=== PATIENT | male | born 1995 | race Caucasian/White ===

== ENCOUNTER 2019-12-30 15:17 | Inpatient (IN) | payer MEDICARE, SELFPAY ==
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
[2019-12-30 15:33] VITALS: BP 150/102; PULSE 86; RESP 18; TEMP 37; O2SAT 99; BMI 29.8
[2019-12-30 15:40] VITALS: BP 150/102; PULSE 86; RESP 18; TEMP 37; O2SAT 99
--- NOTE | 2019-12-30 15:55 | ED.PSYCH ---
HPI - Psych General Chief Complaint: Psychiatric Symptoms Stated Complaint: SI/HI Time Seen by Provider: 12/30/19 15:55 Source: patient, EMS and old records reviewed Limitations: other (agitated, delusional ) History of Present Illness MD complaint: anxiety and hallucinations Onset (ago): day(s) (few) Duration: constant History of same: Yes Exacerbating factors: none Context: not taking psychiatric medications Associated psychiatric symptoms: depression, racing thoughts, auditory hallucinations and delusions Associated symptoms: denies other symptoms Treatments prior to arrival: placed on mental health hold and other (already bed search) Related Data Allergies Allergy/AdvReac Type Severity Reaction Status Date / Time mold [MOLD] Allergy Unknown UNKNOWN Verified 12/30/19 16:01 paliperidone [From Invega] Allergy Unknown Verified 12/30/19 16:01 amoxicillin [AMOXICILLIN] AdvReac Severe ANAPHYLAXIS Verified 12/30/19 16:01 azithromycin [AZITHROMYCIN] AdvReac Severe ANAPHYLAXIS Verified 12/30/19 16:01 Review of Systems Review of Systems: ROS unable to be obtained due to agitation and patient very difficult to follow given delusions and rapid speech PMFSH Past Medical History Source: old records reviewed Medical History Anxiety HTN (hypertension) Schizophrenia Tinnitus Social History Social History Alcohol intake: unknown Smoking Status: Unknown if ever smoked Use of substances other than those prescribed or required for medical reasons: Unknown Advance Directives: No Advance Directives Information Provided: Yes Physical Exam Vital Signs: Vital Signs: Last Vital Signs Temp 98.6 F 12/30/19 15:40 Pulse 86 12/30/19 15:40 Resp 18 12/30/19 15:40 BP 150/102 H 12/30/19 15:40 Pulse Ox 99 12/30/19 15:40 Body Mass Index 29.8 Appearance: Alert. Oriented X3. agitated, loud speech, paranoid mild acute distress. Eyes: Pupils equal, round and reactive to light. ENT: Pharynx normal. Neck: Normal inspection. Neck supple. CVS: Normal heart rate and rhythm. Pulses normal. Respiratory: No respiratory distress. Abdomen: Soft and nontender. Skin: Skin warm and dry. Normal skin color. Normal skin turgor. Extremities: No lower extremity edema. No calf ttp Neuro: Oriented X 3. No motor deficit. No sensory deficit. could not participate in exam very paranoid but no deficitis Psych: + auditory hallucinations, + delusions, no SI/HI MDM - Psych MDM Narrative Medical decision making narrative: 24 yo male with schizophrenia here with delusions and paranoia - wants PRN ativan for anxiety, labs ordered, already a section 12 bedsearch, signed out to oncoming provider Restraints Face to Face Assessment: [] Discharge Plan Discharge Clinical Impression: Schizophrenia
--- NOTE | 2019-12-30 15:56 | PC.NURSE ---
cooperative with change person. hyper verbal, delusional. I want to file a malpractice suit against the hospital. Elizabeth coming from the [facility] as a chemical agent
[2019-12-30] MEDS: LORazepam 1 MG TABLET 2 MG PO (16:18)
--- NOTE | 2019-12-30 17:00 | PC.NURSE ---
On the phone, trying to call multiple television microsoft crm developer to file malpractice suits, Yes! My hoffman were moaning, and then they called 911 on me!
[2019-12-30 18:00] LABS: Basophils Absolute Auto 0.1 X10*3/uL (0.0-0.2); Basophils Percent Auto 0.7 % (0-2); Eosinophils Absolute Auto 0.5 X10*3/uL (0.0-0.4); Eosinophils Percent Auto 4.6 % (0-4); Hematocrit 47.7 % (42-52); Hemoglobin 15.2 g/dl (14.0-18.0); Imm Gran Abs Auto 0.02 X10*3/uL (0.00-0.03); Imm Gran Pct Auto 0.2 % (0.0-0.4); Lymphocytes Percent Auto 28.5 % (20-40); MANUAL DIFF FLAG NO; Mean Corpuscular HGB Conc 31.9 g/dl (31.0-36.0); Mean Corpuscular Hemoglobin 25.2 pg (27.0-33.0); Mean Corpuscular Volume 79.2 fL (80-98); Mean Platelet Volume 10.3 fL (9.4-12.4); Platelet Count 234 X10*3/uL (160-400); Red Blood Count 6.02 X10*6/uL (4.60-5.80); Red Cell Distribution Width 14.5 % (11.0-16.0); White Blood Count 10.6 X10*3/uL (4.8-10.8)
[2019-12-30] MEDS: Nicotine Polacrilex 2 MG GUM BUCCAL (18:02)
[2019-12-30 18:33] LABS: Ethanol < 10 mg/dL
[2019-12-30 18:36] LABS: Alanine Aminotransferase 35 U/L (0-40); Albumin Level 4.6 g/dL (3.5-5.0); Alkaline Phosphatase 87 U/L (39-117); Anion Gap 17 (12-20); Aspartate Amino Transferase 23 U/L (5-37); Bilirubin Direct 0.3 mg/dL (0.0-0.5); Bilirubin Total 0.8 mg/dL (0.0-1.0); Blood Urea Nitrogen 9 mg/dL (9-16); Calcium 9.2 mg/dL (8.4-10.2); Carbon Dioxide 23 mmol/L (22-29); Chloride 103 mmol/L (96-108); Creatinine Clr Calc Pharmacy 147.9; Estimated Glomerular Filt Rate > 60; Glucose Random 79 mg/dL (60-115); Potassium 4.1 mmol/l (3.3-5.1); Sodium 139 mmol/L (135-145); Total Protein 7.9 g/dL (6.5-8.0)
[2019-12-30 18:39] LABS: Valproate 6.7 mcg/mL (50.0-100.0)
--- NOTE | 2019-12-30 18:44 | PC.NURSE ---
Pt continues to be nonsensical, but cooperative.
[2019-12-30 19:16] LABS: Amphetamine Screen Urine Not Detected (Not Detect); Barbiturates, Urine Not Detected (Not Detect); Benzodiazepines Screen Urine POSITIVE (Not Detect); Cannabinoid Screen Urine POSITIVE (Not Detect); Cocaine Screen Urine Not Detected (Not Detect); Opiate Screen Urine Not Detected (Not Detect); Phencyclidine Screen Urine Not Detected (Not Detect)
--- NOTE | 2019-12-30 19:35 | PC.NURSE ---
Patient in hallway sitting in chair, talking to staff, denied distress, will continue to monitor.
--- NOTE | 2019-12-30 21:32 | PC.NURSE ---
Patient in bed appears sleeping, no distress observed/reported, MALCOLM and Cary called to complete medication reconciliation, per [facility] patient has not refilled Thorazine, Gabapentin, and Depakote since August 2019, will continue to monitor.
[2019-12-30 22:33] VITALS: BP 106/51; PULSE 66; RESP 16; TEMP 36.3; O2SAT 96
--- NOTE | 2019-12-30 23:30 | PC.NURSE ---
Patient in bed appears sleeping, no distress observed/reported, respiration +/=/non-labored bilaterally, will continue to monitor.
--- NOTE | 2019-12-31 02:18 | PC.NURSE ---
Patient in bed appears sleeping, no distress observed/reported, respiration +/=/non-labored bilaterally, will continue to monitor.
[2019-12-31] MEDS: LORazepam 1 MG TABLET 2 MG PO ×4 (02:39→23:35)
--- NOTE | 2019-12-31 03:03 | PC.NURSE ---
[facility] pharmacy called for third time, earlier attempts central system was down, spoke with Rito, medication list updated, patient last refilled his Thorazine 25 mg BID, Depakote [address] BID, Benztropine 1 mg BID, and Gabapentine 300 mg TID were last refilled on 09/18/2019 for a month supply. Patient psychotic at this time, tangential, little to no redirectability, PRN Ativan 2 mg administered as ordered. Will continue to monitor.
[2019-12-31 03:10] VITALS: BP 149/88; PULSE 74; RESP 17; TEMP 37; O2SAT 99
--- NOTE | 2019-12-31 04:35 | PC.NURSE ---
Patient in bed appears sleeping, no distress observed/reported, respiration +/=/non-labored bilaterally, will continue to monitor.
--- NOTE | 2019-12-31 06:27 | PC.NURSE ---
Patient out of room for bathroom use, requested another dose of ativan, patient made aware next Ativan 2 mg dose is due at at 0850 am, patient continues to presents delusional thought process, talks a lot of water boarding, parkinsonn and PTSD, Patient loud/hyperverbal/tangential but redirectable. Currently in bed sitting, will continue to monitor.
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
[2019-12-31 10:18] LABS: COVID-19 Test Negative (Negative); IDNOW Serial# 9DD0AD1C
--- NOTE | 2019-12-31 11:06 | MHC.CARE ---
Call from [facility] Behavioral Health Clinician, Kati Louie ([phone]). She would like to speak with SW assigned to him
[2019-12-31 11:36] VITALS: BP 135/81; PULSE 69; RESP 20; TEMP 36.1
--- NOTE | 2019-12-31 15:13 | PC.NURSE ---
report given to CHRIS Heller
--- NOTE | 2019-12-31 17:33 | PC.NURSE ---
Care team in to transfer pt to M5- pt cooperative w/ transfer, no concerns reported.
[2019-12-31 18:00] VITALS: BP 161/86; PULSE 75; TEMP 36.9
[2019-12-31] MEDS: Divalproex Sodium 500 MG TABLET.DR PO (19:55)
[2019-12-31] MEDS: Benztropine Mesylate 1 MG TABLET PO (19:55)
[2019-12-31] MEDS: Gabapentin 300 MG CAPSULE PO (19:55)
[2019-12-31 19:56] VITALS: BP 161/86; PULSE 75
[2019-12-31] MEDS: chlorproMAZINE HCl 25 MG TABLET PO (19:56)
[2019-12-31] MEDS: Propranolol HCL 10 MG TABLET PO (19:56)
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
[2020-01-01] MEDS: hydrOXYzine HCL 25 MG TABLET PO ×3 (00:17→23:51)
[2020-01-01 06:17] VITALS: BP 123/70; PULSE 57; RESP 16; TEMP 36.5; O2SAT 99
[2020-01-01 09:21] LABS: Estimated Average Glucose 100 mg/dL; Hemoglobin A1c % 5.1 %
[2020-01-01 09:31] LABS: Cholesterol 179 mg/dL; HDL Cholesterol 30 mg/dL; LDL Cholesterol Calculated 130 mg/dl; Triglycerides 98 mg/dL
[2020-01-01 10:34] VITALS: BP 123/70; PULSE 57
[2020-01-01] MEDS: chlorproMAZINE HCl 25 MG TABLET PO (10:34)
[2020-01-01] MEDS: Benztropine Mesylate 1 MG TABLET PO (10:34)
[2020-01-01] MEDS: Propranolol HCL 10 MG TABLET PO ×3 (10:34→21:48)
[2020-01-01] MEDS: Gabapentin 300 MG CAPSULE PO ×3 (10:34→21:47)
[2020-01-01] MEDS: Divalproex Sodium 500 MG TABLET.DR PO ×2 (10:35→21:48)
[2020-01-01] MEDS: LORazepam 1 MG TABLET 2 MG PO (10:40)
[2020-01-01] MEDS: Albuterol Sulfate 90 MCG 8 GM INHALER 2 PUFF INHALE ×3 (10:41→19:13)
[2020-01-01] MEDS: OLANZapine ODT 10 MG TAB.RAPDIS TRANSLINGU (13:35)
[2020-01-01] MEDS: LORazepam 1 MG TABLET PO ×4 (13:59→21:48)
[2020-01-01 14:56] VITALS: BP 155/88; PULSE 116
[2020-01-01 18:00] VITALS: BP 138/82; PULSE 123; TEMP 123; TEMP 50.5
[2020-01-01 21:48] VITALS: BP 138/82; PULSE 123
[2020-01-02] MEDS: Albuterol Sulfate 90 MCG 8 GM INHALER 2 PUFF INHALE ×3 (01:06→20:39)
[2020-01-02] MEDS: chlorproMAZINE HCl 25 MG TABLET 50 MG PO (01:07)
[2020-01-02] MEDS: Benztropine Mesylate 1 MG TABLET PO ×3 (01:10→20:31)
[2020-01-02] MEDS: LORazepam 1 MG TABLET PO ×6 (01:15→20:32)
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
[2020-01-02 06:35] VITALS: BP 131/68; PULSE 84; RESP 18; TEMP 36.3
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
[2020-01-02] MEDS: Propranolol HCL 10 MG TABLET PO ×2 (08:22→20:31)
[2020-01-02] MEDS: Gabapentin 300 MG CAPSULE PO ×3 (08:22→20:32)
[2020-01-02] MEDS: Divalproex Sodium 500 MG TABLET.DR PO ×2 (08:22→20:32)
[2020-01-02] MEDS: Nicotine Polacrilex 2 MG GUM BUCCAL (09:25)
[2020-01-02] MEDS: Acetaminophen 325 MG TABLET 650 MG PO (11:13)
--- NOTE | 2020-01-02 11:43 | HO.PSYCHPN ---
Subjective Subjective Date of Service: 01/02/20 Reason For Visit: psychosis Interim History: pt very psychotic and delusional; pacing in hallway; suspicious; making statements about being brought here under false pretense; illogical statements Medication Compliance: Intermittent Side effects from medications: No Attending Groups: No Review of Systems Review of Systems no changes Mental Status Exam Mental Status Exam Patient Appearance: Disheveled Patient Orientation: Person, Place, Time and Situation Patient Behavior: Talkative, Hyperactive, Restless, Belligerent, Swearing and Uncooperative Mood Description: Suspicious, Hostile and Labile Affect Description: Suspicious, Labile and Expansive Ability to Follow Directions: Fair Speech Pattern: Perseverating, Excessive, Loud and Pressured Diagnostics Vital Signs (24Hr): Vital Signs - 24 hr 01/01/20 14:56 01/01/20 18:00 01/01/20 21:48 Temperature 123 F H Pulse Rate 116 H 123 H 123 H Respiratory Rate Blood Pressure 155/88 H 138/82 138/82 01/02/20 06:35 Temperature 97.3 F Pulse Rate 84 Respiratory Rate 18 Blood Pressure 131/68 Body Mass Index 29.8 Labs Results: 12/30/19 17:52 12/30/19 17:52 Labs: Laboratory Results - last 48 hr 01/01/20 01/01/20 08:21 08:22 Estimat Average Glucose 100 Hemoglobin A1c % 5.1 Triglycerides 98 Cholesterol 179 LDL Cholesterol, Calc 130 HDL Cholesterol 30 Medications Medications Current Medications Generic Name Dose Route Start Last Admin Trade Name Freq PRN Reason Stop Dose Admin Acetaminophen 650 mg 12/31/19 15:24 01/02/20 11:13 Acetaminophen 325 Mg Tablet PO 650 mg Q6H PRN Administration Headache/Pain Mild Scale (1-3) Al Hydroxide/Mg Hydroxide 30 ml 12/31/19 15:24 Magnesium Hydrox/Alum Hydrox 30 Ml Oral.Susp PO Q6H PRN Heartburn/Nausea Albuterol Sulfate 2 puff 12/31/19 16:24 01/02/20 09:25 Albuterol Sulfate 90 Mcg 8 Gm Inhaler INHALE 2 puff Q4H PRN Administration Wheezing Benztropine Mesylate 1 mg 12/31/19 21:00 01/02/20 08:27 Benztropine Mesylate 1 Mg Tablet PO 1 mg BID ELIECER Administration Divalproex Sodium 500 mg 12/31/19 21:00 01/02/20 08:22 Divalproex Sodium 500 Mg Tablet.Dr PO 500 mg BID ELIECER Administration Gabapentin 300 mg 12/31/19 21:00 01/02/20 08:22 Gabapentin 300 Mg Capsule PO 300 mg TID ELIECER Administration Hydroxyzine HCl 25 mg 12/31/19 15:24 01/01/20 23:51 Hydroxyzine Hcl 25 Mg Tablet PO 25 mg BEDTIME PRN Administration Anxiety Hydroxyzine HCl 25 mg 12/31/19 16:24 01/01/20 21:49 Hydroxyzine Hcl 25 Mg Tablet PO 25 mg TID PRN Administration Anxiety Lorazepam 1 mg 01/01/20 10:45 01/02/20 11:13 Lorazepam 1 Mg Tablet PO 1 mg QID PRN Administration anxiety/restlessness Lorazepam 1 mg 01/01/20 11:05 01/02/20 08:23 Lorazepam 1 Mg Tablet PO 1 mg TID ELIECER Administration Magnesium Hydroxide 30 ml 12/31/19 15:24 Milk Of Magnesia 30 Ml Oral.Susp PO DAILY PRN Constipation Nicotine Polacrilex 2 mg 12/30/19 17:57 01/02/20 09:25 Nicotine Polacrilex 2 Mg Gum BUCCAL 2 mg ONCE PRN Administration Nicotine Cravings Olanzapine 10 mg 01/01/20 21:00 01/01/20 21:49 Olanzapine Odt 10 Mg Tab.Rapdis TRANSLINGU Not Given BEDTIME ELIECER Propranolol HCl 10 mg 12/31/19 21:00 01/02/20 08:22 Propranolol Hcl 10 Mg Tablet PO 10 mg TID ELIECER Administration Protocol Trazodone HCl 50 mg 12/31/19 15:24 Trazodone Hcl 50 Mg Tablet PO BEDTIME PRN Insomnia Allergies Allergies Allergy/AdvReac Type Severity Reaction Status Date / Time mold [MOLD] Allergy Unknown UNKNOWN Verified 12/30/19 16:01 paliperidone [From Invega] Allergy Unknown Verified 12/30/19 16:01 amoxicillin [AMOXICILLIN] AdvReac Severe ANAPHYLAXIS Verified 12/30/19 16:01 azithromycin [AZITHROMYCIN] AdvReac Severe ANAPHYLAXIS Verified 12/30/19 16:01 Assessment & Plan Assessment & Plan (1) Schizoaffective disorder: Qualifiers: Schizoaffective disorder type: bipolar Qualified Code(s): F25.0 - Schizoaffective disorder, bipolar type Status: Acute Code(s): F25.9 - Schizoaffective disorder, unspecified Assessment and Plan: Continue current treatment plan: q5 checks continue meds Greater than 50% of the session was spent on counseling and/or coordination of care
[2020-01-02 18:00] VITALS: BP 140/62; PULSE 72; TEMP 36.9
--- NOTE | 2020-01-02 18:24 | PC.NURSE ---
Elmer Trotter signed a 3-day notice on 01/02/20. The 3-day notice will be up on 01/06/20
[2020-01-02 20:31] VITALS: BP 140/62; PULSE 72
[2020-01-03] MEDS: hydrOXYzine HCL 25 MG TABLET PO ×4 (00:15→23:55)
[2020-01-03] MEDS: LORazepam 1 MG TABLET PO ×7 (00:15→22:28)
[2020-01-03 06:18] VITALS: BP 132/63; PULSE 70; RESP 18; TEMP 36.6; O2SAT 99
[2020-01-03] MEDS: Albuterol Sulfate 90 MCG 8 GM INHALER 2 PUFF INHALE ×2 (06:31→21:10)
[2020-01-03] MEDS: Acetaminophen 325 MG TABLET 650 MG PO ×2 (06:32→21:00)
[2020-01-03] MEDS: Benztropine Mesylate 1 MG TABLET PO ×2 (08:38→21:01)
[2020-01-03] MEDS: Propranolol HCL 10 MG TABLET PO ×3 (08:38→21:01)
[2020-01-03] MEDS: Gabapentin 300 MG CAPSULE PO ×3 (08:38→21:01)
[2020-01-03] MEDS: Divalproex Sodium 500 MG TABLET.DR PO ×2 (08:39→21:00)
--- NOTE | 2020-01-03 12:06 | HO.PSYCHPN ---
Subjective Subjective Date of Service: 01/03/20 Reason For Visit: psychosis Subjective Notes: Conditional Voluntary Interim History: Pt very psychotic and delusional; pt stating he only wnats thorazine;talking about being the victim of hacking conspiracy; pacing in hallway. Review of Systems Review of Systems no changes Mental Status Exam Mental Status Exam Patient Appearance: Disheveled Patient Orientation: Person, Place, Time and Situation Level of Consciousness: Restless Patient Behavior: Talkative, Hyperactive, Restless, Belligerent, Swearing and Uncooperative Mood Description: Suspicious, Hostile and Labile Affect Description: Suspicious, Labile and Expansive Ability to Follow Directions: Fair Speech Pattern: Perseverating, Excessive, Loud and Pressured Thought Process: Incoherent and Illogical Thought Content: positive for Perseveration, positive for Preoccupation and positive for Loose Associations Judgement: Good Diagnostics Vital Signs (24Hr): Vital Signs - 24 hr 01/02/20 18:00 01/02/20 20:31 01/03/20 06:18 Temperature 98.5 F 97.8 F Pulse Rate 72 72 70 Respiratory Rate 18 Blood Pressure 140/62 H 140/62 H 132/63 Pulse Oximetry 99 Body Mass Index 29.8 Labs Results: 12/30/19 17:52 12/30/19 17:52 Medications Medications Current Medications Generic Name Dose Route Start Last Admin Trade Name Alexq PRN Reason Stop Dose Admin Acetaminophen 650 mg 12/31/19 15:24 01/03/20 06:32 Acetaminophen 325 Mg Tablet PO 650 mg Q6H PRN Administration Headache/Pain Mild Scale (1-3) Al Hydroxide/Mg Hydroxide 30 ml 12/31/19 15:24 Magnesium Hydrox/Alum Hydrox 30 Ml Oral.Susp PO Q6H PRN Heartburn/Nausea Albuterol Sulfate 2 puff 12/31/19 16:24 01/03/20 06:31 Albuterol Sulfate 90 Mcg 8 Gm Inhaler INHALE 2 puff Q4H PRN Administration Wheezing Benztropine Mesylate 1 mg 12/31/19 21:00 01/03/20 08:38 Benztropine Mesylate 1 Mg Tablet PO 1 mg BID ELIECER Administration Divalproex Sodium 500 mg 12/31/19 21:00 01/03/20 08:39 Divalproex Sodium 500 Mg Tablet.Dr PO 500 mg BID ELIECER Administration Gabapentin 300 mg 12/31/19 21:00 01/03/20 08:38 Gabapentin 300 Mg Capsule PO 300 mg TID ELIECER Administration Hydroxyzine HCl 25 mg 12/31/19 15:24 01/03/20 08:45 Hydroxyzine Hcl 25 Mg Tablet PO 25 mg BEDTIME PRN Administration Anxiety Hydroxyzine HCl 25 mg 12/31/19 16:24 01/03/20 00:15 Hydroxyzine Hcl 25 Mg Tablet PO 25 mg TID PRN Administration Anxiety Lorazepam 1 mg 01/01/20 10:45 01/03/20 06:32 Lorazepam 1 Mg Tablet PO 1 mg QID PRN Administration anxiety/restlessness Lorazepam 1 mg 01/01/20 11:05 01/03/20 08:38 Lorazepam 1 Mg Tablet PO 1 mg TID ELIECER Administration Lurasidone HCl 40 mg 01/03/20 13:30 Lurasidone Hcl 40 Mg Tablet PO DAILY ELIECER Magnesium Hydroxide 30 ml 12/31/19 15:24 Milk Of Magnesia 30 Ml Oral.Susp PO DAILY PRN Constipation Nicotine Polacrilex 2 mg 12/30/19 17:57 01/02/20 09:25 Nicotine Polacrilex 2 Mg Gum BUCCAL 2 mg ONCE PRN Administration Nicotine Cravings Nicotine Polacrilex 4 mg 01/02/20 12:16 01/03/20 00:40 Nicotine Polacrilex 4 Mg Lozenge BUCCAL 4 mg Q2H PRN Administration Nicotine Cravings Olanzapine 10 mg 01/01/20 21:00 01/02/20 22:04 Olanzapine Odt 10 Mg Tab.Rapdis TRANSLINGU Not Given BEDTIME [facility] Propranolol HCl 10 mg 12/31/19 21:00 01/03/20 08:38 Propranolol Hcl 10 Mg Tablet PO 10 mg TID ELIECER Administration Protocol Trazodone HCl 50 mg 12/31/19 15:24 Trazodone Hcl 50 Mg Tablet PO BEDTIME PRN Insomnia Allergies Allergies Allergy/AdvReac Type Severity Reaction Status Date / Time mold [MOLD] Allergy Unknown UNKNOWN Verified 12/30/19 16:01 paliperidone [From Invega] Allergy Unknown Verified 12/30/19 16:01 amoxicillin [AMOXICILLIN] AdvReac Severe ANAPHYLAXIS Verified 12/30/19 16:01 azithromycin [AZITHROMYCIN] AdvReac Severe ANAPHYLAXIS Verified 12/30/19 16:01 Assessment & Plan Assessment & Plan (1) Schizoaffective disorder: Qualifiers: Schizoaffective disorder type: bipolar Qualified Code(s): F25.0 - Schizoaffective disorder, bipolar type Status: Acute Code(s): F25.9 - Schizoaffective disorder, unspecified Assessment and Plan: Continue current treatment plan: trial of Latuda- encourage patient to take Latuda or zydis. q5 checks continue meds Greater than 50% of the session was spent on counseling and/or coordination of care Patient educated on: medication risk/benefits Informed Consent: does not understand (lacking insight to need for medication) Reason for contiued inpatient stay Substantial Risk for: inability to function and med/psych decompensation
[2020-01-03 16:00] VITALS: BP 134/60; PULSE 72
[2020-01-03 21:01] VITALS: BP 135/78; PULSE 77
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
[2020-01-04] MEDS: hydrOXYzine HCL 25 MG TABLET PO ×2 (01:33→16:20)
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
[2020-01-04 06:30] VITALS: BP 122/67; PULSE 72; RESP 18; TEMP 36.7
[2020-01-04] MEDS: Albuterol Sulfate 90 MCG 8 GM INHALER 2 PUFF INHALE ×4 (06:44→19:19)
[2020-01-04] MEDS: LORazepam 1 MG TABLET PO ×6 (06:44→20:51)
[2020-01-04 10:37] VITALS: BP 122/67; PULSE 72
[2020-01-04] MEDS: Divalproex Sodium 500 MG TABLET.DR PO ×2 (10:37→20:51)
[2020-01-04] MEDS: Gabapentin 300 MG CAPSULE PO ×3 (10:37→20:50)
[2020-01-04] MEDS: Propranolol HCL 10 MG TABLET PO ×3 (10:37→20:58)
[2020-01-04] MEDS: Benztropine Mesylate 1 MG TABLET PO ×2 (10:37→20:51)
--- NOTE | 2020-01-04 13:00 | ECG_ITS ---
Test Reason : CHECK QTC Blood Pressure : / mmHG Vent. Rate : 108 BPM Atrial Rate : 108 BPM P-R Int : 146 ms QRS Dur : 092 ms QT Int : 312 ms P-R-T Axes : 054 088 043 degrees QTc Int : 418 ms Sinus tachycardia Otherwise normal ECG When compared with ECG of 09-SEP-2019 14:33, Vent. rate has increased BY 41 BPM Referred By: Piyush Lizarraga Electronically Signed By:ESTELITA SALAZAR MD
[2020-01-04] MEDS: chlorproMAZINE HCl 25 MG TABLET 50 MG PO ×2 (13:11→20:50)
[2020-01-04] MEDS: Acetaminophen 325 MG TABLET 650 MG PO ×2 (14:48→20:59)
[2020-01-04 14:49] VITALS: PULSE 100
[2020-01-04 20:58] VITALS: BP 130/80; PULSE 108
[2020-01-04 21:00] VITALS: BP 130/80; PULSE 108; TEMP 39.2
[2020-01-04 22:20] VITALS: TEMP 38.4
[2020-01-04 23:24] LABS: MANUAL DIFF FLAG NO
[2020-01-04 23:27] LABS: Basophils Percent Auto 0.2 % (0-2); Eosinophils Percent Auto 0.1 % (0-4); Hematocrit 41.2 % (42-52); Hemoglobin 13.1 g/dl (14.0-18.0); Imm Gran Abs Auto 0.04 X10*3/uL (0.00-0.03); Imm Gran Pct Auto 0.4 % (0.0-0.4); Lymphocytes Absolute Auto 1.4 X10*3/uL (1.2-4.9); Lymphocytes Percent Auto 12.9 % (20-40); Mean Corpuscular HGB Conc 31.8 g/dl (31.0-36.0); Mean Corpuscular Hemoglobin 25.3 pg (27.0-33.0); Mean Corpuscular Volume 79.7 fL (80-98); Mean Platelet Volume 11.3 fL (9.4-12.4); Monocytes Absolute Auto 1.4 X10*3/uL (0.1-1.2); Monocytes Percent Auto 12.8 % (2-11); Neutrophils Absolute Auto 7.8 X10*3/uL (2.0-8.3); Neutrophils Percent Auto 73.6 % (45-73); Platelet Count 169 X10*3/uL (160-400); Red Blood Count 5.17 X10*6/uL (4.60-5.80); Red Cell Distribution Width 14.3 % (11.0-16.0); White Blood Count 10.6 X10*3/uL (4.8-10.8)
[2020-01-05] VITALS (9 sets, daily range): BP systolic 133–135; BP diastolic 63–75; PULSE 96–112; TEMP 38–39.1; O2SAT 96
--- NOTE | 2020-01-05 | XR_ITS ---
EXAMINATION: XR CHEST CLINICAL INFORMATION: Fever with cough COMPARISON: None TECHNIQUE: Frontal view of the chest was obtained. FINDINGS: The lungs are well expanded. There is no focal consolidation, edema, or effusion. No pneumothorax. The cardiomediastinal silhouette is within normal limits. No acute osseous abnormality. XR/XR chest 1V IMPRESSION: No acute pulmonary finding.
[2020-01-05 01:48] LABS: COVID-19 Test Negative (Negative)
[2020-01-05] MEDS: Divalproex Sodium 500 MG TABLET.DR PO ×2 (09:22→19:50)
[2020-01-05] MEDS: LORazepam 1 MG TABLET PO ×3 (09:23→19:51)
[2020-01-05] MEDS: chlorproMAZINE HCl 100 MG TABLET PO ×2 (09:27→19:50)
[2020-01-05] MEDS: Gabapentin 300 MG CAPSULE PO ×3 (09:28→19:50)
[2020-01-05] MEDS: Propranolol HCL 10 MG TABLET PO ×3 (09:28→19:51)
[2020-01-05] MEDS: Benztropine Mesylate 1 MG TABLET PO ×2 (09:28→19:51)
[2020-01-05] MEDS: Acetaminophen 325 MG TABLET 650 MG PO ×3 (09:47→21:57)
[2020-01-05] MEDS: Albuterol Sulfate 90 MCG 8 GM INHALER 2 PUFF INHALE ×2 (09:50→20:01)
[2020-01-05 12:21] LABS: Glucose Urine UA NEG (NEG); Leukocyte Esterase Urine NEG (NEG); Nitrite Urine NEG (NEG); Specific Gravity - Urine 1.015 (1.005-1.025); Urine Blood TRACE (NEG); Urine Ketones 15 MG/DL (NEG); Urine Protein NEG (NEG-TRACE)
[2020-01-05 12:26] LABS: Appearance Urine HAZY; Color Urine YELLOW
[2020-01-05 14:19] LABS: Mucus Urine TRACE /LPF; RBC Urine 0-2 /HPF (0); Squamous Epithelial Cell Urine 1+ /LPF; WBC Urine 0-2 /HPF (0-4)
--- NOTE | 2020-01-05 16:20 | HO.PSYCHPN ---
Subjective Subjective Reason For Visit: psychosis Interim History: Pt very psychotic and delusional; pt stating he only wnats thorazine;talking about being the victim of hacking conspiracy; pacing in hallway. Today has fever. Hosp consult requested . XRC neg. COVID neg. UA neg Spent most day in bed w fever. Thorazine increased to 100mg,. Review of Systems Constitutional: Reports fever(s) Mental Status Exam Mental Status Exam Patient Appearance: Disheveled Patient Orientation: Person, Place, Time and Situation Level of Consciousness: Restless Patient Behavior: Talkative, Hyperactive, Restless, Belligerent, Swearing and Uncooperative Mood Description: Suspicious, Hostile and Labile Affect Description: Suspicious, Labile and Expansive Ability to Follow Directions: Fair Speech Pattern: Perseverating, Excessive, Loud and Pressured Diagnostics Vital Signs (24Hr): Vital Signs - 24 hr 01/04/20 20:58 01/04/20 21:00 01/04/20 22:20 Temperature 102.5 F H 101.1 F H Pulse Rate 108 H 108 H Blood Pressure 130/80 130/80 Pulse Oximetry 01/05/20 09:28 01/05/20 09:39 01/05/20 12:06 Temperature 102.4 F H 100.6 F H Pulse Rate 112 H 112 H Blood Pressure 134/64 134/64 Pulse Oximetry 96 01/05/20 14:49 01/05/20 14:54 Temperature 100.4 F Pulse Rate 96 96 Blood Pressure 135/63 135/63 Pulse Oximetry Body Mass Index 29.8 Labs Results: 01/04/20 23:09 12/30/19 17:52 Labs: Laboratory Results - last 48 hr 01/04/20 01/04/20 01/05/20 23:09 23:09 00:12 WBC 10.6 RBC 5.17 Hgb 13.1 L Hct 41.2 L MCV 79.7 L MCH 25.3 L MCHC 31.8 RDW 14.3 Plt Count 169 D MPV 11.3 Immature Gran % (Auto) 0.4 Neut % (Auto) 73.6 H Lymph % (Auto) 12.9 L Taylor % (Auto) 12.8 H Eos % (Auto) 0.1 Baso % (Auto) 0.2 Lymph # (Auto) 1.4 Taylor # (Auto) 1.4 H Eos # (Auto) 0.0 Baso # (Auto) 0.0 Abs Immat Gran (auto) 0.04 H Absolute Neuts (auto) 7.8 Absolute Nucleated RBC 0.000 Nucleated RBC % (auto) 0.0 Total Creatine Kinase 134 Urine Color Urine Appearance Urine pH Ur Specific [place] Urine Protein Urine Glucose (UA) Urine Ketones Urine Blood Urine Nitrite Ur Leukocyte Esterase Urine RBC Urine WBC Ur Squamous Epith Cells Urine Bacteria Urine Mucus COVID-19 (PATTI) Cancelled COVID-19 Clin Com Cancelled 01/05/20 01/05/20 01:06 11:50 WBC RBC Hgb Hct MCV MCH MCHC RDW Plt Count MPV Immature Gran % (Auto) Neut % (Auto) Lymph % (Auto) Taylor % (Auto) Eos % (Auto) Baso % (Auto) Lymph # (Auto) Taylor # (Auto) Eos # (Auto) Baso # (Auto) Abs Immat Gran (auto) Absolute Neuts (auto) Absolute Nucleated RBC Nucleated RBC % (auto) Total Creatine Kinase Urine Color YELLOW Urine Appearance HAZY Urine pH 6.0 Ur Specific [place] 1.015 Urine Protein NEG Urine Glucose (UA) NEG Urine Ketones 15 Urine Blood TRACE Urine Nitrite NEG Ur Leukocyte Esterase NEG Urine RBC 0-2 Urine WBC 0-2 Ur Squamous Epith Cells 1+ Urine Bacteria NONE Urine Mucus TRACE COVID-19 (PATTI) Negative COVID-19 Clin Com See Note Imaging Radiology Impressions: ITS Impressions Chest X-Ray 01/05/20 00:00 IMPRESSION: No acute pulmonary finding. Medications Medications Current Medications Generic Name Dose Route Start Last Admin Trade Name Freq PRN Reason Stop Dose Admin Acetaminophen 650 mg 12/31/19 15:24 01/05/20 15:58 Acetaminophen 325 Mg Tablet PO 650 mg Q6H PRN Administration Headache/Pain Mild Scale (1-3) Al Hydroxide/Mg Hydroxide 30 ml 12/31/19 15:24 Magnesium Hydrox/Alum Hydrox 30 Ml Oral.Susp PO Q6H PRN Heartburn/Nausea Albuterol Sulfate 2 puff 12/31/19 16:24 01/05/20 09:50 Albuterol Sulfate 90 Mcg 8 Gm Inhaler INHALE 2 puff Q4H PRN Administration Wheezing Benztropine Mesylate 1 mg 12/31/19 21:00 01/05/20 09:28 Benztropine Mesylate 1 Mg Tablet PO 1 mg BID ELIECER Administration Chlorpromazine HCl 100 mg 01/05/20 09:00 01/05/20 09:27 Chlorpromazine Hcl 100 Mg Tablet PO 100 mg BID ELIECER Administration Divalproex Sodium 500 mg 12/31/19 21:00 01/05/20 09:22 Divalproex Sodium 500 Mg Tablet.Dr PO 500 mg BID ELIECER Administration Gabapentin 300 mg 12/31/19 21:00 01/05/20 14:49 Gabapentin 300 Mg Capsule PO 300 mg TID ELIECER Administration Hydroxyzine HCl 25 mg 12/31/19 16:24 01/04/20 16:20 Hydroxyzine Hcl 25 Mg Tablet PO 25 mg TID PRN Administration Anxiety Lorazepam 1 mg 01/01/20 10:45 01/04/20 19:08 Lorazepam 1 Mg Tablet PO 1 mg QID PRN Administration anxiety/restlessness Lorazepam 1 mg 01/01/20 11:05 01/05/20 14:48 Lorazepam 1 Mg Tablet PO 1 mg TID ELIECER Administration Magnesium Hydroxide 30 ml 12/31/19 15:24 Milk Of Magnesia 30 Ml Oral.Susp PO DAILY PRN Constipation Nicotine Polacrilex 2 mg 12/30/19 17:57 01/02/20 09:25 Nicotine Polacrilex 2 Mg Gum BUCCAL 2 mg ONCE PRN Administration Nicotine Cravings Nicotine Polacrilex 4 mg 01/02/20 12:16 01/04/20 21:05 Nicotine Polacrilex 4 Mg Lozenge BUCCAL 4 mg Q2H PRN Administration Nicotine Cravings Propranolol HCl 10 mg 12/31/19 21:00 01/05/20 14:49 Propranolol Hcl 10 Mg Tablet PO 10 mg TID ELIECER Administration Protocol Trazodone HCl 50 mg 12/31/19 15:24 Trazodone Hcl 50 Mg Tablet PO BEDTIME PRN Insomnia Allergies Allergies Allergy/AdvReac Type Severity Reaction Status Date / Time mold [MOLD] Allergy Unknown UNKNOWN Verified 12/30/19 16:01 paliperidone [From Invega] Allergy Unknown Verified 12/30/19 16:01 amoxicillin [AMOXICILLIN] AdvReac Severe ANAPHYLAXIS Verified 12/30/19 16:01 azithromycin [AZITHROMYCIN] AdvReac Severe ANAPHYLAXIS Verified 12/30/19 16:01 Assessment & Plan Assessment & Plan (1) Schizoaffective disorder: Qualifiers: Schizoaffective disorder type: bipolar Qualified Code(s): F25.0 - Schizoaffective disorder, bipolar type Status: Acute Code(s): F25.9 - Schizoaffective disorder, unspecified Assessment and Plan: Continue current treatment plan: Restart Thorazine. DC OLZ and Latuda. Check EKG q5 checks continue meds Greater than 50% of the session was spent on counseling and/or coordination of care
[2020-01-06] VITALS (10 sets, daily range): BP systolic 113–137; BP diastolic 56–71; PULSE 80–100; RESP 16–18; TEMP 36.7–38.1; O2SAT 95–98
--- NOTE | 2020-01-06 04:48 | HO.PSYCHPN ---
Subjective Subjective Reason For Visit: psychosis Interim History: Pt very psychotic and delusional; pt stating he only wnats thorazine;talking about being the victim of hacking conspiracy; pacing in hallway. Today has fever. Hosp consult requested . XRC neg. COVID neg. UA neg Spent most day in bed w fever. Thorazine increased to 100mg,. Sedation noted w meds. Will optimize med regimen. Appreciate hosp/ID consult Review of Systems Review of Systems Gen: + fever HEENT: complaint of tonsil hurs Resp: no sob, no cough CV: no chest, no YEH, no leg edema GI: No n/v, no abd pain Neuro: drowsy, easily aroused Muscular sck: No back pain Mental Status Exam Mental Status Exam Patient Appearance: Disheveled Patient Orientation: Person, Place, Time and Situation Level of Consciousness: Restless Patient Behavior: Talkative, Hyperactive, Restless, Belligerent, Swearing and Uncooperative Mood Description: Suspicious, Hostile and Labile Affect Description: Suspicious, Labile and Expansive Ability to Follow Directions: Fair Speech Pattern: Perseverating, Excessive, Loud and Pressured Diagnostics Vital Signs (24Hr): Vital Signs - 24 hr 01/05/20 09:28 01/05/20 09:39 01/05/20 12:06 Temperature 102.4 F H 100.6 F H Pulse Rate 112 H 112 H Blood Pressure 134/64 134/64 Pulse Oximetry 96 01/05/20 14:49 01/05/20 14:54 01/05/20 17:18 Temperature 100.4 F 101.4 F H Pulse Rate 96 96 Blood Pressure 135/63 135/63 Pulse Oximetry 01/05/20 18:00 01/05/20 19:51 01/05/20 20:07 Temperature 100.4 F Pulse Rate 101 H 101 H Blood Pressure 133/75 133/75 Pulse Oximetry Body Mass Index 29.8 Labs Results: 01/06/20 13:30 01/06/20 13:31 Labs: Laboratory Results - last 48 hr 01/04/20 01/04/20 01/05/20 23:09 23:09 00:12 WBC 10.6 RBC 5.17 Hgb 13.1 L Hct 41.2 L MCV 79.7 L MCH 25.3 L MCHC 31.8 RDW 14.3 Plt Count 169 D MPV 11.3 Immature Gran % (Auto) 0.4 Neut % (Auto) 73.6 H Lymph % (Auto) 12.9 L [place] % (Auto) 12.8 H Eos % (Auto) 0.1 Baso % (Auto) 0.2 Lymph # (Auto) 1.4 [place] # (Auto) 1.4 H Eos # (Auto) 0.0 Baso # (Auto) 0.0 Abs Immat Gran (auto) 0.04 H Absolute Neuts (auto) 7.8 Absolute Nucleated RBC 0.000 Nucleated RBC % (auto) 0.0 Total Creatine Kinase 134 Urine Color Urine Appearance Urine pH Ur Specific [place] Urine Protein Urine Glucose (UA) Urine Ketones Urine Blood Urine Nitrite Ur Leukocyte Esterase Urine RBC Urine WBC Ur Squamous Epith Cells Urine Bacteria Urine Mucus COVID-19 (PATTI) Cancelled COVID-19 Clin Com Cancelled 01/05/20 01/05/20 01:06 11:50 WBC RBC Hgb Hct MCV MCH MCHC RDW Plt Count MPV Immature Gran % (Auto) Neut % (Auto) Lymph % (Auto) [place] % (Auto) Eos % (Auto) Baso % (Auto) Lymph # (Auto) [place] # (Auto) Eos # (Auto) Baso # (Auto) Abs Immat Gran (auto) Absolute Neuts (auto) Absolute Nucleated RBC Nucleated RBC % (auto) Total Creatine Kinase Urine Color YELLOW Urine Appearance HAZY Urine pH 6.0 Ur Specific [place] 1.015 Urine Protein NEG Urine Glucose (UA) NEG Urine Ketones 15 Urine Blood TRACE Urine Nitrite NEG Ur Leukocyte Esterase NEG Urine RBC 0-2 Urine WBC 0-2 Ur Squamous Epith Cells 1+ Urine Bacteria NONE Urine Mucus TRACE COVID-19 (PATTI) Negative COVID-19 Clin Com See Note Imaging Radiology Impressions: ITS Impressions Chest X-Ray 01/05/20 00:00 IMPRESSION: No acute pulmonary finding. Medications Medications Current Medications Generic Name Dose Route Start Last Admin Trade Name Freq PRN Reason Stop Dose Admin Acetaminophen 650 mg 12/31/19 15:24 01/05/20 21:57 Acetaminophen 325 Mg Tablet PO 650 mg Q6H PRN Administration Headache/Pain Mild Scale (1-3) Al Hydroxide/Mg Hydroxide 30 ml 12/31/19 15:24 Magnesium Hydrox/Alum Hydrox 30 Ml Oral.Susp PO Q6H PRN Heartburn/Nausea Albuterol Sulfate 2 puff 12/31/19 16:24 01/05/20 20:01 Albuterol Sulfate 90 Mcg 8 Gm Inhaler INHALE 2 puff Q4H PRN Administration Wheezing Benztropine Mesylate 1 mg 12/31/19 21:00 01/05/20 19:51 Benztropine Mesylate 1 Mg Tablet PO 1 mg BID ELIECER Administration Chlorpromazine HCl 100 mg 01/05/20 09:00 01/05/20 19:50 Chlorpromazine Hcl 100 Mg Tablet PO 100 mg BID ELIECER Administration Divalproex Sodium 500 mg 12/31/19 21:00 01/05/20 19:50 Divalproex Sodium 500 Mg Tablet.Dr PO 500 mg BID ELIECER Administration Gabapentin 300 mg 12/31/19 21:00 01/05/20 19:50 Gabapentin 300 Mg Capsule PO 300 mg TID ELIECER Administration Hydroxyzine HCl 25 mg 12/31/19 16:24 01/04/20 16:20 Hydroxyzine Hcl 25 Mg Tablet PO 25 mg TID PRN Administration Anxiety Lorazepam 1 mg 01/01/20 10:45 01/04/20 19:08 Lorazepam 1 Mg Tablet PO 1 mg QID PRN Administration anxiety/restlessness Lorazepam 1 mg 01/01/20 11:05 01/05/20 19:51 Lorazepam 1 Mg Tablet PO 1 mg TID ELIECER Administration Magnesium Hydroxide 30 ml 12/31/19 15:24 Milk Of Magnesia 30 Ml Oral.Susp PO DAILY PRN Constipation Nicotine Polacrilex 2 mg 12/30/19 17:57 01/02/20 09:25 Nicotine Polacrilex 2 Mg Gum BUCCAL 2 mg ONCE PRN Administration Nicotine Cravings Nicotine Polacrilex 4 mg 01/02/20 12:16 01/04/20 21:05 Nicotine Polacrilex 4 Mg Lozenge BUCCAL 4 mg Q2H PRN Administration Nicotine Cravings Propranolol HCl 10 mg 12/31/19 21:00 01/05/20 19:51 Propranolol Hcl 10 Mg Tablet PO 10 mg TID ELIECER Administration Protocol Pseudoephedrine HCl 30 mg 01/05/20 21:28 Pseudoephedrine Hcl 30 Mg Tablet PO Q6H PRN congestion Trazodone HCl 50 mg 12/31/19 15:24 Trazodone Hcl 50 Mg Tablet PO BEDTIME PRN Insomnia Allergies Allergies Allergy/AdvReac Type Severity Reaction Status Date / Time mold [MOLD] Allergy Unknown UNKNOWN Verified 12/30/19 16:01 paliperidone [From Invega] Allergy Unknown Verified 12/30/19 16:01 amoxicillin [AMOXICILLIN] AdvReac Severe ANAPHYLAXIS Verified 12/30/19 16:01 azithromycin [AZITHROMYCIN] AdvReac Severe ANAPHYLAXIS Verified 12/30/19 16:01 Assessment & Plan Assessment & Plan (1) FUO (fever of unknown origin): Status: Acute Code(s): R50.9 - Fever, unspecified Assessment and Plan: Check HIV Check blood cultures Hold antibiotics for now (2) Schizoaffective disorder: Qualifiers: Schizoaffective disorder type: bipolar Qualified Code(s): F25.0 - Schizoaffective disorder, bipolar type Status: Acute Code(s): F25.9 - Schizoaffective disorder, unspecified Assessment and Plan: Ct Thorazine/VPA/Gabapentin Greater than 50% of the session was spent on counseling and/or coordination of care
[2020-01-06] MEDS: Acetaminophen 325 MG TABLET 650 MG PO ×3 (06:31→21:04)
[2020-01-06] MEDS: Pseudoephedrine HCL 30 MG TABLET PO (06:35)
[2020-01-06] MEDS: Albuterol Sulfate 90 MCG 8 GM INHALER 2 PUFF INHALE ×3 (06:37→21:01)
[2020-01-06] MEDS: Benztropine Mesylate 1 MG TABLET PO ×2 (08:35→20:44)
[2020-01-06] MEDS: Gabapentin 300 MG CAPSULE PO ×3 (08:35→20:44)
[2020-01-06] MEDS: Divalproex Sodium 500 MG TABLET.DR PO (08:35)
[2020-01-06] MEDS: chlorproMAZINE HCl 100 MG TABLET PO ×2 (08:35→20:43)
[2020-01-06] MEDS: LORazepam 1 MG TABLET PO ×2 (08:36→16:10)
[2020-01-06] MEDS: Propranolol HCL 10 MG TABLET PO ×3 (08:36→20:59)
--- NOTE | 2020-01-06 11:51 | PM.IMCN ---
History of Present Illness Data of Consult Service Date: 01/06/20 Requesting physician: Piyush Lizarraga Primary Care Provider: Yue Meadows MD HPI Reason for consult: Fever 24 year old male with Schizophrenia, anxiety, HTN, and history o Tininutis. He is presently admitted to inpatient Psych due to decompensated Schizophrenia and meds are being adjusted. My team is asked to see patient because of fever. On reviewing the record, I note that he has a temp of up to 102 and work up has included a negative covid, negative UA and negative chest Xray. Unfortunately no blood culture has been done. Patient was rather drowsy from meds at the time of this assessment and reported no cough, no agustina ache. He has no rash. His temp on 01/04/20 was 102 and today 01/06/20 of 100. He denies intravenous drug use Review of Systems Review of Systems: Gen: + fever HEENT: complaint of tonsil hurs Resp: no sob, no cough CV: no chest, no YEH, no leg edema GI: No n/v, no abd pain Neuro: drowsy, easily aroused Muscular sck: No back pain PMFSH Medical History Anxiety HTN (hypertension) Schizophrenia Tinnitus Functional capacity: independent ambulation Family history: reviewed and not pertinent Social History Household Members: Family Housing: House Do you presently have visiting nurse or other home services: Yes Alcohol intake: unknown Smoking Status: Current some day smoker Tobacco Type: Cigarette Packs Per Day: 1 Cigarettes Per Day: 20.0 Years Smoked: 9 Smoked in Last 30 Days: Yes Smoking Quit Date: None Patient Interested in Nicotine Replacement: Yes Patient Given Instructions on How to Stop Smoking: Yes Date Education Initiated: 12/31/19 Second Hand Smoke Exposure: Yes Use of substances other than those prescribed or required for medical reasons: No Substance Use Type: Marijuana Currently Displaying Signs/Symptoms of Drug Intoxication Withdrawal: No Advance Directives: No Advance Directives Information Provided: Yes Do you have thoughts of harming others: None Do you have a plan to hurt others: No Plan service: No Sexual orientation: Straight/Heterosexual Meds Allergies Allergy/AdvReac Type Severity Reaction Status Date / Time mold [MOLD] Allergy Unknown UNKNOWN Verified 12/30/19 16:01 paliperidone [From Invega] Allergy Unknown Verified 12/30/19 16:01 amoxicillin [AMOXICILLIN] AdvReac Severe ANAPHYLAXIS Verified 12/30/19 16:01 azithromycin [AZITHROMYCIN] AdvReac Severe ANAPHYLAXIS Verified 12/30/19 16:01 Home Medications Medication Instructions Recorded Confirmed Type albuterol sulfate [ProAir HFA] 2 puff INHALATION Q4-6H PRN 12/30/19 12/30/19 History hydroxyzine HCl 25 mg PO TID PRN 12/30/19 12/30/19 History benztropine 1 mg PO BID 12/31/19 12/31/19 History chlorpromazine 25 mg PO BID 12/31/19 12/31/19 History divalproex [Depakote] 500 mg PO BID 12/31/19 12/31/19 History gabapentin 300 mg PO TID 12/31/19 12/31/19 History propranolol 10 mg PO TID 12/31/19 12/31/19 History Physical Exam Vital Signs and Narrative: Vital Signs: Last Vital Signs Temp 100.5 F H 01/06/20 08:28 Pulse 100 01/06/20 08:36 Resp 18 01/06/20 06:20 BP 126/71 01/06/20 08:36 Pulse Ox 95 01/06/20 08:28 Body Mass Index 29.8 Constitutional drowsy but arousable Neck Supple, No lymphadenopathy HEENT oral mucosa was very dry, including the tonsil which were not swollen and no erythema noted Cardiovascular RRR, No M/R/G, S1 S2, No S3 S4, No pedal edema Respiratory Lungs clear, No respiratory distress Gastrointestinal Non tender, Non-distended Skin No rash Neurological Alert & oriented x3 Psychological very drowsy Results Labs CBC and Chem 7: 01/04/20 23:09 12/30/19 17:52 Labs: Laboratory Results - last 24 hr 01/05/20 11:50 Urine Color YELLOW Urine Appearance HAZY Urine pH 6.0 Ur Specific [place] 1.015 Urine Protein NEG Urine Glucose (UA) NEG Urine Ketones 15 Urine Blood TRACE Urine Nitrite NEG Ur Leukocyte Esterase NEG Urine RBC 0-2 Urine WBC 0-2 Ur Squamous Epith Cells 1+ Urine Bacteria NONE Urine Mucus TRACE Assessment and Plan (1) FUO (fever of unknown origin): Status: Acute 24 year admitted to Psych for schizophrenia treatment and is having fever of unknown source. Fever of Unknown orgin. W/u so far negative covd x2, negative, UA, negative chest xray, he should have blood cultures done. Will check for strep throat since he says his tonsils hurt, also check for viral respiratory panell, echo to rule endocarditis and if fever persists ID consult.
[2020-01-06 13:58] LABS: D Dimer 429 NG/ML
[2020-01-06 13:59] LABS: Eosinophils Percent Auto 1.2 % (0-4); Hemoglobin 13.4 g/dl (14.0-18.0); MANUAL DIFF FLAG SCAN; PLT CLUMP 1; Red Cell Distribution Width 14.3 % (11.0-16.0); SCAN SMEAR FLAG 1
[2020-01-06 14:01] LABS: Basophils Percent Auto 0.2 % (0-2); Eosinophils Absolute Auto 0.2 X10*3/uL (0.0-0.4); Hematocrit 41.5 % (42-52); Imm Gran Abs Auto 0.03 X10*3/uL (0.00-0.03); Imm Gran Pct Auto 0.2 % (0.0-0.4); Lymphocytes Absolute Auto 1.8 X10*3/uL (1.2-4.9); Lymphocytes Percent Auto 14.8 % (20-40); Mean Corpuscular HGB Conc 32.3 g/dl (31.0-36.0); Mean Corpuscular Hemoglobin 25.7 pg (27.0-33.0); Mean Corpuscular Volume 79.7 fL (80-98); Mean Platelet Volume 12.1 fL (9.4-12.4); Monocytes Absolute Auto 1.8 X10*3/uL (0.1-1.2); Monocytes Percent Auto 14.6 % (2-11); Neutrophils Absolute Auto 8.4 X10*3/uL (2.0-8.3); Platelet Count 121 X10*3/uL (160-400); Red Blood Count 5.21 X10*6/uL (4.60-5.80); White Blood Count 12.2 X10*3/uL (4.8-10.8)
--- NOTE | 2020-01-06 14:23 | PC.NURSE ---
Addendum entered by Abiola Corbin RN 01/06/20 14:48: TEMP 100.5 AT 0828, TEMP 98.9 ORALLY AT 1222, 98.8 AT 1223 TEMPORAL, 98.7 AT 1342, 99.0 AT 1421 ORALLY. Original Note: DR AVILA AND DR HUNTLEY UP THIS SHIFT TO EVALUATE DUE TO INCREASED TEMPS STARTING 01/04/20. BLOOD WORK ORDERED AND OBTAINED, RESULTS PENDING. TEMP DECREASING THIS SHIFT, RECEIVED TYLENOL 650 MG PO AT END OF PRIOR SHIFT FOR TEMP OF 100.3 AT 0630. TEMP 100.5 AT 0828 WITH DECREASE WITH EVERY CHECK AFTER THIS. TEMP AT 1420 99.0 ORALLY. TYLENOL 650 MG PO GIVEN AT 1420.
[2020-01-06 14:32] LABS: C Reactive Protein 26.91 mg/dL (< or = 0.50); Glucose Random 111 mg/dL (60-115); Lactate Dehydrogenase 186 U/L (118-273); Magnesium 2.3 mg/dL (1.6-2.6); Phosphorus 2.8 mg/dL (2.7-4.5)
[2020-01-06 14:37] LABS: SLIDE REVIEW VERIFIED
[2020-01-06 14:44] LABS: Procalcitonin 0.18 ng/mL
--- NOTE | 2020-01-06 16:32 | P.CNID_ITS ---
History of Present Illness Data of Consult Service Date: 01/06/20 Requesting physician: Carter Reddy Primary Care Provider: MD JAH Mcmahan Reason for consult: fever of unknown origin He presents with psychosis He has temperature 102 and tachycardia He does use injection drugs Review of Systems Review of Systems: Yes Unobtainable due to mental status Neurologic: Reports confusion Psychiatric: Psychiatric: Reports confusion [facility] Past Medical History Medical History Anxiety HTN (hypertension) Schizophrenia Tinnitus Functional capacity: independent ambulation Family History Family history: reviewed and not pertinent Social History Social History Household Members: Family Housing: House Do you presently have visiting nurse or other home services: Yes Alcohol intake: unknown Smoking Status: Current some day smoker Tobacco Type: Cigarette Packs Per Day: 1 Cigarettes Per Day: 20.0 Years Smoked: 9 Smoked in Last 30 Days: Yes Smoking Quit Date: None Patient Interested in Nicotine Replacement: Yes Patient Given Instructions on How to Stop Smoking: Yes Date Education Initiated: 12/31/19 Second Hand Smoke Exposure: Yes Use of substances other than those prescribed or required for medical reasons: No Substance Use Type: Marijuana Currently Displaying Signs/Symptoms of Drug Intoxication Withdrawal: No Advance Directives: No Advance Directives Information Provided: Yes Do you have thoughts of harming others: None Do you have a plan to hurt others: No Plan service: No Sexual orientation: Straight/Heterosexual Meds Allergies Allergy/AdvReac Type Severity Reaction Status Date / Time mold [MOLD] Allergy Unknown UNKNOWN Verified 12/30/19 16:01 paliperidone [From Invega] Allergy Unknown Verified 12/30/19 16:01 amoxicillin [AMOXICILLIN] AdvReac Severe ANAPHYLAXIS Verified 12/30/19 16:01 azithromycin [AZITHROMYCIN] AdvReac Severe ANAPHYLAXIS Verified 12/30/19 16:01 Home Medications Medication Instructions Recorded Confirmed Type albuterol sulfate [ProAir HFA] 2 puff INHALATION Q4-6H PRN 12/30/19 12/30/19 History hydroxyzine HCl 25 mg PO TID PRN 12/30/19 12/30/19 History benztropine 1 mg PO BID 12/31/19 12/31/19 History chlorpromazine 25 mg PO BID 12/31/19 12/31/19 History divalproex [Depakote] 500 mg PO BID 12/31/19 12/31/19 History gabapentin 300 mg PO TID 12/31/19 12/31/19 History propranolol 10 mg PO TID 12/31/19 12/31/19 History Physical Exam Vital Signs: Vital Signs: Last Vital Signs Temp 99.0 F 01/06/20 14:21 Pulse 89 01/06/20 14:21 Resp 16 01/06/20 14:21 BP 120/59 L 01/06/20 14:21 Pulse Ox 97 01/06/20 14:21 Body Mass Index 29.8 Const: General: confusion Orientation/consciousness: confusion HENMT: Head: Yes normal to inspection Resp: Effort & Inspection: normal respiratory effort Cardio: Rate: regular rate Rhythm: regular rhythm GI: Palpation (GI): Soft to palpation Skin: Lesions: no lesions Neuro: General: confusion Extrem: Right upper extremity: normal to inspection Left upper extremity: normal to inspection Right lower extremity: normal to inspection Left lower extremity: normal to inspection Assessment and Plan (1) FUO (fever of unknown origin): Problem details: He has possible bacterial or viral cause of fever and sepsis Possible staph bacteremia with IVDA COVID is negative Status: Acute Check HIV Check blood cultures Hold antibiotics for now Results Labs CBC & Chem 7: 01/06/20 13:30 01/06/20 13:31 Labs: Short CBC 01/06/20 Range/Units 13:30 WBC 12.2 H (4.8-10.8) X10*3/uL Hgb 13.4 L (14.0-18.0) g/dl Hct 41.5 L (42-52) % Plt Count 121 L D (160-400) X10*3/uL Cardiac Enzymes 01/06/20 Range/Units 13:31 Total Creatine Kinase 223 H D (38-174) U/L Microbiology Microbiology Results: Microbiology 01/06/20 13:46 Throat Streptococcus Rapid Screen - Final
[2020-01-06] MEDS: Divalproex Sodium ER 500 MG TAB.ER.24H 1000 MG PO (20:44)
--- NOTE | 2020-01-07 03:57 | HO.PSYCHPN ---
Subjective Subjective Reason For Visit: psychosis Interim History: Afebrile now. Blood cultures pending. Remains psychotic. Talked about computers raping him. and the FBI knows it. Review of Systems Review of Systems Gen: + fever HEENT: complaint of tonsil hurs Resp: no sob, no cough CV: no chest, no YEH, no leg edema GI: No n/v, no abd pain Neuro: drowsy, easily aroused Muscular sck: No back pain Mental Status Exam Mental Status Exam Patient Appearance: Disheveled Patient Orientation: Person, Place, Time and Situation Level of Consciousness: Restless Patient Behavior: Talkative, Hyperactive, Restless, Belligerent, Swearing and Uncooperative Mood Description: Suspicious, Hostile and Labile Affect Description: Suspicious, Labile and Expansive Ability to Follow Directions: Fair Speech Pattern: Perseverating, Excessive, Loud and Pressured Diagnostics Vital Signs (24Hr): Vital Signs - 24 hr 01/06/20 06:20 01/06/20 08:28 01/06/20 08:36 Temperature 100.3 F 100.5 F H Pulse Rate 97 100 100 Respiratory Rate 18 Blood Pressure 134/69 126/71 126/71 Pulse Oximetry 95 01/06/20 12:22 01/06/20 12:23 01/06/20 13:42 Temperature 98.9 F 98.8 F 98.7 F Pulse Rate Respiratory Rate Blood Pressure Pulse Oximetry 01/06/20 14:12 01/06/20 14:21 01/06/20 16:00 Temperature 99.0 F 98.1 F Pulse Rate 89 89 80 Respiratory Rate 16 Blood Pressure 120/59 L 120/59 L 113/56 L Pulse Oximetry 97 98 01/06/20 20:59 Temperature Pulse Rate 82 Respiratory Rate Blood Pressure 137/63 Pulse Oximetry Body Mass Index 29.8 Labs Results: 01/06/20 13:30 01/06/20 13:31 Labs: Laboratory Results - last 48 hr 01/05/20 01/06/20 01/06/20 11:50 13:28 13:30 WBC 12.2 H RBC 5.21 Hgb 13.4 L Hct 41.5 L MCV 79.7 L MCH 25.7 L MCHC 32.3 RDW 14.3 Plt Count 121 L D MPV 12.1 Immature Gran % (Auto) 0.2 Neut % (Auto) 69.0 Lymph % (Auto) 14.8 L [place] % (Auto) 14.6 H Eos % (Auto) 1.2 Baso % (Auto) 0.2 Lymph # (Auto) 1.8 [place] # (Auto) 1.8 H Eos # (Auto) 0.2 Baso # (Auto) 0.0 Abs Immat Gran (auto) 0.03 Absolute Neuts (auto) 8.4 H Absolute Nucleated RBC 0.000 Nucleated RBC % (auto) 0.0 Smear Tech's Comments VERIFIED D-Dimer 429 Random Glucose Phosphorus Magnesium Lactate Dehydrogenase Total Creatine Kinase C-Reactive Protein Procalcitonin Urine Color YELLOW Urine Appearance HAZY Urine pH 6.0 Ur Specific [place] 1.015 Urine Protein NEG Urine Glucose (UA) NEG Urine Ketones 15 Urine Blood TRACE Urine Nitrite NEG Ur Leukocyte Esterase NEG Urine RBC 0-2 Urine WBC 0-2 Ur Squamous Epith Cells 1+ Urine Bacteria NONE Urine Mucus TRACE 01/06/20 01/06/20 13:30 13:31 WBC RBC Hgb Hct MCV MCH MCHC RDW Plt Count MPV Immature Gran % (Auto) Neut % (Auto) Lymph % (Auto) [place] % (Auto) Eos % (Auto) Baso % (Auto) Lymph # (Auto) [place] # (Auto) Eos # (Auto) Baso # (Auto) Abs Immat Gran (auto) Absolute Neuts (auto) Absolute Nucleated RBC Nucleated RBC % (auto) Smear Tech's Comments D-Dimer Random Glucose 111 D Phosphorus 2.8 Magnesium 2.3 Lactate Dehydrogenase 186 Total Creatine Kinase 223 H D C-Reactive Protein 26.91 H Procalcitonin 0.18 Urine Color Urine Appearance Urine pH Ur Specific [place] Urine Protein Urine Glucose (UA) Urine Ketones Urine Blood Urine Nitrite Ur Leukocyte Esterase Urine RBC Urine WBC Ur Squamous Epith Cells Urine Bacteria Urine Mucus Imaging Radiology Impressions: ITS Impressions Chest X-Ray 01/05/20 00:00 IMPRESSION: No acute pulmonary finding. Medications Medications Current Medications Generic Name Dose Route Start Last Admin Trade Name Freq PRN Reason Stop Dose Admin Acetaminophen 650 mg 12/31/19 15:24 01/06/20 21:04 Acetaminophen 325 Mg Tablet PO 650 mg Q6H PRN Administration Headache/Pain Mild Scale (1-3) Al Hydroxide/Mg Hydroxide 30 ml 12/31/19 15:24 Magnesium Hydrox/Alum Hydrox 30 Ml Oral.Susp PO Q6H PRN Heartburn/Nausea Albuterol Sulfate 2 puff 12/31/19 16:24 01/06/20 21:01 Albuterol Sulfate 90 Mcg 8 Gm Inhaler INHALE 2 puff Q4H PRN Administration Wheezing Benztropine Mesylate 1 mg 12/31/19 21:00 01/06/20 20:44 Benztropine Mesylate 1 Mg Tablet PO 1 mg BID ELIECER Administration Divalproex Sodium 1,000 mg 01/06/20 21:00 01/06/20 20:44 Divalproex Sodium Er 500 Mg Tab.Er.24h PO 1,000 mg BEDTIME ELIECER Administration Hydroxyzine HCl 25 mg 12/31/19 16:24 01/04/20 16:20 Hydroxyzine Hcl 25 Mg Tablet PO 25 mg TID PRN Administration Anxiety Lorazepam 1 mg 01/06/20 11:22 01/06/20 16:10 Lorazepam 1 Mg Tablet PO 1 mg Q6H PRN Administration Anxiety Magnesium Hydroxide 30 ml 12/31/19 15:24 Milk Of Magnesia 30 Ml Oral.Susp PO DAILY PRN Constipation Nicotine Polacrilex 2 mg 12/30/19 17:57 01/02/20 09:25 Nicotine Polacrilex 2 Mg Gum BUCCAL 2 mg ONCE PRN Administration Nicotine Cravings Nicotine Polacrilex 4 mg 01/02/20 12:16 01/04/20 21:05 Nicotine Polacrilex 4 Mg Lozenge BUCCAL 4 mg Q2H PRN Administration Nicotine Cravings Propranolol HCl 10 mg 12/31/19 21:00 01/06/20 20:59 Propranolol Hcl 10 Mg Tablet PO 10 mg TID ELIECER Administration Protocol Pseudoephedrine HCl 30 mg 01/05/20 21:28 01/06/20 06:35 Pseudoephedrine Hcl 30 Mg Tablet PO 30 mg Q6H PRN Administration congestion Trazodone HCl 50 mg 12/31/19 15:24 Trazodone Hcl 50 Mg Tablet PO BEDTIME PRN Insomnia Allergies Allergies Allergy/AdvReac Type Severity Reaction Status Date / Time mold [MOLD] Allergy Unknown UNKNOWN Verified 12/30/19 16:01 paliperidone [From Invega] Allergy Unknown Verified 12/30/19 16:01 amoxicillin [AMOXICILLIN] AdvReac Severe ANAPHYLAXIS Verified 12/30/19 16:01 azithromycin [AZITHROMYCIN] AdvReac Severe ANAPHYLAXIS Verified 12/30/19 16:01 Assessment & Plan Assessment & Plan (1) FUO (fever of unknown origin): Status: Acute Code(s): R50.9 - Fever, unspecified Assessment and Plan: Check HIV Check blood cultures Hold antibiotics for now (2) Schizoaffective disorder: Qualifiers: Schizoaffective disorder type: bipolar Qualified Code(s): F25.0 - Schizoaffective disorder, bipolar type Status: Acute Code(s): F25.9 - Schizoaffective disorder, unspecified Assessment and Plan: Ct Thorazine/VPA/Gabapentin Greater than 50% of the session was spent on counseling and/or coordination of care
[2020-01-07 06:30] VITALS: BP 133/75; PULSE 65; RESP 16; TEMP 36.6; O2SAT 100
[2020-01-07] MEDS: Albuterol Sulfate 90 MCG 8 GM INHALER 2 PUFF INHALE ×2 (06:38→13:36)
[2020-01-07] MEDS: LORazepam 1 MG TABLET PO ×3 (06:38→20:10)
[2020-01-07 07:00] VITALS: BMI 33.4
[2020-01-07] MEDS: Gabapentin 100 MG CAPSULE 400 MG PO ×2 (08:28→19:55)
[2020-01-07 08:29] VITALS: BP 133/75; PULSE 65
[2020-01-07] MEDS: Propranolol HCL 10 MG TABLET PO ×3 (08:29→19:54)
[2020-01-07] MEDS: hydrOXYzine HCL 25 MG TABLET PO ×2 (08:43→16:16)
[2020-01-07 15:20] VITALS: BP 134/82; PULSE 89
[2020-01-07 18:00] VITALS: BP 120/74; PULSE 79; TEMP 37.1
[2020-01-07 19:54] VITALS: BP 120/74; PULSE 79
[2020-01-07] MEDS: chlorproMAZINE HCl 100 MG TABLET 200 MG PO (19:54)
[2020-01-07] MEDS: Benztropine Mesylate 1 MG TABLET PO (19:55)
[2020-01-07] MEDS: Divalproex Sodium ER 500 MG TAB.ER.24H 1000 MG PO (19:55)
--- NOTE | 2020-01-08 05:22 | P.PNPSI_ITS ---
Subjective Subjective Reason For Visit: psychosis Interim History: Afebrile now. Blood cultures pending. Remains psychotic. Talked about computers raping him. and the FBI knows it. Got upset at suggestion of increase in Thorazine. Promptly talked about poisons, etc. Echo done today. Review of Systems Review of Systems Gen: + fever HEENT: complaint of tonsil hurs Resp: no sob, no cough CV: no chest, no YEH, no leg edema GI: No n/v, no abd pain Neuro: drowsy, easily aroused Muscular sck: No back pain Reports confusion Psychiatric: Reports confusion Mental Status Exam Mental Status Exam Patient Appearance: Disheveled Patient Orientation: Person, Place, Time and Situation Level of Consciousness: Restless Patient Behavior: Talkative, Hyperactive, Restless, Belligerent, Swearing and Uncooperative Mood Description: Suspicious, Hostile and Labile Affect Description: Suspicious, Labile and Expansive Ability to Follow Directions: Fair Speech Pattern: Perseverating, Excessive, Loud and Pressured Diagnostics Vital Signs (24Hr): Vital Signs - 24 hr 01/07/20 06:30 01/07/20 08:29 01/07/20 15:20 Temperature 98 F Pulse Rate 65 65 89 Respiratory Rate 16 Blood Pressure 133/75 133/75 134/82 Pulse Oximetry 100 01/07/20 18:00 01/07/20 19:54 Temperature 98.8 F Pulse Rate 79 79 Respiratory Rate Blood Pressure 120/74 120/74 Pulse Oximetry Body Mass Index 33.4 Labs Results: 01/08/20 07:45 01/06/20 13:31 Labs: Laboratory Results - last 48 hr 01/06/20 01/06/20 01/06/20 13:28 13:30 13:30 WBC 12.2 H RBC 5.21 Hgb 13.4 L Hct 41.5 L MCV 79.7 L MCH 25.7 L MCHC 32.3 RDW 14.3 Plt Count 121 L D MPV 12.1 Immature Gran % (Auto) 0.2 Neut % (Auto) 69.0 Lymph % (Auto) 14.8 L [place] % (Auto) 14.6 H Eos % (Auto) 1.2 Baso % (Auto) 0.2 Lymph # (Auto) 1.8 [place] # (Auto) 1.8 H Eos # (Auto) 0.2 Baso # (Auto) 0.0 Abs Immat Gran (auto) 0.03 Absolute Neuts (auto) 8.4 H Absolute Nucleated RBC 0.000 Nucleated RBC % (auto) 0.0 Smear Tech's Comments VERIFIED D-Dimer 429 Random Glucose Phosphorus Magnesium Lactate Dehydrogenase Total Creatine Kinase C-Reactive Protein Procalcitonin 0.18 01/06/20 13:31 WBC RBC Hgb Hct MCV MCH MCHC RDW Plt Count MPV Immature Gran % (Auto) Neut % (Auto) Lymph % (Auto) [place] % (Auto) Eos % (Auto) Baso % (Auto) Lymph # (Auto) [place] # (Auto) Eos # (Auto) Baso # (Auto) Abs Immat Gran (auto) Absolute Neuts (auto) Absolute Nucleated RBC Nucleated RBC % (auto) Smear Tech's Comments D-Dimer Random Glucose 111 D Phosphorus 2.8 Magnesium 2.3 Lactate Dehydrogenase 186 Total Creatine Kinase 223 H D C-Reactive Protein 26.91 H Procalcitonin Imaging Radiology Impressions: ITS Impressions Chest X-Ray 01/05/20 00:00 IMPRESSION: No acute pulmonary finding. Medications Medications Current Medications Generic Name Dose Route Start Last Admin Trade Name Freq PRN Reason Stop Dose Admin Acetaminophen 650 mg 12/31/19 15:24 01/06/20 21:04 Acetaminophen 325 Mg Tablet PO 650 mg Q6H PRN Administration Headache/Pain Mild Scale (1-3) Al Hydroxide/Mg Hydroxide 30 ml 12/31/19 15:24 Magnesium Hydrox/Alum Hydrox 30 Ml Oral.Susp PO Q6H PRN Heartburn/Nausea Albuterol Sulfate 2 puff 12/31/19 16:24 01/07/20 13:36 Albuterol Sulfate 90 Mcg 8 Gm Inhaler INHALE 2 puff Q4H PRN Administration Wheezing Benztropine Mesylate 1 mg 12/31/19 21:00 01/07/20 19:55 Benztropine Mesylate 1 Mg Tablet PO 1 mg BID ELIECER Administration Chlorpromazine HCl 200 mg 01/07/20 21:00 01/07/20 19:54 Chlorpromazine Hcl 100 Mg Tablet PO 200 mg BEDTIME ELIECER Administration Divalproex Sodium 1,000 mg 01/06/20 21:00 01/07/20 19:55 Divalproex Sodium Er 500 Mg Tab.Er.24h PO 1,000 mg BEDTIME ELIECER Administration Gabapentin 400 mg 01/07/20 09:00 01/07/20 19:55 Gabapentin 100 Mg Capsule PO 400 mg BID ELIECER Administration Hydroxyzine HCl 25 mg 12/31/19 16:24 01/07/20 16:16 Hydroxyzine Hcl 25 Mg Tablet PO 25 mg TID PRN Administration Anxiety Lorazepam 1 mg 01/06/20 11:22 01/07/20 20:10 Lorazepam 1 Mg Tablet PO 1 mg Q6H PRN Administration Anxiety Magnesium Hydroxide 30 ml 12/31/19 15:24 Milk Of Magnesia 30 Ml Oral.Susp PO DAILY PRN Constipation Nicotine Polacrilex 2 mg 12/30/19 17:57 01/02/20 09:25 Nicotine Polacrilex 2 Mg Gum BUCCAL 2 mg ONCE PRN Administration Nicotine Cravings Nicotine Polacrilex 4 mg 01/02/20 12:16 01/07/20 21:29 Nicotine Polacrilex 4 Mg Lozenge BUCCAL 4 mg Q2H PRN Administration Nicotine Cravings Propranolol HCl 10 mg 12/31/19 21:00 01/07/20 19:54 Propranolol Hcl 10 Mg Tablet PO 10 mg TID ELIECER Administration Protocol Pseudoephedrine HCl 30 mg 01/05/20 21:28 01/06/20 06:35 Pseudoephedrine Hcl 30 Mg Tablet PO 30 mg Q6H PRN Administration congestion Trazodone HCl 50 mg 12/31/19 15:24 Trazodone Hcl 50 Mg Tablet PO BEDTIME PRN Insomnia Allergies Allergies Allergy/AdvReac Type Severity Reaction Status Date / Time mold [MOLD] Allergy Unknown UNKNOWN Verified 12/30/19 16:01 paliperidone [From Invega] Allergy Unknown Verified 12/30/19 16:01 amoxicillin [AMOXICILLIN] AdvReac Severe ANAPHYLAXIS Verified 12/30/19 16:01 azithromycin [AZITHROMYCIN] AdvReac Severe ANAPHYLAXIS Verified 12/30/19 16:01 Assessment & Plan Assessment & Plan (1) FUO (fever of unknown origin): Status: Acute Code(s): R50.9 - Fever, unspecified Assessment and Plan: Check HIV Check blood cultures Hold antibiotics for now (2) Schizoaffective disorder: Qualifiers: Schizoaffective disorder type: bipolar Qualified Code(s): F25.0 - Schizoaffective disorder, bipolar type Status: Acute Code(s): F25.9 - Schizoaffective disorder, unspecified Assessment and Plan: Ct Thorazine/VPA/Gabapentin Greater than 50% of the session was spent on counseling and/or coordination of care
[2020-01-08 06:30] VITALS: BP 128/61; PULSE 78; RESP 16; TEMP 36.3; O2SAT 99
[2020-01-08] MEDS: Acetaminophen 325 MG TABLET 650 MG PO (07:04)
[2020-01-08] MEDS: hydrOXYzine HCL 25 MG TABLET PO ×2 (07:04→15:14)
[2020-01-08] MEDS: LORazepam 1 MG TABLET PO ×3 (07:04→20:03)
[2020-01-08] MEDS: Pseudoephedrine HCL 30 MG TABLET PO ×2 (07:04→15:56)
[2020-01-08] MEDS: Albuterol Sulfate 90 MCG 8 GM INHALER 2 PUFF INHALE ×2 (07:04→21:30)
[2020-01-08 08:17] LABS: MANUAL DIFF FLAG NO
[2020-01-08 08:22] LABS: Basophils Percent Auto 0.5 % (0-2); Eosinophils Absolute Auto 0.3 X10*3/uL (0.0-0.4); Hematocrit 40.4 % (42-52); Hemoglobin 12.9 g/dl (14.0-18.0); Imm Gran Abs Auto 0.02 X10*3/uL (0.00-0.03); Imm Gran Pct Auto 0.3 % (0.0-0.4); Lymphocytes Absolute Auto 1.2 X10*3/uL (1.2-4.9); Lymphocytes Percent Auto 18.9 % (20-40); Mean Corpuscular HGB Conc 31.9 g/dl (31.0-36.0); Mean Corpuscular Hemoglobin 25.7 pg (27.0-33.0); Mean Corpuscular Volume 80.5 fL (80-98); Mean Platelet Volume 11.5 fL (9.4-12.4); Monocytes Percent Auto 16.4 % (2-11); Neutrophils Absolute Auto 3.8 X10*3/uL (2.0-8.3); Neutrophils Percent Auto 59.9 % (45-73); Platelet Count 141 X10*3/uL (160-400); Red Blood Count 5.02 X10*6/uL (4.60-5.80); Red Cell Distribution Width 14.8 % (11.0-16.0); White Blood Count 6.3 X10*3/uL (4.8-10.8)
[2020-01-08 08:30] LABS: D Dimer 279 NG/ML
[2020-01-08 08:53] VITALS: BP 136/72; PULSE 73
[2020-01-08] MEDS: Propranolol HCL 10 MG TABLET PO ×3 (08:53→20:04)
[2020-01-08] MEDS: Gabapentin 400 MG CAPSULE PO ×2 (11:11→20:04)
--- NOTE | 2020-01-08 12:12 | CA_ITS ---
Transthoracic Echocardiogram Patient (Last, First, Middle): Elmer Trotter, Gender: Male Date of : 1995 Age: 24 Procedure Date: 01/08/2020 Procedure Type: Transthoracic Echocardiogram Location: M5 Height: 182.88 cm Weight: 99.79 kg BSA: 2.22 m2 Heart Rate: bpm BP: 133 / 75 mmHg Heel Seat Trimmer: ANGE Gil MD: Carter Reddy MD Symptoms: fever Study Quality: Fair ECG Rhythm: Sinus Conclusions: - The left ventricular systolic function is normal. The visually estimated ejection fraction is between 60-65%. - No obvious valvular pathology seen on this study. Findings Left Ventricle Normal left ventricular cavity size. There is normal left ventricular wall thickness. The left ventricular systolic function is normal. The visually estimated ejection fraction is between 60-65%. There is no evidence of regional wall motion abnormalities. Diastolic function is normal for age. Right Ventricle Normal right ventricular cavity size and systolic function. Aortic Valve There is a normal trileaflet aortic valve. There is no aortic valve stenosis. There is no aortic valve regurgitation. Mitral Valve The mitral valve appears normal. There is trace mitral valve regurgitation. There is no mitral valve stenosis. Pulmonic Valve The pulmonic valve was not well visualized. There is trace pulmonic valve regurgitation. Tricuspid Valve Normal tricuspid valve structure. There is trace tricuspid valve regurgitation. The pulmonary artery systolic pressure is normal. Great Vessels The aortic annulus, sinuses of valsalva, asc aorta, and aortic arch are normal in size. Venous The inferior vena cava is normal in size and collapses greater than 50% with inspiration. Pericardium/Pleural There is no evidence of pericardial effusion. Prior Study Comparison No prior study available for comparison. Recommendations, Care & Conclusions No obvious valvular pathology seen on this study. Measurements 2D Linear Measurements RVIDd: 3.11 RVIDd Index: 1.40 IVSd: 0.87 0.6-0.9/0.6-1.0 cm LVIDd: 5.38 3.9-5.3/4.2-5.9 cm LVIDd Index: 2.42 2.4-3.2/2.2-3.1 cm/m2 LVIDs: 3.39 2.0-3.6 cm LVPWd: 1.05 0.7-1.1 cm Ao Root: 2.70 2.1-3.5 cm LA Diam: 4.30 2.7-3.8/3.0-4.0 cm LAIDs Index: 1.94 1.5-2.3 cm/m2 LV Mass: 242.46 67-162/88-224 g LV Mass Index: 109.22 43-95/49-115 g/m2 LVOT Diam: 2.40 3.0+(-)1.3 cm Mitral Valve MV Pk E: 0.98 MV PK A: 0.55 MV Decel Time: 146.00 E/A: 1.80 E'Lateral: 14.80 E'Medial: 13.80 E/E' Med: 7.10 E/E' Lat: 6.60 Aortic Valve AoV Pk Reji: 1.64 AoV Mn Reji: 1.07 AoV VTI: 0.31 AoV Pk Grad: 11.00 Aov Mn Grad: 5.00 CLAUDE Cont.VTI: 3.90 LVOT LVOT Pk Reji: 1.46 LVOT Mn Reji: 1.00 LVOT VTI: 0.26 LVOT Pk Grad: 9.00 LVOT Mn Grad: 5.00 LVOT Diam: 2.40 LVOT Area: 4.52 Diastolic Function MV Pk E: 0.98 MV Pk A: 0.55 E/A: 1.80 E'Medial: 13.80 E/E' Med: 7.10 E' Laterial: 14.80 E/E' Lat: 6.60 Tricuspid Valve TR Pk Reji: 2.47 TR Pk Grad: 24.00 RA Press: 3.00 RVSP: 27.00 Great Vessels Aorta Ao Root-2D: 2.70 2.0-3.7 cm Ao Asc: 2.50 2.1-3.4 cm Ao Arch: 2.20 Updated in Other Vendor System with Status of Final Mihir Borja MD electronically signed on 01/09/2020 9:29:23 AM with status of Final
[2020-01-08 13:57] VITALS: BP 137/62; PULSE 73
[2020-01-08 18:00] VITALS: BP 123/64; PULSE 63; TEMP 36.3
[2020-01-08] MEDS: Throat Lozenge, Medicated LOZENGE 1 LOZENGE MUCOUS MEM (19:02)
[2020-01-08] MEDS: Benztropine Mesylate 1 MG TABLET PO (20:03)
[2020-01-08] MEDS: chlorproMAZINE HCl 100 MG TABLET 200 MG PO (20:03)
[2020-01-08 20:04] VITALS: BP 123/64; PULSE 63
[2020-01-08] MEDS: Divalproex Sodium ER 500 MG TAB.ER.24H 1000 MG PO (20:05)
[2020-01-09 06:00] VITALS: BP 135/81; PULSE 92; TEMP 36.3
[2020-01-09 08:49] VITALS: BP 135/81; PULSE 92
[2020-01-09] MEDS: LORazepam 1 MG TABLET PO ×3 (08:49→22:06)
[2020-01-09] MEDS: Propranolol HCL 10 MG TABLET PO ×3 (08:49→20:03)
[2020-01-09] MEDS: chlorproMAZINE HCl 100 MG TABLET PO (08:49)
[2020-01-09] MEDS: Benztropine Mesylate 1 MG TABLET PO ×2 (08:50→20:03)
[2020-01-09] MEDS: Gabapentin 400 MG CAPSULE PO ×2 (08:50→20:03)
[2020-01-09] MEDS: Albuterol Sulfate 90 MCG 8 GM INHALER 2 PUFF INHALE (08:52)
[2020-01-09 09:37] LABS: Valproate 47.8 mcg/mL (50.0-100.0)
[2020-01-09 09:52] LABS: Alanine Aminotransferase 18 U/L (0-40); Alkaline Phosphatase 66 U/L (39-117); Aspartate Amino Transferase 17 U/L (5-37); Bilirubin Direct < 0.2 mg/dL (0.0-0.5); Bilirubin Total 0.4 mg/dL (0.0-1.0)
[2020-01-09] MEDS: Throat Lozenge, Medicated LOZENGE 1 LOZENGE MUCOUS MEM ×2 (11:40→15:18)
[2020-01-09 14:05] VITALS: BP 133/79; PULSE 89
[2020-01-09] MEDS: Pseudoephedrine HCL 30 MG TABLET PO (14:08)
[2020-01-09 18:00] VITALS: BP 138/78; PULSE 78; TEMP 36.8
[2020-01-09 20:03] VITALS: BP 138/78; PULSE 78
[2020-01-09] MEDS: Divalproex Sodium ER 500 MG TAB.ER.24H 1000 MG PO (20:04)
[2020-01-09] MEDS: chlorproMAZINE HCl 100 MG TABLET 200 MG PO (20:04)
[2020-01-09] MEDS: hydrOXYzine HCL 25 MG TABLET PO (22:06)
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
[2020-01-10 06:00] VITALS: BP 117/70; PULSE 84; TEMP 36.7
[2020-01-10] MEDS: Albuterol Sulfate 90 MCG 8 GM INHALER 2 PUFF INHALE ×2 (06:19→15:33)
[2020-01-10] MEDS: LORazepam 1 MG TABLET PO ×2 (06:19→16:02)
[2020-01-10 08:37] VITALS: BP 117/70; PULSE 84
[2020-01-10] MEDS: Propranolol HCL 10 MG TABLET PO ×3 (08:37→20:37)
[2020-01-10] MEDS: Gabapentin 400 MG CAPSULE PO ×2 (08:37→20:38)
[2020-01-10] MEDS: chlorproMAZINE HCl 100 MG TABLET PO (08:37)
[2020-01-10] MEDS: Benztropine Mesylate 1 MG TABLET PO ×2 (08:37→20:38)
--- NOTE | 2020-01-10 10:54 | P.PNPSI_ITS ---
Subjective Subjective Date of Service: 01/10/20 Reason For Visit: psychosis Interim History: Vitals reviewed: WNL Labs reviewed: Depakote level 47 on 01/09/20; Lft's WNL Pt seen, chart reviewed and case discussed with nursing staff Pt remains perseverative and rambling about various wrongs having been done against him ranging from being hospitalized, having his benzodiazapines lowered and being hacked and persecuted. Pt is difficult to interrupt but machine sign writer was able to discuss his medication regimen and he prefers to have Depakote dose raised rather than Thorazine. Pt decided to start with higher dose at night to avoid daytime drowsiness but will discuss it further with his primary team if he changes his mind. Otherwise, pt is mildly intrusive in the milue, but med adherent, eating well and safe on the unit without over behavioral incidents. Medication Compliance: Yes Attending Groups: Yes Review of Systems Reports confusion Psychiatric: Reports confusion Mental Status Exam Mental Status Exam Patient Appearance: Unkempt Patient Orientation: Person, Place and Time Level of Consciousness: Awake and Appropriate Patient Behavior: Talkative and Hyperactive Mood Description: Constricted and Anxious Affect Description: Constricted and Anxious Ability to Follow Directions: Fair Speech Pattern: Clear, Perseverating, Rambling, Inappropriate, Excessive and Pressured Delusions: Paranoid Ideation Thought Process: Rumination and Goal Oriented Thought Content: positive for Racing, positive for Goal Oriented, positive for Perseveration, positive for Tangential and positive for Disorganized Abnormal Motor Activity Signs and Symptoms: Hyperactivity Judgement: Poor Judgement and Insight: impaired Diagnostics Vital Signs (24Hr): Vital Signs - 24 hr 01/09/20 14:05 01/09/20 18:00 01/09/20 20:03 Temperature 98.2 F Pulse Rate 89 78 78 Blood Pressure 133/79 138/78 138/78 01/10/20 06:00 01/10/20 08:37 Temperature 98.0 F Pulse Rate 84 84 Blood Pressure 117/70 117/70 Body Mass Index 33.4 Labs Results: 01/08/20 07:45 01/06/20 13:31 Labs: Laboratory Results - last 48 hr 01/09/20 08:45 Total Bilirubin 0.4 Direct Bilirubin < 0.2 AST 17 ALT 18 Alkaline Phosphatase 66 D Total Protein 7.0 Albumin 4.0 Valproic Acid 47.8 L Imaging Radiology Impressions: ITS Impressions Chest X-Ray 01/05/20 00:00 IMPRESSION: No acute pulmonary finding. CA echo transthoracic complete Date of Service: 01/08/20 Recommendations, Care & Conclusions No obvious valvular pathology seen on this study. Medications Medications Current Medications Generic Name Dose Route Start Last Admin Trade Name Freq PRN Reason Stop Dose Admin Acetaminophen 650 mg 12/31/19 15:24 01/08/20 07:04 Acetaminophen 325 Mg Tablet PO 650 mg Q6H PRN Administration Headache/Pain Mild Scale (1-3) Al Hydroxide/Mg Hydroxide 30 ml 12/31/19 15:24 Magnesium Hydrox/Alum Hydrox 30 Ml Oral.Susp PO Q6H PRN Heartburn/Nausea Albuterol Sulfate 2 puff 12/31/19 16:24 01/10/20 06:19 Albuterol Sulfate 90 Mcg 8 Gm Inhaler INHALE 2 puff Q4H PRN Administration Wheezing Benzocaine 1 lozenge 01/08/20 18:34 01/09/20 15:18 Throat Lozenge, Medicated Lozenge MUCOUS MEM 1 lozenge Q2H PRN Administration Sore Throat Benztropine Mesylate 1 mg 12/31/19 21:00 01/10/20 08:37 Benztropine Mesylate 1 Mg Tablet PO 1 mg BID ELIECER Administration Chlorpromazine HCl 200 mg 01/07/20 21:00 01/09/20 20:04 Chlorpromazine Hcl 100 Mg Tablet PO 200 mg BEDTIME ELIECER Administration Chlorpromazine HCl 100 mg 01/09/20 09:00 01/10/20 08:37 Chlorpromazine Hcl 100 Mg Tablet PO 100 mg DAILY ELIECER Administration Divalproex Sodium 1,000 mg 01/06/20 21:00 01/09/20 20:04 Divalproex Sodium Er 500 Mg Tab.Er.24h PO 1,000 mg BEDTIME ELIECER Administration Gabapentin 400 mg 01/08/20 09:15 01/10/20 08:37 Gabapentin 400 Mg Capsule PO 400 mg BID ELIECER Administration Hydroxyzine HCl 25 mg 12/31/19 16:24 01/09/20 22:06 Hydroxyzine Hcl 25 Mg Tablet PO 25 mg TID PRN Administration Anxiety Lorazepam 1 mg 01/06/20 11:22 01/10/20 06:19 Lorazepam 1 Mg Tablet PO 1 mg Q6H PRN Administration Anxiety Magnesium Hydroxide 30 ml 12/31/19 15:24 Milk Of Magnesia 30 Ml Oral.Susp PO DAILY PRN Constipation Nicotine Polacrilex 2 mg 12/30/19 17:57 01/02/20 09:25 Nicotine Polacrilex 2 Mg Gum BUCCAL 2 mg ONCE PRN Administration Nicotine Cravings Nicotine Polacrilex 4 mg 01/02/20 12:16 01/09/20 20:03 Nicotine Polacrilex 4 Mg Lozenge BUCCAL 4 mg Q2H PRN Administration Nicotine Cravings Propranolol HCl 10 mg 12/31/19 21:00 01/10/20 08:37 Propranolol Hcl 10 Mg Tablet PO 10 mg TID ELIECER Administration Protocol Pseudoephedrine HCl 30 mg 01/05/20 21:28 01/09/20 14:08 Pseudoephedrine Hcl 30 Mg Tablet PO 30 mg Q6H PRN Administration congestion Trazodone HCl 50 mg 12/31/19 15:24 Trazodone Hcl 50 Mg Tablet PO BEDTIME PRN Insomnia Allergies Allergies Allergy/AdvReac Type Severity Reaction Status Date / Time mold [MOLD] Allergy Unknown UNKNOWN Verified 12/30/19 16:01 paliperidone [From Invega] Allergy Unknown Verified 12/30/19 16:01 amoxicillin [AMOXICILLIN] AdvReac Severe ANAPHYLAXIS Verified 12/30/19 16:01 azithromycin [AZITHROMYCIN] AdvReac Severe ANAPHYLAXIS Verified 12/30/19 16:01 Assessment & Plan Pt remains manic, with paranoid ideations and poor insight He is adherent with medications and agrees to increase in Depakote Will raise Depakote to 1500mg at bedtime since current level is subtherapeutic and pt remains manic; liver enzymes WNL Labs: Depakote level, CBC, liver enzymes ordered Otherwise continue current tx plan Greater than 50% of the session was spent on counseling and/or coordination of care
[2020-01-10 14:50] VITALS: BP 144/69; PULSE 75
[2020-01-10 14:51] VITALS: BP 144/69; PULSE 75
[2020-01-10 18:00] VITALS: BP 137/68; PULSE 78; TEMP 36.6
[2020-01-10 20:37] VITALS: BP 137/68; PULSE 78
[2020-01-10] MEDS: chlorproMAZINE HCl 100 MG TABLET 200 MG PO (20:37)
[2020-01-10] MEDS: Divalproex Sodium ER 500 MG TAB.ER.24H 1500 MG PO (20:38)
[2020-01-10] MEDS: Pseudoephedrine HCL 30 MG TABLET PO (20:55)
[2020-01-10] MEDS: Acetaminophen 325 MG TABLET 650 MG PO (20:56)
[2020-01-11 05:50] VITALS: BP 135/71; PULSE 63; RESP 16; TEMP 36.4; O2SAT 100
[2020-01-11] MEDS: Acetaminophen 325 MG TABLET 650 MG PO (06:04)
[2020-01-11] MEDS: LORazepam 1 MG TABLET PO ×3 (06:05→20:47)
[2020-01-11] MEDS: Albuterol Sulfate 90 MCG 8 GM INHALER 2 PUFF INHALE ×3 (06:05→20:53)
--- NOTE | 2020-01-11 07:51 | HO.PSYCHPN ---
Subjective Subjective Reason For Visit: psychosis Interim History: Presented himself as logical but was disorganized rambling about different thmes around computers. After some discussion withdrew 3 day notice. Asks for increase in benzos Review of Systems Review of Systems Gen: + fever HEENT: complaint of tonsil hurs Resp: no sob, no cough CV: no chest, no YEH, no leg edema GI: No n/v, no abd pain Neuro: drowsy, easily aroused Muscular sck: No back pain Reports confusion Psychiatric: Reports confusion Mental Status Exam Mental Status Exam Patient Appearance: Disheveled and Unkempt Patient Orientation: Person, Place and Time Level of Consciousness: Awake and Appropriate Patient Behavior: Hyperactive, Suspicious and Crying Mood Description: Suspicious, Labile and Nervous Affect Description: Suspicious, Labile and Nervous Ability to Follow Directions: Poor Speech Pattern: Clear, Perseverating, Rambling and Rapid Diagnostics Vital Signs (24Hr): Vital Signs - 24 hr 01/10/20 08:37 01/10/20 14:50 01/10/20 14:51 Temperature Pulse Rate 84 75 75 Respiratory Rate Blood Pressure 117/70 144/69 H 144/69 H Pulse Oximetry 01/10/20 18:00 01/10/20 20:37 01/11/20 05:50 Temperature 97.9 F 97.6 F Pulse Rate 78 78 63 Respiratory Rate 16 Blood Pressure 137/68 137/68 135/71 Pulse Oximetry 100 Body Mass Index 33.4 Labs Results: 01/08/20 07:45 01/06/20 13:31 Labs: Laboratory Results - last 48 hr 01/09/20 08:45 Total Bilirubin 0.4 Direct Bilirubin < 0.2 AST 17 ALT 18 Alkaline Phosphatase 66 D Total Protein 7.0 Albumin 4.0 Valproic Acid 47.8 L Imaging Radiology Impressions: ITS Impressions Chest X-Ray 01/05/20 00:00 IMPRESSION: No acute pulmonary finding. Medications Medications Current Medications Generic Name Dose Route Start Last Admin Trade Name Freq PRN Reason Stop Dose Admin Acetaminophen 650 mg 12/31/19 15:24 01/11/20 06:04 Acetaminophen 325 Mg Tablet PO 650 mg Q6H PRN Administration Headache/Pain Mild Scale (1-3) Al Hydroxide/Mg Hydroxide 30 ml 12/31/19 15:24 Magnesium Hydrox/Alum Hydrox 30 Ml Oral.Susp PO Q6H PRN Heartburn/Nausea Albuterol Sulfate 2 puff 12/31/19 16:24 01/11/20 06:05 Albuterol Sulfate 90 Mcg 8 Gm Inhaler INHALE 2 puff Q4H PRN Administration Wheezing Benzocaine 1 lozenge 01/08/20 18:34 01/09/20 15:18 Throat Lozenge, Medicated Lozenge MUCOUS MEM 1 lozenge Q2H PRN Administration Sore Throat Benztropine Mesylate 1 mg 12/31/19 21:00 01/10/20 20:38 Benztropine Mesylate 1 Mg Tablet PO 1 mg BID ELIECER Administration Chlorpromazine HCl 200 mg 01/07/20 21:00 01/10/20 20:37 Chlorpromazine Hcl 100 Mg Tablet PO 200 mg BEDTIME ELIECER Administration Chlorpromazine HCl 100 mg 01/09/20 09:00 01/10/20 08:37 Chlorpromazine Hcl 100 Mg Tablet PO 100 mg DAILY ELIECER Administration Divalproex Sodium 1,500 mg 01/10/20 21:00 01/10/20 20:38 Divalproex Sodium Er 500 Mg Tab.Er.24h PO 1,500 mg BEDTIME ELIECER Administration Gabapentin 400 mg 01/08/20 09:15 01/10/20 20:38 Gabapentin 400 Mg Capsule PO 400 mg BID ELIECER Administration Hydroxyzine HCl 25 mg 12/31/19 16:24 01/09/20 22:06 Hydroxyzine Hcl 25 Mg Tablet PO 25 mg TID PRN Administration Anxiety Lorazepam 1 mg 01/06/20 11:22 01/11/20 06:05 Lorazepam 1 Mg Tablet PO 1 mg Q6H PRN Administration Anxiety Magnesium Hydroxide 30 ml 12/31/19 15:24 Milk Of Magnesia 30 Ml Oral.Susp PO DAILY PRN Constipation Nicotine Polacrilex 2 mg 12/30/19 17:57 01/02/20 09:25 Nicotine Polacrilex 2 Mg Gum BUCCAL 2 mg ONCE PRN Administration Nicotine Cravings Nicotine Polacrilex 4 mg 01/02/20 12:16 01/10/20 20:55 Nicotine Polacrilex 4 Mg Lozenge BUCCAL 4 mg Q2H PRN Administration Nicotine Cravings Propranolol HCl 10 mg 12/31/19 21:00 01/10/20 20:37 Propranolol Hcl 10 Mg Tablet PO 10 mg TID ELIECER Administration Protocol Pseudoephedrine HCl 30 mg 01/05/20 21:28 01/10/20 20:55 Pseudoephedrine Hcl 30 Mg Tablet PO 30 mg Q6H PRN Administration congestion Trazodone HCl 50 mg 12/31/19 15:24 Trazodone Hcl 50 Mg Tablet PO BEDTIME PRN Insomnia Allergies Allergies Allergy/AdvReac Type Severity Reaction Status Date / Time mold [MOLD] Allergy Unknown UNKNOWN Verified 12/30/19 16:01 paliperidone [From Invega] Allergy Unknown Verified 12/30/19 16:01 amoxicillin [AMOXICILLIN] AdvReac Severe ANAPHYLAXIS Verified 12/30/19 16:01 azithromycin [AZITHROMYCIN] AdvReac Severe ANAPHYLAXIS Verified 12/30/19 16:01 Assessment & Plan Assessment & Plan (1) FUO (fever of unknown origin): Status: Acute Code(s): R50.9 - Fever, unspecified Assessment and Plan: Check HIV Check blood cultures Hold antibiotics for now (2) Schizoaffective disorder: Qualifiers: Schizoaffective disorder type: bipolar Qualified Code(s): F25.0 - Schizoaffective disorder, bipolar type Status: Acute Code(s): F25.9 - Schizoaffective disorder, unspecified Assessment and Plan: Ct Thorazine/VPA/Gabapentin Greater than 50% of the session was spent on counseling and/or coordination of care
[2020-01-11 08:35] VITALS: BP 135/71; PULSE 63
[2020-01-11] MEDS: Propranolol HCL 10 MG TABLET PO ×3 (08:35→20:49)
[2020-01-11] MEDS: Benztropine Mesylate 1 MG TABLET PO ×2 (08:35→20:48)
[2020-01-11] MEDS: Gabapentin 400 MG CAPSULE PO ×2 (08:35→20:49)
[2020-01-11] MEDS: chlorproMAZINE HCl 100 MG TABLET PO (08:35)
[2020-01-11] MEDS: hydrOXYzine HCL 25 MG TABLET PO ×2 (11:07→14:58)
[2020-01-11] MEDS: Pseudoephedrine HCL 30 MG TABLET PO ×2 (11:07→20:49)
[2020-01-11 14:58] VITALS: BP 135/71; PULSE 63
--- NOTE | 2020-01-11 15:19 | PC.NURSE ---
pt signed a 3-day notice on 01/10. 3-day notice will be up on saturday01/15/2020
[2020-01-11 20:45] VITALS: BP 102/66; PULSE 75; TEMP 36.9
[2020-01-11] MEDS: chlorproMAZINE HCl 100 MG TABLET 200 MG PO (20:47)
[2020-01-11] MEDS: Divalproex Sodium ER 500 MG TAB.ER.24H 1500 MG PO (20:48)
[2020-01-11 20:49] VITALS: BP 102/66; PULSE 75
[2020-01-12] MEDS: Acetaminophen 325 MG TABLET 650 MG PO ×2 (00:15→20:02)
[2020-01-12] MEDS: hydrOXYzine HCL 25 MG TABLET PO ×2 (00:15→23:03)
[2020-01-12 04:25] VITALS: BP 130/63; PULSE 62; RESP 18; TEMP 36.4; O2SAT 100
--- NOTE | 2020-01-12 05:10 | P.PNPSI_ITS ---
Subjective Subjective Reason For Visit: psychosis Interim History: Presented himself as logical but was disorganized rambling about different thmes around computers. Put in another 3 day notice. Asks for increase in benzos. We negotiated a referral to [facility] respite. Pt has agreed. Will refer to Review of Systems Review of Systems Yes all other systems are reviewed and are negative Reports confusion Psychiatric: Reports confusion Mental Status Exam Mental Status Exam Patient Appearance: Disheveled and Unkempt Patient Orientation: Person, Place and Time Level of Consciousness: Awake and Appropriate Patient Behavior: Hyperactive, Suspicious and Crying Mood Description: Suspicious, Labile and Nervous Affect Description: Suspicious, Labile and Nervous Ability to Follow Directions: Poor Speech Pattern: Clear, Perseverating, Rambling and Rapid Diagnostics Vital Signs (24Hr): Vital Signs - 24 hr 01/11/20 05:50 01/11/20 08:35 01/11/20 14:58 Temperature 97.6 F Pulse Rate 63 63 63 Respiratory Rate 16 Blood Pressure 135/71 135/71 135/71 Pulse Oximetry 100 01/11/20 20:45 01/11/20 20:49 01/12/20 04:25 Temperature 98.5 F 97.5 F Pulse Rate 75 75 62 Respiratory Rate 18 Blood Pressure 102/66 102/66 130/63 Pulse Oximetry 100 Body Mass Index 33.4 Labs Results: 01/08/20 07:45 01/06/20 13:31 Imaging Radiology Impressions: ITS Impressions Chest X-Ray 01/05/20 00:00 IMPRESSION: No acute pulmonary finding. Medications Medications Current Medications Generic Name Dose Route Start Last Admin Trade Name Freq PRN Reason Stop Dose Admin Acetaminophen 650 mg 12/31/19 15:24 01/12/20 00:15 Acetaminophen 325 Mg Tablet PO 650 mg Q6H PRN Administration Headache/Pain Mild Scale (1-3) Al Hydroxide/Mg Hydroxide 30 ml 12/31/19 15:24 Magnesium Hydrox/Alum Hydrox 30 Ml Oral.Susp PO Q6H PRN Heartburn/Nausea Albuterol Sulfate 2 puff 12/31/19 16:24 01/11/20 20:53 Albuterol Sulfate 90 Mcg 8 Gm Inhaler INHALE 2 puff Q4H PRN Administration Wheezing Benzocaine 1 lozenge 01/08/20 18:34 01/09/20 15:18 Throat Lozenge, Medicated Lozenge MUCOUS MEM 1 lozenge Q2H PRN Administration Sore Throat Benztropine Mesylate 1 mg 12/31/19 21:00 01/11/20 20:48 Benztropine Mesylate 1 Mg Tablet PO 1 mg BID ELIECER Administration Chlorpromazine HCl 200 mg 01/07/20 21:00 01/11/20 20:47 Chlorpromazine Hcl 100 Mg Tablet PO 200 mg BEDTIME ELIECER Administration Chlorpromazine HCl 100 mg 01/09/20 09:00 01/11/20 08:35 Chlorpromazine Hcl 100 Mg Tablet PO 100 mg DAILY ELIECER Administration Divalproex Sodium 1,500 mg 01/10/20 21:00 01/11/20 20:48 Divalproex Sodium Er 500 Mg Tab.Er.24h PO 1,500 mg BEDTIME ELIECER Administration Gabapentin 400 mg 01/08/20 09:15 01/11/20 20:49 Gabapentin 400 Mg Capsule PO 400 mg BID ELIECER Administration Hydroxyzine HCl 25 mg 12/31/19 16:24 01/12/20 00:15 Hydroxyzine Hcl 25 Mg Tablet PO 25 mg TID PRN Administration Anxiety Lorazepam 1 mg 01/11/20 21:00 01/11/20 20:47 Lorazepam 1 Mg Tablet PO 1 mg TID ELIECER Administration Magnesium Hydroxide 30 ml 12/31/19 15:24 Milk Of Magnesia 30 Ml Oral.Susp PO DAILY PRN Constipation Nicotine Polacrilex 2 mg 12/30/19 17:57 01/02/20 09:25 Nicotine Polacrilex 2 Mg Gum BUCCAL 2 mg ONCE PRN Administration Nicotine Cravings Nicotine Polacrilex 4 mg 01/02/20 12:16 01/12/20 00:15 Nicotine Polacrilex 4 Mg Lozenge BUCCAL 4 mg Q2H PRN Administration Nicotine Cravings Propranolol HCl 10 mg 12/31/19 21:00 01/11/20 20:49 Propranolol Hcl 10 Mg Tablet PO 10 mg TID ELIECER Administration Protocol Pseudoephedrine HCl 30 mg 01/05/20 21:28 01/11/20 20:49 Pseudoephedrine Hcl 30 Mg Tablet PO 30 mg Q6H PRN Administration congestion Trazodone HCl 50 mg 12/31/19 15:24 Trazodone Hcl 50 Mg Tablet PO BEDTIME PRN Insomnia Allergies Allergies Allergy/AdvReac Type Severity Reaction Status Date / Time mold [MOLD] Allergy Unknown UNKNOWN Verified 12/30/19 16:01 paliperidone [From Invega] Allergy Unknown Verified 12/30/19 16:01 amoxicillin [AMOXICILLIN] AdvReac Severe ANAPHYLAXIS Verified 12/30/19 16:01 azithromycin [AZITHROMYCIN] AdvReac Severe ANAPHYLAXIS Verified 12/30/19 16:01 Assessment & Plan Assessment & Plan (1) FUO (fever of unknown origin): Status: Acute Code(s): R50.9 - Fever, unspecified Assessment and Plan: Check HIV Check blood cultures Hold antibiotics for now (2) Schizoaffective disorder: Qualifiers: Schizoaffective disorder type: bipolar Qualified Code(s): F25.0 - Schizoaffective disorder, bipolar type Status: Acute Code(s): F25.9 - Schizoaffective disorder, unspecified Assessment and Plan: Ct Thorazine/VPA/Gabapentin/Lorazepam Refer to [facility] respite Greater than 50% of the session was spent on counseling and/or coordination of care
[2020-01-12 08:10] VITALS: BP 130/63; PULSE 62
[2020-01-12] MEDS: Propranolol HCL 10 MG TABLET PO ×3 (08:10→20:05)
[2020-01-12] MEDS: chlorproMAZINE HCl 100 MG TABLET PO (08:10)
[2020-01-12] MEDS: Gabapentin 400 MG CAPSULE PO ×2 (08:10→20:04)
[2020-01-12] MEDS: LORazepam 1 MG TABLET PO ×3 (08:11→20:05)
[2020-01-12] MEDS: Benztropine Mesylate 1 MG TABLET PO ×2 (08:11→20:04)
[2020-01-12] MEDS: Albuterol Sulfate 90 MCG 8 GM INHALER 2 PUFF INHALE ×2 (08:16→20:40)
[2020-01-12] MEDS: Pseudoephedrine HCL 30 MG TABLET PO ×2 (09:43→20:13)
[2020-01-12 14:30] VITALS: PULSE 76
[2020-01-12 19:40] VITALS: BP 127/58; PULSE 73; TEMP 35.8
[2020-01-12] MEDS: Divalproex Sodium ER 500 MG TAB.ER.24H 1500 MG PO (20:02)
[2020-01-12 20:05] VITALS: BP 127/58; PULSE 73
[2020-01-12] MEDS: chlorproMAZINE HCl 100 MG TABLET 300 MG PO (20:11)
[2020-01-13 04:35] VITALS: BP 116/74; PULSE 84; RESP 16; TEMP 36.8; O2SAT 100
[2020-01-13] MEDS: hydrOXYzine HCL 25 MG TABLET PO ×2 (04:38→21:23)
[2020-01-13] MEDS: Pseudoephedrine HCL 30 MG TABLET PO ×3 (04:38→21:24)
[2020-01-13] MEDS: Albuterol Sulfate 90 MCG 8 GM INHALER 2 PUFF INHALE ×2 (04:38→10:31)
--- NOTE | 2020-01-13 05:32 | HO.PSYCHPN ---
Subjective Subjective Date of Service: 01/14/20 Reason For Visit: psychosis Interim History: Remains disorganized and ramles about various bizarre themes but can be logical too. No behavior dyscontrol. Has been med compliant. Much back and forth with SW and TW over 3 day notice and referrals to [facility]pite. Pt states he has a friends room to go to. Ct meds Review of Systems Review of Systems Gen: + fever HEENT: complaint of tonsil hurs Resp: no sob, no cough CV: no chest, no YEH, no leg edema GI: No n/v, no abd pain Neuro: drowsy, easily aroused Muscular sck: No back pain Reports confusion Psychiatric: Reports confusion Mental Status Exam Mental Status Exam Patient Appearance: Disheveled and Unkempt Patient Orientation: Person, Place and Time Level of Consciousness: Awake and Appropriate Patient Behavior: Suspicious Mood Description: Suspicious, Labile and Nervous Affect Description: Suspicious, Labile and Nervous Ability to Follow Directions: Poor Speech Pattern: Clear, Perseverating, Rambling and Rapid Diagnostics Vital Signs (24Hr): Vital Signs - 24 hr 01/12/20 08:10 01/12/20 14:30 01/12/20 19:40 Temperature 96.4 F L Pulse Rate 62 76 73 Blood Pressure 130/63 127/58 L 01/12/20 20:05 Temperature Pulse Rate 73 Blood Pressure 127/58 L Body Mass Index 33.4 Labs Results: 01/08/20 07:45 01/06/20 13:31 Imaging Radiology Impressions: ITS Impressions Chest X-Ray 01/05/20 00:00 IMPRESSION: No acute pulmonary finding. Medications Medications Current Medications Generic Name Dose Route Start Last Admin Trade Name Freq PRN Reason Stop Dose Admin Acetaminophen 650 mg 12/31/19 15:24 01/12/20 20:02 Acetaminophen 325 Mg Tablet PO 650 mg Q6H PRN Administration Headache/Pain Mild Scale (1-3) Al Hydroxide/Mg Hydroxide 30 ml 12/31/19 15:24 Magnesium Hydrox/Alum Hydrox 30 Ml Oral.Susp PO Q6H PRN Heartburn/Nausea Albuterol Sulfate 2 puff 12/31/19 16:24 01/13/20 04:38 Albuterol Sulfate 90 Mcg 8 Gm Inhaler INHALE 2 puff Q4H PRN Administration Wheezing Benzocaine 1 lozenge 01/08/20 18:34 01/09/20 15:18 Throat Lozenge, Medicated Lozenge MUCOUS MEM 1 lozenge Q2H PRN Administration Sore Throat Benztropine Mesylate 1 mg 12/31/19 21:00 01/12/20 20:04 Benztropine Mesylate 1 Mg Tablet PO 1 mg BID ELIECER Administration Chlorpromazine HCl 100 mg 01/09/20 09:00 01/12/20 08:10 Chlorpromazine Hcl 100 Mg Tablet PO 100 mg DAILY ELIECER Administration Chlorpromazine HCl 300 mg 01/12/20 21:00 01/12/20 20:11 Chlorpromazine Hcl 100 Mg Tablet PO 100 mg BEDTIME ELIECER Administration Divalproex Sodium 1,500 mg 01/10/20 21:00 01/12/20 20:02 Divalproex Sodium Er 500 Mg Tab.Er.24h PO 1,500 mg BEDTIME ELIECER Administration Gabapentin 400 mg 01/08/20 09:15 01/12/20 20:04 Gabapentin 400 Mg Capsule PO 400 mg BID ELIECER Administration Hydroxyzine HCl 25 mg 12/31/19 16:24 01/13/20 04:38 Hydroxyzine Hcl 25 Mg Tablet PO 25 mg TID PRN Administration Anxiety Lorazepam 1 mg 01/11/20 21:00 01/12/20 20:05 Lorazepam 1 Mg Tablet PO 1 mg TID ELIECER Administration Magnesium Hydroxide 30 ml 12/31/19 15:24 Milk Of Magnesia 30 Ml Oral.Susp PO DAILY PRN Constipation Nicotine Polacrilex 2 mg 12/30/19 17:57 01/02/20 09:25 Nicotine Polacrilex 2 Mg Gum BUCCAL 2 mg ONCE PRN Administration Nicotine Cravings Nicotine Polacrilex 4 mg 01/02/20 12:16 01/13/20 04:41 Nicotine Polacrilex 4 Mg Lozenge BUCCAL 4 mg Q2H PRN Administration Nicotine Cravings Propranolol HCl 10 mg 12/31/19 21:00 01/12/20 20:05 Propranolol Hcl 10 Mg Tablet PO 10 mg TID ELIECER Administration Protocol Pseudoephedrine HCl 30 mg 01/05/20 21:28 01/13/20 04:38 Pseudoephedrine Hcl 30 Mg Tablet PO 30 mg Q6H PRN Administration congestion Trazodone HCl 50 mg 12/31/19 15:24 Trazodone Hcl 50 Mg Tablet PO BEDTIME PRN Insomnia Allergies Allergies Allergy/AdvReac Type Severity Reaction Status Date / Time mold [MOLD] Allergy Unknown UNKNOWN Verified 12/30/19 16:01 paliperidone [From Invega] Allergy Unknown Verified 12/30/19 16:01 amoxicillin [AMOXICILLIN] AdvReac Severe ANAPHYLAXIS Verified 12/30/19 16:01 azithromycin [AZITHROMYCIN] AdvReac Severe ANAPHYLAXIS Verified 12/30/19 16:01 Assessment & Plan Assessment & Plan (1) FUO (fever of unknown origin): Status: Acute Code(s): R50.9 - Fever, unspecified (2) Schizoaffective disorder: Qualifiers: Schizoaffective disorder type: bipolar Qualified Code(s): F25.0 - Schizoaffective disorder, bipolar type Status: Acute Code(s): F25.9 - Schizoaffective disorder, unspecified Assessment and Plan: Ct Thorazine/VPA/Gabapentin/Lorazepam Refer to [facility] respite Ct dW pt re CV Vs 3 day notice/ [facility] referral Greater than 50% of the session was spent on counseling and/or coordination of care
[2020-01-13 08:10] VITALS: BP 116/74; PULSE 84
[2020-01-13] MEDS: Benztropine Mesylate 1 MG TABLET PO ×2 (08:10→19:48)
[2020-01-13] MEDS: Gabapentin 400 MG CAPSULE PO ×2 (08:10→19:46)
[2020-01-13] MEDS: Propranolol HCL 10 MG TABLET PO ×3 (08:10→19:47)
[2020-01-13] MEDS: LORazepam 1 MG TABLET PO ×3 (08:10→19:48)
[2020-01-13] MEDS: chlorproMAZINE HCl 100 MG TABLET PO (08:10)
[2020-01-13 08:51] LABS: Valproate 54.6 mcg/mL (50.0-100.0)
[2020-01-13] MEDS: Acetaminophen 325 MG TABLET 650 MG PO (10:29)
[2020-01-13 14:47] VITALS: PULSE 100
[2020-01-13 18:00] VITALS: BP 148/67; PULSE 72; TEMP 36.8
[2020-01-13] MEDS: chlorproMAZINE HCl 100 MG TABLET 300 MG PO (19:46)
[2020-01-13 19:47] VITALS: BP 148/67; PULSE 72
[2020-01-13] MEDS: Divalproex Sodium ER 500 MG TAB.ER.24H 1500 MG PO (19:48)
[2020-01-14 06:25] VITALS: BP 134/74; PULSE 104; RESP 18; TEMP 36.6; O2SAT 100
[2020-01-14 08:27] VITALS: BP 134/74; PULSE 64
[2020-01-14] MEDS: Propranolol HCL 10 MG TABLET PO ×3 (08:27→20:39)
[2020-01-14] MEDS: Benztropine Mesylate 1 MG TABLET PO ×2 (08:28→20:40)
[2020-01-14] MEDS: Gabapentin 400 MG CAPSULE PO ×2 (08:28→20:40)
[2020-01-14] MEDS: LORazepam 1 MG TABLET PO ×3 (08:28→20:40)
[2020-01-14] MEDS: chlorproMAZINE HCl 100 MG TABLET PO ×2 (08:28→20:39)
[2020-01-14] MEDS: Albuterol Sulfate 90 MCG 8 GM INHALER 2 PUFF INHALE ×2 (09:55→15:25)
[2020-01-14] MEDS: Acetaminophen 325 MG TABLET 650 MG PO (09:59)
[2020-01-14] MEDS: Pseudoephedrine HCL 30 MG TABLET PO ×2 (10:01→20:40)
[2020-01-14] MEDS: Throat Lozenge, Medicated LOZENGE 1 LOZENGE MUCOUS MEM (10:01)
--- NOTE | 2020-01-14 14:36 | HO.PSYCHPN ---
Subjective Subjective Date of Service: 01/14/20 Reason For Visit: psychosis Subjective Notes: 3 Day Interim History: Remains disorganized and rambles about various bizarre themes but can be logical too. There has been no behavior dyscontrol. He has been med compliant. He continues to assert that he wants to leave and is hoping he can go to Respite Medication Compliance: Yes Side effects from medications: No Attending Groups: Intermittent Review of Systems Acute medical concerns: No Medical Review of Systems: unchanged Review of Systems Reports confusion Psychiatric: Reports confusion Mental Status Exam Mental Status Exam Patient Appearance: Disheveled and Unkempt Patient Orientation: Person, Place and Time Level of Consciousness: Awake and Appropriate Patient Behavior: Talkative Mood Description: Flat Affect Description: Flat Ability to Follow Directions: Poor Speech Pattern: Clear, Perseverating and Rambling Hallucinations: None Delusions: Not Present Thought Content: positive for Circumstantial, positive for Perseveration, negative for Suicidal Ideation and negative for Homicidal Ideation Diagnostics Vital Signs (24Hr): Vital Signs - 24 hr 01/13/20 14:47 01/13/20 18:00 01/13/20 19:47 Temperature 98.3 F Pulse Rate 100 72 72 Respiratory Rate Blood Pressure 148/67 H 148/67 H Pulse Oximetry 01/14/20 06:25 01/14/20 08:27 Temperature 97.9 F Pulse Rate 104 H 64 Respiratory Rate 18 Blood Pressure 134/74 134/74 Pulse Oximetry 100 Body Mass Index 33.4 Labs Results: 01/08/20 07:45 01/06/20 13:31 Labs: Laboratory Results - last 48 hr 01/13/20 08:05 Valproic Acid 54.6 Imaging Radiology Impressions: ITS Impressions Chest X-Ray 01/05/20 00:00 IMPRESSION: No acute pulmonary finding. Medications Medications Current Medications Generic Name Dose Route Start Last Admin Trade Name Freq PRN Reason Stop Dose Admin Acetaminophen 650 mg 12/31/19 15:24 01/14/20 09:59 Acetaminophen 325 Mg Tablet PO 650 mg Q6H PRN Administration Headache/Pain Mild Scale (1-3) Al Hydroxide/Mg Hydroxide 30 ml 12/31/19 15:24 Magnesium Hydrox/Alum Hydrox 30 Ml Oral.Susp PO Q6H PRN Heartburn/Nausea Albuterol Sulfate 2 puff 12/31/19 16:24 01/14/20 09:55 Albuterol Sulfate 90 Mcg 8 Gm Inhaler INHALE 2 puff Q4H PRN Administration Wheezing Benzocaine 1 lozenge 01/08/20 18:34 01/14/20 10:01 Throat Lozenge, Medicated Lozenge MUCOUS MEM 1 lozenge Q2H PRN Administration Sore Throat Benztropine Mesylate 1 mg 12/31/19 21:00 01/14/20 08:28 Benztropine Mesylate 1 Mg Tablet PO 1 mg BID ELIECER Administration Chlorpromazine HCl 100 mg 01/09/20 09:00 01/14/20 08:28 Chlorpromazine Hcl 100 Mg Tablet PO 100 mg DAILY ELIECER Administration Chlorpromazine HCl 300 mg 01/12/20 21:00 01/13/20 19:46 Chlorpromazine Hcl 100 Mg Tablet PO 300 mg BEDTIME ELIECER Administration Divalproex Sodium 1,500 mg 01/10/20 21:00 01/13/20 19:48 Divalproex Sodium Er 500 Mg Tab.Er.24h PO 1,500 mg BEDTIME ELIECER Administration Gabapentin 400 mg 01/08/20 09:15 01/14/20 08:28 Gabapentin 400 Mg Capsule PO 400 mg BID LEIECER Administration Hydroxyzine HCl 25 mg 12/31/19 16:24 01/13/20 21:23 Hydroxyzine Hcl 25 Mg Tablet PO 25 mg TID PRN Administration Anxiety Lorazepam 1 mg 01/11/20 21:00 01/14/20 08:28 Lorazepam 1 Mg Tablet PO 1 mg TID ELIECER Administration Magnesium Hydroxide 30 ml 12/31/19 15:24 Milk Of Magnesia 30 Ml Oral.Susp PO DAILY PRN Constipation Nicotine Polacrilex 2 mg 12/30/19 17:57 01/02/20 09:25 Nicotine Polacrilex 2 Mg Gum BUCCAL 2 mg ONCE PRN Administration Nicotine Cravings Nicotine Polacrilex 4 mg 01/02/20 12:16 01/14/20 10:01 Nicotine Polacrilex 4 Mg Lozenge BUCCAL 4 mg Q2H PRN Administration Nicotine Cravings Propranolol HCl 10 mg 12/31/19 21:00 01/14/20 08:27 Propranolol Hcl 10 Mg Tablet PO 10 mg TID ELIECER Administration Protocol Pseudoephedrine HCl 30 mg 01/05/20 21:28 01/14/20 10:01 Pseudoephedrine Hcl 30 Mg Tablet PO 30 mg Q6H PRN Administration congestion Trazodone HCl 50 mg 12/31/19 15:24 Trazodone Hcl 50 Mg Tablet PO BEDTIME PRN Insomnia Allergies Allergies Allergy/AdvReac Type Severity Reaction Status Date / Time mold [MOLD] Allergy Unknown UNKNOWN Verified 12/30/19 16:01 paliperidone [From Invega] Allergy Unknown Verified 12/30/19 16:01 amoxicillin [AMOXICILLIN] AdvReac Severe ANAPHYLAXIS Verified 12/30/19 16:01 azithromycin [AZITHROMYCIN] AdvReac Severe ANAPHYLAXIS Verified 12/30/19 16:01 Assessment & Plan Assessment & Plan (1) Schizoaffective disorder: Qualifiers: Schizoaffective disorder type: bipolar Qualified Code(s): F25.0 - Schizoaffective disorder, bipolar type Status: Acute Code(s): F25.9 - Schizoaffective disorder, unspecified Assessment and Plan: CT current treatment plan Greater than 50% of the session was spent on counseling and/or coordination of care Patient educated on: diagnosis, medication risk/benefits and substance abuse Reason for contiued inpatient stay Substantial Risk for: rapid decompensation
[2020-01-14 15:17] VITALS: BP 120/77; PULSE 108
[2020-01-14 15:27] VITALS: BMI 33.4
--- NOTE | 2020-01-14 15:45 | MHC.CARE ---
CARE team noticed patient in the carr standing near another patient who was escalated. Patient was asked by staff to move further away. Patient reports he does not want to leave [facility] staff unprotected and was making statements like I'm going to end up in skilled nursing tonight and I can kick this high indicating on the wall a height above his head. Patient was telling staff he would intervene physically if the other patient continues to be aggressive. CARE team attempted to speak with patient and provide support. Reminded patient that the unit's main priority is safety. Asked that patient think about the potential sequence of events if he were to intervene physically, such as potentially being restrained himself or at least being addressed directly by staff, and by extension taking staffing away from other areas of the unit, causing potentially further safety risk. Patient was asked to think about unit policies regarding safety and to respect staff member's request that he remain a certain distance away from this other patient. Patient continued to be watchful of his peer and noting his movements and behaviors ( He's opening the door There he is He's going to the chair ). Patient eventually was able to move to another topic and had questions about policies on smoking at respite. CARE team was unable to answer these questions and suggested patient ask his staff member in about half an hour, after change of shift is complete and staff has an opportunity to settle themselves in to their assigned tasks. Patient agreed then returned to his room. CARE team updated the staff member who is sitter for the peer that was agitating patient in case patient attempts to intervene again later.
[2020-01-14 17:14] VITALS: BP 124/59; PULSE 80; TEMP 37.1
[2020-01-14 20:39] VITALS: BP 124/59; PULSE 80
[2020-01-14] MEDS: Divalproex Sodium ER 500 MG TAB.ER.24H 1500 MG PO (20:40)
[2020-01-14] MEDS: chlorproMAZINE HCl 100 MG TABLET 300 MG PO (21:25)
[2020-01-15 07:02] VITALS: BP 109/58; PULSE 95; RESP 16; TEMP 36.8
[2020-01-15 08:29] VITALS: BP 109/98; PULSE 95
[2020-01-15] MEDS: LORazepam 1 MG TABLET PO ×3 (08:29→20:26)
[2020-01-15] MEDS: Gabapentin 400 MG CAPSULE PO ×2 (08:29→20:35)
[2020-01-15] MEDS: Propranolol HCL 10 MG TABLET PO ×3 (08:29→20:26)
[2020-01-15] MEDS: Benztropine Mesylate 1 MG TABLET PO ×2 (08:30→20:25)
[2020-01-15] MEDS: Albuterol Sulfate 90 MCG 8 GM INHALER 2 PUFF INHALE (08:50)
[2020-01-15] MEDS: Acetaminophen 325 MG TABLET 650 MG PO (08:51)
[2020-01-15] MEDS: Pseudoephedrine HCL 30 MG TABLET PO ×2 (08:52→20:30)
--- NOTE | 2020-01-15 15:17 | P.PNPSI_ITS ---
Subjective Subjective Date of Service: 01/15/20 Reason For Visit: psychosis Subjective Notes: Conditional Voluntary Interim History: Elmer has remained somewhat pressured and bizarre. He is not able to go to Respite since he has a 3 day notice in. He is also not welcome to go to his mother's home. He was willing to retract the three day notice and work with staff and his [facility] worker to make a safe DC plan. Medication Compliance: Yes Side effects from medications: No Attending Groups: Intermittent Review of Systems Acute medical concerns: No Medical Review of Systems: unchanged Review of Systems Reports confusion Psychiatric: Reports confusion Mental Status Exam Mental Status Exam Patient Appearance: Disheveled and Unkempt Patient Orientation: Person, Place and Time Level of Consciousness: Awake and Appropriate Patient Behavior: Talkative Mood Description: Flat Affect Description: Flat Ability to Follow Directions: Poor Speech Pattern: Clear, Perseverating and Rambling Hallucinations: None Delusions: Not Present Thought Content: positive for Circumstantial, positive for Perseveration, negative for Suicidal Ideation and negative for Homicidal Ideation Diagnostics Vital Signs (24Hr): Vital Signs - 24 hr 01/14/20 17:14 01/14/20 20:39 01/15/20 07:02 Temperature 98.7 F 98.2 F Pulse Rate 80 80 95 Respiratory Rate 16 Blood Pressure 124/59 L 124/59 L 109/58 L 01/15/20 08:29 Temperature Pulse Rate 95 Respiratory Rate Blood Pressure 109/98 H Body Mass Index 33.4 Labs Results: 01/08/20 07:45 01/06/20 13:31 Imaging Radiology Impressions: ITS Impressions Chest X-Ray 01/05/20 00:00 IMPRESSION: No acute pulmonary finding. Medications Medications Current Medications Generic Name Dose Route Start Last Admin Trade Name Freq PRN Reason Stop Dose Admin Acetaminophen 650 mg 12/31/19 15:24 01/15/20 08:51 Acetaminophen 325 Mg Tablet PO 650 mg Q6H PRN Administration Headache/Pain Mild Scale (1-3) Al Hydroxide/Mg Hydroxide 30 ml 12/31/19 15:24 Magnesium Hydrox/Alum Hydrox 30 Ml Oral.Susp PO Q6H PRN Heartburn/Nausea Albuterol Sulfate 2 puff 12/31/19 16:24 01/15/20 08:50 Albuterol Sulfate 90 Mcg 8 Gm Inhaler INHALE 2 puff Q4H PRN Administration Wheezing Benzocaine 1 lozenge 01/08/20 18:34 01/14/20 10:01 Throat Lozenge, Medicated Lozenge MUCOUS MEM 1 lozenge Q2H PRN Administration Sore Throat Benztropine Mesylate 1 mg 12/31/19 21:00 01/15/20 08:30 Benztropine Mesylate 1 Mg Tablet PO 1 mg BID ELIECER Administration Chlorpromazine HCl 100 mg 01/09/20 09:00 01/14/20 20:39 Chlorpromazine Hcl 100 Mg Tablet PO 100 mg DAILY ELIECER Administration Chlorpromazine HCl 300 mg 01/12/20 21:00 01/14/20 21:25 Chlorpromazine Hcl 100 Mg Tablet PO 200 mg BEDTIME ELIECER Administration Divalproex Sodium 1,500 mg 01/10/20 21:00 01/14/20 20:40 Divalproex Sodium Er 500 Mg Tab.Er.24h PO 1,500 mg BEDTIME ELIECER Administration Gabapentin 400 mg 01/08/20 09:15 01/15/20 08:29 Gabapentin 400 Mg Capsule PO 400 mg BID ELIECER Administration Hydroxyzine HCl 25 mg 12/31/19 16:24 01/13/20 21:23 Hydroxyzine Hcl 25 Mg Tablet PO 25 mg TID PRN Administration Anxiety Lorazepam 1 mg 01/11/20 21:00 01/15/20 08:29 Lorazepam 1 Mg Tablet PO 1 mg TID ELIECER Administration Magnesium Hydroxide 30 ml 12/31/19 15:24 Milk Of Magnesia 30 Ml Oral.Susp PO DAILY PRN Constipation Nicotine Polacrilex 2 mg 12/30/19 17:57 01/02/20 09:25 Nicotine Polacrilex 2 Mg Gum BUCCAL 2 mg ONCE PRN Administration Nicotine Cravings Nicotine Polacrilex 4 mg 01/02/20 12:16 01/15/20 08:52 Nicotine Polacrilex 4 Mg Lozenge BUCCAL 4 mg Q2H PRN Administration Nicotine Cravings Propranolol HCl 10 mg 12/31/19 21:00 01/15/20 08:29 Propranolol Hcl 10 Mg Tablet PO 10 mg TID ELIECER Administration Protocol Pseudoephedrine HCl 30 mg 01/05/20 21:28 01/15/20 08:52 Pseudoephedrine Hcl 30 Mg Tablet PO 30 mg Q6H PRN Administration congestion Trazodone HCl 50 mg 12/31/19 15:24 Trazodone Hcl 50 Mg Tablet PO BEDTIME PRN Insomnia Allergies Allergies Allergy/AdvReac Type Severity Reaction Status Date / Time mold [MOLD] Allergy Unknown UNKNOWN Verified 12/30/19 16:01 paliperidone [From Invega] Allergy Unknown Verified 12/30/19 16:01 amoxicillin [AMOXICILLIN] AdvReac Severe ANAPHYLAXIS Verified 12/30/19 16:01 azithromycin [AZITHROMYCIN] AdvReac Severe ANAPHYLAXIS Verified 12/30/19 16:01 Assessment & Plan Assessment & Plan (1) Schizoaffective disorder: Qualifiers: Schizoaffective disorder type: bipolar Qualified Code(s): F25.0 - Schizoaffective disorder, bipolar type Status: Acute Code(s): F25.9 - Schizoaffective disorder, unspecified Assessment and Plan: Accept retraction of 3 day. Encourage disposition planning CT treatment plan Greater than 50% of the session was spent on counseling and/or coordination of care Patient educated on: diagnosis, medication risk/benefits and substance abuse Informed Consent: further education needed Reason for contiued inpatient stay Substantial Risk for: inability to function and rapid decompensation
[2020-01-15 15:43] VITALS: BP 132/74; PULSE 84
[2020-01-15 18:00] VITALS: BP 132/74; PULSE 84; TEMP 36.8
[2020-01-15] MEDS: chlorproMAZINE HCl 100 MG TABLET 300 MG PO (20:25)
[2020-01-15 20:26] VITALS: BP 132/74; PULSE 84
[2020-01-15] MEDS: Divalproex Sodium ER 500 MG TAB.ER.24H 1500 MG PO (20:26)
[2020-01-16 06:35] VITALS: BP 106/68; PULSE 69; RESP 18; TEMP 37
[2020-01-16 09:17] VITALS: BP 106/68; PULSE 69
[2020-01-16] MEDS: Propranolol HCL 10 MG TABLET PO ×3 (09:17→20:13)
[2020-01-16] MEDS: LORazepam 1 MG TABLET PO ×3 (09:18→20:16)
[2020-01-16] MEDS: Benztropine Mesylate 1 MG TABLET PO ×2 (09:18→20:16)
[2020-01-16] MEDS: Gabapentin 400 MG CAPSULE PO ×2 (09:18→20:16)
[2020-01-16] MEDS: chlorproMAZINE HCl 100 MG TABLET PO (09:18)
[2020-01-16] MEDS: Albuterol Sulfate 90 MCG 8 GM INHALER 2 PUFF INHALE ×3 (09:22→20:25)
[2020-01-16] MEDS: Pseudoephedrine HCL 30 MG TABLET PO (09:22)
--- NOTE | 2020-01-16 13:18 | HO.PSYCHPN ---
Subjective Subjective Date of Service: 01/16/20 Reason For Visit: psychosis Subjective Notes: Conditional Voluntary Interim History: Max was more accepting of being in the hospital and working toward a safe DC plan. Medication Compliance: Yes Side effects from medications: No Attending Groups: Yes Review of Systems Acute medical concerns: No Medical Review of Systems: unchanged Review of Systems Reports confusion Psychiatric: Reports confusion Mental Status Exam Mental Status Exam Patient Appearance: Disheveled and Unkempt Patient Orientation: Person, Place and Time Level of Consciousness: Awake and Appropriate Patient Behavior: Talkative Mood Description: Flat Affect Description: Flat Ability to Follow Directions: Poor Speech Pattern: Clear, Perseverating and Rambling Hallucinations: None Delusions: Not Present Thought Content: positive for Circumstantial, positive for Perseveration, negative for Suicidal Ideation and negative for Homicidal Ideation Diagnostics Vital Signs (24Hr): Vital Signs - 24 hr 01/15/20 15:43 01/15/20 18:00 01/15/20 20:26 Temperature 98.2 F Pulse Rate 84 84 84 Respiratory Rate Blood Pressure 132/74 132/74 132/74 01/16/20 06:35 01/16/20 09:17 Temperature 98.6 F Pulse Rate 69 69 Respiratory Rate 18 Blood Pressure 106/68 106/68 Body Mass Index 33.4 Labs Results: 01/08/20 07:45 01/06/20 13:31 Imaging Radiology Impressions: ITS Impressions Chest X-Ray 01/05/20 00:00 IMPRESSION: No acute pulmonary finding. Medications Medications Current Medications Generic Name Dose Route Start Last Admin Trade Name Freq PRN Reason Stop Dose Admin Acetaminophen 650 mg 12/31/19 15:24 01/15/20 08:51 Acetaminophen 325 Mg Tablet PO 650 mg Q6H PRN Administration Headache/Pain Mild Scale (1-3) Al Hydroxide/Mg Hydroxide 30 ml 12/31/19 15:24 Magnesium Hydrox/Alum Hydrox 30 Ml Oral.Susp PO Q6H PRN Heartburn/Nausea Albuterol Sulfate 2 puff 12/31/19 16:24 01/16/20 09:22 Albuterol Sulfate 90 Mcg 8 Gm Inhaler INHALE 2 puff Q4H PRN Administration Wheezing Benzocaine 1 lozenge 01/08/20 18:34 01/14/20 10:01 Throat Lozenge, Medicated Lozenge MUCOUS MEM 1 lozenge Q2H PRN Administration Sore Throat Benztropine Mesylate 1 mg 12/31/19 21:00 01/16/20 09:18 Benztropine Mesylate 1 Mg Tablet PO 1 mg BID ELIECER Administration Chlorpromazine HCl 100 mg 01/09/20 09:00 01/16/20 09:18 Chlorpromazine Hcl 100 Mg Tablet PO 100 mg DAILY ELIECER Administration Chlorpromazine HCl 300 mg 01/12/20 21:00 01/15/20 20:25 Chlorpromazine Hcl 100 Mg Tablet PO 300 mg BEDTIME ELIECER Administration Divalproex Sodium 1,500 mg 01/10/20 21:00 01/15/20 20:26 Divalproex Sodium Er 500 Mg Tab.Er.24h PO 1,500 mg BEDTIME ELIECER Administration Gabapentin 400 mg 01/08/20 09:15 01/16/20 09:18 Gabapentin 400 Mg Capsule PO 400 mg BID ELIECER Administration Hydroxyzine HCl 25 mg 12/31/19 16:24 01/13/20 21:23 Hydroxyzine Hcl 25 Mg Tablet PO 25 mg TID PRN Administration Anxiety Lorazepam 1 mg 01/11/20 21:00 01/16/20 09:18 Lorazepam 1 Mg Tablet PO 1 mg TID ELIECER Administration Magnesium Hydroxide 30 ml 12/31/19 15:24 Milk Of Magnesia 30 Ml Oral.Susp PO DAILY PRN Constipation Nicotine Polacrilex 2 mg 12/30/19 17:57 01/02/20 09:25 Nicotine Polacrilex 2 Mg Gum BUCCAL 2 mg ONCE PRN Administration Nicotine Cravings Nicotine Polacrilex 4 mg 01/02/20 12:16 01/16/20 11:10 Nicotine Polacrilex 4 Mg Lozenge BUCCAL 4 mg Q2H PRN Administration Nicotine Cravings Propranolol HCl 10 mg 12/31/19 21:00 01/16/20 09:17 Propranolol Hcl 10 Mg Tablet PO 10 mg TID ELIECER Administration Protocol Pseudoephedrine HCl 30 mg 01/05/20 21:28 01/16/20 09:22 Pseudoephedrine Hcl 30 Mg Tablet PO 30 mg Q6H PRN Administration congestion Trazodone HCl 50 mg 12/31/19 15:24 Trazodone Hcl 50 Mg Tablet PO BEDTIME PRN Insomnia Allergies Allergies Allergy/AdvReac Type Severity Reaction Status Date / Time mold [MOLD] Allergy Unknown UNKNOWN Verified 12/30/19 16:01 paliperidone [From Invega] Allergy Unknown Verified 12/30/19 16:01 amoxicillin [AMOXICILLIN] AdvReac Severe ANAPHYLAXIS Verified 12/30/19 16:01 azithromycin [AZITHROMYCIN] AdvReac Severe ANAPHYLAXIS Verified 12/30/19 16:01 Assessment & Plan Assessment & Plan (1) Schizoaffective disorder: Qualifiers: Schizoaffective disorder type: bipolar Qualified Code(s): F25.0 - Schizoaffective disorder, bipolar type Status: Acute Code(s): F25.9 - Schizoaffective disorder, unspecified Assessment and Plan: CT current treatment plan Greater than 50% of the session was spent on counseling and/or coordination of care Patient educated on: diagnosis and medication risk/benefits Informed Consent: further education needed Reason for contiued inpatient stay Substantial Risk for: inability to function and rapid decompensation
[2020-01-16 14:59] VITALS: BP 132/66; PULSE 96
[2020-01-16] MEDS: Acetaminophen 325 MG TABLET 650 MG PO (16:34)
[2020-01-16] MEDS: hydrOXYzine HCL 25 MG TABLET PO (16:34)
[2020-01-16] MEDS: Throat Lozenge, Medicated LOZENGE 1 LOZENGE MUCOUS MEM (16:34)
[2020-01-16 19:40] VITALS: BP 127/60; PULSE 89; TEMP 36.9
[2020-01-16 20:13] VITALS: BP 127/60; PULSE 89
[2020-01-16] MEDS: Divalproex Sodium ER 500 MG TAB.ER.24H 1500 MG PO (20:15)
[2020-01-16] MEDS: chlorproMAZINE HCl 100 MG TABLET 300 MG PO (20:16)
[2020-01-17 05:55] VITALS: BP 136/65; PULSE 71; RESP 16; TEMP 35.8; O2SAT 98
[2020-01-17] MEDS: Albuterol Sulfate 90 MCG 8 GM INHALER 2 PUFF INHALE ×3 (06:12→22:02)
[2020-01-17] MEDS: Pseudoephedrine HCL 30 MG TABLET PO (06:12)
[2020-01-17] MEDS: Acetaminophen 325 MG TABLET 650 MG PO ×2 (06:12→18:52)
[2020-01-17] MEDS: Gabapentin 400 MG CAPSULE PO ×2 (09:01→21:34)
[2020-01-17 09:02] VITALS: BP 136/65; PULSE 71
[2020-01-17] MEDS: chlorproMAZINE HCl 100 MG TABLET PO (09:02)
[2020-01-17] MEDS: Benztropine Mesylate 1 MG TABLET PO ×2 (09:02→21:35)
[2020-01-17] MEDS: Propranolol HCL 10 MG TABLET PO ×3 (09:02→21:31)
[2020-01-17] MEDS: LORazepam 1 MG TABLET PO ×3 (10:26→21:31)
[2020-01-17] MEDS: hydrOXYzine HCL 25 MG TABLET PO ×2 (12:28→17:38)
--- NOTE | 2020-01-17 13:32 | HO.PSYCHPN ---
Subjective Subjective Date of Service: 01/17/20 Reason For Visit: psychosis Subjective Notes: Conditional Voluntary Interim History: Elmer reports that he thinks that the correct decision was made that he should not be discharged on the three day notice. He agrees that he needs a safe place to be when he is discharged. Medication Compliance: Yes Side effects from medications: No Attending Groups: Intermittent Review of Systems Acute medical concerns: No Medical Review of Systems: unchanged Review of Systems Reports confusion Psychiatric: Reports confusion Mental Status Exam Mental Status Exam Patient Appearance: Disheveled and Unkempt Patient Orientation: Person, Place and Time Level of Consciousness: Awake and Appropriate Patient Behavior: Talkative Mood Description: Flat Affect Description: Flat Ability to Follow Directions: Poor Speech Pattern: Clear, Perseverating and Rambling Hallucinations: None Delusions: Not Present Thought Content: positive for Circumstantial, positive for Perseveration, negative for Suicidal Ideation and negative for Homicidal Ideation Diagnostics Vital Signs (24Hr): Vital Signs - 24 hr 01/16/20 14:59 01/16/20 19:40 01/16/20 20:13 Temperature 98.4 F Pulse Rate 96 89 89 Respiratory Rate Blood Pressure 132/66 127/60 127/60 Pulse Oximetry 01/17/20 05:55 01/17/20 09:02 Temperature 96.4 F L Pulse Rate 71 71 Respiratory Rate 16 Blood Pressure 136/65 136/65 Pulse Oximetry 98 Body Mass Index 33.4 Labs Results: 01/08/20 07:45 01/06/20 13:31 Imaging Radiology Impressions: ITS Impressions Chest X-Ray 01/05/20 00:00 IMPRESSION: No acute pulmonary finding. Medications Medications Current Medications Generic Name Dose Route Start Last Admin Trade Name Freq PRN Reason Stop Dose Admin Acetaminophen 650 mg 12/31/19 15:24 01/17/20 06:12 Acetaminophen 325 Mg Tablet PO 650 mg Q6H PRN Administration Headache/Pain Mild Scale (1-3) Al Hydroxide/Mg Hydroxide 30 ml 12/31/19 15:24 Magnesium Hydrox/Alum Hydrox 30 Ml Oral.Susp PO Q6H PRN Heartburn/Nausea Albuterol Sulfate 2 puff 12/31/19 16:24 01/17/20 09:14 Albuterol Sulfate 90 Mcg 8 Gm Inhaler INHALE 2 puff Q4H PRN Administration Wheezing Benzocaine 1 lozenge 01/08/20 18:34 01/16/20 16:34 Throat Lozenge, Medicated Lozenge MUCOUS MEM 1 lozenge Q2H PRN Administration Sore Throat Benztropine Mesylate 1 mg 12/31/19 21:00 01/17/20 09:02 Benztropine Mesylate 1 Mg Tablet PO 1 mg BID ELIECER Administration Chlorpromazine HCl 100 mg 01/09/20 09:00 01/17/20 09:02 Chlorpromazine Hcl 100 Mg Tablet PO 100 mg DAILY ELIECER Administration Chlorpromazine HCl 300 mg 01/12/20 21:00 01/16/20 20:16 Chlorpromazine Hcl 100 Mg Tablet PO 300 mg BEDTIME ELIECER Administration Divalproex Sodium 1,500 mg 01/10/20 21:00 01/16/20 20:15 Divalproex Sodium Er 500 Mg Tab.Er.24h PO 1,500 mg BEDTIME ELIECER Administration Gabapentin 400 mg 01/08/20 09:15 01/17/20 09:01 Gabapentin 400 Mg Capsule PO 400 mg BID ELIECER Administration Hydroxyzine HCl 25 mg 12/31/19 16:24 01/17/20 12:28 Hydroxyzine Hcl 25 Mg Tablet PO 25 mg TID PRN Administration Anxiety Lorazepam 1 mg 01/17/20 10:00 01/17/20 10:26 Lorazepam 1 Mg Tablet PO 1 mg TID ELIECER Administration Magnesium Hydroxide 30 ml 12/31/19 15:24 Milk Of Magnesia 30 Ml Oral.Susp PO DAILY PRN Constipation Nicotine Polacrilex 2 mg 12/30/19 17:57 01/02/20 09:25 Nicotine Polacrilex 2 Mg Gum BUCCAL 2 mg ONCE PRN Administration Nicotine Cravings Nicotine Polacrilex 4 mg 01/02/20 12:16 01/17/20 06:17 Nicotine Polacrilex 4 Mg Lozenge BUCCAL 4 mg Q2H PRN Administration Nicotine Cravings Propranolol HCl 10 mg 12/31/19 21:00 01/17/20 09:02 Propranolol Hcl 10 Mg Tablet PO 10 mg TID ELIECER Administration Protocol Pseudoephedrine HCl 30 mg 01/05/20 21:28 01/17/20 06:12 Pseudoephedrine Hcl 30 Mg Tablet PO 30 mg Q6H PRN Administration congestion Trazodone HCl 50 mg 12/31/19 15:24 Trazodone Hcl 50 Mg Tablet PO BEDTIME PRN Insomnia Allergies Allergies Allergy/AdvReac Type Severity Reaction Status Date / Time mold [MOLD] Allergy Unknown UNKNOWN Verified 12/30/19 16:01 paliperidone [From Invega] Allergy Unknown Verified 12/30/19 16:01 amoxicillin [AMOXICILLIN] AdvReac Severe ANAPHYLAXIS Verified 12/30/19 16:01 azithromycin [AZITHROMYCIN] AdvReac Severe ANAPHYLAXIS Verified 12/30/19 16:01 Assessment & Plan Assessment & Plan (1) Schizoaffective disorder: Qualifiers: Schizoaffective disorder type: bipolar Qualified Code(s): F25.0 - Schizoaffective disorder, bipolar type Status: Acute Code(s): F25.9 - Schizoaffective disorder, unspecified Assessment and Plan: Continue treatment plan Greater than 50% of the session was spent on counseling and/or coordination of care Patient educated on: diagnosis, medication risk/benefits and substance abuse Informed Consent: further education needed Reason for contiued inpatient stay Substantial Risk for: rapid decompensation
[2020-01-17 14:37] VITALS: BP 110/80; PULSE 70
[2020-01-17 19:25] VITALS: BP 133/63; PULSE 89; TEMP 36.8
[2020-01-17 21:31] VITALS: BP 133/63; PULSE 89
[2020-01-17] MEDS: chlorproMAZINE HCl 100 MG TABLET 300 MG PO (21:34)
[2020-01-17] MEDS: Divalproex Sodium ER 500 MG TAB.ER.24H 1500 MG PO (21:35)
[2020-01-18] MEDS: Pseudoephedrine HCL 30 MG TABLET PO ×2 (00:15→09:22)
[2020-01-18] MEDS: hydrOXYzine HCL 25 MG TABLET PO ×2 (00:15→13:21)
[2020-01-18] MEDS: chlorproMAZINE HCl 100 MG TABLET PO (09:14)
[2020-01-18] MEDS: Gabapentin 400 MG CAPSULE PO ×2 (09:14→20:09)
[2020-01-18] MEDS: LORazepam 1 MG TABLET PO ×3 (09:14→20:09)
[2020-01-18 09:15] VITALS: BP 130/78; PULSE 88
[2020-01-18] MEDS: Propranolol HCL 10 MG TABLET PO ×3 (09:15→20:10)
[2020-01-18] MEDS: Benztropine Mesylate 1 MG TABLET PO ×2 (09:15→20:09)
[2020-01-18] MEDS: Acetaminophen 325 MG TABLET 650 MG PO (09:21)
[2020-01-18] MEDS: Albuterol Sulfate 90 MCG 8 GM INHALER 2 PUFF INHALE ×3 (09:24→20:20)
[2020-01-18 10:03] VITALS: BP 130/66; PULSE 87; RESP 18; TEMP 36.3; O2SAT 98
[2020-01-18 14:18] VITALS: BP 127/96; PULSE 95
--- NOTE | 2020-01-18 17:19 | HO.PSYCHPN ---
Subjective Subjective Date of Service: 01/18/20 Reason For Visit: psychosis Interim History: Pt disorganized at times. But also logical. Encouraged to work with SW to apply for [facility] respite bed. Ct meds. Med compliant Review of Systems Reports confusion Psychiatric: Reports confusion Mental Status Exam Mental Status Exam Patient Appearance: Disheveled and Unkempt Patient Orientation: Person, Place and Time Level of Consciousness: Awake and Appropriate Patient Behavior: Talkative Mood Description: Flat Affect Description: Flat Ability to Follow Directions: Poor Speech Pattern: Clear, Perseverating and Rambling Diagnostics Vital Signs (24Hr): Vital Signs - 24 hr 01/17/20 19:25 01/17/20 21:31 01/18/20 09:15 Temperature 98.3 F Pulse Rate 89 89 88 Respiratory Rate Blood Pressure 133/63 133/63 130/78 Pulse Oximetry 01/18/20 10:03 01/18/20 14:18 Temperature 97.4 F Pulse Rate 87 95 Respiratory Rate 18 Blood Pressure 130/66 127/96 H Pulse Oximetry 98 Body Mass Index 33.4 Labs Results: 01/08/20 07:45 01/06/20 13:31 Imaging Radiology Impressions: ITS Impressions Chest X-Ray 01/05/20 00:00 IMPRESSION: No acute pulmonary finding. Medications Medications Current Medications Generic Name Dose Route Start Last Admin Trade Name Freq PRN Reason Stop Dose Admin Acetaminophen 650 mg 12/31/19 15:24 01/18/20 09:21 Acetaminophen 325 Mg Tablet PO 650 mg Q6H PRN Administration Headache/Pain Mild Scale (1-3) Al Hydroxide/Mg Hydroxide 30 ml 12/31/19 15:24 Magnesium Hydrox/Alum Hydrox 30 Ml Oral.Susp PO Q6H PRN Heartburn/Nausea Albuterol Sulfate 2 puff 12/31/19 16:24 01/18/20 16:05 Albuterol Sulfate 90 Mcg 8 Gm Inhaler INHALE 2 puff Q4H PRN Administration Wheezing Benzocaine 1 lozenge 01/08/20 18:34 01/16/20 16:34 Throat Lozenge, Medicated Lozenge MUCOUS MEM 1 lozenge Q2H PRN Administration Sore Throat Benztropine Mesylate 1 mg 12/31/19 21:00 01/18/20 09:15 Benztropine Mesylate 1 Mg Tablet PO 1 mg BID ELIECER Administration Chlorpromazine HCl 100 mg 01/09/20 09:00 01/18/20 09:14 Chlorpromazine Hcl 100 Mg Tablet PO 100 mg DAILY ELIECER Administration Chlorpromazine HCl 300 mg 01/12/20 21:00 01/17/20 21:34 Chlorpromazine Hcl 100 Mg Tablet PO 300 mg BEDTIME ELIECER Administration Divalproex Sodium 1,500 mg 01/10/20 21:00 01/17/20 21:35 Divalproex Sodium Er 500 Mg Tab.Er.24h PO 1,500 mg BEDTIME ELIECER Administration Gabapentin 400 mg 01/08/20 09:15 01/18/20 09:14 Gabapentin 400 Mg Capsule PO 400 mg BID ELIECER Administration Hydroxyzine HCl 25 mg 12/31/19 16:24 01/18/20 13:21 Hydroxyzine Hcl 25 Mg Tablet PO 25 mg TID PRN Administration Anxiety Lorazepam 1 mg 01/17/20 10:00 01/18/20 14:19 Lorazepam 1 Mg Tablet PO 1 mg TID ELIECER Administration Magnesium Hydroxide 30 ml 12/31/19 15:24 Milk Of Magnesia 30 Ml Oral.Susp PO DAILY PRN Constipation Nicotine Polacrilex 2 mg 12/30/19 17:57 01/02/20 09:25 Nicotine Polacrilex 2 Mg Gum BUCCAL 2 mg ONCE PRN Administration Nicotine Cravings Nicotine Polacrilex 4 mg 01/02/20 12:16 01/18/20 16:05 Nicotine Polacrilex 4 Mg Lozenge BUCCAL 4 mg Q2H PRN Administration Nicotine Cravings Propranolol HCl 10 mg 12/31/19 21:00 01/18/20 14:18 Propranolol Hcl 10 Mg Tablet PO 10 mg TID ELIECER Administration Protocol Pseudoephedrine HCl 30 mg 01/05/20 21:28 01/18/20 09:22 Pseudoephedrine Hcl 30 Mg Tablet PO 30 mg Q6H PRN Administration congestion Trazodone HCl 50 mg 12/31/19 15:24 Trazodone Hcl 50 Mg Tablet PO BEDTIME PRN Insomnia Allergies Allergies Allergy/AdvReac Type Severity Reaction Status Date / Time mold [MOLD] Allergy Unknown UNKNOWN Verified 12/30/19 16:01 paliperidone [From Invega] Allergy Unknown Verified 12/30/19 16:01 amoxicillin [AMOXICILLIN] AdvReac Severe ANAPHYLAXIS Verified 12/30/19 16:01 azithromycin [AZITHROMYCIN] AdvReac Severe ANAPHYLAXIS Verified 12/30/19 16:01 Assessment & Plan Assessment & Plan (1) Schizoaffective disorder: Qualifiers: Schizoaffective disorder type: bipolar Qualified Code(s): F25.0 - Schizoaffective disorder, bipolar type Status: Acute Code(s): F25.9 - Schizoaffective disorder, unspecified Assessment and Plan: Continue treatment plan. Cont meds: Thorazine/Depakote Greater than 50% of the session was spent on counseling and/or coordination of care
[2020-01-18 18:00] VITALS: BP 129/76; PULSE 84; TEMP 36.4
[2020-01-18] MEDS: Divalproex Sodium ER 500 MG TAB.ER.24H 1500 MG PO (20:09)
[2020-01-18] MEDS: chlorproMAZINE HCl 100 MG TABLET 300 MG PO (20:09)
[2020-01-18 20:10] VITALS: BP 129/76; PULSE 84
--- NOTE | 2020-01-19 05:07 | P.PNPSI_ITS ---
Subjective Subjective Date of Service: 01/19/20 Reason For Visit: psychosis Interim History: Pt disorganized at times. But also logical. Rambles circumstantial. Encouraged to work with SW to apply for [facility] respite bed. Ct meds. Med compliant. Ct meds. Add Cortisone cream Review of Systems Review of Systems Gen: + fever HEENT: complaint of tonsil hurs Resp: no sob, no cough CV: no chest, no YEH, no leg edema GI: No n/v, no abd pain Neuro: drowsy, easily aroused Muscular sck: No back pain Reports confusion Psychiatric: Reports confusion Mental Status Exam Mental Status Exam Patient Appearance: Disheveled and Unkempt Patient Orientation: Person, Place and Time Level of Consciousness: Awake and Appropriate Patient Behavior: Talkative Mood Description: Flat Affect Description: Flat Ability to Follow Directions: Poor Speech Pattern: Clear, Perseverating and Rambling Diagnostics Vital Signs (24Hr): Vital Signs - 24 hr 01/18/20 09:15 01/18/20 10:03 01/18/20 14:18 Temperature 97.4 F Pulse Rate 88 87 95 Respiratory Rate 18 Blood Pressure 130/78 130/66 127/96 H Pulse Oximetry 98 01/18/20 18:00 01/18/20 20:10 Temperature 97.6 F Pulse Rate 84 84 Respiratory Rate Blood Pressure 129/76 129/76 Pulse Oximetry Body Mass Index 33.4 Labs Results: 01/08/20 07:45 01/06/20 13:31 Imaging Radiology Impressions: ITS Impressions Chest X-Ray 01/05/20 00:00 IMPRESSION: No acute pulmonary finding. Medications Medications Current Medications Generic Name Dose Route Start Last Admin Trade Name Freq PRN Reason Stop Dose Admin Acetaminophen 650 mg 12/31/19 15:24 01/18/20 09:21 Acetaminophen 325 Mg Tablet PO 650 mg Q6H PRN Administration Headache/Pain Mild Scale (1-3) Al Hydroxide/Mg Hydroxide 30 ml 12/31/19 15:24 Magnesium Hydrox/Alum Hydrox 30 Ml Oral.Susp PO Q6H PRN Heartburn/Nausea Albuterol Sulfate 2 puff 12/31/19 16:24 01/18/20 20:20 Albuterol Sulfate 90 Mcg 8 Gm Inhaler INHALE 2 puff Q4H PRN Administration Wheezing Benzocaine 1 lozenge 01/08/20 18:34 01/16/20 16:34 Throat Lozenge, Medicated Lozenge MUCOUS MEM 1 lozenge Q2H PRN Administration Sore Throat Benztropine Mesylate 1 mg 12/31/19 21:00 01/18/20 20:09 Benztropine Mesylate 1 Mg Tablet PO 1 mg BID ELIECER Administration Chlorpromazine HCl 100 mg 01/09/20 09:00 01/18/20 09:14 Chlorpromazine Hcl 100 Mg Tablet PO 100 mg DAILY ELIECER Administration Chlorpromazine HCl 300 mg 01/12/20 21:00 01/18/20 20:09 Chlorpromazine Hcl 100 Mg Tablet PO 300 mg BEDTIME ELIECER Administration Divalproex Sodium 1,500 mg 01/10/20 21:00 01/18/20 20:09 Divalproex Sodium Er 500 Mg Tab.Er.24h PO 1,500 mg BEDTIME ELIECER Administration Gabapentin 400 mg 01/08/20 09:15 01/18/20 20:09 Gabapentin 400 Mg Capsule PO 400 mg BID ELIECER Administration Hydroxyzine HCl 25 mg 12/31/19 16:24 01/18/20 13:21 Hydroxyzine Hcl 25 Mg Tablet PO 25 mg TID PRN Administration Anxiety Lorazepam 1 mg 01/17/20 10:00 01/18/20 20:09 Lorazepam 1 Mg Tablet PO 1 mg TID ELIECER Administration Magnesium Hydroxide 30 ml 12/31/19 15:24 Milk Of Magnesia 30 Ml Oral.Susp PO DAILY PRN Constipation Nicotine Polacrilex 2 mg 12/30/19 17:57 01/02/20 09:25 Nicotine Polacrilex 2 Mg Gum BUCCAL 2 mg ONCE PRN Administration Nicotine Cravings Nicotine Polacrilex 4 mg 01/02/20 12:16 01/18/20 16:05 Nicotine Polacrilex 4 Mg Lozenge BUCCAL 4 mg Q2H PRN Administration Nicotine Cravings Propranolol HCl 10 mg 12/31/19 21:00 01/18/20 20:10 Propranolol Hcl 10 Mg Tablet PO 10 mg TID ELIECER Administration Protocol Pseudoephedrine HCl 30 mg 01/05/20 21:28 01/18/20 09:22 Pseudoephedrine Hcl 30 Mg Tablet PO 30 mg Q6H PRN Administration congestion Trazodone HCl 50 mg 12/31/19 15:24 Trazodone Hcl 50 Mg Tablet PO BEDTIME PRN Insomnia Allergies Allergies Allergy/AdvReac Type Severity Reaction Status Date / Time mold [MOLD] Allergy Unknown UNKNOWN Verified 12/30/19 16:01 paliperidone [From Invega] Allergy Unknown Verified 12/30/19 16:01 amoxicillin [AMOXICILLIN] AdvReac Severe ANAPHYLAXIS Verified 12/30/19 16:01 azithromycin [AZITHROMYCIN] AdvReac Severe ANAPHYLAXIS Verified 12/30/19 16:01 Assessment & Plan Assessment & Plan (1) Schizoaffective disorder: Qualifiers: Schizoaffective disorder type: bipolar Qualified Code(s): F25.0 - Schizoaffective disorder, bipolar type Status: Acute Code(s): F25.9 - Schizoaffective disorder, unspecified Assessment and Plan: Continue treatment plan. Cont meds: Thorazine/Depakote Greater than 50% of the session was spent on counseling and/or coordination of care
[2020-01-19] MEDS: Acetaminophen 325 MG TABLET 650 MG PO (06:54)
[2020-01-19] MEDS: hydrOXYzine HCL 25 MG TABLET PO ×2 (06:55→15:18)
[2020-01-19] MEDS: Pseudoephedrine HCL 30 MG TABLET PO ×2 (06:55→17:21)
[2020-01-19 08:18] VITALS: BP 120/73; PULSE 71
[2020-01-19] MEDS: Propranolol HCL 10 MG TABLET PO ×3 (08:18→20:31)
[2020-01-19] MEDS: Benztropine Mesylate 1 MG TABLET PO ×2 (08:18→20:30)
[2020-01-19] MEDS: chlorproMAZINE HCl 100 MG TABLET PO (08:18)
[2020-01-19] MEDS: LORazepam 1 MG TABLET PO ×3 (08:18→20:30)
[2020-01-19] MEDS: Gabapentin 400 MG CAPSULE PO ×2 (08:18→20:30)
[2020-01-19 08:31] VITALS: TEMP 36.8
[2020-01-19 14:02] VITALS: BP 140/86; PULSE 102
[2020-01-19 16:24] VITALS: BP 137/63; PULSE 91; TEMP 36.7
[2020-01-19] MEDS: Albuterol Sulfate 90 MCG 8 GM INHALER 2 PUFF INHALE (17:21)
[2020-01-19] MEDS: Divalproex Sodium ER 500 MG TAB.ER.24H 1500 MG PO (20:30)
[2020-01-19] MEDS: chlorproMAZINE HCl 100 MG TABLET 300 MG PO (20:30)
[2020-01-19 20:31] VITALS: BP 137/63; PULSE 91
[2020-01-19] MEDS: Hydrocortisone 1 % Cream 28.35 GM TUBE 1 APPL TOPICAL (22:19)
[2020-01-20 06:45] VITALS: BP 127/58; PULSE 108; RESP 16; TEMP 36.8; O2SAT 97
[2020-01-20] MEDS: Pseudoephedrine HCL 30 MG TABLET PO (06:48)
[2020-01-20] MEDS: Acetaminophen 325 MG TABLET 650 MG PO ×2 (06:48→16:01)
[2020-01-20] MEDS: Albuterol Sulfate 90 MCG 8 GM INHALER 2 PUFF INHALE ×3 (06:48→22:14)
--- NOTE | 2020-01-20 07:45 | HO.PSYCHPN ---
Subjective Subjective Date of Service: 01/20/20 Reason For Visit: psychosis Interim History: Pt disorganized at times. But mostly logical. Rambles circumstantial and hyperverbal. Has Zoom appt with [facility]. Ct meds. Med compliant. Ct meds. Add Cortisone cream. Good response. Review of Systems Review of Systems Gen: + fever HEENT: complaint of tonsil hurs Resp: no sob, no cough CV: no chest, no YEH, no leg edema GI: No n/v, no abd pain Neuro: drowsy, easily aroused Muscular sck: No back pain Reports confusion Psychiatric: Reports confusion Mental Status Exam Mental Status Exam Patient Appearance: Disheveled and Unkempt Patient Orientation: Person, Place and Time Level of Consciousness: Awake and Appropriate Patient Behavior: Talkative Mood Description: Flat Affect Description: Flat Ability to Follow Directions: Poor Speech Pattern: Clear, Perseverating and Rambling Diagnostics Vital Signs (24Hr): Vital Signs - 24 hr 01/19/20 08:18 01/19/20 08:31 01/19/20 14:02 Temperature 98.2 F Pulse Rate 71 102 H Respiratory Rate Blood Pressure 120/73 140/86 H Pulse Oximetry 01/19/20 16:24 01/19/20 20:31 01/20/20 06:45 Temperature 98.1 F 98.2 F Pulse Rate 91 91 108 H Respiratory Rate 16 Blood Pressure 137/63 137/63 127/58 L Pulse Oximetry 97 Body Mass Index 33.4 Labs Results: 01/08/20 07:45 01/06/20 13:31 Imaging Radiology Impressions: ITS Impressions Chest X-Ray 01/05/20 00:00 IMPRESSION: No acute pulmonary finding. Medications Medications Current Medications Generic Name Dose Route Start Last Admin Trade Name Freq PRN Reason Stop Dose Admin Acetaminophen 650 mg 12/31/19 15:24 01/20/20 06:48 Acetaminophen 325 Mg Tablet PO 650 mg Q6H PRN Administration Headache/Pain Mild Scale (1-3) Al Hydroxide/Mg Hydroxide 30 ml 12/31/19 15:24 Magnesium Hydrox/Alum Hydrox 30 Ml Oral.Susp PO Q6H PRN Heartburn/Nausea Albuterol Sulfate 2 puff 12/31/19 16:24 01/20/20 06:48 Albuterol Sulfate 90 Mcg 8 Gm Inhaler INHALE 2 puff Q4H PRN Administration Wheezing Benzocaine 1 lozenge 01/08/20 18:34 01/16/20 16:34 Throat Lozenge, Medicated Lozenge MUCOUS MEM 1 lozenge Q2H PRN Administration Sore Throat Benztropine Mesylate 1 mg 12/31/19 21:00 01/19/20 20:30 Benztropine Mesylate 1 Mg Tablet PO 1 mg BID ELIECER Administration Chlorpromazine HCl 100 mg 01/09/20 09:00 01/19/20 08:18 Chlorpromazine Hcl 100 Mg Tablet PO 100 mg DAILY ELIECER Administration Chlorpromazine HCl 300 mg 01/12/20 21:00 01/19/20 20:30 Chlorpromazine Hcl 100 Mg Tablet PO 300 mg BEDTIME ELIECER Administration Divalproex Sodium 1,500 mg 01/10/20 21:00 01/19/20 20:30 Divalproex Sodium Er 500 Mg Tab.Er.24h PO 1,500 mg BEDTIME ELIECER Administration Gabapentin 400 mg 01/08/20 09:15 01/19/20 20:30 Gabapentin 400 Mg Capsule PO 400 mg BID ELIECER Administration Hydrocortisone 1 appl 01/19/20 21:00 01/19/20 22:19 Hydrocortisone 1 % Cream 28.35 Gm Tube TOPICAL 1 appl BID ELIECER Administration Protocol Hydroxyzine HCl 25 mg 12/31/19 16:24 01/19/20 15:18 Hydroxyzine Hcl 25 Mg Tablet PO 25 mg TID PRN Administration Anxiety Lorazepam 1 mg 01/17/20 10:00 01/19/20 20:30 Lorazepam 1 Mg Tablet PO 1 mg TID ELIECER Administration Magnesium Hydroxide 30 ml 12/31/19 15:24 Milk Of Magnesia 30 Ml Oral.Susp PO DAILY PRN Constipation Nicotine Polacrilex 2 mg 12/30/19 17:57 01/02/20 09:25 Nicotine Polacrilex 2 Mg Gum BUCCAL 2 mg ONCE PRN Administration Nicotine Cravings Nicotine Polacrilex 4 mg 01/02/20 12:16 01/19/20 20:30 Nicotine Polacrilex 4 Mg Lozenge BUCCAL 4 mg Q2H PRN Administration Nicotine Cravings Propranolol HCl 10 mg 12/31/19 21:00 01/19/20 20:31 Propranolol Hcl 10 Mg Tablet PO 10 mg TID ELIECER Administration Protocol Pseudoephedrine HCl 30 mg 01/05/20 21:28 01/20/20 06:48 Pseudoephedrine Hcl 30 Mg Tablet PO 30 mg Q6H PRN Administration congestion Trazodone HCl 50 mg 12/31/19 15:24 Trazodone Hcl 50 Mg Tablet PO BEDTIME PRN Insomnia Allergies Allergies Allergy/AdvReac Type Severity Reaction Status Date / Time mold [MOLD] Allergy Unknown UNKNOWN Verified 12/30/19 16:01 paliperidone [From Invega] Allergy Unknown Verified 12/30/19 16:01 amoxicillin [AMOXICILLIN] AdvReac Severe ANAPHYLAXIS Verified 12/30/19 16:01 azithromycin [AZITHROMYCIN] AdvReac Severe ANAPHYLAXIS Verified 12/30/19 16:01 Assessment & Plan Assessment & Plan (1) Schizoaffective disorder: Qualifiers: Schizoaffective disorder type: bipolar Qualified Code(s): F25.0 - Schizoaffective disorder, bipolar type Status: Acute Code(s): F25.9 - Schizoaffective disorder, unspecified Assessment and Plan: Continue treatment plan. Cont meds: Thorazine/Depakote Greater than 50% of the session was spent on counseling and/or coordination of care
[2020-01-20 08:36] VITALS: BP 127/58; PULSE 108
[2020-01-20] MEDS: Gabapentin 400 MG CAPSULE PO ×2 (08:36→20:17)
[2020-01-20] MEDS: Propranolol HCL 10 MG TABLET PO ×3 (08:36→20:18)
[2020-01-20] MEDS: Benztropine Mesylate 1 MG TABLET PO ×2 (08:36→20:17)
[2020-01-20] MEDS: chlorproMAZINE HCl 100 MG TABLET PO (08:36)
[2020-01-20] MEDS: LORazepam 1 MG TABLET PO ×3 (08:36→20:17)
[2020-01-20 14:22] LABS: COVID-19 Test Negative (Negative)
[2020-01-20 14:33] VITALS: BP 140/68; PULSE 99
[2020-01-20] MEDS: hydrOXYzine HCL 25 MG TABLET PO (16:01)
[2020-01-20 17:23] VITALS: BP 117/75; PULSE 92; TEMP 36.9
[2020-01-20] MEDS: Divalproex Sodium ER 500 MG TAB.ER.24H 1500 MG PO (20:17)
[2020-01-20] MEDS: chlorproMAZINE HCl 100 MG TABLET 300 MG PO (20:17)
[2020-01-20 20:18] VITALS: BP 117/75; PULSE 92
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
[2020-01-21 08:23] VITALS: BP 117/75; PULSE 92
[2020-01-21] MEDS: LORazepam 1 MG TABLET PO (08:23)
[2020-01-21] MEDS: Propranolol HCL 10 MG TABLET PO (08:23)
[2020-01-21] MEDS: chlorproMAZINE HCl 100 MG TABLET PO (08:23)
[2020-01-21] MEDS: Benztropine Mesylate 1 MG TABLET PO (08:23)
[2020-01-21] MEDS: Gabapentin 400 MG CAPSULE PO (08:23)
[2020-01-21 10:04] VITALS: BMI 33.5
== END 2020-01-21 11:12 | disposition other institution (70) | DRG 885 ==
LOC: HO.ED 15:48 → HO.PM5 12-31 13:45
PROVIDERS: Internal Medicine; Psychiatry & Neurology Psychiatry; Admitting Provider Psychiatry & Neurology Psychiatry; Emergency Provider Emergency Medicine; PCP Internal Medicine; Visit Provider Psychiatry & Neurology Psychiatry
DX: F25.0 Schizoaffective disorder, bipolar type (principal); R45.851 Suicidal ideations; I10 Essential (primary) hypertension; R50.9 Fever, unspecified; F17.210 Nicotine dependence, cigarettes, uncomplicated; Z91.14 Patient's other noncompliance with medication regimen; Z20.828 Contact with and (suspected) exposure to other viral communicable diseases; Z71.6 Tobacco abuse counseling; Z88.0 Allergy status to penicillin; Z79.899 Other long term (current) drug therapy
CPT/HCPCS: 36415; 71045; 80048; 80061; 80076; 80164; 80307; 80320; 81001; 81003; 82550; 82947; 83036; 83615; 83735; 84100; 84145; 85025; 85379; 86140; 87040; 87071; 87147; 87635; 87880; 93005; 93306; 99223; 99232; 99239; 99284; 99285

== ENCOUNTER 2020-06-29 14:13 | Inpatient (IN) | payer MEDICARE, SELFPAY ==
[2020-06-29 14:38] VITALS: BP 174/96; PULSE 96; RESP 20; TEMP 37.3; O2SAT 97; BMI 31.1
--- NOTE | 2020-06-29 15:14 | PC.NURSE ---
Report received. MHT at bedside drawing blood, pt calm and cooperative.
[2020-06-29 15:32] LABS: Basophils Absolute Auto 0.1 X10*3/uL (0.0-0.2); Basophils Percent Auto 0.6 % (0-2); Eosinophils Absolute Auto 0.1 X10*3/uL (0.0-0.4); Eosinophils Percent Auto 1.2 % (0-4); Hematocrit 48.8 % (42-52); Hemoglobin 15.6 g/dl (14.0-18.0); Imm Gran Abs Auto 0.03 X10*3/uL (0.00-0.03); Imm Gran Pct Auto 0.3 % (0.0-0.4); Lymphocytes Absolute Auto 1.2 X10*3/uL (1.2-4.9); Lymphocytes Percent Auto 13.2 % (20-40); MANUAL DIFF FLAG SCAN; Mean Corpuscular Hemoglobin 25.7 pg (27.0-33.0); Mean Corpuscular Volume 80.5 fL (80-98); Monocytes Absolute Auto 0.5 X10*3/uL (0.1-1.2); Monocytes Percent Auto 5.2 % (2-11); Neutrophils Absolute Auto 7.2 X10*3/uL (2.0-8.3); Neutrophils Percent Auto 79.5 % (45-73); PLT CLUMP 1; Red Blood Count 6.06 X10*6/uL (4.60-5.80); Red Cell Distribution Width 14.2 % (11.0-16.0); SCAN SMEAR FLAG 1
[2020-06-29 15:47] LABS: Ethanol < 10 mg/dL
[2020-06-29 15:56] LABS: White Blood Count 9.1 X10*3/uL (4.8-10.8)
[2020-06-29 15:58] LABS: SLIDE REVIEW VERIFIED
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
[2020-06-29 16:09] LABS: COVID-19 Test Negative (Negative)
[2020-06-29 16:17] LABS: Amphetamine Screen Urine Not Detected (Not Detect); Barbiturates, Urine Not Detected (Not Detect); Benzodiazepines Screen Urine Not Detected (Not Detect); Cannabinoid Screen Urine Not Detected (Not Detect); Cocaine Screen Urine Not Detected (Not Detect); Opiate Screen Urine Not Detected (Not Detect); Phencyclidine Screen Urine Not Detected (Not Detect)
[2020-06-29] MEDS: LORazepam 0.5 MG TABLET PO (16:22)
[2020-06-29] MEDS: Nicotine 7 MG PATCH.TD24 TRANSDERMA (16:22)
--- NOTE | 2020-06-29 17:04 | PC.NURSE ---
Exhibiting flight of ideas, rapidly switching back and forth from paranoid comments about being cyber stalked to sexualized comments - I almost threw up, and then I had a happy mess in my pants
--- NOTE | 2020-06-29 17:11 | PC.NURSE ---
Called in psych consult request to M[facility], spoke with Alyse.
[2020-06-29] MEDS: Gabapentin 300 MG CAPSULE PO (20:00)
[2020-06-29] MEDS: chlorproMAZINE HCl 100 MG TABLET PO (20:00)
[2020-06-29] MEDS: hydrOXYzine HCL 25 MG TABLET PO (20:00)
[2020-06-29] MEDS: LORazepam 1 MG TABLET 2 MG PO (20:00)
[2020-06-29] MEDS: Benztropine Mesylate 1 MG TABLET PO (20:15)
--- NOTE | 2020-06-29 20:15 | PC.NURSE ---
Patient hyper verbal, loud, grandiose, tangential, demanding medication to calm his hormonal rage triggered by see female staff, patient advised stay calm and cope with hormonal issues because in health care system he will see more female staff. Patient did punching mattress as an attempt to cope with his anxiety. Patient is psychotic, provider notified ordered Thorazine 100 mg, Ativan 2 mg, and Benztropin 1 mg. administered as ordered, patient hesitant to take his Thorazine but took it eventually, pending effect, VSS, will continue to monitor.
[2020-06-29 20:54] VITALS: BP 117/79; PULSE 92; RESP 17; TEMP 37.2; O2SAT 97
--- NOTE | 2020-06-30 07:24 | PC.NURSE ---
Report received from Antwan RN- pt awake, pacing, appears angry to be in pod.
[2020-06-30] MEDS: LORazepam 1 MG TABLET 2 MG PO (07:42)
[2020-06-30] MEDS: Gabapentin 300 MG CAPSULE PO ×3 (07:42→22:04)
--- NOTE | 2020-06-30 07:46 | PC.NURSE ---
Reviewed pt behavior w/ provider, pt medicated for agitation as ordered. Pt reporting that he is not interested in taking an antipsychotic because 'i don't hear voices.' Pt requesting 'dopamine HCL ' states that he was going to be a psychiatrist when he was young and that he has done a lot of research.
--- NOTE | 2020-06-30 08:43 | PC.NURSE ---
Pt out in common area, conversing w/ staff. Pt appears less agitated, no longer threatening to patricia or demanding to speak to police to file a complaint.
--- NOTE | 2020-06-30 10:55 | PC.NURSE ---
Pt awake, alert. Continues to be hyperverbal but redirectable. No concerns reported, awaiting transfer to .
[2020-06-30 11:01] VITALS: BP 161/92; PULSE 74; RESP 16; TEMP 37.1; O2SAT 98
--- NOTE | 2020-06-30 13:41 | PC.NURSE ---
Report given to CHRIS Leo on [facility]
[2020-06-30 14:00] VITALS: RESP 18
--- NOTE | 2020-06-30 15:16 | PC.NURSE ---
CARE team in to transfer pt to [facility]. Pt cooperative w/ transfer, no concerns reported at this time.
[2020-06-30] MEDS: hydrOXYzine HCL 25 MG TABLET PO ×2 (16:18→22:04)
--- NOTE | 2020-06-30 16:22 | PM.EVENT ---
Event Note Date of Service: 06/30/20 Event Note: Call to pt's designated pharmacies for current medications [facility] [phone] --Mar 2020 Hydroxyzine 25 mg tid prn anxiety --Albuterol Pro Air q 4 hours prn --Nov 2019 Propranolol 40 mg tid --August 2019 Lorazepam 1 mg tid [facility] [phone] No refills since 01/21/20 [facility] [phone] No refills since 09/18/19 --Albuterol Pro Air q 4 hours prn --Benztropine 1 mg bid --Chlorpromazine 25 mg bid 830 and 1330 and 50 mg HS --Depakote 500 mg bid --Gabapentin 300 mg tid --Hydroxyzine 25 mg tid prn --Propranolol 10 mg tid
[2020-06-30 17:47] VITALS: BP 146/88; PULSE 71; TEMP 36.8
--- NOTE | 2020-06-30 23:24 | PC.NURSE ---
The patient, Elmer Trotter, arrived on the unit at 1600 on 06/30/2020, from the ED. The patient was sent to the ED by his therapist. During the assessment, the patient reported that he is unable to keep a psychiatrist because he keeps suing them. The patient spoke about people in the community hacking into his phone and Facebook, spoke about people being able to hack into other people's phones through his bluetooth. Pt speech was tangential, pt was difficult to refocus. Pt denies alcohol use, reports he uses CBD many times throughout the day. Pt placed on 5 minute safety checks. The patient has been very vocal regarding medications, stating that he needs his Depakote and Ativan, threatening to patricia staff members and MD. The patient has been pacing the hallway, stating I don't belong here, I shouldn't have to stay here.
--- NOTE | 2020-07-01 | ECG_ITS ---
Test Reason : PROLONG QTC Blood Pressure : / mmHG Vent. Rate : 075 BPM Atrial Rate : 075 BPM P-R Int : 146 ms QRS Dur : 088 ms QT Int : 350 ms P-R-T Axes : 030 082 047 degrees QTc Int : 390 ms Normal sinus rhythm Normal ECG When compared with ECG of 04-JAN-2020 14:39, No significant change was found Referred By: Shantel Oseguera Electronically Signed By:VIOLETTE NICHOLS MD
[2020-07-01] MEDS: Nicotine Polacrilex 2 MG GUM 4 MG BUCCAL ×3 (01:15→21:14)
[2020-07-01] MEDS: OLANZapine 5 MG TABLET PO (01:59)
[2020-07-01] MEDS: LORazepam 1 MG TABLET 2 MG PO (01:59)
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
[2020-07-01] MEDS: Gabapentin 300 MG CAPSULE PO ×3 (09:12→21:11)
[2020-07-01] MEDS: Divalproex Sodium 500 MG TABLET.DR PO ×2 (12:49→21:11)
[2020-07-01] MEDS: LORazepam 1 MG TABLET PO ×2 (12:49→21:11)
[2020-07-01] MEDS: hydrOXYzine HCL 25 MG TABLET PO ×2 (14:28→21:12)
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
[2020-07-02] MEDS: Acetaminophen 325 MG TABLET 650 MG PO ×2 (00:02→09:01)
[2020-07-02] MEDS: Nicotine Polacrilex 2 MG GUM 4 MG BUCCAL ×3 (00:02→19:04)
[2020-07-02] MEDS: traZODone HCL 50 MG TABLET PO (01:04)
[2020-07-02] MEDS: LORazepam 1 MG TABLET PO ×4 (01:05→20:48)
[2020-07-02 08:29] LABS: MANUAL DIFF FLAG NO
[2020-07-02 09:00] LABS: Alanine Aminotransferase 25 U/L (0-40); Albumin Level 4.4 g/dL (3.5-5.0); Alkaline Phosphatase 80 U/L (39-117); Anion Gap 12 (12-20); Aspartate Amino Transferase 17 U/L (5-37); Bilirubin Total 0.7 mg/dL (0.0-1.0); Blood Urea Nitrogen 22 mg/dL (9-16); Calcium 9.2 mg/dL (8.4-10.2); Carbon Dioxide 28 mmol/L (22-29); Chloride 102 mmol/L (96-108); Cholesterol 160 mg/dL; Creatinine Clr Calc Pharmacy 122.6; Estimated Glomerular Filt Rate > 60; Glucose Random 78 mg/dL (60-115); HDL Cholesterol 30 mg/dL; LDL Cholesterol Calculated 105 mg/dl; Sodium 138 mmol/L (135-145); Total Protein 7.4 g/dL (6.5-8.0); Triglycerides 126 mg/dL
[2020-07-02] MEDS: Gabapentin 300 MG CAPSULE PO ×3 (09:01→20:47)
[2020-07-02] MEDS: Divalproex Sodium 500 MG TABLET.DR PO ×2 (09:01→20:48)
[2020-07-02 09:06] LABS: Basophils Percent Auto 0.5 % (0-2); Eosinophils Absolute Auto 0.4 X10*3/uL (0.0-0.4); Eosinophils Percent Auto 5.9 % (0-4); Hematocrit 49.8 % (42-52); Hemoglobin 15.5 g/dl (14.0-18.0); Imm Gran Abs Auto 0.04 X10*3/uL (0.00-0.03); Imm Gran Pct Auto 0.5 % (0.0-0.4); Lymphocytes Absolute Auto 2.6 X10*3/uL (1.2-4.9); Lymphocytes Percent Auto 36.1 % (20-40); Mean Corpuscular HGB Conc 31.1 g/dl (31.0-36.0); Mean Corpuscular Hemoglobin 25.3 pg (27.0-33.0); Mean Corpuscular Volume 81.2 fL (80-98); Monocytes Absolute Auto 0.8 X10*3/uL (0.1-1.2); Monocytes Percent Auto 11.4 % (2-11); Neutrophils Absolute Auto 3.3 X10*3/uL (2.0-8.3); Neutrophils Percent Auto 45.6 % (45-73); Platelet Count 196 X10*3/uL (160-400); Red Blood Count 6.13 X10*6/uL (4.60-5.80); Red Cell Distribution Width 14.2 % (11.0-16.0); White Blood Count 7.3 X10*3/uL (4.8-10.8)
[2020-07-02 09:26] LABS: Estimated Average Glucose 100 mg/dL; Hemoglobin A1c % 5.1 %
--- NOTE | 2020-07-02 10:33 | HO.PSYCHPN ---
Subjective Subjective Date of Service: 07/03/20 Reason For Visit: Depression Subjective Notes: Conditional Voluntary Interim History: Pt presents as hyperverbal with pressured speech. he does on and on about hacker, following him and trying to track him. He is also preoccupied with several somatic- delusional concerns including arrythmias asking this account underwriter to prescribe dopamine hydrocloride. He insist that he does not need an antipsychotic because all paranoia is true. He also denies VH/AH. He reports having PTSD. He agreed to thorazine but later decline taking it. He denies SI/HI He did agree to take depakote. He asks for 8mg of ativan, at least. Pt educated on effects of antipsychotic on his mood/agitation but still declines. He is constantly seeking staff, intrusive with peers, needs to be redirected but no need for restraints. Medication Compliance: Intermittent Side effects from medications: No Attending Groups: Intermittent Review of Systems Review of Systems Constitutional : No Weight loss, No Fever, No Chills, No Night Sweats, No Fatigue, No Malaise ENT/Mouth : No Hearing loss, No Ear Pain, No Nasal Congestion, No Sinus Pain, No Hoarseness, No sore throat, No Rhinorrhea, No Swallowing Difficulty Eyes: No Eye Pain, No Swelling, No Redness, No Foreign Body, No Discharge, No Vision Changes Cardiovascular : No Chest Pain, No SOB, No Dyspnea on Exertion, No Orthopnea, No Edema, No Palpitations Respiratory : No Cough, No Sputum, No Wheezing, No Smoke Exposure, No Dyspnea Gastrointestinal : No Nausea, No Vomiting, No Diarrhea, No Constipation, No abdominal Pain, No Hematochezia, No Melena Genitourinary : no irregular bleeding, No Dysuria, No Urinary Frequency, No Hematuria, No Urinary Incontinence, No Urgency, No Flank Pain, No Urinary Flow Changes, No Hesitancy Musculoskeletal : No joint pain, No Myalgias, No Joint Swelling Skin : No Skin Lesions, No rash Neuro : No Weakness, No Numbness, No Paresthesias, No Loss of Consciousness, No Dizziness, No Headache Psych : Anxiety/Panic, No Depression, No SI/HI/AH/VH, Heme/Lymph: No Bruising, No Bleeding,No Lymphadenopathy Endocrine : No Polyuria, No Polydipsia, No Temperature Intolerance Yes all other systems are reviewed and are negative Cardiovascular: Denies chest pain, Denies chest pain at rest, Denies lightheadedness and Denies dyspnea Respiratory: Denies dyspnea Mental Status Exam Mental Status Exam Narrative: Appearance: casually groomed, poor hygiene, restless Behavior: superficially cooperative Psychomotor: some agitation noted Speech: clear, pressured rate/rhythm/volume, spontaneous, hyperverbal TP: tangential TC: paranoid delusions Mood: anxious Affect:restless, labile SI:denies HI:denies AH/VH:denies Delusions:persecutory delusions Insight/judgment:poor x 2. Memory/cog: alert, oriented x 3. impaired secondary to psychiatric symptoms. Diagnostics Vital Signs (24Hr): Vital Signs - 24 hr 07/02/20 16:40 07/03/20 06:00 Temperature 98.0 F 97.8 F Pulse Rate 75 76 Respiratory Rate 20 Blood Pressure 127/61 135/76 Pulse Oximetry 97 Body Mass Index 31.1 Labs Results: 07/02/20 08:09 07/02/20 08:09 Labs: Laboratory Results - last 48 hr 07/02/20 07/02/20 07/02/20 08:09 08:09 08:09 WBC 7.3 RBC 6.13 H Hgb 15.5 Hct 49.8 MCV 81.2 MCH 25.3 L MCHC 31.1 RDW 14.2 Plt Count 196 D MPV 11.0 Immature Gran % (Auto) 0.5 H Neut % (Auto) 45.6 Lymph % (Auto) 36.1 [place] % (Auto) 11.4 H Eos % (Auto) 5.9 H Baso % (Auto) 0.5 Lymph # (Auto) 2.6 [place] # (Auto) 0.8 Eos # (Auto) 0.4 Baso # (Auto) 0.0 Abs Immat Gran (auto) 0.04 H Absolute Neuts (auto) 3.3 Absolute Nucleated RBC 0.000 Nucleated RBC % (auto) 0.0 Sodium 138 Potassium 4.0 Chloride 102 Carbon Dioxide 28 Anion Gap 12 BUN 22 H D Creatinine 1.16 Estim Creat Clear Calc 122.6 Estimated GFR > 60 Random Glucose 78 Estimat Average Glucose 100 Hemoglobin A1c % 5.1 Calcium 9.2 Total Bilirubin 0.7 AST 17 ALT 25 Alkaline Phosphatase 80 D Total Protein 7.4 Albumin 4.4 Triglycerides 126 Cholesterol 160 LDL Cholesterol, Calc 105 HDL Cholesterol 30 Medications Medications Current Medications Generic Name Dose Route Start Last Admin Trade Name Freq PRN Reason Stop Dose Admin Acetaminophen 650 mg 06/30/20 14:33 07/03/20 09:35 Acetaminophen 325 Mg Tablet PO 650 mg Q6H PRN Administration Headache/Pain Mild Scale (1-3) Al Hydroxide/Mg Hydroxide 30 ml 06/30/20 14:33 Magnesium Hydrox/Alum Hydrox 30 Ml Oral.Susp PO Q6H PRN Heartburn/Nausea Albuterol Sulfate 2 puff 06/30/20 14:17 07/03/20 07:16 Albuterol Sulfate 90 Mcg 8 Gm Inhaler INHALE 2 puff Q4H PRN Administration Wheezing Chlorpromazine HCl 50 mg 07/02/20 09:10 07/03/20 10:09 Chlorpromazine Hcl 25 Mg Tablet PO Not Given BID ELIECER Chlorpromazine HCl 50 mg 07/02/20 09:10 Chlorpromazine Hcl 25 Mg Tablet PO Q6H PRN agitation Divalproex Sodium 500 mg 07/01/20 10:55 07/03/20 09:28 Divalproex Sodium 500 Mg Tablet.Dr PO 500 mg BID ELIECER Administration Gabapentin 300 mg 06/29/20 21:00 07/03/20 09:28 Gabapentin 300 Mg Capsule PO 300 mg TID ELIECER Administration Hydroxyzine HCl 25 mg 06/29/20 16:11 07/03/20 09:35 Hydroxyzine Hcl 25 Mg Tablet PO 25 mg TID PRN Administration Anxiety Hydroxyzine HCl 25 mg 06/30/20 14:33 07/02/20 20:48 Hydroxyzine Hcl 25 Mg Tablet PO 25 mg BEDTIME PRN Administration Anxiety Lorazepam 1 mg 07/01/20 10:56 07/03/20 06:56 Lorazepam 1 Mg Tablet PO 1 mg Q4H PRN Administration Anxiety Magnesium Hydroxide 30 ml 06/30/20 14:33 Milk Of Magnesia 30 Ml Oral.Susp PO DAILY PRN Constipation Nicotine Polacrilex 4 mg 06/30/20 20:44 07/03/20 09:34 Nicotine Polacrilex 2 Mg Gum BUCCAL 4 mg Q2H PRN Administration Nicotine Cravings Trazodone HCl 50 mg 06/30/20 14:33 07/02/20 01:04 Trazodone Hcl 50 Mg Tablet PO 50 mg BEDTIME PRN Administration Insomnia Allergies Allergies Allergy/AdvReac Type Severity Reaction Status Date / Time mold [MOLD] Allergy Unknown UNKNOWN Verified 12/30/19 16:01 paliperidone [From Invega] Allergy Unknown Verified 12/30/19 16:01 amoxicillin [AMOXICILLIN] AdvReac Severe ANAPHYLAXIS Verified 12/30/19 16:01 azithromycin [AZITHROMYCIN] AdvReac Severe ANAPHYLAXIS Verified 12/30/19 16:01 Assessment & Plan Assessment & Plan (1) Schizoaffective disorder, bipolar type: Status: Acute Code(s): F25.0 - Schizoaffective disorder, bipolar type Assessment and Plan: 1. Restart Depakote 500mg po BID- note hx of low platelets. 2. Pt prefers to restart thorazine but reports EPS with this medication, not open to retrying Olanzapine. Greater than 50% of the session was spent on counseling and/or coordination of care Reason for contiued inpatient stay Substantial Risk for: inability to function
[2020-07-02] MEDS: Albuterol Sulfate 90 MCG 8 GM INHALER 2 PUFF INHALE (12:07)
[2020-07-02 16:40] VITALS: BP 127/61; PULSE 75; TEMP 36.7
[2020-07-02] MEDS: hydrOXYzine HCL 25 MG TABLET PO ×2 (18:02→20:48)
[2020-07-03 06:00] VITALS: BP 135/76; PULSE 76; RESP 20; TEMP 36.6; O2SAT 97
[2020-07-03] MEDS: Nicotine Polacrilex 2 MG GUM 4 MG BUCCAL ×5 (06:55→21:34)
[2020-07-03] MEDS: LORazepam 1 MG TABLET PO ×4 (06:56→21:30)
[2020-07-03] MEDS: Albuterol Sulfate 90 MCG 8 GM INHALER 2 PUFF INHALE (07:16)
[2020-07-03] MEDS: Divalproex Sodium 500 MG TABLET.DR PO ×2 (09:28→21:30)
[2020-07-03] MEDS: Gabapentin 300 MG CAPSULE PO ×3 (09:28→21:30)
[2020-07-03] MEDS: hydrOXYzine HCL 25 MG TABLET PO ×3 (09:35→21:31)
[2020-07-03] MEDS: Acetaminophen 325 MG TABLET 650 MG PO ×2 (09:35→19:40)
--- NOTE | 2020-07-03 10:37 | HO.PSYCHPN ---
Subjective Subjective Date of Service: 07/03/20 Reason For Visit: Depression Interim History: Pt continues to present as hyperverbal with pressured speech. Today, he perseverates on damages that medications have done to him- states he has arrhythmia for life despite being assure that his EKG is normal. He also denies chest pain or palpitations. He hands out this newspaper writer list of natural remedies that can cure diabetes. He insists I pass this list, unintelligible, to all pts in unit. He denies SI/HI. He continues to present with paranoid delusions of hackers following him as well as number of somatic concern in border of psychosis. He decline thorazine last night and this morning. He is constantly seeking staff, intrusive with peers, needs to be redirected but no need for restraints. Review of Systems Review of Systems Constitutional : No Weight loss, No Fever, No Chills, No Night Sweats, No Fatigue, No Malaise ENT/Mouth : No Hearing loss, No Ear Pain, No Nasal Congestion, No Sinus Pain, No Hoarseness, No sore throat, No Rhinorrhea, No Swallowing Difficulty Eyes: No Eye Pain, No Swelling, No Redness, No Foreign Body, No Discharge, No Vision Changes Cardiovascular : No Chest Pain, No SOB, No Dyspnea on Exertion, No Orthopnea, No Edema, No Palpitations Respiratory : No Cough, No Sputum, No Wheezing, No Smoke Exposure, No Dyspnea Gastrointestinal : No Nausea, No Vomiting, No Diarrhea, No Constipation, No abdominal Pain, No Hematochezia, No Melena Genitourinary : no irregular bleeding, No Dysuria, No Urinary Frequency, No Hematuria, No Urinary Incontinence, No Urgency, No Flank Pain, No Urinary Flow Changes, No Hesitancy Musculoskeletal : No joint pain, No Myalgias, No Joint Swelling Skin : No Skin Lesions, No rash Neuro : No Weakness, No Numbness, No Paresthesias, No Loss of Consciousness, No Dizziness, No Headache Psych : Anxiety/Panic, No Depression, No SI/HI/AH/VH, Heme/Lymph: No Bruising, No Bleeding,No Lymphadenopathy Endocrine : No Polyuria, No Polydipsia, No Temperature Intolerance Yes all other systems are reviewed and are negative Cardiovascular: Denies chest pain, Denies chest pain at rest, Denies lightheadedness and Denies dyspnea Respiratory: Denies dyspnea Mental Status Exam Mental Status Exam Narrative: Appearance: casually groomed, poor hygiene, restless Behavior: superficially cooperative Psychomotor: some agitation noted Speech: clear, pressured rate/rhythm/volume, spontaneous, hyperverbal TP: tangential TC: paranoid delusions Mood: anxious Affect:restless, labile SI:denies HI:denies AH/VH:denies Delusions:persecutory delusions Insight/judgment:poor x 2. Memory/cog: alert, oriented x 3. impaired secondary to psychiatric symptoms. Diagnostics Vital Signs (24Hr): Vital Signs - 24 hr 07/02/20 16:40 07/03/20 06:00 Temperature 98.0 F 97.8 F Pulse Rate 75 76 Respiratory Rate 20 Blood Pressure 127/61 135/76 Pulse Oximetry 97 Body Mass Index 31.1 Labs Results: 07/02/20 08:09 07/02/20 08:09 Labs: Laboratory Results - last 48 hr 07/02/20 07/02/20 07/02/20 08:09 08:09 08:09 WBC 7.3 RBC 6.13 H Hgb 15.5 Hct 49.8 MCV 81.2 MCH 25.3 L MCHC 31.1 RDW 14.2 Plt Count 196 D MPV 11.0 Immature Gran % (Auto) 0.5 H Neut % (Auto) 45.6 Lymph % (Auto) 36.1 [place] % (Auto) 11.4 H Eos % (Auto) 5.9 H Baso % (Auto) 0.5 Lymph # (Auto) 2.6 [place] # (Auto) 0.8 Eos # (Auto) 0.4 Baso # (Auto) 0.0 Abs Immat Gran (auto) 0.04 H Absolute Neuts (auto) 3.3 Absolute Nucleated RBC 0.000 Nucleated RBC % (auto) 0.0 Sodium 138 Potassium 4.0 Chloride 102 Carbon Dioxide 28 Anion Gap 12 BUN 22 H D Creatinine 1.16 Estim Creat Clear Calc 122.6 Estimated GFR > 60 Random Glucose 78 Estimat Average Glucose 100 Hemoglobin A1c % 5.1 Calcium 9.2 Total Bilirubin 0.7 AST 17 ALT 25 Alkaline Phosphatase 80 D Total Protein 7.4 Albumin 4.4 Triglycerides 126 Cholesterol 160 LDL Cholesterol, Calc 105 HDL Cholesterol 30 Medications Medications Current Medications Generic Name Dose Route Start Last Admin Trade Name Freq PRN Reason Stop Dose Admin Acetaminophen 650 mg 06/30/20 14:33 07/03/20 09:35 Acetaminophen 325 Mg Tablet PO 650 mg Q6H PRN Administration Headache/Pain Mild Scale (1-3) Al Hydroxide/Mg Hydroxide 30 ml 06/30/20 14:33 Magnesium Hydrox/Alum Hydrox 30 Ml Oral.Susp PO Q6H PRN Heartburn/Nausea Albuterol Sulfate 2 puff 06/30/20 14:17 07/03/20 07:16 Albuterol Sulfate 90 Mcg 8 Gm Inhaler INHALE 2 puff Q4H PRN Administration Wheezing Chlorpromazine HCl 50 mg 07/02/20 09:10 07/03/20 10:09 Chlorpromazine Hcl 25 Mg Tablet PO Not Given BID ELIECER Chlorpromazine HCl 50 mg 07/02/20 09:10 Chlorpromazine Hcl 25 Mg Tablet PO Q6H PRN agitation Divalproex Sodium 500 mg 07/01/20 10:55 07/03/20 09:28 Divalproex Sodium 500 Mg Tablet.Dr PO 500 mg BID ELIECER Administration Gabapentin 300 mg 06/29/20 21:00 07/03/20 09:28 Gabapentin 300 Mg Capsule PO 300 mg TID ELIECER Administration Hydroxyzine HCl 25 mg 06/29/20 16:11 07/03/20 09:35 Hydroxyzine Hcl 25 Mg Tablet PO 25 mg TID PRN Administration Anxiety Hydroxyzine HCl 25 mg 06/30/20 14:33 07/02/20 20:48 Hydroxyzine Hcl 25 Mg Tablet PO 25 mg BEDTIME PRN Administration Anxiety Lorazepam 1 mg 07/01/20 10:56 07/03/20 06:56 Lorazepam 1 Mg Tablet PO 1 mg Q4H PRN Administration Anxiety Magnesium Hydroxide 30 ml 06/30/20 14:33 Milk Of Magnesia 30 Ml Oral.Susp PO DAILY PRN Constipation Nicotine Polacrilex 4 mg 06/30/20 20:44 07/03/20 09:34 Nicotine Polacrilex 2 Mg Gum BUCCAL 4 mg Q2H PRN Administration Nicotine Cravings Trazodone HCl 50 mg 06/30/20 14:33 07/02/20 01:04 Trazodone Hcl 50 Mg Tablet PO 50 mg BEDTIME PRN Administration Insomnia Allergies Allergies Allergy/AdvReac Type Severity Reaction Status Date / Time mold [MOLD] Allergy Unknown UNKNOWN Verified 12/30/19 16:01 paliperidone [From Invega] Allergy Unknown Verified 12/30/19 16:01 amoxicillin [AMOXICILLIN] AdvReac Severe ANAPHYLAXIS Verified 12/30/19 16:01 azithromycin [AZITHROMYCIN] AdvReac Severe ANAPHYLAXIS Verified 12/30/19 16:01 Assessment & Plan Assessment & Plan (1) Schizoaffective disorder, bipolar type: Status: Acute Code(s): F25.0 - Schizoaffective disorder, bipolar type Assessment and Plan: 1. Restart Depakote 500mg po BID- note hx of low platelets. 2. Pt prefers to restart thorazine but reports EPS with this medication, not open to retrying Olanzapine. Greater than 50% of the session was spent on counseling and/or coordination of care Reason for contiued inpatient stay Substantial Risk for: inability to function
[2020-07-03 17:30] VITALS: BP 145/67; PULSE 78; RESP 14; TEMP 36.7; O2SAT 97
[2020-07-03] MEDS: traZODone HCL 50 MG TABLET PO (21:34)
[2020-07-04] MEDS: hydrOXYzine HCL 25 MG TABLET PO ×4 (03:08→22:53)
[2020-07-04] MEDS: Acetaminophen 325 MG TABLET 650 MG PO ×2 (03:08→09:17)
[2020-07-04] MEDS: LORazepam 1 MG TABLET PO ×5 (03:09→22:52)
[2020-07-04] MEDS: Nicotine Polacrilex 2 MG GUM 4 MG BUCCAL ×5 (03:09→22:53)
[2020-07-04] MEDS: Albuterol Sulfate 90 MCG 8 GM INHALER 2 PUFF INHALE ×3 (03:11→22:56)
[2020-07-04 04:00] VITALS: BP 144/65; PULSE 79; RESP 16; TEMP 36.6; O2SAT 98
[2020-07-04] MEDS: Divalproex Sodium 500 MG TABLET.DR PO ×2 (09:02→20:39)
[2020-07-04] MEDS: Gabapentin 300 MG CAPSULE PO ×3 (09:02→20:39)
--- NOTE | 2020-07-04 09:49 | HO.PSYCHPN ---
Subjective Subjective Date of Service: 07/04/20 Reason For Visit: Depression Subjective Notes: 3 Day Interim History: pt ruminating pressured not aggressive discussed willingness to have help from [facility] discussed retracting 3 day for additional help multiple paranoid concerns regarding being dx with paranoia wishing for high dose benzo no insight into paranoia and delusional paranoid concerns has [facility] [place] Medication Compliance: Intermittent Side effects from medications: No Mental Status Exam Mental Status Exam Level of Consciousness: Awake Patient Behavior: Restless Mood Description: Labile and Apprehensive Affect Description: Labile and Apprehensive Ability to Follow Directions: Fair Speech Pattern: Perseverating and Rambling Delusions: Paranoid Ideation Thought Content: positive for Perseveration, positive for Disorganized, negative for Suicidal Ideation and negative for Homicidal Ideation Depressive Symptoms: Increased Anxiety Abnormal Motor Activity Signs and Symptoms: Agitation Judgement: Poor Diagnostics Vital Signs (24Hr): Vital Signs - 24 hr 07/04/20 19:52 07/05/20 06:00 Temperature 98.3 F 97.4 F Pulse Rate 81 76 Blood Pressure 138/65 132/78 Pulse Oximetry 99 Body Mass Index 31.1 Labs Results: 07/02/20 08:09 07/02/20 08:09 Medications Medications Current Medications Generic Name Dose Route Start Last Admin Trade Name Freq PRN Reason Stop Dose Admin Acetaminophen 650 mg 06/30/20 14:33 07/05/20 09:00 Acetaminophen 325 Mg Tablet PO 650 mg Q6H PRN Administration Headache/Pain Mild Scale (1-3) Al Hydroxide/Mg Hydroxide 30 ml 06/30/20 14:33 Magnesium Hydrox/Alum Hydrox 30 Ml Oral.Susp PO Q6H PRN Heartburn/Nausea Albuterol Sulfate 2 puff 06/30/20 14:17 07/04/20 22:56 Albuterol Sulfate 90 Mcg 8 Gm Inhaler INHALE 2 puff Q4H PRN Administration Wheezing Chlorpromazine HCl 50 mg 07/02/20 09:10 07/05/20 09:01 Chlorpromazine Hcl 25 Mg Tablet PO Not Given BID ELIECER Chlorpromazine HCl 50 mg 07/02/20 09:10 Chlorpromazine Hcl 25 Mg Tablet PO Q6H PRN agitation Divalproex Sodium 500 mg 07/01/20 10:55 07/05/20 09:00 Divalproex Sodium 500 Mg Tablet.Dr PO 500 mg BID ELIECER Administration Gabapentin 300 mg 06/29/20 21:00 07/05/20 09:00 Gabapentin 300 Mg Capsule PO 300 mg TID ELIECER Administration Hydroxyzine HCl 25 mg 06/29/20 16:11 07/04/20 11:43 Hydroxyzine Hcl 25 Mg Tablet PO 25 mg TID PRN Administration Anxiety Hydroxyzine HCl 25 mg 06/30/20 14:33 07/04/20 22:53 Hydroxyzine Hcl 25 Mg Tablet PO 25 mg BEDTIME PRN Administration Anxiety Lorazepam 1 mg 07/01/20 10:56 07/05/20 09:00 Lorazepam 1 Mg Tablet PO 1 mg Q4H PRN Administration Anxiety Magnesium Hydroxide 30 ml 06/30/20 14:33 Milk Of Magnesia 30 Ml Oral.Susp PO DAILY PRN Constipation Nicotine Polacrilex 4 mg 06/30/20 20:44 07/05/20 09:05 Nicotine Polacrilex 2 Mg Gum BUCCAL 4 mg Q2H PRN Administration Nicotine Cravings Trazodone HCl 50 mg 06/30/20 14:33 07/04/20 22:53 Trazodone Hcl 50 Mg Tablet PO 50 mg BEDTIME PRN Administration Insomnia Allergies Allergies Allergy/AdvReac Type Severity Reaction Status Date / Time mold [MOLD] Allergy Unknown UNKNOWN Verified 12/30/19 16:01 paliperidone [From Invega] Allergy Unknown Verified 12/30/19 16:01 amoxicillin [AMOXICILLIN] AdvReac Severe ANAPHYLAXIS Verified 12/30/19 16:01 azithromycin [AZITHROMYCIN] AdvReac Severe ANAPHYLAXIS Verified 12/30/19 16:01 Assessment & Plan Assessment & Plan (1) Schizoaffective disorder, bipolar type: Status: Acute Code(s): F25.0 - Schizoaffective disorder, bipolar type Assessment and Plan: continue depakote d/c planning encourage retraction. Greater than 50% of the session was spent on counseling and/or coordination of care Reason for contiued inpatient stay Substantial Risk for: inability to function and rapid decompensation
[2020-07-04 19:52] VITALS: BP 138/65; PULSE 81; TEMP 36.8
[2020-07-04] MEDS: traZODone HCL 50 MG TABLET PO (22:53)
[2020-07-05 06:00] VITALS: BP 132/78; PULSE 76; TEMP 36.3; O2SAT 99
[2020-07-05] MEDS: LORazepam 1 MG TABLET PO ×4 (09:00→23:41)
[2020-07-05] MEDS: Gabapentin 300 MG CAPSULE PO (09:00)
[2020-07-05] MEDS: Divalproex Sodium 500 MG TABLET.DR PO ×3 (09:00→20:27)
[2020-07-05] MEDS: Acetaminophen 325 MG TABLET 650 MG PO ×3 (09:00→23:42)
[2020-07-05] MEDS: Nicotine Polacrilex 2 MG GUM 4 MG BUCCAL ×6 (09:05→23:41)
[2020-07-05 13:21] VITALS: PULSE 78
[2020-07-05] MEDS: cloNIDine HCL 0.1 MG TABLET PO ×2 (13:21→20:27)
[2020-07-05] MEDS: hydrOXYzine HCL 50 MG TABLET PO ×2 (13:22→20:34)
[2020-07-05] MEDS: Albuterol Sulfate 90 MCG 8 GM INHALER 2 PUFF INHALE ×2 (13:23→20:33)
[2020-07-05] MEDS: Baclofen 10 MG TABLET PO ×2 (15:06→20:28)
[2020-07-05] MEDS: Gabapentin 400 MG CAPSULE PO ×2 (15:06→20:26)
--- NOTE | 2020-07-05 16:55 | HO.PSYCHPN ---
Subjective Subjective Date of Service: 07/05/20 Reason For Visit: Depression Interim History: Elmer is slightly less paranoid but continues to present as hyper verbal, intrusive with peers. He does continue to report being followed by po. He also reports number of somatic concerns that appear in real of psychosis, including arrythmias, which he has been informed of normal EKG. He does note that he is hyperverbal, restless but asks for more benzodiazepines and declines taking any antipsychotics. He did retract 3 day notice. He agreed to increase depakote, and add clonidine for anxiety. Review of Systems Review of Systems Constitutional : No Weight loss, No Fever, No Chills, No Night Sweats, No Fatigue, No Malaise ENT/Mouth : No Hearing loss, No Ear Pain, No Nasal Congestion, No Sinus Pain, No Hoarseness, No sore throat, No Rhinorrhea, No Swallowing Difficulty Eyes: No Eye Pain, No Swelling, No Redness, No Foreign Body, No Discharge, No Vision Changes Cardiovascular : No Chest Pain, No SOB, No Dyspnea on Exertion, No Orthopnea, No Edema, No Palpitations Respiratory : No Cough, No Sputum, No Wheezing, No Smoke Exposure, No Dyspnea Gastrointestinal : No Nausea, No Vomiting, No Diarrhea, No Constipation, No abdominal Pain, No Hematochezia, No Melena Genitourinary : no irregular bleeding, No Dysuria, No Urinary Frequency, No Hematuria, No Urinary Incontinence, No Urgency, No Flank Pain, No Urinary Flow Changes, No Hesitancy Musculoskeletal : No joint pain, No Myalgias, No Joint Swelling Skin : No Skin Lesions, No rash Neuro : No Weakness, No Numbness, No Paresthesias, No Loss of Consciousness, No Dizziness, No Headache Psych : Anxiety/Panic, No Depression, No SI/HI/AH/VH, Heme/Lymph: No Bruising, No Bleeding,No Lymphadenopathy Endocrine : No Polyuria, No Polydipsia, No Temperature Intolerance Yes all other systems are reviewed and are negative Cardiovascular: Denies chest pain, Denies chest pain at rest, Denies lightheadedness and Denies dyspnea Respiratory: Denies dyspnea Mental Status Exam Mental Status Exam Narrative: Appearance: casually groomed, poor hygiene, restless Behavior: superficially cooperative Psychomotor: some agitation noted Speech: clear, pressured rate/rhythm/volume, spontaneous, hyperverbal TP: tangential TC: paranoid delusions Mood: anxious Affect:restless, labile SI:denies HI:denies AH/VH:denies Delusions:persecutory delusions Insight/judgment:poor x 2. Memory/cog: alert, oriented x 3. impaired secondary to psychiatric symptoms. Diagnostics Vital Signs (24Hr): Vital Signs - 24 hr 07/04/20 19:52 07/05/20 06:00 07/05/20 13:21 Temperature 98.3 F 97.4 F Pulse Rate 81 76 78 Blood Pressure 138/65 132/78 Pulse Oximetry 99 Body Mass Index 31.1 Labs Results: 07/02/20 08:09 07/02/20 08:09 Medications Medications Current Medications Generic Name Dose Route Start Last Admin Trade Name Freq PRN Reason Stop Dose Admin Acetaminophen 650 mg 06/30/20 14:33 07/05/20 15:08 Acetaminophen 325 Mg Tablet PO 650 mg Q6H PRN Administration Headache/Pain Mild Scale (1-3) Al Hydroxide/Mg Hydroxide 30 ml 06/30/20 14:33 Magnesium Hydrox/Alum Hydrox 30 Ml Oral.Susp PO Q6H PRN Heartburn/Nausea Albuterol Sulfate 2 puff 06/30/20 14:17 07/05/20 13:23 Albuterol Sulfate 90 Mcg 8 Gm Inhaler INHALE 2 puff Q4H PRN Administration Wheezing Baclofen 10 mg 07/05/20 15:00 07/05/20 15:06 Baclofen 10 Mg Tablet PO 10 mg TID ELIECER Administration Chlorpromazine HCl 50 mg 07/02/20 09:10 07/05/20 09:01 Chlorpromazine Hcl 25 Mg Tablet PO Not Given BID ELIECER Chlorpromazine HCl 50 mg 07/02/20 09:10 Chlorpromazine Hcl 25 Mg Tablet PO Q6H PRN agitation Clonidine HCl 0.1 mg 07/05/20 11:30 07/05/20 13:21 Clonidine Hcl 0.1 Mg Tablet PO 0.1 mg DAILY ELIECER Administration Protocol Divalproex Sodium 500 mg 07/05/20 15:00 07/05/20 15:06 Divalproex Sodium 500 Mg Tablet.Dr PO 500 mg TID ELIECER Administration Gabapentin 400 mg 07/05/20 11:27 07/05/20 15:06 Gabapentin 400 Mg Capsule PO 400 mg TID ELIECER Administration Hydroxyzine HCl 25 mg 06/30/20 14:33 07/04/20 22:53 Hydroxyzine Hcl 25 Mg Tablet PO 25 mg BEDTIME PRN Administration Anxiety Hydroxyzine HCl 50 mg 07/05/20 11:30 07/05/20 13:22 Hydroxyzine Hcl 50 Mg Tablet PO 50 mg TID PRN Administration Anxiety Lorazepam 1 mg 07/01/20 10:56 07/05/20 13:22 Lorazepam 1 Mg Tablet PO 1 mg Q4H PRN Administration Anxiety Magnesium Hydroxide 30 ml 06/30/20 14:33 Milk Of Magnesia 30 Ml Oral.Susp PO DAILY PRN Constipation Nicotine Polacrilex 4 mg 06/30/20 20:44 07/05/20 15:09 Nicotine Polacrilex 2 Mg Gum BUCCAL 4 mg Q2H PRN Administration Nicotine Cravings Trazodone HCl 50 mg 06/30/20 14:33 07/04/20 22:53 Trazodone Hcl 50 Mg Tablet PO 50 mg BEDTIME PRN Administration Insomnia Allergies Allergies Allergy/AdvReac Type Severity Reaction Status Date / Time mold [MOLD] Allergy Unknown UNKNOWN Verified 12/30/19 16:01 paliperidone [From Invega] Allergy Unknown Verified 12/30/19 16:01 amoxicillin [AMOXICILLIN] AdvReac Severe ANAPHYLAXIS Verified 12/30/19 16:01 azithromycin [AZITHROMYCIN] AdvReac Severe ANAPHYLAXIS Verified 12/30/19 16:01 Assessment & Plan Assessment & Plan (1) Schizoaffective disorder, bipolar type: Status: Acute Code(s): F25.0 - Schizoaffective disorder, bipolar type Assessment and Plan: 1. Increase depakote to 500mg po TID 2. Increase gabapentin to 400mg po TID 3. Start clonidine 0.1mg po daily- may increase to BID Greater than 50% of the session was spent on counseling and/or coordination of care Reason for contiued inpatient stay Substantial Risk for: inability to function
[2020-07-05 17:35] VITALS: BP 110/58; PULSE 90; RESP 18; TEMP 36.7; O2SAT 98
[2020-07-05 20:27] VITALS: BP 141/66; PULSE 86
[2020-07-05] MEDS: traZODone HCL 50 MG TABLET PO (23:41)
[2020-07-06] MEDS: LORazepam 1 MG TABLET PO ×4 (04:42→18:03)
[2020-07-06] MEDS: Nicotine Polacrilex 2 MG GUM 4 MG BUCCAL ×6 (04:42→21:11)
[2020-07-06] MEDS: Albuterol Sulfate 90 MCG 8 GM INHALER 2 PUFF INHALE ×3 (04:52→21:11)
[2020-07-06 05:01] VITALS: BP 108/58; PULSE 65; RESP 18; TEMP 36.4; O2SAT 99
[2020-07-06 08:28] VITALS: BP 135/63; PULSE 75
[2020-07-06] MEDS: Divalproex Sodium 500 MG TABLET.DR PO ×3 (08:28→20:54)
[2020-07-06] MEDS: cloNIDine HCL 0.1 MG TABLET PO ×2 (08:28→21:02)
[2020-07-06] MEDS: Gabapentin 400 MG CAPSULE PO ×3 (08:29→20:54)
[2020-07-06] MEDS: Baclofen 10 MG TABLET PO ×2 (08:29→14:37)
[2020-07-06] MEDS: Acetaminophen 325 MG TABLET 650 MG PO ×2 (08:29→14:37)
[2020-07-06] MEDS: hydrOXYzine HCL 50 MG TABLET PO ×2 (12:09→18:05)
[2020-07-06 16:09] VITALS: BP 106/55; PULSE 63; RESP 18; TEMP 36.4; O2SAT 99
--- NOTE | 2020-07-06 16:43 | HO.PSYCHPN ---
Subjective Subjective Date of Service: 07/06/20 Reason For Visit: Depression Interim History: Elmer continues to present as hyperverbal. He reports several somatic concerns that again appear to be more somatic delusions. He asks that this pattern chart writer start Vitamin b complex to help with wrist pain. He does denied current pain but states he needs these vitamins. He reports in community he was buying vitamins and mixing them with water because he thought he was deficient of them. He denies SI/HI. He continues to report paranoid delusions related to hacker coming after him but with less intensity. However, he continues to decline taking antipsychotics. He appears slightly somnolent during the day today. He reports clonidine has been helpful for anxiety. Review of Systems Review of Systems Constitutional : No Weight loss, No Fever, No Chills, No Night Sweats, No Fatigue, No Malaise ENT/Mouth : No Hearing loss, No Ear Pain, No Nasal Congestion, No Sinus Pain, No Hoarseness, No sore throat, No Rhinorrhea, No Swallowing Difficulty Eyes: No Eye Pain, No Swelling, No Redness, No Foreign Body, No Discharge, No Vision Changes Cardiovascular : No Chest Pain, No SOB, No Dyspnea on Exertion, No Orthopnea, No Edema, No Palpitations Respiratory : No Cough, No Sputum, No Wheezing, No Smoke Exposure, No Dyspnea Gastrointestinal : No Nausea, No Vomiting, No Diarrhea, No Constipation, No abdominal Pain, No Hematochezia, No Melena Genitourinary : no irregular bleeding, No Dysuria, No Urinary Frequency, No Hematuria, No Urinary Incontinence, No Urgency, No Flank Pain, No Urinary Flow Changes, No Hesitancy Musculoskeletal : No joint pain, No Myalgias, No Joint Swelling Skin : No Skin Lesions, No rash Neuro : No Weakness, No Numbness, No Paresthesias, No Loss of Consciousness, No Dizziness, No Headache Psych : Anxiety/Panic, No Depression, No SI/HI/AH/VH, Heme/Lymph: No Bruising, No Bleeding,No Lymphadenopathy Endocrine : No Polyuria, No Polydipsia, No Temperature Intolerance Yes all other systems are reviewed and are negative Cardiovascular: Denies chest pain, Denies chest pain at rest, Denies lightheadedness and Denies dyspnea Respiratory: Denies dyspnea Mental Status Exam Mental Status Exam Narrative: Appearance: casually groomed, poor hygiene, restless Behavior: superficially cooperative Psychomotor: some agitation noted Speech: clear, pressured rate/rhythm/volume, spontaneous, hyperverbal TP: tangential TC: paranoid delusions Mood: anxious Affect:restless, labile SI:denies HI:denies AH/VH:denies Delusions:persecutory delusions Insight/judgment:poor x 2. Memory/cog: alert, oriented x 3. impaired secondary to psychiatric symptoms. Diagnostics Vital Signs (24Hr): Vital Signs - 24 hr 07/05/20 17:35 07/05/20 20:27 07/06/20 05:01 Temperature 98.1 F 97.6 F Pulse Rate 90 86 65 Respiratory Rate 18 18 Blood Pressure 110/58 L 141/66 H 108/58 L Pulse Oximetry 98 99 07/06/20 08:28 07/06/20 16:09 Temperature 97.5 F Pulse Rate 75 63 Respiratory Rate 18 Blood Pressure 135/63 106/55 L Pulse Oximetry 99 Body Mass Index 31.1 Labs Results: 07/02/20 08:09 07/02/20 08:09 Medications Medications Current Medications Generic Name Dose Route Start Last Admin Trade Name Freq PRN Reason Stop Dose Admin Acetaminophen 650 mg 06/30/20 14:33 07/06/20 14:37 Acetaminophen 325 Mg Tablet PO 650 mg Q6H PRN Administration Headache/Pain Mild Scale (1-3) Al Hydroxide/Mg Hydroxide 30 ml 06/30/20 14:33 Magnesium Hydrox/Alum Hydrox 30 Ml Oral.Susp PO Q6H PRN Heartburn/Nausea Albuterol Sulfate 2 puff 06/30/20 14:17 07/06/20 12:12 Albuterol Sulfate 90 Mcg 8 Gm Inhaler INHALE 2 puff Q4H PRN Administration Wheezing Baclofen 10 mg 07/05/20 15:00 07/06/20 14:37 Baclofen 10 Mg Tablet PO 10 mg TID ELIECER Administration Chlorpromazine HCl 50 mg 07/02/20 09:10 07/06/20 08:30 Chlorpromazine Hcl 25 Mg Tablet PO Not Given BID ELIECER Chlorpromazine HCl 50 mg 07/02/20 09:10 Chlorpromazine Hcl 25 Mg Tablet PO Q6H PRN agitation Clonidine HCl 0.1 mg 07/05/20 21:00 07/06/20 08:28 Clonidine Hcl 0.1 Mg Tablet PO 0.1 mg BID ELIECER Administration Protocol Divalproex Sodium 500 mg 07/05/20 15:00 07/06/20 14:37 Divalproex Sodium 500 Mg Tablet.Dr PO 500 mg TID ELIECER Administration Gabapentin 400 mg 07/05/20 11:27 07/06/20 14:37 Gabapentin 400 Mg Capsule PO 400 mg TID ELIECER Administration Hydroxyzine HCl 25 mg 06/30/20 14:33 07/04/20 22:53 Hydroxyzine Hcl 25 Mg Tablet PO 25 mg BEDTIME PRN Administration Anxiety Hydroxyzine HCl 50 mg 07/05/20 11:30 07/06/20 12:09 Hydroxyzine Hcl 50 Mg Tablet PO 50 mg TID PRN Administration Anxiety Lorazepam 1 mg 07/01/20 10:56 07/06/20 13:28 Lorazepam 1 Mg Tablet PO 1 mg Q4H PRN Administration Anxiety Magnesium Hydroxide 30 ml 06/30/20 14:33 Milk Of Magnesia 30 Ml Oral.Susp PO DAILY PRN Constipation Nicotine Polacrilex 4 mg 06/30/20 20:44 07/06/20 13:29 Nicotine Polacrilex 2 Mg Gum BUCCAL 4 mg Q2H PRN Administration Nicotine Cravings Trazodone HCl 50 mg 06/30/20 14:33 07/05/20 23:41 Trazodone Hcl 50 Mg Tablet PO 50 mg BEDTIME PRN Administration Insomnia Allergies Allergies Allergy/AdvReac Type Severity Reaction Status Date / Time mold [MOLD] Allergy Unknown UNKNOWN Verified 12/30/19 16:01 paliperidone [From Invega] Allergy Unknown Verified 12/30/19 16:01 amoxicillin [AMOXICILLIN] AdvReac Severe ANAPHYLAXIS Verified 12/30/19 16:01 azithromycin [AZITHROMYCIN] AdvReac Severe ANAPHYLAXIS Verified 12/30/19 16:01 Assessment & Plan Assessment & Plan (1) Schizoaffective disorder, bipolar type: Status: Acute Code(s): F25.0 - Schizoaffective disorder, bipolar type Assessment and Plan: 1. continue depakote to 500mg po TID- check depakote levels tomorrow morning 2. Continue gabapentin to 400mg po TID 3. Continue clonidine 0.1mg po BID continue to monitor BP. Greater than 50% of the session was spent on counseling and/or coordination of care Reason for contiued inpatient stay Substantial Risk for: inability to function
[2020-07-06] MEDS: Baclofen 10 MG TABLET 5 MG PO (20:54)
[2020-07-06 21:02] VITALS: BP 119/55; PULSE 62
[2020-07-07] MEDS: LORazepam 1 MG TABLET PO ×3 (08:35→20:15)
[2020-07-07] MEDS: Divalproex Sodium 500 MG TABLET.DR PO ×2 (08:35→14:18)
[2020-07-07] MEDS: hydrOXYzine HCL 50 MG TABLET PO ×2 (08:35→14:18)
[2020-07-07] MEDS: Baclofen 10 MG TABLET 5 MG PO (08:35)
[2020-07-07] MEDS: Gabapentin 400 MG CAPSULE PO ×3 (08:35→20:12)
[2020-07-07] MEDS: Nicotine Polacrilex 2 MG GUM 4 MG BUCCAL ×5 (08:35→20:15)
[2020-07-07 08:36] VITALS: BP 115/68; PULSE 77
[2020-07-07] MEDS: cloNIDine HCL 0.1 MG TABLET PO ×2 (08:36→20:09)
[2020-07-07 08:45] LABS: Ammonia 81 umol/L (13-55)
[2020-07-07 09:07] LABS: Valproate 50.5 mcg/mL (50.0-100.0)
[2020-07-07] MEDS: Albuterol Sulfate 90 MCG 8 GM INHALER 2 PUFF INHALE ×2 (09:51→14:45)
[2020-07-07 13:57] VITALS: BMI 35.5
[2020-07-07] MEDS: Baclofen 10 MG TABLET PO ×2 (14:18→20:12)
[2020-07-07] MEDS: Acetaminophen 325 MG TABLET 650 MG PO (14:45)
[2020-07-07 18:00] VITALS: BP 136/74; PULSE 93; TEMP 36.7
--- NOTE | 2020-07-07 18:41 | P.PNPSI_ITS ---
Subjective Subjective Date of Service: 07/07/20 Reason For Visit: Depression Interim History: Max continues to present as hyperverbal, constantly asking staff for support or interrupting them. He is visible in the unit and is social with select peers. Pt continues to present with labile mood. He reports having erection when around women but less so than before. He also continues to pre sent with paranoia related to hackers following him but to less extend. However, he continues to decline taking antipsychotics. He appears slightly somnolent during the day today. He reports clonidine has been helpful for anxiety. Review of Systems Review of Systems Constitutional : No Weight loss, No Fever, No Chills, No Night Sweats, No Fatigue, No Malaise ENT/Mouth : No Hearing loss, No Ear Pain, No Nasal Congestion, No Sinus Pain, No Hoarseness, No sore throat, No Rhinorrhea, No Swallowing Difficulty Eyes: No Eye Pain, No Swelling, No Redness, No Foreign Body, No Discharge, No Vision Changes Cardiovascular : No Chest Pain, No SOB, No Dyspnea on Exertion, No Orthopnea, No Edema, No Palpitations Respiratory : No Cough, No Sputum, No Wheezing, No Smoke Exposure, No Dyspnea Gastrointestinal : No Nausea, No Vomiting, No Diarrhea, No Constipation, No abdominal Pain, No Hematochezia, No Melena Genitourinary : no irregular bleeding, No Dysuria, No Urinary Frequency, No Hematuria, No Urinary Incontinence, No Urgency, No Flank Pain, No Urinary Flow Changes, No Hesitancy Musculoskeletal : No joint pain, No Myalgias, No Joint Swelling Skin : No Skin Lesions, No rash Neuro : No Weakness, No Numbness, No Paresthesias, No Loss of Consciousness, No Dizziness, No Headache Psych : Anxiety/Panic, No Depression, No SI/HI/AH/VH, Heme/Lymph: No Bruising, No Bleeding,No Lymphadenopathy Endocrine : No Polyuria, No Polydipsia, No Temperature Intolerance Yes all other systems are reviewed and are negative Cardiovascular: Denies chest pain, Denies chest pain at rest, Denies lightheadedness and Denies dyspnea Respiratory: Denies dyspnea Mental Status Exam Mental Status Exam Narrative: Appearance: casually groomed, poor hygiene, restless Behavior: superficially cooperative Psychomotor: some agitation noted Speech: clear, pressured rate/rhythm/volume, spontaneous, hyperverbal TP: tangential TC: paranoid delusions Mood: anxious Affect:restless, labile SI:denies HI:denies AH/VH:denies Delusions:persecutory delusions Insight/judgment:poor x 2. Memory/cog: alert, oriented x 3. impaired secondary to psychiatric symptoms. Diagnostics Vital Signs (24Hr): Vital Signs - 24 hr 07/06/20 21:02 07/07/20 08:36 Pulse Rate 62 77 Blood Pressure 119/55 L 115/68 Body Mass Index 35.5 Labs Results: 07/02/20 08:09 07/02/20 08:09 Labs: Laboratory Results - last 48 hr 07/07/20 07/07/20 08:10 08:10 Ammonia 81 H Valproic Acid 50.5 Medications Medications Current Medications Generic Name Dose Route Start Last Admin Trade Name Freq PRN Reason Stop Dose Admin Acetaminophen 650 mg 06/30/20 14:33 07/07/20 14:45 Acetaminophen 325 Mg Tablet PO 650 mg Q6H PRN Administration Headache/Pain Mild Scale (1-3) Al Hydroxide/Mg Hydroxide 30 ml 06/30/20 14:33 Magnesium Hydrox/Alum Hydrox 30 Ml Oral.Susp PO Q6H PRN Heartburn/Nausea Albuterol Sulfate 2 puff 06/30/20 14:17 07/07/20 14:45 Albuterol Sulfate 90 Mcg 8 Gm Inhaler INHALE 2 puff Q4H PRN Administration Wheezing Baclofen 10 mg 07/07/20 15:00 07/07/20 14:18 Baclofen 10 Mg Tablet PO 10 mg TID ELIECER Administration Chlorpromazine HCl 50 mg 07/02/20 09:10 07/07/20 08:45 Chlorpromazine Hcl 25 Mg Tablet PO Not Given BID ELIECER Chlorpromazine HCl 50 mg 07/02/20 09:10 Chlorpromazine Hcl 25 Mg Tablet PO Q6H PRN agitation Clonidine HCl 0.1 mg 07/05/20 21:00 07/07/20 08:36 Clonidine Hcl 0.1 Mg Tablet PO 0.1 mg BID ELIECER Administration Protocol Divalproex Sodium 500 mg 07/05/20 15:00 07/07/20 14:18 Divalproex Sodium 500 Mg Tablet.Dr PO 500 mg TID ELIECER Administration Gabapentin 400 mg 07/05/20 11:27 07/07/20 14:18 Gabapentin 400 Mg Capsule PO 400 mg TID ELIECER Administration Hydroxyzine HCl 25 mg 06/30/20 14:33 07/04/20 22:53 Hydroxyzine Hcl 25 Mg Tablet PO 25 mg BEDTIME PRN Administration Anxiety Hydroxyzine HCl 50 mg 07/05/20 11:30 07/07/20 14:18 Hydroxyzine Hcl 50 Mg Tablet PO 50 mg TID PRN Administration Anxiety Lorazepam 1 mg 07/01/20 10:56 07/07/20 14:18 Lorazepam 1 Mg Tablet PO 1 mg Q4H PRN Administration Anxiety Magnesium Hydroxide 30 ml 06/30/20 14:33 Milk Of Magnesia 30 Ml Oral.Susp PO DAILY PRN Constipation Nicotine Polacrilex 4 mg 06/30/20 20:44 07/07/20 18:35 Nicotine Polacrilex 2 Mg Gum BUCCAL 4 mg Q2H PRN Administration Nicotine Cravings Trazodone HCl 50 mg 06/30/20 14:33 07/05/20 23:41 Trazodone Hcl 50 Mg Tablet PO 50 mg BEDTIME PRN Administration Insomnia Allergies Allergies Allergy/AdvReac Type Severity Reaction Status Date / Time mold [MOLD] Allergy Unknown UNKNOWN Verified 12/30/19 16:01 paliperidone [From Invega] Allergy Unknown Verified 12/30/19 16:01 amoxicillin [AMOXICILLIN] AdvReac Severe ANAPHYLAXIS Verified 12/30/19 16:01 azithromycin [AZITHROMYCIN] AdvReac Severe ANAPHYLAXIS Verified 12/30/19 16:01 Assessment & Plan Assessment & Plan (1) Schizoaffective disorder, bipolar type: Status: Acute Code(s): F25.0 - Schizoaffective disorder, bipolar type Assessment and Plan: 1. continue depakote to 500mg po TID- check depakote levels tomorrow morning 2. Continue gabapentin to 400mg po TID 3. Continue clonidine 0.1mg po BID continue to monitor BP. Greater than 50% of the session was spent on counseling and/or coordination of care Reason for contiued inpatient stay Substantial Risk for: inability to function
[2020-07-07 20:09] VITALS: BP 136/74; PULSE 93
[2020-07-07] MEDS: Lactulose 20 GM/30 ML SOLUTION PO (20:42)
[2020-07-08] MEDS: hydrOXYzine HCL 50 MG TABLET PO ×2 (03:53→13:52)
[2020-07-08] MEDS: LORazepam 1 MG TABLET PO ×5 (03:53→20:54)
[2020-07-08] MEDS: Nicotine Polacrilex 2 MG GUM 4 MG BUCCAL ×6 (03:53→19:18)
[2020-07-08 06:00] VITALS: BP 120/71; PULSE 58; RESP 18; TEMP 36.3; O2SAT 98
[2020-07-08 08:15] VITALS: BP 128/70; PULSE 56; RESP 18; TEMP 36.6; O2SAT 98
[2020-07-08 08:17] VITALS: BP 128/70; PULSE 56
[2020-07-08] MEDS: Gabapentin 400 MG CAPSULE PO ×3 (08:17→20:54)
[2020-07-08] MEDS: cloNIDine HCL 0.1 MG TABLET PO ×2 (08:17→20:54)
[2020-07-08] MEDS: Baclofen 10 MG TABLET PO ×3 (08:17→20:54)
[2020-07-08] MEDS: Lactulose 20 GM/30 ML SOLUTION PO ×2 (08:18→21:01)
[2020-07-08] MEDS: Acetaminophen 325 MG TABLET 650 MG PO ×2 (08:26→16:25)
[2020-07-08] MEDS: Albuterol Sulfate 90 MCG 8 GM INHALER 2 PUFF INHALE ×2 (08:26→16:21)
[2020-07-08] MEDS: OXcarbazepine 300 MG TABLET PO ×2 (14:22→20:54)
--- NOTE | 2020-07-08 16:25 | P.PNPSI_ITS ---
Subjective Subjective Date of Service: 07/08/20 Reason For Visit: Depression Interim History: Max slightly calmer. He retract 3 day notice today. He reports sleeping better last night. He continues to be preoccupied with having an erection when in the presence of women and asks to be prescribed medications to lower my testosterone. Pt reports incident when he thinks women may be trying to do something to him as he woke up with an erection. He continues to rpesent with several delusions including hackers trying to track him, somatic delusions. He agreed to take trileptal as depakote d/c due to increase ammonia but continues to decline antipsychotics. He denies SI/HI. intrusive with staff but not aggression noted. Review of Systems Review of Systems Constitutional : No Weight loss, No Fever, No Chills, No Night Sweats, No Fatigue, No Malaise ENT/Mouth : No Hearing loss, No Ear Pain, No Nasal Congestion, No Sinus Pain, No Hoarseness, No sore throat, No Rhinorrhea, No Swallowing Difficulty Eyes: No Eye Pain, No Swelling, No Redness, No Foreign Body, No Discharge, No Vision Changes Cardiovascular : No Chest Pain, No SOB, No Dyspnea on Exertion, No Orthopnea, No Edema, No Palpitations Respiratory : No Cough, No Sputum, No Wheezing, No Smoke Exposure, No Dyspnea Gastrointestinal : No Nausea, No Vomiting, No Diarrhea, No Constipation, No abdominal Pain, No Hematochezia, No Melena Genitourinary : no irregular bleeding, No Dysuria, No Urinary Frequency, No Hematuria, No Urinary Incontinence, No Urgency, No Flank Pain, No Urinary Flow Changes, No Hesitancy Musculoskeletal : No joint pain, No Myalgias, No Joint Swelling Skin : No Skin Lesions, No rash Neuro : No Weakness, No Numbness, No Paresthesias, No Loss of Consciousness, No Dizziness, No Headache Psych : Anxiety/Panic, No Depression, No SI/HI/AH/VH, Heme/Lymph: No Bruising, No Bleeding,No Lymphadenopathy Endocrine : No Polyuria, No Polydipsia, No Temperature Intolerance Yes all other systems are reviewed and are negative Cardiovascular: Denies chest pain, Denies chest pain at rest, Denies lightheade dness and Denies dyspnea Respiratory: Denies dyspnea Mental Status Exam Mental Status Exam Narrative: Appearance: casually groomed, poor hygiene, restless Behavior: superficially cooperative Psychomotor: some agitation noted Speech: clear, pressured rate/rhythm/volume, spontaneous, hyperverbal TP: tangential TC: paranoid delusions Mood: anxious Affect:restless, labile SI:denies HI:denies AH/VH:denies Delusions:persecutory delusions Insight/judgment:poor x 2. Memory/cog: alert, oriented x 3. impaired secondary to psychiatric symptoms. Diagnostics Vital Signs (24Hr): Vital Signs - 24 hr 07/07/20 18:00 07/07/20 20:09 07/08/20 06:00 Temperature 98.1 F 97.4 F Pulse Rate 93 93 58 Respiratory Rate 18 Blood Pressure 136/74 136/74 120/71 Pulse Oximetry 98 07/08/20 08:15 07/08/20 08:17 Temperature 97.8 F Pulse Rate 56 56 Respiratory Rate 18 Blood Pressure 128/70 128/70 Pulse Oximetry 98 Body Mass Index 35.5 Labs Results: 07/02/20 08:09 07/02/20 08:09 Labs: Laboratory Results - last 48 hr 07/07/20 07/07/20 08:10 08:10 Ammonia 81 H Valproic Acid 50.5 Medications Medications Current Medications Generic Name Dose Route Start Last Admin Trade Name Freq PRN Reason Stop Dose Admin Acetaminophen 650 mg 06/30/20 14:33 07/08/20 08:26 Acetaminophen 325 Mg Tablet PO 650 mg Q6H PRN Administration Headache/Pain Mild Scale (1-3) Al Hydroxide/Mg Hydroxide 30 ml 06/30/20 14:33 Magnesium Hydrox/Alum Hydrox 30 Ml Oral.Susp PO Q6H PRN Heartburn/Nausea Albuterol Sulfate 2 puff 06/30/20 14:17 07/08/20 08:26 Albuterol Sulfate 90 Mcg 8 Gm Inhaler INHALE 2 puff Q4H PRN Administration Wheezing Baclofen 10 mg 07/07/20 15:00 07/08/20 14:22 Baclofen 10 Mg Tablet PO 10 mg TID ELIECER Administration Chlorpromazine HCl 50 mg 07/02/20 09:10 Chlorpromazine Hcl 25 Mg Tablet PO Q6H PRN agitation Clonidine HCl 0.1 mg 07/05/20 21:00 07/08/20 08:17 Clonidine Hcl 0.1 Mg Tablet PO 0.1 mg BID ELIECER Administration Protocol Gabapentin 400 mg 07/05/20 11:27 07/08/20 14:22 Gabapentin 400 Mg Capsule PO 400 mg TID ELIECER Administration Hydroxyzine HCl 25 mg 06/30/20 14:33 07/04/20 22:53 Hydroxyzine Hcl 25 Mg Tablet PO 25 mg BEDTIME PRN Administration Anxiety Hydroxyzine HCl 50 mg 07/05/20 11:30 07/08/20 13:52 Hydroxyzine Hcl 50 Mg Tablet PO 50 mg TID PRN Administration Anxiety Lactulose 20 gm 07/07/20 21:00 07/08/20 08:18 Lactulose 20 Gm/30 Ml Solution PO 20 gm BID ELIECER Administration Lorazepam 1 mg 07/01/20 10:56 07/08/20 12:50 Lorazepam 1 Mg Tablet PO 1 mg Q4H PRN Administration Anxiety Magnesium Hydroxide 30 ml 06/30/20 14:33 Milk Of Magnesia 30 Ml Oral.Susp PO DAILY PRN Constipation Multivitamins 1 tab 07/08/20 14:15 07/08/20 14:22 B-Complex With Vitamin C Tablet PO 1 tab DAILY ELIECER Administration Nicotine Polacrilex 4 mg 06/30/20 20:44 07/08/20 13:53 Nicotine Polacrilex 2 Mg Gum BUCCAL 4 mg Q2H PRN Administration Nicotine Cravings Oxcarbazepine 300 mg 07/08/20 14:15 07/08/20 14:22 Oxcarbazepine 300 Mg Tablet PO 300 mg BID ELIECER Administration Trazodone HCl 50 mg 06/30/20 14:33 07/05/20 23:41 Trazodone Hcl 50 Mg Tablet PO 50 mg BEDTIME PRN Administration Insomnia Allergies Allergies Allergy/AdvReac Type Severity Reaction Status Date / Time mold [MOLD] Allergy Unknown UNKNOWN Verified 12/30/19 16:01 paliperidone [From Invega] Allergy Unknown Verified 12/30/19 16:01 amoxicillin [AMOXICILLIN] AdvReac Severe ANAPHYLAXIS Verified 12/30/19 16:01 azithromycin [AZITHROMYCIN] AdvReac Severe ANAPHYLAXIS Verified 12/30/19 16:01 Assessment & Plan Assessment & Plan (1) Schizoaffective disorder, bipolar type: Status: Acute Code(s): F25.0 - Schizoaffective disorder, bipolar type Assessment and Plan: 1. depakote d/c due to increase ammonia- started on lactulose 20mg po BID- will recheck ammonia levels on 07/09 2. Continue gabapentin to 400mg po TID 3. Continue clonidine 0.1mg po BID continue to monitor BP. 4. start trileptal 300mg po BID, can titrate, monitor Na. Greater than 50% of the session was spent on counseling and/or coordination of care Reason for contiued inpatient stay Substantial Risk for: inability to function
[2020-07-08 16:45] VITALS: BP 126/65; PULSE 83; TEMP 36.8
[2020-07-08 17:15] LABS: Ammonia 64 umol/L (13-55)
[2020-07-08 20:54] VITALS: BP 146/65; PULSE 81
[2020-07-08] MEDS: hydrOXYzine HCL 25 MG TABLET PO (20:54)
[2020-07-09] MEDS: hydrOXYzine HCL 50 MG TABLET PO ×3 (00:06→13:53)
[2020-07-09] MEDS: traZODone HCL 50 MG TABLET PO ×2 (00:06→23:44)
[2020-07-09] MEDS: Acetaminophen 325 MG TABLET 650 MG PO ×3 (00:08→13:53)
[2020-07-09] MEDS: Nicotine Polacrilex 2 MG GUM 4 MG BUCCAL ×8 (00:08→23:44)
[2020-07-09] MEDS: Albuterol Sulfate 90 MCG 8 GM INHALER 2 PUFF INHALE ×5 (00:09→23:44)
[2020-07-09 06:00] VITALS: BP 117/57; PULSE 62; RESP 18; TEMP 35.7; O2SAT 97
[2020-07-09] MEDS: LORazepam 1 MG TABLET PO ×4 (06:40→23:44)
--- NOTE | 2020-07-09 07:44 | P.PNPSI_ITS ---
Subjective Subjective Date of Service: 07/09/20 Reason For Visit: Depression Interim History: Max slightly calmer. He is pacing and anxious at times. He asks for the tripletal to be increased to TID or an extended release form. He and I agree to try TID dosing. He retract 3 day notice yesterday. He reports he slept well lat night. He denies SI/HI. intrusive with staff at times but not aggressive. Review of Systems Review of Systems Constitutional : No Weight loss, No Fever, No Chills, No Night Sweats, No Fa tigue, No Malaise ENT/Mouth : No Hearing loss, No Ear Pain, No Nasal Congestion, No Sinus Pain, No Hoarseness, No sore throat, No Rhinorrhea, No Swallowing Difficulty Eyes: No Eye Pain, No Swelling, No Redness, No Foreign Body, No Discharge, No Vision Changes Cardiovascular : No Chest Pain, No SOB, No Dyspnea on Exertion, No Orthopnea, No Edema, No Palpitations Respiratory : No Cough, No Sputum, No Wheezing, No Smoke Exposure, No Dyspnea Gastrointestinal : No Nausea, No Vomiting, No Diarrhea, No Constipation, No abdominal Pain, No Hematochezia, No Melena Genitourinary : no irregular bleeding, No Dysuria, No Urinary Frequency, No Hematuria, No Urinary Incontinence, No Urgency, No Flank Pain, No Urinary Flow Changes, No Hesitancy Musculoskeletal : No joint pain, No Myalgias, No Joint Swelling Skin : No Skin Lesions, No rash Neuro : No Weakness, No Numbness, No Paresthesias, No Loss of Consciousness, No Dizziness, No Headache Psych : Anxiety/Panic, No Depression, No SI/HI/AH/VH, Heme/Lymph: No Bruising, No Bleeding,No Lymphadenopathy Endocrine : No Polyuria, No Polydipsia, No Temperature Intolerance Yes all other systems are reviewed and are negative Cardiovascular: Reports as per HPI, Reports chest pain, Reports chest pain at rest, Reports lightheadedness and Reports dyspnea Respiratory: Reports dyspnea Mental Status Exam Mental Status Exam Narrative: Appearance: casually groomed, poor hygiene, restless Behavior: superficially cooperative Psychomotor: some agitation noted Speech: clear, pressured rate/rhythm/volume, spontaneous, hyperverbal TP: tangential TC: paranoid delusions Mood: anxious Affect:restless, labile SI:denies HI:denies AH/VH:denies Delusions:persecutory delusions Insight/judgment:poor x 2. Memory/cog: alert, oriented x 3. impaired secondary to psychiatric symptoms. Level of Consciousness: Awake Patient Behavior: Restless Mood Description: Labile and Apprehensive Affect Description: Labile and Apprehensive Ability to Follow Directions: Fair Speech Pattern: Perseverating and Rambling Depressive Symptoms: Increased Anxiety Abnormal Motor Activity Signs and Symptoms: Restlessness Judgement: Fair Diagnostics Vital Signs (24Hr): Vital Signs - 24 hr 07/08/20 08:15 07/08/20 08:17 07/08/20 16:45 Temperature 97.8 F 98.2 F Pulse Rate 56 56 83 Respiratory Rate 18 Blood Pressure 128/70 128/70 126/65 Pulse Oximetry 98 07/08/20 20:54 07/09/20 06:00 Temperature 96.2 F L Pulse Rate 81 62 Respiratory Rate 18 Blood Pressure 146/65 H 117/57 L Pulse Oximetry 97 Body Mass Index 35.5 Labs Results: 07/02/20 08:09 07/02/20 08:09 Labs: Laboratory Results - last 48 hr 07/07/20 07/07/20 07/08/20 08:10 08:10 16:45 Ammonia 81 H 64 H Valproic Acid 50.5 Medications Medications Current Medications Generic Name Dose Route Start Last Admin Trade Name Freq PRN Reason Stop Dose Admin Acetaminophen 650 mg 06/30/20 14:33 07/09/20 06:40 Acetaminophen 325 Mg Tablet PO 650 mg Q6H PRN Administration Headache/Pain Mild Scale (1-3) Al Hydroxide/Mg Hydroxide 30 ml 06/30/20 14:33 Magnesium Hydrox/Alum Hydrox 30 Ml Oral.Susp PO Q6H PRN Heartburn/Nausea Albuterol Sulfate 2 puff 06/30/20 14:17 07/09/20 06:41 Albuterol Sulfate 90 Mcg 8 Gm Inhaler INHALE 2 puff Q4H PRN Administration Wheezing Baclofen 10 mg 07/07/20 15:00 07/08/20 20:54 Baclofen 10 Mg Tablet PO 10 mg TID ELIECER Administration Chlorpromazine HCl 50 mg 07/02/20 09:10 Chlorpromazine Hcl 25 Mg Tablet PO Q6H PRN agitation Clonidine HCl 0.1 mg 07/05/20 21:00 07/08/20 20:54 Clonidine Hcl 0.1 Mg Tablet PO 0.1 mg BID ELIECER Administration Protocol Gabapentin 400 mg 07/05/20 11:27 07/08/20 20:54 Gabapentin 400 Mg Capsule PO 400 mg TID ELIECER Administration Hydroxyzine HCl 25 mg 06/30/20 14:33 07/08/20 20:54 Hydroxyzine Hcl 25 Mg Tablet PO 25 mg BEDTIME PRN Administration Anxiety Hydroxyzine HCl 50 mg 07/05/20 11:30 07/09/20 06:40 Hydroxyzine Hcl 50 Mg Tablet PO 50 mg TID PRN Administration Anxiety Lactulose 20 gm 07/07/20 21:00 07/08/20 21:01 Lactulose 20 Gm/30 Ml Solution PO 20 gm BID ELIECER Administration Lorazepam 1 mg 07/01/20 10:56 07/09/20 06:40 Lorazepam 1 Mg Tablet PO 1 mg Q4H PRN Administration Anxiety Magnesium Hydroxide 30 ml 06/30/20 14:33 Milk Of Magnesia 30 Ml Oral.Susp PO DAILY PRN Constipation Multivitamins 1 tab 07/08/20 14:15 07/08/20 14:22 B-Complex With Vitamin C Tablet PO 1 tab DAILY ELIECER Administration Nicotine Polacrilex 4 mg 06/30/20 20:44 07/09/20 06:41 Nicotine Polacrilex 2 Mg Gum BUCCAL 4 mg Q2H PRN Administration Nicotine Cravings Oxcarbazepine 300 mg 07/08/20 14:15 07/08/20 20:54 Oxcarbazepine 300 Mg Tablet PO 300 mg BID ELIECER Administration Trazodone HCl 50 mg 06/30/20 14:33 07/09/20 00:06 Trazodone Hcl 50 Mg Tablet PO 50 mg BEDTIME PRN Administration Insomnia Allergies Allergies Allergy/AdvReac Type Severity Reaction Status Date / Time mold [MOLD] Allergy Unknown UNKNOWN Verified 12/30/19 16:01 paliperidone [From Invega] Allergy Unknown Verified 12/30/19 16:01 amoxicillin [AMOXICILLIN] AdvReac Severe ANAPHYLAXIS Verified 12/30/19 16:01 azithromycin [AZITHROMYCIN] AdvReac Severe ANAPHYLAXIS Verified 12/30/19 16:01 Assessment & Plan Assessment & Plan (1) Schizoaffective disorder, bipolar type: Status: Acute Code(s): F25.0 - Schizoaffective disorder, bipolar type Assessment and Plan: 1. depakote d/c due to increase ammonia- started on lactulose 20mg po BID 07/08 and ammonia level ordered for 07/09 2. Continue gabapentin to 400mg po TID 3. Continue clonidine 0.1mg po BID continue to monitor BP. 4. Increase trileptal 300mg po to TID Greater than 50% of the session was spent on counseling and/or coordination of care Reason for contiued inpatient stay Substantial Risk for: inability to function and med/psych decompensation
[2020-07-09] MEDS: OXcarbazepine 300 MG TABLET PO ×4 (08:06→21:19)
[2020-07-09 08:07] VITALS: BP 125/86; PULSE 70
[2020-07-09] MEDS: Gabapentin 400 MG CAPSULE PO ×3 (08:07→21:19)
[2020-07-09] MEDS: Baclofen 10 MG TABLET PO ×3 (08:07→21:19)
[2020-07-09] MEDS: cloNIDine HCL 0.1 MG TABLET PO ×2 (08:07→21:18)
[2020-07-09] MEDS: Lactulose 20 GM/30 ML SOLUTION PO ×2 (08:07→21:18)
[2020-07-09 09:32] LABS: Ammonia 51 umol/L (13-55)
[2020-07-09 18:00] VITALS: BP 153/63; PULSE 80; TEMP 36.8
[2020-07-09 21:18] VITALS: BP 153/63; PULSE 80
[2020-07-09] MEDS: hydrOXYzine HCL 25 MG TABLET PO (21:23)
[2020-07-10] MEDS: Albuterol Sulfate 90 MCG 8 GM INHALER 2 PUFF INHALE ×4 (04:43→20:25)
[2020-07-10] MEDS: hydrOXYzine HCL 50 MG TABLET PO ×2 (04:43→11:52)
[2020-07-10] MEDS: LORazepam 1 MG TABLET PO ×4 (04:43→21:15)
[2020-07-10] MEDS: Acetaminophen 325 MG TABLET 650 MG PO ×3 (04:43→20:25)
[2020-07-10] MEDS: Nicotine Polacrilex 2 MG GUM 4 MG BUCCAL ×5 (04:43→20:26)
[2020-07-10 06:00] VITALS: BP 123/71; PULSE 67; TEMP 36.3
[2020-07-10 08:05] VITALS: BP 123/71; PULSE 67
[2020-07-10] MEDS: OXcarbazepine 300 MG TABLET PO ×3 (08:05→14:46)
[2020-07-10] MEDS: cloNIDine HCL 0.1 MG TABLET PO ×2 (08:05→20:21)
[2020-07-10] MEDS: Baclofen 10 MG TABLET PO ×3 (08:06→20:21)
[2020-07-10] MEDS: Lactulose 20 GM/30 ML SOLUTION PO ×2 (08:06→20:22)
[2020-07-10] MEDS: Gabapentin 400 MG CAPSULE PO ×3 (08:06→20:20)
--- NOTE | 2020-07-10 12:16 | HO.PSYCHPN ---
Subjective Subjective Date of Service: 07/10/20 Reason For Visit: Depression Interim History: Max pacing, anxious. He asks for the tripletal dose to be increased to TID or an extended release form. He and I agree to try 600mg BID and 300mg at (1pm ) 1300 daily. He retract 3 day notice yesterday. He reports he slept well lat night. He denies SI/HI. intrusive with staff at times but not aggressive. Review of Systems Review of Systems Constitutional : No Weight loss, No Fever, No Chills, No Night Sweats, No Fatigue, No Malaise ENT/Mouth : No Hearing loss, No Ear Pain, No Nasal Congestion, No Sinus Pain, No Hoarseness, No sore throat, No Rhinorrhea, No Swallowing Difficulty Eyes: No Eye Pain, No Swelling, No Redness, No Foreign Body, No Discharge, No Vision Changes Cardiovascular : No Chest Pain, No SOB, No Dyspnea on Exertion, No Orthopnea, No Edema, No Palpitations Respiratory : No Cough, No Sputum, No Wheezing, No Smoke Exposure, No Dyspnea Gastrointestinal : No Nausea, No Vomiting, No Diarrhea, No Constipation, No abdominal Pain, No Hematochezia, No Melena Genitourinary : no irregular bleeding, No Dysuria, No Urinary Frequency, No Hematuria, No Urinary Incontinence, No Urgency, No Flank Pain, No Urinary Flow Changes, No Hesitancy Musculoskeletal : No joint pain, No Myalgias, No Joint Swelling Skin : No Skin Lesions, No rash Neuro : No Weakness, No Numbness, No Paresthesias, No Loss of Consciousness, No Dizziness, No Headache Psych : Anxiety/Panic, No Depression, No SI/HI/AH/VH, Heme/Lymph: No Bruising, No Bleeding,No Lymphadenopathy Endocrine : No Polyuria, No Polydipsia, No Temperature Intolerance Yes all other systems are reviewed and are negative Cardiovascular: Reports as per HPI, Reports chest pain, Reports chest pain at rest, Reports lightheadedness and Reports dyspnea Respiratory: Reports dyspnea Mental Status Exam Mental Status Exam Narrative: Appearance: casually groomed, poor hygiene, restless Behavior: superficially cooperative Psychomotor: some agitation noted Speech: clear, pressured rate/rhythm/volume, spontaneous, hyperverbal TP: tangential TC: paranoid delusions Mood: anxious Affect:restless, labile SI:denies HI:denies AH/VH:denies Delusions:persecutory delusions Insight/judgment:poor x 2. Memory/cog: alert, oriented x 3. impaired secondary to psychiatric symptoms. Level of Consciousness: Awake Patient Behavior: Restless Mood Description: Labile and Apprehensive Affect Description: Labile and Apprehensive Ability to Follow Directions: Fair Speech Pattern: Perseverating and Rambling Diagnostics Vital Signs (24Hr): Vital Signs - 24 hr 07/09/20 18:00 07/09/20 21:18 07/10/20 06:00 Temperature 98.2 F 97.3 F Pulse Rate 80 80 67 Blood Pressure 153/63 H 153/63 H 123/71 07/10/20 08:05 Temperature Pulse Rate 67 Blood Pressure 123/71 Body Mass Index 35.5 Labs Results: 07/02/20 08:09 07/02/20 08:09 Labs: Laboratory Results - last 48 hr 07/08/20 07/09/20 16:45 08:53 Ammonia 64 H 51 Medications Medications Current Medications Generic Name Dose Route Start [facility] Reason Stop Dose Admin Acetaminophen 650 mg 06/30/20 14:33 07/10/20 09:59 Acetaminophen 325 Mg Tablet PO 650 mg Q6H PRN Administration Headache/Pain Mild Scale (1-3) Al Hydroxide/Mg Hydroxide 30 ml 06/30/20 14:33 Magnesium Hydrox/Alum Hydrox 30 Ml Oral.Susp PO Q6H PRN Heartburn/Nausea Albuterol Sulfate 2 puff 06/30/20 14:17 07/10/20 09:58 Albuterol Sulfate 90 Mcg 8 Gm Inhaler INHALE 2 puff Q4H PRN Administration Wheezing Baclofen 10 mg 07/07/20 15:00 07/10/20 08:06 Baclofen 10 Mg Tablet PO 10 mg TID ELIECER Administration Chlorpromazine HCl 50 mg 07/02/20 09:10 Chlorpromazine Hcl 25 Mg Tablet PO Q6H PRN agitation Clonidine HCl 0.1 mg 07/05/20 21:00 07/10/20 08:05 Clonidine Hcl 0.1 Mg Tablet PO 0.1 mg BID ELIECER Administration Protocol Gabapentin 400 mg 07/05/20 11:27 07/10/20 08:06 Gabapentin 400 Mg Capsule PO 400 mg TID ELIECER Administration Hydroxyzine HCl 25 mg 06/30/20 14:33 07/09/20 21:23 Hydroxyzine Hcl 25 Mg Tablet PO 25 mg BEDTIME PRN Administration Anxiety Hydroxyzine HCl 50 mg 07/05/20 11:30 07/10/20 11:52 Hydroxyzine Hcl 50 Mg Tablet PO 50 mg TID PRN Administration Anxiety Lactulose 20 gm 07/07/20 21:00 07/10/20 08:06 Lactulose 20 Gm/30 Ml Solution PO 20 gm BID ELIECER Administration Magnesium Hydroxide 30 ml 06/30/20 14:33 Milk Of Magnesia 30 Ml Oral.Susp PO DAILY PRN Constipation Multivitamins 1 tab 07/08/20 14:15 07/10/20 08:05 B-Complex With Vitamin C Tablet PO 1 tab DAILY ELIECER Administration Nicotine Polacrilex 4 mg 06/30/20 20:44 07/10/20 09:59 Nicotine Polacrilex 2 Mg Gum BUCCAL 4 mg Q2H PRN Administration Nicotine Cravings Oxcarbazepine 300 mg 07/10/20 12:11 Oxcarbazepine 300 Mg Tablet PO 07/10/20 12:12 NOW ONE Oxcarbazepine 600 mg 07/10/20 21:00 Oxcarbazepine 300 Mg Tablet PO BID [facility] Oxcarbazepine 300 mg 07/10/20 13:00 Oxcarbazepine 300 Mg Tablet PO DAILY [facility] Trazodone HCl 50 mg 06/30/20 14:33 07/09/20 23:44 Trazodone Hcl 50 Mg Tablet PO 50 mg BEDTIME PRN Administration Insomnia Allergies Allergies Allergy/AdvReac Type Severity Reaction Status Date / Time mold [MOLD] Allergy Unknown UNKNOWN Verified 12/30/19 16:01 paliperidone [From Invega] Allergy Unknown Verified 12/30/19 16:01 amoxicillin [AMOXICILLIN] AdvReac Severe ANAPHYLAXIS Verified 12/30/19 16:01 azithromycin [AZITHROMYCIN] AdvReac Severe ANAPHYLAXIS Verified 12/30/19 16:01 Assessment & Plan Assessment & Plan (1) Schizoaffective disorder, bipolar type: Status: Acute Code(s): F25.0 - Schizoaffective disorder, bipolar type Assessment and Plan: 1. depakote d/c due to increase ammonia- started on lactulose 20mg po BID 07/08 and ammonia level normal on 07/09 =51 2. Continue gabapentin to 400mg po TID 3. Continue clonidine 0.1mg po BID continue to monitor BP. 4. Increase trileptal 600mg BID and 300 mg DAILY at 1300 5.encouraged ot to increase fluids and salt food 6. CMP ordered to recheck electrolytes and kidney fx Greater than 50% of the session was spent on counseling and/or coordination of care Reason for contiued inpatient stay Substantial Risk for: inability to function and med/psych decompensation
[2020-07-10 18:00] VITALS: BP 134/72; PULSE 84; RESP 18; TEMP 36.6
[2020-07-10 20:21] VITALS: BP 145/66; PULSE 68
[2020-07-10] MEDS: OXcarbazepine 300 MG TABLET 600 MG PO (20:21)
[2020-07-10] MEDS: traZODone HCL 50 MG TABLET PO (20:25)
[2020-07-10 21:39] VITALS: BP 134/72; PULSE 84; TEMP 36.6
[2020-07-11 06:05] VITALS: BP 128/52; PULSE 56; RESP 16; TEMP 36.2; O2SAT 99
[2020-07-11] MEDS: Albuterol Sulfate 90 MCG 8 GM INHALER 2 PUFF INHALE ×2 (06:44→14:03)
[2020-07-11] MEDS: Nicotine Polacrilex 2 MG GUM 4 MG BUCCAL ×5 (06:44→17:14)
[2020-07-11] MEDS: Acetaminophen 325 MG TABLET 650 MG PO ×2 (06:45→14:01)
[2020-07-11] MEDS: hydrOXYzine HCL 50 MG TABLET PO ×3 (06:45→14:53)
[2020-07-11] MEDS: LORazepam 1 MG TABLET PO ×4 (06:45→19:07)
[2020-07-11] MEDS: Baclofen 10 MG TABLET PO ×3 (08:21→21:26)
[2020-07-11] MEDS: OXcarbazepine 300 MG TABLET 600 MG PO ×2 (08:21→21:26)
[2020-07-11] MEDS: Gabapentin 400 MG CAPSULE PO ×3 (08:21→21:26)
[2020-07-11 08:22] VITALS: BP 129/65; PULSE 66
[2020-07-11] MEDS: Lactulose 20 GM/30 ML SOLUTION PO ×2 (08:22→21:26)
[2020-07-11] MEDS: cloNIDine HCL 0.1 MG TABLET PO ×2 (08:22→21:27)
[2020-07-11 08:30] LABS: Alanine Aminotransferase 25 U/L (0-40); Alkaline Phosphatase 64 U/L (39-117); Anion Gap 11 (12-20); Aspartate Amino Transferase 17 U/L (5-37); Bilirubin Total 0.5 mg/dL (0.0-1.0); Blood Urea Nitrogen 19 mg/dL (9-16); Calcium 8.8 mg/dL (8.4-10.2); Carbon Dioxide 26 mmol/L (22-29); Chloride 106 mmol/L (96-108); Creatinine Clr Calc Pharmacy 189.4; Estimated Glomerular Filt Rate > 60; Glucose Fasting 83 mg/dL (60-99); Potassium 4.3 mmol/L (3.3-5.1); Sodium 139 mmol/L (135-145); Total Protein 6.7 g/dL (6.5-8.0)
[2020-07-11] MEDS: OXcarbazepine 300 MG TABLET PO (10:54)
--- NOTE | 2020-07-11 15:34 | PC.NURSE ---
PT HAD DIFFICULTY THIS AFTERNOON WHEN REDIRECTED TO NOT TALK ABOUT HIS MEDICATIONS, OTHERS MEDICATIONS OR DRUGS DURING AFTERNOON GROUP. PT BECAME VERBALLY UPSET, SWEARING IN THE HALLWAY AT A CLINICIAN. T/W ASKED TO SPEAK TO PT IN PRIVATE AND HE REFERS TO THE CLINICIAN A TUANT , TEASE, PROVOKING HIM. PT HAD NO INSIGHT THAT HE TALKS ABOUT THESE TOPICS AND HOW THEY MIGHT BOTHER OTHERS. PT BELIEVES SHE IS OUT TO GET ME . PT REQUIRED REDIRECTION SEVERAL TIMES FOR YELLING AND SWEARING IN THE HALLWAY. PT SLAMMED DOOR AND WAS REDIRECTION WITH EFFECT. PT THEN PULLED IN A PEER TO GET SOMEONE TO AGREE WITH HIM. THE PEER , WAS UNCOMFORTABLE ASKED PT NOT TO PUT HIM IN PLEASE . PT HAD DIFFICULTY PROCESSING IT. PT RECIEVED HIS SCHEDULED MEDS AND SOME PRNS, RESULTS PENDING
--- NOTE | 2020-07-11 17:21 | HO.PSYCHPN ---
Subjective Subjective Date of Service: 07/12/20 Reason For Visit: Depression Interim History: Elmer continues to report that he feels anxious and asks for increase dose of ativan. Anxiety appears to come from paranoid delusions. He is also preoccupied about having erections, sometimes in the morning when he just wakes up. He asks for medications to stop all erections, even though he has been educated that this is normal. He had reported in the past that he thought someone intentionally is making him have morning erections. He continues to refuse antipsychotics, which have been explained to him that as delusions decrease he will feels less anxious. However, he reports he is not delusional, that hacker tracking his computer and phone is true. He believes these hackers have kills some of his friends or attempted to but this is not confirm. Review of Systems Review of Systems Constitutional : No Weight loss, No Fever, No Chills, No Night Sweats, No Fatigue, No Malaise ENT/Mouth : No Hearing loss, No Ear Pain, No Nasal Congestion, No Sinus Pain, No Hoarseness, No sore throat, No Rhinorrhea, No Swallowing Difficulty Eyes: No Eye Pain, No Swelling, No Redness, No Foreign Body, No Discharge, No Vision Changes Cardiovascular : No Chest Pain, No SOB, No Dyspnea on Exertion, No Orthopnea, No Edema, No Palpitations Respiratory : No Cough, No Sputum, No Wheezing, No Smoke Exposure, No Dyspnea Gastrointestinal : No Nausea, No Vomiting, No Diarrhea, No Constipation, No abdominal Pain, No Hematochezia, No Melena Genitourinary : no irregular bleeding, No Dysuria, No Urinary Frequency, No Hematuria, No Urinary Incontinence, No Urgency, No Flank Pain, No Urinary Flow Changes, No Hesitancy Musculoskeletal : No joint pain, No Myalgias, No Joint Swelling Skin : No Skin Lesions, No rash Neuro : No Weakness, No Numbness, No Paresthesias, No Loss of Consciousness, No Dizziness, No Headache Psych : Anxiety/Panic, No Depression, No SI/HI/AH/VH, Heme/Lymph: No Bruising, No Bleeding,No Lymphadenopathy Endocrine : No Polyuria, No Polydipsia, No Temperature Intolerance Yes all other systems are reviewed and are negative Cardiovascular: Reports as per HPI, Reports chest pain, Reports chest pain at rest, Reports lightheadedness and Reports dyspnea Respiratory: Reports dyspnea Mental Status Exam Mental Status Exam Narrative: Appearance: casually groomed, poor hygiene, restless Behavior: superficially cooperative Psychomotor: some agitation noted Speech: clear, pressured rate/rhythm/volume, spontaneous, hyperverbal TP: tangential TC: paranoid delusions Mood: anxious Affect:restless, labile SI:denies HI:denies AH/VH:denies Delusions:persecutory delusions Insight/judgment:poor x 2. Memory/cog: alert, oriented x 3. impaired secondary to psychiatric symptoms. Diagnostics Vital Signs (24Hr): Vital Signs - 24 hr 07/11/20 17:54 07/11/20 21:27 07/12/20 04:30 Temperature 97.9 F 97.5 F Pulse Rate 73 82 67 Respiratory Rate 18 18 Blood Pressure 132/60 134/66 128/65 Pulse Oximetry 98 99 07/12/20 08:50 07/12/20 17:19 Temperature 98.3 F Pulse Rate 67 84 Respiratory Rate Blood Pressure 128/65 138/65 Pulse Oximetry Body Mass Index 35.5 Labs Results: 07/02/20 08:09 07/11/20 07:46 Labs: Laboratory Results - last 48 hr 07/11/20 07:46 Sodium 139 Potassium 4.3 Chloride 106 Carbon Dioxide 26 Anion Gap 11 L BUN 19 H Creatinine 0.80 Estim Creat Clear Calc 189.4 Estimated GFR > 60 Fasting Glucose 83 Calcium 8.8 Total Bilirubin 0.5 AST 17 ALT 25 Alkaline Phosphatase 64 Total Protein 6.7 Albumin 4.0 Medications Medications Current Medications Generic Name Dose Route Start Last Admin Trade Name Freq PRN Reason Stop Dose Admin Acetaminophen 650 mg 06/30/20 14:33 07/12/20 14:33 Acetaminophen 325 Mg Tablet PO 650 mg Q6H PRN Administration Headache/Pain Mild Scale (1-3) Al Hydroxide/Mg Hydroxide 30 ml 06/30/20 14:33 Magnesium Hydrox/Alum Hydrox 30 Ml Oral.Susp PO Q6H PRN Heartburn/Nausea Albuterol Sulfate 2 puff 06/30/20 14:17 07/12/20 13:24 Albuterol Sulfate 90 Mcg 8 Gm Inhaler INHALE 2 puff Q4H PRN Administration Wheezing Baclofen 10 mg 07/07/20 15:00 07/12/20 14:34 Baclofen 10 Mg Tablet PO 10 mg TID ELIECER Administration Chlorpromazine HCl 50 mg 07/02/20 09:10 Chlorpromazine Hcl 25 Mg Tablet PO Q6H PRN agitation Clonidine HCl 0.1 mg 07/05/20 21:00 07/12/20 08:50 Clonidine Hcl 0.1 Mg Tablet PO 0.1 mg BID ELIECER Administration Protocol Gabapentin 400 mg 07/05/20 11:27 07/12/20 14:34 Gabapentin 400 Mg Capsule PO 400 mg TID ELIECER Administration Hydroxyzine HCl 25 mg 06/30/20 14:33 07/09/20 21:23 Hydroxyzine Hcl 25 Mg Tablet PO 25 mg BEDTIME PRN Administration Anxiety Hydroxyzine HCl 50 mg 07/05/20 11:30 07/12/20 14:34 Hydroxyzine Hcl 50 Mg Tablet PO 50 mg TID PRN Administration Anxiety Lactulose 20 gm 07/07/20 21:00 07/12/20 08:48 Lactulose 20 Gm/30 Ml Solution PO 20 gm BID ELIECER Administration Lorazepam 1 mg 07/11/20 16:42 07/12/20 14:34 Lorazepam 1 Mg Tablet PO 1 mg Q6H PRN Administration Anxiety Magnesium Hydroxide 30 ml 06/30/20 14:33 Milk Of Magnesia 30 Ml Oral.Susp PO DAILY PRN Constipation Multivitamins 1 tab 07/08/20 14:15 07/12/20 08:50 B-Complex With Vitamin C Tablet PO 1 tab DAILY ELIECER Administration Nicotine Polacrilex 4 mg 06/30/20 20:44 07/12/20 13:24 Nicotine Polacrilex 2 Mg Gum BUCCAL 4 mg Q2H PRN Administration Nicotine Cravings Oxcarbazepine 600 mg 07/11/20 21:00 07/11/20 21:26 Oxcarbazepine 300 Mg Tablet PO 600 mg BEDTIME ELIECER Administration Oxcarbazepine 900 mg 07/12/20 09:00 07/12/20 08:49 Oxcarbazepine 300 Mg Tablet PO 900 mg DAILY ELIECER Administration Trazodone HCl 50 mg 06/30/20 14:33 07/10/20 20:25 Trazodone Hcl 50 Mg Tablet PO 50 mg BEDTIME PRN Administration Insomnia Allergies Allergies Allergy/AdvReac Type Severity Reaction Status Date / Time mold [MOLD] Allergy Unknown UNKNOWN Verified 12/30/19 16:01 paliperidone [From Invega] Allergy Unknown Verified 12/30/19 16:01 amoxicillin [AMOXICILLIN] AdvReac Severe ANAPHYLAXIS Verified 12/30/19 16:01 azithromycin [AZITHROMYCIN] AdvReac Severe ANAPHYLAXIS Verified 12/30/19 16:01 Assessment & Plan Assessment & Plan (1) Schizoaffective disorder, bipolar type: Status: Acute Code(s): F25.0 - Schizoaffective disorder, bipolar type Assessment and Plan: 1. depakote d/c due to increase ammonia- started on lactulose 20mg po BID 07/08 and ammonia level normal on 07/09 =51 2. Continue gabapentin to 400mg po TID 3. Continue clonidine 0.1mg po BID continue to monitor BP. 4. Increase trileptal 600mg BID and 300 mg DAILY at 1300 5.encouraged ot to increase fluids and salt food 6. CMP ordered to recheck electrolytes and kidney fx Greater than 50% of the session was spent on counseling and/or coordination of care Reason for contiued inpatient stay Substantial Risk for: inability to function
[2020-07-11 17:54] VITALS: BP 132/60; PULSE 73; RESP 18; TEMP 36.6; O2SAT 98
[2020-07-11 21:27] VITALS: BP 134/66; PULSE 82
[2020-07-12] MEDS: hydrOXYzine HCL 50 MG TABLET PO ×3 (03:12→14:34)
[2020-07-12] MEDS: Nicotine Polacrilex 2 MG GUM 4 MG BUCCAL ×5 (03:13→20:42)
[2020-07-12] MEDS: LORazepam 1 MG TABLET PO ×4 (03:13→20:41)
[2020-07-12 04:30] VITALS: BP 128/65; PULSE 67; RESP 18; TEMP 36.4; O2SAT 99
[2020-07-12] MEDS: Lactulose 20 GM/30 ML SOLUTION PO ×2 (08:48→20:41)
[2020-07-12] MEDS: OXcarbazepine 300 MG TABLET 900 MG PO (08:49)
[2020-07-12] MEDS: Gabapentin 400 MG CAPSULE PO ×3 (08:49→20:41)
[2020-07-12 08:50] VITALS: BP 128/65; PULSE 67
[2020-07-12] MEDS: cloNIDine HCL 0.1 MG TABLET PO ×2 (08:50→20:25)
[2020-07-12] MEDS: Baclofen 10 MG TABLET PO ×3 (08:50→20:41)
[2020-07-12] MEDS: Acetaminophen 325 MG TABLET 650 MG PO ×3 (08:52→20:41)
[2020-07-12] MEDS: Albuterol Sulfate 90 MCG 8 GM INHALER 2 PUFF INHALE ×2 (08:54→13:24)
[2020-07-12 17:19] VITALS: BP 138/65; PULSE 84; TEMP 36.8
--- NOTE | 2020-07-12 17:25 | HO.PSYCHPN ---
Subjective Subjective Date of Service: 07/12/20 Reason For Visit: Depression Interim History: Elmer reports that he had a seizure. He reports that he was meeting with clinician Naomi and he saw some lights and he shacked his head and it stopped. He goes on on about this being a seizure and need to have a brain scan. he denies any pain. He did not have any LOC, no changes in VS. It may be that he has increased sensitivity to light, which can be caused by trileptal. He states he is sure this is a seizure and no one is helping him. We discussed again need for antipsychotic. He declines stating he does not have any delusions. He denies SI/HI. He denies VH/AH. He also asks again for medication to stop all erections- even thought it has been explained to him that this is normal. Review of Systems Review of Systems Constitutional : No Weight loss, No Fever, No Chills, No Night Sweats, No Fatigue, No Malaise ENT/Mouth : No Hearing loss, No Ear Pain, No Nasal Congestion, No Sinus Pain, No Hoarseness, No sore throat, No Rhinorrhea, No Swallowing Difficulty Eyes: No Eye Pain, No Swelling, No Redness, No Foreign Body, No Discharge, No Vision Changes Cardiovascular : No Chest Pain, No SOB, No Dyspnea on Exertion, No Orthopnea, No Edema, No Palpitations Respiratory : No Cough, No Sputum, No Wheezing, No Smoke Exposure, No Dyspnea Gastrointestinal : No Nausea, No Vomiting, No Diarrhea, No Constipation, No abdominal Pain, No Hematochezia, No Melena Genitourinary : no irregular bleeding, No Dysuria, No Urinary Frequency, No Hematuria, No Urinary Incontinence, No Urgency, No Flank Pain, No Urinary Flow Changes, No Hesitancy Musculoskeletal : No joint pain, No Myalgias, No Joint Swelling Skin : No Skin Lesions, No rash Neuro : No Weakness, No Numbness, No Paresthesias, No Loss of Consciousness, No Dizziness, No Headache Psych : Anxiety/Panic, No Depression, No SI/HI/AH/VH, Heme/Lymph: No Bruising, No Bleeding,No Lymphadenopathy Endocrine : No Polyuria, No Polydipsia, No Temperature Intolerance Yes all other systems are reviewed and are negative Cardiovascular: Reports as per HPI, Reports chest pain, Reports chest pain at rest, Reports lightheadedness and Reports dyspnea Respiratory: Reports dyspnea Mental Status Exam Mental Status Exam Narrative: Appearance: casually groomed, poor hygiene, restless Behavior: superficially cooperative Psychomotor: some agitation noted Speech: clear, pressured rate/rhythm/volume, spontaneous, hyperverbal TP: tangential TC: paranoid delusions Mood: anxious Affect:restless, labile SI:denies HI:denies AH/VH:denies Delusions:persecutory delusions Insight/judgment:poor x 2. Memory/cog: alert, oriented x 3. impaired secondary to psychiatric symptoms. Diagnostics Vital Signs (24Hr): Vital Signs - 24 hr 07/11/20 17:54 07/11/20 21:27 07/12/20 04:30 Temperature 97.9 F 97.5 F Pulse Rate 73 82 67 Respiratory Rate 18 18 Blood Pressure 132/60 134/66 128/65 Pulse Oximetry 98 99 07/12/20 08:50 07/12/20 17:19 Temperature 98.3 F Pulse Rate 67 84 Respiratory Rate Blood Pressure 128/65 138/65 Pulse Oximetry Body Mass Index 35.5 Labs Results: 07/02/20 08:09 07/11/20 07:46 Labs: Laboratory Results - last 48 hr 07/11/20 07:46 Sodium 139 Potassium 4.3 Chloride 106 Carbon Dioxide 26 Anion Gap 11 L BUN 19 H Creatinine 0.80 Estim Creat Clear Calc 189.4 Estimated GFR > 60 Fasting Glucose 83 Calcium 8.8 Total Bilirubin 0.5 AST 17 ALT 25 Alkaline Phosphatase 64 Total Protein 6.7 Albumin 4.0 Medications Medications Current Medications Generic Name Dose Route Start Last Admin Trade Name Freq PRN Reason Stop Dose Admin Acetaminophen 650 mg 06/30/20 14:33 07/12/20 14:33 Acetaminophen 325 Mg Tablet PO 650 mg Q6H PRN Administration Headache/Pain Mild Scale (1-3) Al Hydroxide/Mg Hydroxide 30 ml 06/30/20 14:33 Magnesium Hydrox/Alum Hydrox 30 Ml Oral.Susp PO Q6H PRN Heartburn/Nausea Albuterol Sulfate 2 puff 06/30/20 14:17 07/12/20 13:24 Albuterol Sulfate 90 Mcg 8 Gm Inhaler INHALE 2 puff Q4H PRN Administration Wheezing Baclofen 10 mg 07/07/20 15:00 07/12/20 14:34 Baclofen 10 Mg Tablet PO 10 mg TID ELIECER Administration Chlorpromazine HCl 50 mg 07/02/20 09:10 Chlorpromazine Hcl 25 Mg Tablet PO Q6H PRN agitation Clonidine HCl 0.1 mg 07/05/20 21:00 07/12/20 08:50 Clonidine Hcl 0.1 Mg Tablet PO 0.1 mg BID ELIECER Administration Protocol Gabapentin 400 mg 07/05/20 11:27 07/12/20 14:34 Gabapentin 400 Mg Capsule PO 400 mg TID ELIECER Administration Hydroxyzine HCl 25 mg 06/30/20 14:33 07/09/20 21:23 Hydroxyzine Hcl 25 Mg Tablet PO 25 mg BEDTIME PRN Administration Anxiety Hydroxyzine HCl 50 mg 07/05/20 11:30 07/12/20 14:34 Hydroxyzine Hcl 50 Mg Tablet PO 50 mg TID PRN Administration Anxiety Lactulose 20 gm 07/07/20 21:00 07/12/20 08:48 Lactulose 20 Gm/30 Ml Solution PO 20 gm BID ELIECER Administration Lorazepam 1 mg 07/11/20 16:42 07/12/20 14:34 Lorazepam 1 Mg Tablet PO 1 mg Q6H PRN Administration Anxiety Magnesium Hydroxide 30 ml 06/30/20 14:33 Milk Of Magnesia 30 Ml Oral.Susp PO DAILY PRN Constipation Multivitamins 1 tab 07/08/20 14:15 07/12/20 08:50 B-Complex With Vitamin C Tablet PO 1 tab DAILY ELIECER Administration Nicotine Polacrilex 4 mg 06/30/20 20:44 07/12/20 13:24 Nicotine Polacrilex 2 Mg Gum BUCCAL 4 mg Q2H PRN Administration Nicotine Cravings Oxcarbazepine 600 mg 07/11/20 21:00 07/11/20 21:26 Oxcarbazepine 300 Mg Tablet PO 600 mg BEDTIME ELIECER Administration Oxcarbazepine 900 mg 07/12/20 09:00 07/12/20 08:49 Oxcarbazepine 300 Mg Tablet PO 900 mg DAILY ELIECER Administration Trazodone HCl 50 mg 06/30/20 14:33 07/10/20 20:25 Trazodone Hcl 50 Mg Tablet PO 50 mg BEDTIME PRN Administration Insomnia Allergies Allergies Allergy/AdvReac Type Severity Reaction Status Date / Time mold [MOLD] Allergy Unknown UNKNOWN Verified 12/30/19 16:01 paliperidone [From Invega] Allergy Unknown Verified 12/30/19 16:01 amoxicillin [AMOXICILLIN] AdvReac Severe ANAPHYLAXIS Verified 12/30/19 16:01 azithromycin [AZITHROMYCIN] AdvReac Severe ANAPHYLAXIS Verified 12/30/19 16:01 Assessment & Plan Assessment & Plan (1) Schizoaffective disorder, bipolar type: Status: Acute Code(s): F25.0 - Schizoaffective disorder, bipolar type Assessment and Plan: 1. depakote d/c due to increase ammonia- started on lactulose 20mg po BID 07/08 and ammonia level normal on 07/09 =51 2. Continue gabapentin to 400mg po TID 3. Continue clonidine 0.1mg po BID continue to monitor BP. 4. Increase trileptal 600mg BID and 300 mg DAILY at 1300 5.encouraged ot to increase fluids and salt food 6. CMP ordered to recheck electrolytes and kidney fx Greater than 50% of the session was spent on counseling and/or coordination of care Reason for contiued inpatient stay Substantial Risk for: inability to function
[2020-07-12 20:25] VITALS: BP 130/60; PULSE 80
[2020-07-12] MEDS: OXcarbazepine 300 MG TABLET 600 MG PO (20:41)
[2020-07-12] MEDS: traZODone HCL 50 MG TABLET PO (23:57)
[2020-07-12] MEDS: hydrOXYzine HCL 25 MG TABLET PO (23:57)
[2020-07-13 08:13] VITALS: BP 142/88; PULSE 80
[2020-07-13] MEDS: cloNIDine HCL 0.1 MG TABLET PO ×3 (08:13→20:43)
[2020-07-13] MEDS: Lactulose 20 GM/30 ML SOLUTION PO (08:13)
[2020-07-13] MEDS: Gabapentin 400 MG CAPSULE PO ×3 (08:13→20:42)
[2020-07-13] MEDS: OXcarbazepine 300 MG TABLET 900 MG PO (08:13)
[2020-07-13] MEDS: Nicotine Polacrilex 2 MG GUM 4 MG BUCCAL ×5 (08:13→22:02)
[2020-07-13] MEDS: Baclofen 10 MG TABLET PO ×3 (08:13→20:43)
[2020-07-13] MEDS: Acetaminophen 325 MG TABLET 650 MG PO (09:32)
[2020-07-13] MEDS: hydrOXYzine HCL 50 MG TABLET PO ×2 (09:32→18:45)
[2020-07-13] MEDS: LORazepam 1 MG TABLET PO ×3 (09:32→22:02)
--- NOTE | 2020-07-13 09:57 | P.PNPSI_ITS ---
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 On top, pt on two mood stabilizer and AE medication. Pt reji nues to report that erections are abnormal and he asks for medications to stop all medications. He also continues to report paranoid delusions towards hacker. He is defensive when delusions are challenged and he is offered an antipsychotic. He denies SI/HI. He is intrusive to peers but able to be re directed. He had interview with [facility] and was accepted. He reports feeling anxious, this secondary to delusional believes including somatic and paranoia. Review of Systems Review of Systems Constitutional : No Weight loss, No Fever, No Chills, No Night Sweats, No Fatigue, No Malaise ENT/Mouth : No Hearing loss, No Ear Pain, No Nasal Congestion, No Sinus Pain, No Hoarseness, No sore throat, No Rhinorrhea, No Swallowing Difficulty Eyes: No Eye Pain, No Swelling, No Redness, No Foreign Body, No Discharge, No Vision Changes Cardiovascular : No Chest Pain, No SOB, No Dyspnea on Exertion, No Orthopnea, No Edema, No Palpitations Respiratory : No Cough, No Sputum, No Wheezing, No Smoke Exposure, No Dyspnea Gastrointestinal : No Nausea, No Vomiting, No Diarrhea, No Constipation, No abdominal Pain, No Hematochezia, No Melena Genitourinary : no irregular bleeding, No Dysuria, No Urinary Frequency, No Hematuria, No Urinary Incontinence, No Urgency, No Flank Pain, No Urinary Flow Changes, No Hesitancy Musculoskeletal : No joint pain, No Myalgias, No Joint Swelling Skin : No Skin Lesions, No rash Neuro : No Weakness, No Numbness, No Paresthesias, No Loss of Consciousness, No Dizziness, No Headache Psych : Anxiety/Panic, No Depression, No SI/HI/AH/VH, Heme/Lymph: No Bruising, No Bleeding,No Lymphadenopathy Endocrine : No Polyuria, No Polydipsia, No Temperature Intolerance Yes all other systems are reviewed and are negative Cardiovascular: Reports as per HPI, Reports chest pain, Reports chest pain at rest, Reports lightheadedness and Reports dyspnea Respiratory: Reports dyspnea Mental Status Exam Mental Status Exam Narrative: Appearance: casually groomed, poor hygiene, restless Behavior: superficially cooperative Psychomotor: some agitation noted Speech: clear, pressured rate/rhythm/volume, spontaneous, hyperverbal TP: tangential TC: paranoid delusions Mood: anxious Affect:restless, labile SI:denies HI:denies AH/VH:denies Delusions:persecutory delusions Insight/judgment:poor x 2. Memory/cog: alert, oriented x 3. impaired secondary to psychiatric symptoms. Diagnostics Vital Signs (24Hr): Vital Signs - 24 hr 07/13/20 15:28 07/13/20 18:00 07/13/20 20:43 Temperature 98.5 F Pulse Rate 76 73 72 Blood Pressure 140/71 H 136/65 116/57 L 07/14/20 08:26 Temperature Pulse Rate 60 Blood Pressure 130/59 L Body Mass Index 35.5 Labs Results: 07/02/20 08:09 07/11/20 07:46 Medications Medications Current Medications Generic Name Dose Route Start Last Admin Trade Name Freq PRN Reason Stop Dose Admin Acetaminophen 650 mg 06/30/20 14:33 07/14/20 08:28 Acetaminophen 325 Mg Tablet PO 650 mg Q6H PRN Administration Headache/Pain Mild Scale (1-3) Al Hydroxide/Mg Hydroxide 30 ml 06/30/20 14:33 Magnesium Hydrox/Alum Hydrox 30 Ml Oral.Susp PO Q6H PRN Heartburn/Nausea Albuterol Sulfate 2 puff 06/30/20 14:17 07/12/20 13:24 Albuterol Sulfate 90 Mcg 8 Gm Inhaler INHALE 2 puff Q4H PRN Administration Wheezing Baclofen 10 mg 07/07/20 15:00 07/13/20 20:43 Baclofen 10 Mg Tablet PO 10 mg TID ELIECER Administration Chlorpromazine HCl 50 mg 07/02/20 09:10 Chlorpromazine Hcl 25 Mg Tablet PO Q6H PRN agitation Clonidine HCl 0.1 mg 07/13/20 15:00 07/14/20 08:26 Clonidine Hcl 0.1 Mg Tablet PO 0.1 mg TID ELIECER Administration Protocol Gabapentin 400 mg 07/05/20 11:27 07/14/20 08:26 Gabapentin 400 Mg Capsule PO 400 mg TID ELIECER Administration Hydroxyzine HCl 25 mg 06/30/20 14:33 07/13/20 22:02 Hydroxyzine Hcl 25 Mg Tablet PO 25 mg BEDTIME PRN Administration Anxiety Hydroxyzine HCl 50 mg 07/05/20 11:30 07/14/20 08:27 Hydroxyzine Hcl 50 Mg Tablet PO 50 mg TID PRN Administration Anxiety Lorazepam 1 mg 07/13/20 15:00 07/14/20 08:25 Lorazepam 1 Mg Tablet PO 1 mg Q4H PRN Administration Anxiety Magnesium Hydroxide 30 ml 06/30/20 14:33 Milk Of Magnesia 30 Ml Oral.Susp PO DAILY PRN Constipation Multivitamins 1 tab 07/08/20 14:15 07/14/20 08:27 B-Complex With Vitamin C Tablet PO 1 tab DAILY ELIECER Administration Nicotine Polacrilex 4 mg 06/30/20 20:44 07/13/20 22:02 Nicotine Polacrilex 2 Mg Gum BUCCAL 4 mg Q2H PRN Administration Nicotine Cravings Oxcarbazepine 600 mg 07/11/20 21:00 07/13/20 20:43 Oxcarbazepine 300 Mg Tablet PO 600 mg BEDTIME ELIECER Administration Oxcarbazepine 900 mg 07/12/20 09:00 07/14/20 08:26 Oxcarbazepine 300 Mg Tablet PO 900 mg DAILY ELIECER Administration Trazodone HCl 50 mg 06/30/20 14:33 07/13/20 22:02 Trazodone Hcl 50 Mg Tablet PO 50 mg BEDTIME PRN Administration Insomnia Allergies Allergies Allergy/AdvReac Type Severity Reaction Status Date / Time mold [MOLD] Allergy Unknown UNKNOWN Verified 12/30/19 16:01 paliperidone [From Invega] Allergy Unknown Verified 12/30/19 16:01 amoxicillin [AMOXICILLIN] AdvReac Severe ANAPHYLAXIS Verified 12/30/19 16:01 azithromycin [AZITHROMYCIN] AdvReac Severe ANAPHYLAXIS Verified 12/30/19 16:01 Assessment & Plan Assessment & Plan (1) Schizoaffective disorder, bipolar type: Status: Acute Code(s): F25.0 - Schizoaffective disorder, bipolar type Assessment and Plan: 1. depakote d/c due to increase ammonia- started on lactulose 20mg po BID 07/08 and ammonia level normal on 07/09 =51 2. Continue gabapentin to 400mg po TID 3. Continue clonidine 0.1mg po BID continue to monitor BP. 4. Increase trileptal 600mg BID and 300 mg DAILY at 1300 5.encouraged ot to increase fluids and salt food 6. CMP ordered to recheck electrolytes and kidney fx Greater than 50% of the session was spent on counseling and/or coordination of care Reason for contiued inpatient stay Substantial Risk for: rapid decompensation
--- NOTE | 2020-07-13 12:42 | PC.NURSE ---
Received call from Danita at [facility], phone [phone]. They are requesting orders for meds be sent in advance to [facility], phone number [phone], so they can deliver meds in advance of pt admittance to [facility]. notified.
[2020-07-13 15:28] VITALS: BP 140/71; PULSE 76
[2020-07-13 18:00] VITALS: BP 136/65; PULSE 73; TEMP 36.9
[2020-07-13 20:43] VITALS: BP 116/57; PULSE 72
[2020-07-13] MEDS: OXcarbazepine 300 MG TABLET 600 MG PO (20:43)
[2020-07-13] MEDS: hydrOXYzine HCL 25 MG TABLET PO (22:02)
[2020-07-13] MEDS: traZODone HCL 50 MG TABLET PO (22:02)
[2020-07-14 07:00] VITALS: BMI 10.5
[2020-07-14] MEDS: LORazepam 1 MG TABLET PO ×3 (08:25→19:43)
[2020-07-14 08:26] VITALS: BP 130/59; PULSE 60
[2020-07-14] MEDS: cloNIDine HCL 0.1 MG TABLET PO ×3 (08:26→22:12)
[2020-07-14] MEDS: Gabapentin 400 MG CAPSULE PO ×3 (08:26→22:12)
[2020-07-14] MEDS: OXcarbazepine 300 MG TABLET 900 MG PO (08:26)
[2020-07-14] MEDS: hydrOXYzine HCL 50 MG TABLET PO (08:27)
[2020-07-14] MEDS: Acetaminophen 325 MG TABLET 650 MG PO ×2 (08:28→22:16)
[2020-07-14 11:30] VITALS: BP 148/70; PULSE 78; RESP 14; TEMP 36.8
[2020-07-14] MEDS: Baclofen 10 MG TABLET PO ×3 (11:46→22:11)
[2020-07-14] MEDS: Albuterol Sulfate 90 MCG 8 GM INHALER 2 PUFF INHALE (13:21)
[2020-07-14] MEDS: Nicotine Polacrilex 2 MG GUM 4 MG BUCCAL ×4 (13:22→22:13)
[2020-07-14 14:00] LABS: COVID-19 Test Negative (Negative)
[2020-07-14 15:35] VITALS: BP 162/74; PULSE 80
[2020-07-14 15:57] VITALS: BP 158/80; PULSE 80; RESP 14; TEMP 36.8; O2SAT 98
--- NOTE | 2020-07-14 17:16 | HO.PSYCHPN ---
Subjective Subjective Date of Service: 07/14/20 Reason For Visit: Depression Interim History: Elmer was much calmer today. He reports sleeping and eating well. He reports feeling less anxious. He continues to present with some somatic and paranoid delusions but with less intensity, although he has no insight into his symptoms and continues to decline taking an antipsychotic. He denies SI/HI. He has been visible in the unit. No signs of aggression towards self or others. Pt scheduled to go to respite tomorrow. Review of Systems Review of Systems Constitutional : No Weight loss, No Fever, No Chills, No Night Sweats, No Fatigue, No Malaise ENT/Mouth : No Hearing loss, No Ear Pain, No Nasal Congestion, No Sinus Pain, No Hoarseness, No sore throat, No Rhinorrhea, No Swallowing Difficulty Eyes: No Eye Pain, No Swelling, No Redness, No Foreign Body, No Discharge, No Vision Changes Cardiovascular : No Chest Pain, No SOB, No Dyspnea on Exertion, No Orthopnea, No Edema, No Palpitations Respiratory : No Cough, No Sputum, No Wheezing, No Smoke Exposure, No Dyspnea Gastrointestinal : No Nausea, No Vomiting, No Diarrhea, No Constipation, No abdominal Pain, No Hematochezia, No Melena Genitourinary : no irregular bleeding, No Dysuria, No Urinary Frequency, No Hematuria, No Urinary Incontinence, No Urgency, No Flank Pain, No Urinary Flow Changes, No Hesitancy Musculoskeletal : No joint pain, No Myalgias, No Joint Swelling Skin : No Skin Lesions, No rash Neuro : No Weakness, No Numbness, No Paresthesias, No Loss of Consciousness, No Dizziness, No Headache Psych : Anxiety/Panic, No Depression, No SI/HI/AH/VH, Heme/Lymph: No Bruising, No Bleeding,No Lymphadenopathy Endocrine : No Polyuria, No Polydipsia, No Temperature Intolerance Yes all other systems are reviewed and are negative Cardiovascular: Reports as per HPI, Reports chest pain, Reports chest pain at rest, Reports lightheadedness and Reports dyspnea Respiratory: Reports dyspnea Mental Status Exam Mental Status Exam Narrative: Appearance: casually groomed, poor hygiene, restless Behavior: superficially cooperative Psychomotor: some agitation noted Speech: clear, pressured rate/rhythm/volume, spontaneous, hyperverbal TP: tangential TC: paranoid delusions Mood: anxious Affect:restless, labile SI:denies HI:denies AH/VH:denies Delusions:persecutory delusions Insight/judgment:poor x 2. Memory/cog: alert, oriented x 3. impaired secondary to psychiatric symptoms. Diagnostics Vital Signs (24Hr): Vital Signs - 24 hr 07/13/20 18:00 07/13/20 20:43 07/14/20 08:26 Temperature 98.5 F Pulse Rate 73 72 60 Respiratory Rate Blood Pressure 136/65 116/57 L 130/59 L Pulse Oximetry 07/14/20 11:30 07/14/20 15:35 07/14/20 15:57 Temperature 98.3 F 98.3 F Pulse Rate 78 80 80 Respiratory Rate 14 14 Blood Pressure 148/70 H 162/74 H 158/80 H Pulse Oximetry 98 Body Mass Index 10.5 Labs Results: 07/02/20 08:09 07/11/20 07:46 Labs: Laboratory Results - last 48 hr 07/14/20 13:20 COVID-19 (PATTI) Negative COVID-19 Clin Com See Note Medications Medications Current Medications Generic Name Dose Route Start Last Admin Trade Name Freq PRN Reason Stop Dose Admin Acetaminophen 650 mg 06/30/20 14:33 07/14/20 08:28 Acetaminophen 325 Mg Tablet PO 650 mg Q6H PRN Administration Headache/Pain Mild Scale (1-3) Al Hydroxide/Mg Hydroxide 30 ml 06/30/20 14:33 Magnesium Hydrox/Alum Hydrox 30 Ml Oral.Susp PO Q6H PRN Heartburn/Nausea Albuterol Sulfate 2 puff 06/30/20 14:17 07/14/20 13:21 Albuterol Sulfate 90 Mcg 8 Gm Inhaler INHALE 2 puff Q4H PRN Administration Wheezing Baclofen 10 mg 07/07/20 15:00 07/14/20 15:35 Baclofen 10 Mg Tablet PO 10 mg TID ELIECER Administration Chlorpromazine HCl 50 mg 07/02/20 09:10 Chlorpromazine Hcl 25 Mg Tablet PO Q6H PRN agitation Clonidine HCl 0.1 mg 07/13/20 15:00 07/14/20 15:35 Clonidine Hcl 0.1 Mg Tablet PO 0.1 mg TID ELIECER Administration Protocol Gabapentin 400 mg 07/05/20 11:27 07/14/20 15:35 Gabapentin 400 Mg Capsule PO 400 mg TID ELIECER Administration Hydroxyzine HCl 25 mg 06/30/20 14:33 07/13/20 22:02 Hydroxyzine Hcl 25 Mg Tablet PO 25 mg BEDTIME PRN Administration Anxiety Hydroxyzine HCl 50 mg 07/05/20 11:30 07/14/20 08:27 Hydroxyzine Hcl 50 Mg Tablet PO 50 mg TID PRN Administration Anxiety Lorazepam 1 mg 07/13/20 15:00 07/14/20 13:22 Lorazepam 1 Mg Tablet PO 1 mg Q4H PRN Administration Anxiety Magnesium Hydroxide 30 ml 06/30/20 14:33 Milk Of Magnesia 30 Ml Oral.Susp PO DAILY PRN Constipation Multivitamins 1 tab 07/08/20 14:15 07/14/20 08:27 B-Complex With Vitamin C Tablet PO 1 tab DAILY ELIECER Administration Nicotine Polacrilex 4 mg 06/30/20 20:44 07/14/20 15:40 Nicotine Polacrilex 2 Mg Gum BUCCAL 4 mg Q2H PRN Administration Nicotine Cravings Oxcarbazepine 600 mg 07/11/20 21:00 07/13/20 20:43 Oxcarbazepine 300 Mg Tablet PO 600 mg BEDTIME ELIECER Administration Oxcarbazepine 900 mg 07/12/20 09:00 07/14/20 08:26 Oxcarbazepine 300 Mg Tablet PO 900 mg DAILY ELIECER Administration Trazodone HCl 50 mg 06/30/20 14:33 07/13/20 22:02 Trazodone Hcl 50 Mg Tablet PO 50 mg BEDTIME PRN Administration Insomnia Allergies Allergies Allergy/AdvReac Type Severity Reaction Status Date / Time mold [MOLD] Allergy Unknown UNKNOWN Verified 12/30/19 16:01 paliperidone [From Invega] Allergy Unknown Verified 12/30/19 16:01 amoxicillin [AMOXICILLIN] AdvReac Severe ANAPHYLAXIS Verified 12/30/19 16:01 azithromycin [AZITHROMYCIN] AdvReac Severe ANAPHYLAXIS Verified 12/30/19 16:01 Assessment & Plan Assessment & Plan (1) Schizoaffective disorder, bipolar type: Status: Acute Code(s): F25.0 - Schizoaffective disorder, bipolar type Assessment and Plan: 1. depakote d/c due to increase ammonia- started on lactulose 20mg po BID 07/08 and ammonia level normal on 07/09 =51 2. Continue gabapentin to 400mg po TID 3. Continue clonidine 0.1mg po BID continue to monitor BP. 4. Increase trileptal 600mg BID and 300 mg DAILY at 1300 5.encouraged ot to increase fluids and salt food 6. CMP ordered to recheck electrolytes and kidney fx Greater than 50% of the session was spent on counseling and/or coordination of care Reason for contiued inpatient stay Substantial Risk for: stable for discharge
[2020-07-14 22:12] VITALS: BP 132/62; PULSE 65
[2020-07-14] MEDS: OXcarbazepine 300 MG TABLET 600 MG PO (22:13)
[2020-07-15] MEDS: LORazepam 1 MG TABLET PO ×2 (00:06→09:16)
[2020-07-15] MEDS: Nicotine Polacrilex 2 MG GUM 4 MG BUCCAL ×2 (00:07→09:16)
[2020-07-15] MEDS: traZODone HCL 50 MG TABLET PO (00:08)
[2020-07-15] MEDS: hydrOXYzine HCL 50 MG TABLET PO (00:08)
[2020-07-15] MEDS: OXcarbazepine 300 MG TABLET 900 MG PO (08:57)
[2020-07-15] MEDS: Gabapentin 400 MG CAPSULE PO (08:57)
[2020-07-15 08:59] VITALS: BP 104/55; PULSE 63
[2020-07-15] MEDS: Baclofen 10 MG TABLET PO (09:00)
[2020-07-15] MEDS: Acetaminophen 325 MG TABLET 650 MG PO (09:16)
[2020-07-15] MEDS: Albuterol Sulfate 90 MCG 8 GM INHALER 2 PUFF INHALE (09:23)
[2020-07-15 09:56] VITALS: BP 104/55; PULSE 63; TEMP 36.8; O2SAT 96
--- NOTE | 2020-07-15 10:00 | PM.PSYDC ---
DS: Providers Provider Date of Service: 07/15/20 <Shanteljuan jose Mahmoodgoyo - Last Filed: 08/01/20 15:08> Date of admission: 06/30/20 14:17 <Shantel Mahmoodsamanthamiguel - Last Filed: 08/01/20 15:08> Primary care physician: Yue Meadows MD <Shantel Oseguera - Last Filed: 08/01/20 15:08> DS: Diagnosis Discharge Diagnosis (1) Schizoaffective disorder, bipolar type: Status: Acute <Shanteljuan jose Mahmoodsamantha - Last Filed: 08/01/20 15:08> DS: Medications Discharge Medications Home Medications: Previous Rx's Medication Instructions Recorded B-complex with vitamin C 1 tab PO DAILY #30 tab 07/14/20 acetaminophen 650 mg PO Q6H PRN #30 tab 07/14/20 albuterol sulfate [Ventolin HFA] 2 puff INHALATION Q4H PRN #1 g 07/14/20 baclofen 10 mg PO TID #90 tab 07/14/20 clonidine HCl 0.1 mg PO TID #45 tab 07/14/20 gabapentin 400 mg PO TID #90 cap 07/14/20 hydroxyzine HCl 50 mg PO TID PRN #30 tab 07/14/20 lorazepam 1 mg PO TID 30 Days #90 tab 07/14/20 nicotine (polacrilex) 4 mg BUCCAL Q2H PRN #30 ea 07/14/20 oxcarbazepine 600 mg PO BEDTIME #30 tab 07/14/20 oxcarbazepine 900 mg PO DAILY #30 tab 07/14/20 trazodone 50 mg PO BEDTIME PRN #30 tab 07/14/20 <Shanteljuan jose Mahmoodgoyo - Last Filed: 08/01/20 15:08> Discharge Plan Discharge Patient Disposition: Home, Self-Care <Shanteljuan jose Mahmoodsamantha - Last Filed: 08/01/20 15:08> Discharge Diagnosis: Schizoaffective Disorder, Bipolar type <Shantel Timoteogoyo - Last Filed: 08/01/20 15:08> Schizoaffective Disorder, Bipolar type <Jason Orr MD - Last Filed: 08/01/20 21:11> Referrals: [facility] (Respite) [Other] - 1 Week (This is a step-down crisis bed and [facility] will coordinate a [facility] bed following this admission) Yue Meadows MD [Primary Care Provider] - 1 Week <Shantel Oseguera - Last Filed: 08/01/20 15:08> Discharge Medications: New nicotine (polacrilex) 2 mg Gum 4 mg buccal Q2H PRN (Reason: Nicotine Cravings) Qty: 30 RF: 0 baclofen 10 mg Tablet 10 mg PO TID Qty: 90 RF: 0 albuterol sulfate [Ventolin HFA] 90 mcg/actuation Hfa Aerosol Inhaler 2 puff inhalation Q4H PRN (Reason: Wheezing) Qty: 1 RF: 0 clonidine HCl 0.1 mg Tablet 0.1 mg PO TID Qty: 45 RF: 1 acetaminophen 325 mg Tablet 650 mg PO Q6H PRN (Reason: Headache/Pain Mild Scale (1-3)) Qty: 30 RF: 0 gabapentin 400 mg Capsule 400 mg PO TID Qty: 90 RF: 0 hydroxyzine HCl 50 mg Tablet 50 mg PO TID PRN (Reason: Anxiety) Qty: 30 RF: 0 trazodone 50 mg Tablet 50 mg PO BEDTIME PRN (Reason: Insomnia) Qty: 30 RF: 0 oxcarbazepine 300 mg Tablet 900 mg PO DAILY Qty: 30 RF: 0 oxcarbazepine 300 mg Tablet 600 mg PO BEDTIME Qty: 30 RF: 0 B-complex with vitamin C Tablet 1 tab PO DAILY Qty: 30 RF: 0 Continued lorazepam 1 mg Tablet 1 mg PO TID 30 Days Qty: 90 RF: 0 Discontinued gabapentin 300 mg Capsule 300 mg PO TID RF: 0 propranolol 10 mg tablet 10 mg PO TID PRN (Reason: Anxiety) RF: 0 divalproex 500 mg tablet extended release 24 hr 500 mg PO BID PRN (Reason: manic symptoms) RF: 0 nicotine (polacrilex) 2 mg Gum 2 mg buccal ONCE PRN (Reason: Nicotine Cravings) 30 Days Qty: 240 RF: 0 hydroxyzine HCl 25 mg Tablet 25 mg PO TID PRN (Reason: Anxiety) 30 Days Qty: 90 RF: 0 albuterol sulfate [Ventolin HFA] 90 mcg/actuation Hfa Aerosol Inhaler 2 puff inhalation Q4H PRN (Reason: Wheezing) 30 Days Qty: 2 RF: 0 <Shantel Oseguera - Last Filed: 08/01/20 15:08> Discharge Orders: Discharge Order (Routine); Ordered 07/14/20 Ordered By: Shantel Oseguera <Shantel Oseguera - Last Filed: 08/01/20 15:08> Diet: regular diet <Shantel Oseguera - Last Filed: 08/01/20 15:08> regular diet <Jason Orr MD - Last Filed: 08/01/20 21:11> Activity on Discharge: As tolerated <Shantel Oseguera - Last Filed: 08/01/20 15:08> As tolerated <Jason Orr MD - Last Filed: 08/01/20 21:11> Stand Alone Forms: Patient Portal Discharge page <Shantel Oseguera - Last Filed: 08/01/20 15:08> Care Plan Goals: 1. Maintain proper boundaries with others 2. No SI/HI <Shantel Oseguera - Last Filed: 08/01/20 15:08> Health Concerns: F/U with PCP <Shantel Oseguera - Last Filed: 08/01/20 15:08> Plan of Treatment: 1. Take medications as prescribed 2. Follow up with referrals <Shantel Oseguera - Last Filed: 08/01/20 15:08> Assessment: Pt continues to present with somatic/paranoid delusions. He is less intrusive and less hyperverbal. No aggression towards self or others. <Shantel Oseguera - Last Filed: 08/01/20 15:08> Discharge Date/Time: 07/15/20 12:00 <Shantel Oseguera - Last Filed: 08/01/20 15:08> Mental Status Exam Mental Status Exam Narrative: Appearance: casually groomed, fair hygiene, NAD Behavior: guarded but mostly cooperative Psychomotor:no agitation or retardation noted Speech: clear, less pressured rate/rhythm/volume, spontaneous TP: tangential TC: less paranoid delusions Mood: good Affect:less dysphoric SI:denies HI:denies AH/VH:denies Delusions:persecutory delusions Insight/judgment:poor x 2. Memory/cog: alert, oriented x 3. <Shantel Oseguera - Last Filed: 08/01/20 15:08> Data Data Completed and Pending Completed studies during hospitalization [Text1]: 07/08/20 07/09/20 07/11/20 16:45 08:53 07:46 Sodium 139 Potassium 4.3 Chloride 106 Carbon Dioxide 26 Anion Gap 11 L BUN 19 H Creatinine 0.80 Estim Creat Clear Calc 189.4 Estimated GFR > 60 Fasting Glucose 83 Calcium 8.8 Total Bilirubin 0.5 AST 17 ALT 25 Alkaline Phosphatase 64 Ammonia 64 H 51 Total Protein 6.7 Albumin 4.0 COVID-19 (PATTI) COVID-19 Clin Com 07/14/20 13:20 Sodium Potassium Chloride Carbon Dioxide Anion Gap BUN Creatinine Estim Creat Clear Calc Estimated GFR Fasting Glucose Calcium Total Bilirubin AST ALT Alkaline Phosphatase Ammonia Total Protein Albumin COVID-19 (PATTI) Negative COVID-19 Clin Com See Note <Shantel Oseguera - Last Filed: 08/01/20 15:08> DS: Summary Hospital Course Hospital Course: Mr. Trotter is a 25 year-old male with hx of Bipolar Disorder versus Schizoaffective Disorder. Mr. Trotter was brought to [facility] after [facility] crisis was called to assessed pt due reports of increased agitation, paranoid delusions of of hacker hacking his computer and tracking him. Pt also presented with hypersexual behaviors reporting having erection when talking with females. In the ED, his utox was negative but pt reports using ativan and CBD/hemp oil daily. On the unit, Mr. Trotter presents as hyperverbal. He reports he does not think he needs to be here as I'm not hearing voices in my head, police should go after these people. He goes on and on about how multiple hacker have hacked his computer and are trying to trace him and intimidating him. He reports he thinks they may try to kill him. Pt reports poor sleep. He was in fact up all night due to persecutory delusions. He denies SI/HI but states he wants to protect himself if needed. He does not know who is behind hacking his computer. He denies visual or auditory hallucinations. He reports fair appetite. He endorses feeling very anxious in part due to persecutory delusions, which he does not question at this time. Past Psychiatric History: M5 in August 2019;01/2020 Other inpt stays at [facility] 10/02 to 01/02 and 07/02 to 10/02 and 2014. Andrey Vang in 2013. 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 Trotter was admitted on CV and placed on 15 minutes checks for safety. On the unit, he reported he was being followed by hackers. He also believed that motel were he was staying were involved with tracking him down. He presented as hyperverbal, restless. After discussing risks, benefits and alternative treatment options, he declined taking any antipsychotics. He initially reported that he would only agree to take thorazine but later declined. He did agree to start mood stabilizer. He initially was restarted on depakote but note that his ammonia levels did increase and he experienced symptoms of hyperammonemia including increased agitation, twitching of both arms, daytime sedation. Once depakote was discontinued, these symptoms resolved. He later agreed to start Trileptal. He continued to decline antipsychotics. He was fixated on having erection even in the morning as he wanted to have no erections at all. He was educated that this was normal. He believed these erections were part of paranoid delusions of women doing things to him. He reported anxiety, mostly related to delusional believes. Once delusions were challenged, pt did become very upset with this typewriter operator automatic. Overall, he appeared less restless, less hyperverbal, continued to present with delusional content. However, given that he was not at imminent risks of harm to self or others, petition to court was not made and patient was discharged at end of 3 day notice. Collateral information gathered from [facility], her mother. At time of discharge, both providers and mother denied safety concerns. He agreed to stepped down to respite. <Shantel Oseguera - Last Filed: 08/01/20 15:08> Time spent discussing smoking cessation with patient: 3 to 10 minutes <Shantel Oseguera - Last Filed: 08/01/20 15:08> Status at Discharge Cognitive/behavioral status at discharge: Pt presents as less labile, less pressured speech. No signs of aggression towards self or others. No SI/HI. Pt continues with delusions regarding being followed by haximenaers, fixated on not wanting to have an erection at all despite education. <Shantel Oseguera - Last Filed: 08/01/20 15:08> Functional status at discharge: independent ambulation <Shantel Oseguera - Last Filed: 08/01/20 15:08> Overall status at discharge: patient is progressing back to baseline <Shantel Oseguera - Last Filed: 08/01/20 15:08> Time Spent with Patient Time attestation: Total time spent providing and/or coordinating discharge services: <Shantel Oseguera - Last Filed: 08/01/20 15:08> Time spent: Greater than 30 minutes <Shantel Oseguera - Last Filed: 08/01/20 15:08>
--- NOTE | 2020-07-15 11:34 | PC.NURSE ---
Patient has been compliant with meds. Frequently requesting any available prn meds. Manages his adl's without prompting. Ambulating in hallway frequently. Attening group meetings voluntarily. No prompting needed. Mood is anxious, cheerful and talkative. He continues to exhibit paranoia regarding the [place] [employer] department.
== END 2020-07-15 12:00 | disposition home or self-care (01) | DRG 885 ==
LOC: HO.ED 06-30 14:22 → HO.PM5 06-30 14:25
PROVIDERS: Clinical Nurse Specialist Psychiatric/Mental Health; Admitting Provider Psychiatry & Neurology Psychiatry; Emergency Provider Emergency Medicine; PCP Internal Medicine; Visit Provider Social Worker
DX: F25.0 Schizoaffective disorder, bipolar type (principal); F17.210 Nicotine dependence, cigarettes, uncomplicated; Z71.6 Tobacco abuse counseling; Z20.822 Contact with and (suspected) exposure to COVID-19; Z88.0 Allergy status to penicillin; Z79.899 Other long term (current) drug therapy
CPT/HCPCS: 36415; 80053; 80061; 80164; 80307; 80320; 82140; 83036; 85025; 87635; 93005; 99285

== ENCOUNTER 2021-01-01 17:22 | Inpatient (IN) | payer MEDICARE, SELFPAY ==
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
--- NOTE | ~2021-01-01 | CT_ITS ---
EXAMINATION: CT HEAD WITHOUT CONTRAST CLINICAL INFORMATION: Seizure COMPARISON: None TECHNIQUE: Contiguous axial imaging was performed from the skull base to vertex without intravenous administration of contrast. This CT examination was performed using dose optimization techniques as appropriate, variously including the following: *Automated exposure control *Adjustment of mA and/or kV according to patient size (this includes techniques or standardized protocols for targeted exams where dose is matched to indication/reason for exam; i.e. extremities or head) *Use of iterative reconstruction technique DLP: 785 mGy-cm FINDINGS: There is no evidence of acute intracranial hemorrhage or territorial infarction. No abnormal mass effect or midline shift is seen. Nguyen to white matter differentiation is well preserved. No extra-axial fluid collections are identified. The ventricles are normal in size. There is no abnormal attenuation within the brain parenchyma. The osseous structures and soft tissues are normal. There is membranous soft tissue thickening in the left maxillary sinus. The mastoid air cells and visualized portions of the paranasal sinuses are otherwise clear. CT/CT head/brain wo con IMPRESSION: No acute intracranial findings. Mild inflammatory changes of the left maxillary sinus.
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
--- NOTE | ~2021-01-01 | XR_ITS ---
EXAMINATION: XR CERVICAL SPINE CLINICAL INFORMATION: Seizure. Pain. COMPARISON: None TECHNIQUE: 2 views of the cervical spine were obtained. FINDINGS: Bone alignment is normal. No fracture or dislocation is seen. Disc spaces are normal. There is mild degenerative spondylosis at C5-C6. There are 2 linear radiopaque densities measuring 1 x 5 mm in the prevertebral soft tissues anterior to C5 and C6 on the lateral view. These are not appreciated on the AP view. Appearance is questionable for surgical clips. Differential would include a soft tissue foreign body. Clinical correlation recommended. XR/XR cervical spine 2V IMPRESSION: No fracture seen. Mild degenerative spondylosis at C5-C6. Two 1 x 5 mm linear radiopaque densities projecting over the soft tissues anterior to C5 and C6 on the lateral view questionable for a surgical clips. Differential would include potential soft tissue foreign body. Clinical correlation recommended.
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
[2021-01-01 17:54] VITALS: BP 169/60; PULSE 89; RESP 18; TEMP 36.7; O2SAT 100; BMI 31.4
[2021-01-01 19:33] VITALS: BP 143/74; PULSE 59; RESP 18; TEMP 36.5; O2SAT 98
[2021-01-01 19:47] LABS: MANUAL DIFF FLAG NO
[2021-01-01 19:49] LABS: Basophils Absolute Auto 0.1 X10*3/uL (0.0-0.2); Basophils Percent Auto 0.6 % (0-2); Eosinophils Absolute Auto 0.3 X10*3/uL (0.0-0.4); Eosinophils Percent Auto 3.3 % (0-4); Hematocrit 46.3 % (42.0-52.0); Hemoglobin 15.2 g/dl (14.0-18.0); Imm Gran Abs Auto 0.02 X10*3/uL (0.00-0.03); Imm Gran Pct Auto 0.2 % (0.0-0.4); Lymphocytes Absolute Auto 1.6 X10*3/uL (1.2-4.9); Lymphocytes Percent Auto 18.2 % (20-40); Mean Corpuscular HGB Conc 32.8 g/dl (31.0-36.0); Mean Corpuscular Hemoglobin 26.1 pg (27.0-33.0); Mean Corpuscular Volume 79.6 fL (80.0-98.0); Mean Platelet Volume 10.8 fL (9.4-12.4); Monocytes Absolute Auto 0.9 X10*3/uL (0.1-1.2); Monocytes Percent Auto 9.6 % (2-11); Neutrophils Percent Auto 68.1 % (45-73); Platelet Count 187 X10*3/uL (160-400); Red Blood Count 5.82 X10*6/uL (4.60-5.80); Red Cell Distribution Width 14.8 % (11.0-16.0); White Blood Count 8.8 X10*3/uL (4.8-10.8)
[2021-01-01] MEDS: LORazepam 1 MG TABLET 2 MG PO (19:58)
[2021-01-01 20:07] LABS: Ethanol < 10 mg/dL
[2021-01-01 20:10] LABS: Amphetamine Screen Urine Not Detected (Not Detect); Barbiturates, Urine Not Detected (Not Detect); Benzodiazepines Screen Urine Not Detected (Not Detect); Cannabinoid Screen Urine POSITIVE (Not Detect); Cocaine Screen Urine POSITIVE (Not Detect); Fentanyl, urine Not Detected (Not Detect); Opiate Screen Urine Not Detected (Not Detect); Phencyclidine Screen Urine Not Detected (Not Detect)
[2021-01-01 20:12] LABS: Alanine Aminotransferase 39 U/L (0-40); Albumin Level 4.4 g/dL (3.5-5.0); Alkaline Phosphatase 85 U/L (39-117); Anion Gap 13 (12-20); Aspartate Amino Transferase 21 U/L (5-37); Bilirubin Total 0.2 mg/dL (0.0-1.0); Blood Urea Nitrogen 14 mg/dL (9-16); Calcium 9.2 mg/dL (8.4-10.2); Carbon Dioxide 27 mmol/L (22-29); Chloride 105 mmol/L (96-108); Creatinine Clr Calc Pharmacy 127.1; Estimated Glomerular Filt Rate > 60; Glucose Random 85 mg/dL (60-115); Potassium 3.7 mmol/L (3.3-5.1); Sodium 141 mmol/L (135-145); Total Protein 7.3 g/dL (6.5-8.0)
[2021-01-01 20:19] LABS: COVID-19 Test Negative (Negative); IDNOW Serial# 9DD0AD1C
[2021-01-01 21:59] VITALS: BP 143/79; PULSE 65; RESP 18; TEMP 36.4; O2SAT 98
--- NOTE | 2021-01-02 02:53 | MHC.CARE ---
CARE team evaluated pt. Plan is to call [facility] in the morning to speak with program support assistant and reassess pt for final disposition.
[2021-01-02 06:43] VITALS: BP 164/85; PULSE 74; RESP 16; TEMP 36.6; O2SAT 99
[2021-01-02] MEDS: cloNIDine HCL 0.1 MG TABLET PO ×3 (08:03→23:02)
[2021-01-02] MEDS: LORazepam 1 MG TABLET PO ×2 (08:03→16:20)
[2021-01-02] MEDS: Baclofen 10 MG TABLET PO ×3 (08:03→23:05)
[2021-01-02] MEDS: Gabapentin 400 MG CAPSULE PO ×3 (08:03→23:05)
[2021-01-02] MEDS: Multivitamin TABLET 1 TAB PO (08:03)
--- NOTE | 2021-01-02 08:14 | PC.NURSE ---
Addendum entered by Inga Mccrary LCSW 01/02/21 08:25: CARE Team meeting with Pt Original Note: [facility]N speaking to pt at this time
--- NOTE | 2021-01-02 09:13 | ECG_ITS ---
Test Reason : ADMIT EKG Blood Pressure : / mmHG Vent. Rate : 060 BPM Atrial Rate : 060 BPM P-R Int : 156 ms QRS Dur : 096 ms QT Int : 402 ms P-R-T Axes : 032 088 053 degrees QTc Int : 402 ms Normal sinus rhythm Normal ECG When compared with ECG of 01-JUL-2020 11:34, No significant change was found Referred By: Chapincito Smith Electronically Signed By:ESTELITA SALAZAR MD
[2021-01-02] MEDS: hydrOXYzine HCL 50 MG TABLET PO ×2 (12:49→23:02)
--- NOTE | 2021-01-02 14:23 | PHA.MEDREC ---
Pharmacy Consult ? Medication Reconciliation Pharmacy has completed the medication reconciliation. Pt dislikes his [facility] and says they are underdosing him. He wanted the dose of things that coincide with pharmacy fills from July 2020. Ins claim history support his statments. The only big discrepancies are on gabapentin which he used to take up to 500 mg tid but is ok with the 300 mg tid last filled. He wants the clonzepam instead of lorazepam that he had been on. He feels the trileptal dose is not enough. The baclofen has recently possibly been decreased from tid to daily?
[2021-01-02 18:00] VITALS: BP 130/73; PULSE 65; RESP 18; TEMP 36.4; O2SAT 96
[2021-01-02] MEDS: Acetaminophen 325 MG TABLET 650 MG PO (19:04)
[2021-01-02] MEDS: clonazePAM 1 MG TABLET PO (22:59)
[2021-01-02 23:02] VITALS: BP 132/84; PULSE 69
[2021-01-02 23:03] VITALS: BP 135/82; PULSE 69
[2021-01-02] MEDS: Propranolol HCL 40 MG TABLET PO (23:03)
--- NOTE | 2021-01-02 23:13 | PC.ADMIT ---
Patient is a 25 year old single male admitted to as a CV admission after being medically cleared in the [facility], evaluated by [facility] and deemed in need of IPLOC. Patient had self presented to the [facility] to have his medications adjusted and not feeling safe in his [place] Patient has a long history of IPLOC psychiatric admissions and has been on M5 in the past year. Patient said that he did not believe he was getting appropriate treatment in the [place]. During the admission process patient said he was not really depressed but anxious about being at the [place] and felt that the staff did not take his concerns seriously. He spoke at length about his seizures and the need to have a full body work up and different scans and tests to find out why he had seizures when he was upset. Patient mentioned pseudo seizures and then stopped the conversation. He signed his legals and answered questions for his admission. He does not want his mother to have much information about him, only that he is here on the unit. He also said he does not want anyone affiliated with [facility] to have his information. He said he felt that [facility] had messed up up and that he wanted to be able to control his money and his own life. Orders were received and patient will be on 15 minute safety checks.
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
[2021-01-03 06:24] VITALS: BP 136/86; PULSE 60; RESP 18; TEMP 36.2; O2SAT 98
[2021-01-03] MEDS: OXcarbazepine 300 MG TABLET 600 MG PO ×2 (07:53→20:45)
[2021-01-03 07:54] VITALS: BP 136/86; PULSE 60
[2021-01-03] MEDS: Multivitamin TABLET 1 TAB PO (07:54)
[2021-01-03] MEDS: OXcarbazepine 300 MG TABLET PO (07:54)
[2021-01-03] MEDS: cloNIDine HCL 0.1 MG TABLET PO ×3 (07:54→20:44)
[2021-01-03] MEDS: Gabapentin 400 MG CAPSULE PO ×3 (07:54→20:44)
[2021-01-03] MEDS: clonazePAM 1 MG TABLET PO ×3 (07:54→20:44)
[2021-01-03] MEDS: Baclofen 10 MG TABLET PO ×3 (07:54→20:45)
[2021-01-03] MEDS: hydrOXYzine HCL 50 MG TABLET PO (13:36)
[2021-01-03] MEDS: Nicotine Polacrilex 2 MG GUM 4 MG BUCCAL (13:37)
[2021-01-03 14:53] VITALS: BP 129/59; PULSE 63
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
[2021-01-03 16:38] VITALS: BP 133/69; PULSE 85; RESP 16; TEMP 35.8; O2SAT 98
[2021-01-03 20:44] VITALS: BP 123/56; PULSE 68
[2021-01-04] VITALS (7 sets, daily range): BP systolic 128–138; BP diastolic 60–91; PULSE 51–73; TEMP 36.2–36.8; O2SAT 100
[2021-01-04] MEDS: chlorproMAZINE HCl 25 MG TABLET 50 MG PO ×2 (01:46→22:16)
[2021-01-04] MEDS: Nicotine Polacrilex 2 MG GUM 4 MG BUCCAL ×2 (01:46→10:20)
[2021-01-04] MEDS: Propranolol HCL 40 MG TABLET PO ×2 (01:46→10:39)
[2021-01-04] MEDS: Acetaminophen 325 MG TABLET 650 MG PO ×2 (05:56→22:15)
[2021-01-04] MEDS: hydrOXYzine HCL 50 MG TABLET PO (05:58)
[2021-01-04] MEDS: cloNIDine HCL 0.1 MG TABLET PO ×3 (08:13→21:52)
[2021-01-04] MEDS: clonazePAM 1 MG TABLET PO ×3 (08:13→21:52)
[2021-01-04] MEDS: Multivitamin TABLET 1 TAB PO (08:14)
[2021-01-04] MEDS: OXcarbazepine 300 MG TABLET PO (08:14)
[2021-01-04] MEDS: OXcarbazepine 300 MG TABLET 600 MG PO ×2 (08:14→21:51)
[2021-01-04] MEDS: Baclofen 10 MG TABLET PO ×3 (08:14→21:52)
[2021-01-04] MEDS: Gabapentin 400 MG CAPSULE PO ×4 (08:14→23:15)
[2021-01-04 12:07] LABS: COVID-19 Test Negative (Negative)
[2021-01-04] MEDS: Albuterol Sulfate 90 MCG 8 GM INHALER 2 PUFF INHALE (13:53)
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
[2021-01-05 08:01] VITALS: BP 168/89; PULSE 71
[2021-01-05] MEDS: Gabapentin 400 MG CAPSULE PO ×4 (08:04→20:29)
[2021-01-05] MEDS: OXcarbazepine 300 MG TABLET 600 MG PO ×2 (08:05→20:26)
[2021-01-05] MEDS: clonazePAM 1 MG TABLET PO ×3 (08:05→20:29)
[2021-01-05] MEDS: cloNIDine HCL 0.1 MG TABLET PO ×3 (08:05→20:28)
[2021-01-05] MEDS: Baclofen 10 MG TABLET PO ×3 (08:05→20:29)
[2021-01-05] MEDS: Multivitamin TABLET 1 TAB PO (08:05)
[2021-01-05] MEDS: OXcarbazepine 300 MG TABLET PO (08:10)
[2021-01-05 08:36] LABS: Estimated Average Glucose 100 mg/dL; Hemoglobin A1c % 5.1 %
[2021-01-05 08:43] VITALS: BP 168/89; PULSE 71
[2021-01-05] MEDS: Propranolol HCL 40 MG TABLET PO ×2 (08:43→14:52)
[2021-01-05] MEDS: Albuterol Sulfate 90 MCG 8 GM INHALER 2 PUFF INHALE ×2 (08:44→14:52)
[2021-01-05 08:50] LABS: Cholesterol 167 mg/dL; HDL Cholesterol 33 mg/dL; LDL Cholesterol Calculated 109 mg/dl; Triglycerides 127 mg/dL
[2021-01-05 09:12] LABS: Thyroid Stimulating Hormone 1.99 uIU/mL (0.32-4.0)
[2021-01-05 09:43] LABS: Folate 9.2 ng/mL (> or = 4.0); Vitamin B12 486 pg/mL (200-900)
[2021-01-05] MEDS: chlorproMAZINE HCl 25 MG TABLET 50 MG PO ×2 (10:12→20:28)
[2021-01-05] MEDS: Nicotine Polacrilex 2 MG GUM 4 MG BUCCAL ×2 (10:15→14:55)
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
[2021-01-05 14:50] VITALS: BP 136/65; PULSE 73
[2021-01-05 19:50] VITALS: BP 133/61; PULSE 71; TEMP 36.4
[2021-01-05 20:28] VITALS: BP 135/79; PULSE 71
[2021-01-05] MEDS: Acetaminophen 325 MG TABLET 650 MG PO (20:29)
[2021-01-06] MEDS: chlorproMAZINE HCl 25 MG TABLET 50 MG PO (03:25)
[2021-01-06] MEDS: Gabapentin 400 MG CAPSULE PO ×5 (03:26→20:53)
[2021-01-06 07:45] VITALS: BP 137/76; PULSE 60
[2021-01-06] MEDS: OXcarbazepine 300 MG TABLET 600 MG PO ×2 (07:46→20:54)
[2021-01-06] MEDS: clonazePAM 1 MG TABLET PO ×3 (07:47→20:53)
[2021-01-06] MEDS: Propranolol HCL 40 MG TABLET PO ×2 (07:47→21:13)
[2021-01-06] MEDS: Acetaminophen 325 MG TABLET 650 MG PO ×2 (07:47→20:01)
[2021-01-06] MEDS: Multivitamin TABLET 1 TAB PO (07:47)
[2021-01-06] MEDS: cloNIDine HCL 0.1 MG TABLET PO ×3 (07:47→20:52)
[2021-01-06] MEDS: OXcarbazepine 300 MG TABLET PO (07:47)
[2021-01-06] MEDS: Baclofen 10 MG TABLET PO ×3 (07:47→20:52)
[2021-01-06] MEDS: Albuterol Sulfate 90 MCG 8 GM INHALER 2 PUFF INHALE ×2 (07:54→15:08)
[2021-01-06] MEDS: Nicotine Polacrilex 2 MG GUM 4 MG BUCCAL ×4 (09:05→21:14)
[2021-01-06] MEDS: hydrOXYzine HCL 50 MG TABLET PO ×2 (09:05→20:01)
[2021-01-06 15:05] VITALS: BP 120/61; PULSE 66
[2021-01-06 18:00] VITALS: BP 142/71; PULSE 75; RESP 16; TEMP 36.4; O2SAT 98
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
[2021-01-06 20:52] VITALS: BP 142/71; PULSE 75
[2021-01-06] MEDS: chlorproMAZINE HCl 25 MG TABLET 75 MG PO (20:53)
[2021-01-06 21:13] VITALS: BP 142/71; PULSE 75
--- NOTE | 2021-01-06 21:32 | PC.NURSE ---
Pt signed a 3 Day Notice on Saturday01/06/2021 up on Saturday01/11/2021.
[2021-01-06] MEDS: Fluticasone Propionate 100 MCG BLST.W.DEV 1 PUFF INHALE (21:49)
[2021-01-06 22:58] LABS: Glucose, Whole Blood 99 mg/dL (60-115)
[2021-01-07] MEDS: Albuterol Sulfate 90 MCG 8 GM INHALER 2 PUFF INHALE ×2 (03:06→10:19)
[2021-01-07] MEDS: hydrOXYzine HCL 50 MG TABLET PO (03:10)
[2021-01-07] MEDS: Gabapentin 400 MG CAPSULE PO ×4 (03:10→23:02)
[2021-01-07] MEDS: Acetaminophen 325 MG TABLET 650 MG PO (03:11)
[2021-01-07 05:54] VITALS: BP 111/72; PULSE 62; RESP 17; TEMP 36.3; O2SAT 99
[2021-01-07 08:23] LABS: Glucose, Whole Blood 77 mg/dL (60-115)
[2021-01-07 08:24] VITALS: BP 111/72; PULSE 62
[2021-01-07] MEDS: cloNIDine HCL 0.1 MG TABLET PO ×3 (08:24→23:02)
[2021-01-07] MEDS: clonazePAM 1 MG TABLET PO ×3 (08:24→23:02)
[2021-01-07] MEDS: OXcarbazepine 300 MG TABLET PO (08:25)
[2021-01-07] MEDS: Baclofen 10 MG TABLET PO ×3 (08:25→23:02)
[2021-01-07] MEDS: Multivitamin TABLET 1 TAB PO (08:25)
[2021-01-07] MEDS: OXcarbazepine 300 MG TABLET 600 MG PO ×2 (08:25→23:02)
[2021-01-07] MEDS: Fluticasone Propionate 100 MCG BLST.W.DEV 1 PUFF INHALE ×2 (08:29→23:01)
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
[2021-01-07 13:15] VITALS: BP 140/105; PULSE 77
[2021-01-07] MEDS: Nicotine Polacrilex 2 MG GUM 4 MG BUCCAL ×3 (13:15→18:40)
[2021-01-07] MEDS: Propranolol HCL 40 MG TABLET PO (13:15)
[2021-01-07] MEDS: chlorproMAZINE HCl 25 MG TABLET 50 MG PO (13:15)
[2021-01-07 14:31] VITALS: BP 139/68; PULSE 71
[2021-01-07 18:00] VITALS: BP 128/81; PULSE 74; RESP 18; TEMP 36.6; O2SAT 98
[2021-01-07] MEDS: chlorproMAZINE HCl 25 MG TABLET 75 MG PO (23:02)
[2021-01-07 23:03] LABS: Glucose, Whole Blood 95 mg/dL (60-115)
--- NOTE | 2021-01-08 00:12 | PC.NURSE ---
01/07/21: Patient submitted a 3 day notice.
[2021-01-08 06:00] VITALS: BP 156/86; PULSE 63; TEMP 36.5; O2SAT 98
[2021-01-08 08:05] LABS: Glucose, Whole Blood 84 mg/dL (60-115)
[2021-01-08] MEDS: Gabapentin 400 MG CAPSULE PO ×4 (08:26→20:56)
[2021-01-08] MEDS: OXcarbazepine 300 MG TABLET PO (08:26)
[2021-01-08] MEDS: OXcarbazepine 300 MG TABLET 600 MG PO ×2 (08:26→20:59)
[2021-01-08] MEDS: clonazePAM 1 MG TABLET PO ×3 (08:26→20:56)
[2021-01-08] MEDS: Multivitamin TABLET 1 TAB PO (08:26)
[2021-01-08] MEDS: Fluticasone Propionate 100 MCG BLST.W.DEV 1 PUFF INHALE ×2 (08:26→21:45)
[2021-01-08] MEDS: Baclofen 10 MG TABLET PO ×3 (08:27→20:55)
[2021-01-08 08:28] VITALS: BP 156/86; PULSE 63
[2021-01-08] MEDS: cloNIDine HCL 0.1 MG TABLET PO ×3 (08:28→20:56)
[2021-01-08] MEDS: Acetaminophen 325 MG TABLET 650 MG PO ×2 (09:58→16:37)
[2021-01-08] MEDS: chlorproMAZINE HCl 25 MG TABLET 50 MG PO ×2 (09:58→16:37)
[2021-01-08] MEDS: Nicotine Polacrilex 2 MG GUM 4 MG BUCCAL ×3 (10:01→18:39)
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
[2021-01-08 14:18] VITALS: BP 145/91; PULSE 89
[2021-01-08] MEDS: Albuterol Sulfate 90 MCG 8 GM INHALER 2 PUFF INHALE ×2 (14:36→18:47)
[2021-01-08] MEDS: hydrOXYzine HCL 50 MG TABLET PO (15:02)
[2021-01-08 16:39] LABS: Glucose, Whole Blood 119 mg/dL (60-115)
[2021-01-08 17:32] VITALS: BP 122/70; PULSE 90; RESP 18; TEMP 36.8; O2SAT 98
[2021-01-08] MEDS: chlorproMAZINE HCl 25 MG TABLET 75 MG PO (20:55)
[2021-01-08 20:56] VITALS: BP 157/84; PULSE 65
[2021-01-09] MEDS: chlorproMAZINE HCl 25 MG TABLET 50 MG PO ×2 (01:05→21:15)
[2021-01-09] MEDS: Gabapentin 400 MG CAPSULE PO ×2 (01:05→09:04)
[2021-01-09] MEDS: Acetaminophen 325 MG TABLET 650 MG PO ×3 (01:05→21:13)
[2021-01-09] MEDS: hydrOXYzine HCL 50 MG TABLET PO ×2 (01:06→21:16)
[2021-01-09 06:35] VITALS: BP 138/90; PULSE 65; RESP 18; TEMP 36.6; O2SAT 98
[2021-01-09 07:08] LABS: Glucose, Whole Blood 96 mg/dL (60-115)
[2021-01-09 09:02] VITALS: BP 138/90; PULSE 65
[2021-01-09] MEDS: Baclofen 10 MG TABLET PO ×3 (09:02→21:16)
[2021-01-09] MEDS: cloNIDine HCL 0.1 MG TABLET PO ×3 (09:02→21:15)
[2021-01-09] MEDS: clonazePAM 1 MG TABLET PO ×3 (09:02→21:15)
[2021-01-09] MEDS: Multivitamin TABLET 1 TAB PO (09:02)
[2021-01-09] MEDS: OXcarbazepine 300 MG TABLET PO (09:03)
[2021-01-09] MEDS: OXcarbazepine 300 MG TABLET 600 MG PO ×2 (09:03→21:14)
[2021-01-09] MEDS: Fluticasone Propionate 100 MCG BLST.W.DEV 1 PUFF INHALE ×2 (09:04→21:20)
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
[2021-01-09 14:18] VITALS: BP 183/79; PULSE 88
[2021-01-09] MEDS: Gabapentin 300 MG CAPSULE 600 MG PO ×2 (14:19→21:14)
[2021-01-09] MEDS: Lidocaine 4 % Patch ADH..PATCH 1 PATCH TRANSDERMA (14:19)
[2021-01-09] MEDS: Albuterol Sulfate 90 MCG 8 GM INHALER 2 PUFF INHALE (14:20)
[2021-01-09 21:10] VITALS: BP 137/88; PULSE 86; TEMP 36.5
[2021-01-09 21:15] VITALS: BP 137/88; PULSE 86
[2021-01-09] MEDS: Nicotine Polacrilex 2 MG GUM 4 MG BUCCAL (21:16)
[2021-01-09 22:59] LABS: Glucose, Whole Blood 107 mg/dL (60-115)
[2021-01-10] MEDS: Acetaminophen 325 MG TABLET 650 MG PO (03:37)
[2021-01-10] MEDS: Gabapentin 400 MG CAPSULE PO (03:38)
--- NOTE | 2021-01-10 03:42 | PC.NURSE ---
Patient is reporting uncontrolled pain overnight. He reports he will be unable to sleep due to the pain. Patient requests Tylenol and Gabapentin. Upon taking Gabapentin patient is noted to chew capsule. Patient is notified this will be reported to Yessy.Megan to which he replies, I'm not doing it to get high, I just need an immediate release pain medication.
[2021-01-10 06:00] VITALS: BP 117/82; PULSE 69; RESP 18; TEMP 36.1; O2SAT 99
[2021-01-10] MEDS: Fluticasone Propionate 100 MCG BLST.W.DEV 1 PUFF INHALE ×2 (08:43→21:20)
[2021-01-10] MEDS: Lidocaine 4 % Patch ADH..PATCH 1 PATCH TRANSDERMA (08:44)
[2021-01-10 08:45] VITALS: BP 117/82; PULSE 69
[2021-01-10] MEDS: Cholecalciferol (Vitamin D3) 10 MCG TABLET PO (08:45)
[2021-01-10] MEDS: Multivitamin TABLET 1 TAB PO (08:45)
[2021-01-10] MEDS: Gabapentin 300 MG CAPSULE 600 MG PO ×3 (08:45→20:20)
[2021-01-10] MEDS: OXcarbazepine 300 MG TABLET PO (08:45)
[2021-01-10] MEDS: OXcarbazepine 300 MG TABLET 600 MG PO ×2 (08:45→20:21)
[2021-01-10] MEDS: chlorproMAZINE HCl 25 MG TABLET 50 MG PO ×2 (08:45→20:21)
[2021-01-10] MEDS: cloNIDine HCL 0.1 MG TABLET PO ×3 (08:45→20:22)
[2021-01-10] MEDS: Baclofen 10 MG TABLET PO ×3 (08:45→20:22)
[2021-01-10] MEDS: clonazePAM 1 MG TABLET PO ×3 (08:45→20:20)
[2021-01-10 14:44] VITALS: BP 141/80; PULSE 96
[2021-01-10] MEDS: Albuterol Sulfate 90 MCG 8 GM INHALER 2 PUFF INHALE (14:47)
[2021-01-10] MEDS: Nicotine Polacrilex 2 MG GUM 4 MG BUCCAL ×2 (14:47→23:07)
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
[2021-01-10 19:55] VITALS: BP 142/71; PULSE 72; TEMP 36.3
[2021-01-10 20:22] VITALS: BP 142/71; PULSE 72
[2021-01-10] MEDS: Mineral Oil/Petrolatum,White 106 GM Tube 1 APPL TOPICAL (21:30)
[2021-01-11] VITALS (7 sets, daily range): BP systolic 122–147; BP diastolic 68–84; PULSE 63–93; RESP 16–18; TEMP 36.1–36.5; O2SAT 96–97
--- NOTE | 2021-01-11 | EEG_ITS ---
This is a 16-channel EEG with an EKG lead. The patient is reported awake during the tracing. Background EEG rhythm is low amplitude fast with no obvious asymmetry or paroxysmal tendency. Photic stimulation does not produce any significant abnormality. Hyperventilation is not performed. Cardiac lead does not reveal any significant abnormality. IMPRESSION: Unremarkable EEG. MD CORTNEY Jaramillo/ROSARIO / [id number]
[2021-01-11] MEDS: Acetaminophen 325 MG TABLET 650 MG PO ×2 (05:22→14:19)
[2021-01-11] MEDS: hydrOXYzine HCL 50 MG TABLET PO ×2 (05:22→19:30)
[2021-01-11] MEDS: Gabapentin 400 MG CAPSULE PO (05:23)
[2021-01-11] MEDS: Fluticasone Propionate 100 MCG BLST.W.DEV 1 PUFF INHALE ×2 (09:05→20:15)
[2021-01-11] MEDS: Lidocaine 4 % Patch ADH..PATCH 1 PATCH TRANSDERMA (09:06)
[2021-01-11] MEDS: Gabapentin 300 MG CAPSULE 600 MG PO ×3 (09:06→20:14)
[2021-01-11] MEDS: OXcarbazepine 300 MG TABLET PO (09:06)
[2021-01-11] MEDS: Cholecalciferol (Vitamin D3) 10 MCG TABLET PO (09:07)
[2021-01-11] MEDS: chlorproMAZINE HCl 25 MG TABLET 50 MG PO (09:07)
[2021-01-11] MEDS: Baclofen 10 MG TABLET PO ×3 (09:07→20:13)
[2021-01-11] MEDS: cloNIDine HCL 0.1 MG TABLET PO ×3 (09:07→20:14)
[2021-01-11] MEDS: Multivitamin TABLET 1 TAB PO (09:07)
[2021-01-11] MEDS: clonazePAM 1 MG TABLET PO ×3 (09:07→20:14)
[2021-01-11] MEDS: OXcarbazepine 300 MG TABLET 600 MG PO ×2 (09:07→20:13)
[2021-01-11] MEDS: Mineral Oil/Petrolatum,White 106 GM Tube 1 APPL TOPICAL ×2 (09:16→20:16)
[2021-01-11] MEDS: Propranolol HCL 40 MG TABLET PO ×2 (10:34→19:30)
[2021-01-11] MEDS: Nicotine Polacrilex 2 MG GUM 4 MG BUCCAL ×2 (14:20→19:31)
[2021-01-11] MEDS: Albuterol Sulfate 90 MCG 8 GM INHALER 2 PUFF INHALE (14:20)
--- NOTE | 2021-01-11 15:16 | HO.PSYCHPN ---
Subjective Subjective Date of Service: 01/11/21 Reason For Visit: Schizoaffective D/O Bipolar Type Subjective Notes: Conditional Voluntary Healthcare Proxy: No Guardianship: No Medical Problems Affecting Mental Status: No Interim History: I know I need more antipsychotic. I only feel comfortable with [facility] . Increase that . Ongoing discussion with pt about options for medications that may serve his needs without sedative SE. He continues to return to [facility]. Focusing today on discharge-states he has housing options for the first few weeks of January and hopes to be able to take advantage of these. Encouraged pt to consider allowing treatment with appropriate agents. Medication Compliance: Yes Side effects from medications: Yes (sedation) Attending Groups: Intermittent Review of Systems Acute medical concerns: No Prolactin Level 01/10 continues pending. Medical Review of Systems: unchanged Review of Systems Reports confusion Psychiatric: Reports anxiety, Reports confusion, Reports depression, Reports difficulty concentrating, Reports irritability, Reports anhedonia and Reports paranoia Mental Status Exam Mental Status Exam Patient Appearance: Appropriate Patient Orientation: Person, Place, Time and Situation Level of Consciousness: Restless and Alert Patient Behavior: Talkative, Cooperative, Restless, Anxious, Fearful, Resistive to Care, Distractible, Confused, Good Eye Contact and Impulsive Mood Description: Fearful, Anxious, Labile, Elated, Nervous and Apprehensive Affect Description: Labile Patient Cognition Impaired: No Ability to Follow Directions: Good Speech Pattern: Perseverating, Spontaneous Speech and Soft-Spoken Memory Description: Episodic Impaired Hallucinations: None (denies) Delusions: Being Controlled, Paranoid Ideation and Present Perceptual Disturbances: Depersonalization and Derealization Thought Process: Illogical, Distracted, Rumination and Confusion Thought Content: positive for [place], positive for Circumstantial, positive for Perseveration, positive for Preoccupation, positive for Loose Associations and positive for Tangential Depressive Symptoms: Increased Anxiety, Diff. Making Decisions, Difficulty Sleeping, Feelings of Worthlessness, Feelings of Guilt, Unhappiness, Low Self Esteem and Difficulty Concentrating Abnormal Motor Activity Signs and Symptoms: Restlessness Judgement: Poor Diagnostics Vital Signs (24Hr): Vital Signs - 24 hr 01/10/21 19:55 01/10/21 20:22 01/11/21 06:00 Temperature 97.3 F 96.9 F Pulse Rate 72 72 63 Respiratory Rate 18 Blood Pressure 142/71 H 142/71 H 131/68 Pulse Oximetry 97 01/11/21 09:07 01/11/21 10:34 01/11/21 14:19 Temperature Pulse Rate 63 93 70 Respiratory Rate Blood Pressure 137/70 147/70 H 134/73 Pulse Oximetry Body Mass Index 31.4 Labs Results: 01/01/21 19:40 01/01/21 19:40 Labs: Laboratory Results - last 48 hr 01/09/21 01/10/21 22:54 11:01 POC Glucose 107 Total Creatine Kinase 75 D Imaging Radiology Impressions: ITS Impressions Cervical Spine X-Ray 01/10/21 11:17 IMPRESSION: No fracture seen. Mild degenerative spondylosis at C5-C6. Two 1 x 5 mm linear radiopaque densities projecting over the soft tissues anterior to C5 and C6 on the lateral view questionable for a surgical clips. Differential would include potential soft tissue foreign body. Clinical correlation recommended. Head CT 01/10/21 12:32 IMPRESSION: No acute intracranial findings. Mild inflammatory changes of the left maxillary sinus. Medications Medications Current Medications Acetaminophen (Acetaminophen 325 Mg Tablet) 650 mg PO Q6H PRN PRN Reason: Headache/Pain Mild Scale (1-3) Last Admin: 01/11/21 14:19 Dose: 650 mg Documented by: Al Hydroxide/Mg Hydroxide (Magnesium Hydrox/Alum Hydrox 30 Ml Oral.Susp) 30 ml PO Q6H PRN PRN Reason: Heartburn/Nausea Albuterol Sulfate (Albuterol Sulfate 90 Mcg 8 Gm Inhaler) 2 puff INHALE Q4H PRN PRN Reason: Wheezing Last Admin: 01/11/21 14:20 Dose: 2 puff Documented by: Baclofen (Baclofen 10 Mg Tablet) 10 mg PO TID [facility] Last Admin: 01/11/21 14:19 Dose: 10 mg Documented by: Chlorpromazine HCl (Chlorpromazine Hcl 25 Mg Tablet) 50 mg PO Q6H PRN PRN Reason: agitation, paranoia Last Admin: 01/09/21 01:05 Dose: 50 mg Documented by: Chlorpromazine HCl (Chlorpromazine Hcl 25 Mg Tablet) 50 mg PO BID [facility] Last Admin: 01/11/21 09:07 Dose: 50 mg Documented by: Clonazepam (Clonazepam 1 Mg Tablet) 1 mg PO TID [facility] Last Admin: 01/11/21 14:19 Dose: 1 mg Documented by: Clonidine HCl (Clonidine Hcl 0.1 Mg Tablet) 0.1 mg PO TID [facility]; Protocol Last Admin: 01/11/21 14:19 Dose: 0.1 mg Documented by: Fluticasone Propionate (Fluticasone Propionate 100 Mcg Blst.W.Dev) 1 puff INHALE RBID [facility] Last Admin: 01/11/21 09:05 Dose: 1 puff Documented by: Gabapentin (Gabapentin 400 Mg Capsule) 400 mg PO BID PRN PRN Reason: Pain, Mild (Pain Scale 1-3) Last Admin: 01/11/21 05:23 Dose: 400 mg Documented by: Gabapentin (Gabapentin 300 Mg Capsule) 600 mg PO TID [facility] Last Admin: 01/11/21 14:19 Dose: 600 mg Documented by: Hydroxyzine HCl (Hydroxyzine Hcl 50 Mg Tablet) 50 mg PO TID PRN PRN Reason: Anxiety Last Admin: 01/11/21 05:22 Dose: 50 mg Documented by: Lidocaine (Lidocaine 4 % Patch Adh..Patch) 1 patch TRANSDERMA DAILY [facility]; Protocol Last Admin: 01/11/21 09:06 Dose: 1 patch Documented by: Magnesium Hydroxide (Milk Of Magnesia 30 Ml Oral.Susp) 30 ml PO DAILY PRN PRN Reason: Constipation Multi-Ingred Cream/Lotion/Oil/Oint (Mineral Oil/Petrolatum,White 106 Gm Tube) 1 appl TOPICAL BID [facility]; Protocol Last Admin: 01/11/21 09:16 Dose: 1 appl Documented by: Multivitamins/Vitamin C (Multivitamin Tablet) 1 tab PO DAILY [facility] Last Admin: 01/11/21 09:07 Dose: 1 tab Documented by: Nicotine Polacrilex (Nicotine Polacrilex 2 Mg Gum) 4 mg BUCCAL Q2H PRN PRN Reason: Nicotine Cravings Last Admin: 01/11/21 14:20 Dose: 4 mg Documented by: Oxcarbazepine (Oxcarbazepine 300 Mg Tablet) 600 mg PO BID [facility] Last Admin: 01/11/21 09:07 Dose: 600 mg Documented by: Oxcarbazepine (Oxcarbazepine 300 Mg Tablet) 300 mg PO DAILY [facility] Last Admin: 01/11/21 09:06 Dose: 300 mg Documented by: Propranolol HCl (Propranolol Hcl 40 Mg Tablet) 40 mg PO TID PRN; Protocol PRN Reason: anxiety, agitation Last Admin: 01/11/21 10:34 Dose: 40 mg Documented by: Vitamin D (Cholecalciferol (Vitamin D3) 10 Mcg Tablet) 10 mcg PO DAILY [facility] Last Admin: 01/11/21 09:07 Dose: 10 mcg Documented by: Allergies Allergies Allergy/AdvReac Type Severity Reaction Status Date / Time mold [MOLD] Allergy Unknown UNKNOWN Verified 12/30/19 16:01 paliperidone [From Invega] Allergy Unknown Verified 12/30/19 16:01 amoxicillin [AMOXICILLIN] AdvReac Severe ANAPHYLAXIS Verified 12/30/19 16:01 azithromycin [AZITHROMYCIN] AdvReac Severe ANAPHYLAXIS Verified 12/30/19 16:01 Assessment & Plan Assessment & Plan (1) Schizoaffective disorder, bipolar type: Status: Acute Code(s): F25.0 - Schizoaffective disorder, bipolar type Assessment and Plan: Increase Thorazine to 50 mg a.m. 100 mg h.s I spent 25 minutes with the patient and/or on the patient floor today, greater than?50% of which was spent counseling/coordinating care. Patient educated on: diagnosis, medication risk/benefits and therapeutic strategies Informed Consent: further education needed Reason for contiued inpatient stay Substantial Risk for: inability to function and rapid decompensation
[2021-01-11] MEDS: chlorproMAZINE HCl 100 MG TABLET PO (20:14)
[2021-01-12] MEDS: Albuterol Sulfate 90 MCG 8 GM INHALER 2 PUFF INHALE ×3 (03:27→15:06)
[2021-01-12 03:32] VITALS: BP 132/61; PULSE 79
[2021-01-12] MEDS: Propranolol HCL 40 MG TABLET PO (03:32)
[2021-01-12] MEDS: Nicotine Polacrilex 2 MG GUM 4 MG BUCCAL ×3 (03:33→18:59)
[2021-01-12] MEDS: Gabapentin 400 MG CAPSULE PO (03:33)
[2021-01-12 06:00] VITALS: BP 123/75; PULSE 65; RESP 16
[2021-01-12 07:00] VITALS: BMI 36.5
[2021-01-12] MEDS: Lidocaine 4 % Patch ADH..PATCH 1 PATCH TRANSDERMA (08:08)
[2021-01-12] MEDS: Cholecalciferol (Vitamin D3) 10 MCG TABLET PO (08:09)
[2021-01-12] MEDS: chlorproMAZINE HCl 25 MG TABLET 50 MG PO ×2 (08:09→08:10)
[2021-01-12] MEDS: OXcarbazepine 300 MG TABLET PO (08:09)
[2021-01-12] MEDS: Baclofen 10 MG TABLET PO ×3 (08:09→21:11)
[2021-01-12] MEDS: Gabapentin 300 MG CAPSULE 600 MG PO ×3 (08:09→21:10)
[2021-01-12] MEDS: cloNIDine HCL 0.1 MG TABLET PO ×3 (08:09→21:11)
[2021-01-12] MEDS: Multivitamin TABLET 1 TAB PO (08:09)
[2021-01-12] MEDS: OXcarbazepine 300 MG TABLET 600 MG PO ×2 (08:09→21:10)
[2021-01-12] MEDS: clonazePAM 1 MG TABLET PO ×3 (08:10→21:10)
[2021-01-12] MEDS: Fluticasone Propionate 100 MCG BLST.W.DEV 1 PUFF INHALE ×2 (08:13→20:24)
[2021-01-12] MEDS: Mineral Oil/Petrolatum,White 106 GM Tube 1 APPL TOPICAL (08:13)
--- NOTE | 2021-01-12 10:16 | HO.PSYCHPN ---
Subjective Subjective Date of Service: 01/12/21 Reason For Visit: Schizoaffective D/O Bipolar Type Subjective Notes: Conditional Voluntary Healthcare Proxy: No Guardianship: No Medical Problems Affecting Mental Status: No Interim History: Pt taking all medications / prn , Medication Compliance: Yes Side effects from medications: Yes (slightly sedated) Attending Groups: No Review of Systems Acute medical concerns: No pseudo seizures Medical Review of Systems: unchanged Review of Systems: dry mouth Review of Systems Review of Systems dry mouth sedation Mental Status Exam Mental Status Exam Patient Appearance: Disheveled Patient Orientation: Person, Place and Situation Level of Consciousness: Drowsy Patient Behavior: Dependent and Cooperative Behavior Comments: cooperative, Mood Description: Calm Patient Cognition Impaired: No Ability to Follow Directions: Fair Speech Pattern: Rambling and Poor Articulation (but not slurred) Hallucinations: None Delusions: Not Present Thought Process: Intact and Goal Oriented Thought Content: positive for [place] and positive for Poverty of Content Depressive Symptoms: Diff. Making Decisions Abnormal Motor Activity Signs and Symptoms: Restlessness Judgement: Poor Diagnostics Vital Signs (24Hr): Vital Signs - 24 hr 01/11/21 10:34 01/11/21 14:19 01/11/21 18:00 Temperature 97.7 F Pulse Rate 93 70 86 Respiratory Rate 16 Blood Pressure 147/70 H 134/73 122/84 Pulse Oximetry 96 01/11/21 19:30 01/11/21 20:14 01/12/21 03:32 Temperature Pulse Rate 68 68 79 Respiratory Rate Blood Pressure 123/68 123/68 132/61 Pulse Oximetry 01/12/21 06:00 Temperature Pulse Rate 65 Respiratory Rate 16 Blood Pressure 123/75 Pulse Oximetry Body Mass Index 31.4 Labs Results: 01/01/21 19:40 01/01/21 19:40 Labs: Laboratory Results - last 48 hr 01/10/21 11:01 Total Creatine Kinase 75 D EKG EKG: reviewed (01/02/21 402 qtc) Imaging Radiology Impressions: ITS Impressions Cervical Spine X-Ray 01/10/21 11:17 IMPRESSION: No fracture seen. Mild degenerative spondylosis at C5-C6. Two 1 x 5 mm linear radiopaque densities projecting over the soft tissues anterior to C5 and C6 on the lateral view questionable for a surgical clips. Differential would include potential soft tissue foreign body. Clinical correlation recommended. Head CT 01/10/21 12:32 IMPRESSION: No acute intracranial findings. Mild inflammatory changes of the left maxillary sinus. Medications Medications Current Medications Acetaminophen (Acetaminophen 325 Mg Tablet) 650 mg PO Q6H PRN PRN Reason: Headache/Pain Mild Scale (1-3) Last Admin: 01/11/21 14:19 Dose: 650 mg Documented by: Al Hydroxide/Mg Hydroxide (Magnesium Hydrox/Alum Hydrox 30 Ml Oral.Susp) 30 ml PO Q6H PRN PRN Reason: Heartburn/Nausea Albuterol Sulfate (Albuterol Sulfate 90 Mcg 8 Gm Inhaler) 2 puff INHALE Q4H PRN PRN Reason: Wheezing Last Admin: 01/12/21 08:13 Dose: 2 puff Documented by: Baclofen (Baclofen 10 Mg Tablet) 10 mg PO TID [facility] Last Admin: 01/12/21 08:09 Dose: 10 mg Documented by: Benztropine Mesylate (Benztropine Mesylate 0.5 Mg Tablet) 0.5 mg PO BID PRN PRN Reason: extrapyrmidal symptoms Chlorpromazine HCl (Chlorpromazine Hcl 25 Mg Tablet) 50 mg PO Q6H PRN PRN Reason: agitation, paranoia Last Admin: 01/12/21 08:10 Dose: 50 mg Documented by: Chlorpromazine HCl (Chlorpromazine Hcl 100 Mg Tablet) 100 mg PO BEDTIME [facility] Last Admin: 01/11/21 20:14 Dose: 100 mg Documented by: Chlorpromazine HCl (Chlorpromazine Hcl 25 Mg Tablet) 50 mg PO DAILY [facility] Last Admin: 01/12/21 08:09 Dose: 50 mg Documented by: Clonazepam (Clonazepam 1 Mg Tablet) 1 mg PO TID [facility] Last Admin: 01/12/21 08:10 Dose: 1 mg Documented by: Clonidine HCl (Clonidine Hcl 0.1 Mg Tablet) 0.1 mg PO TID [facility]; Protocol Last Admin: 01/12/21 08:09 Dose: 0.1 mg Documented by: Fluticasone Propionate (Fluticasone Propionate 100 Mcg Blst.W.Dev) 1 puff INHALE RBID [facility] Last Admin: 01/12/21 08:13 Dose: 1 puff Documented by: Gabapentin (Gabapentin 400 Mg Capsule) 400 mg PO BID PRN PRN Reason: Pain, Mild (Pain Scale 1-3) Last Admin: 01/12/21 03:33 Dose: 400 mg Documented by: Gabapentin (Gabapentin 300 Mg Capsule) 600 mg PO TID [facility] Last Admin: 01/12/21 08:09 Dose: 600 mg Documented by: Hydroxyzine HCl (Hydroxyzine Hcl 50 Mg Tablet) 50 mg PO TID PRN PRN Reason: Anxiety Last Admin: 01/11/21 19:30 Dose: 50 mg Documented by: Lidocaine (Lidocaine 4 % Patch Adh..Patch) 1 patch TRANSDERMA DAILY [facility]; Protocol Last Admin: 01/12/21 08:08 Dose: 1 patch Documented by: Magnesium Hydroxide (Milk Of Magnesia 30 Ml Oral.Susp) 30 ml PO DAILY PRN PRN Reason: Constipation Multi-Ingred Cream/Lotion/Oil/Oint (Mineral Oil/Petrolatum,White 106 Gm Tube) 1 appl TOPICAL BID [facility]; Protocol Last Admin: 01/12/21 08:13 Dose: 1 appl Documented by: Multivitamins/Vitamin C (Multivitamin Tablet) 1 tab PO DAILY [facility] Last Admin: 01/12/21 08:09 Dose: 1 tab Documented by: Nicotine Polacrilex (Nicotine Polacrilex 2 Mg Gum) 4 mg BUCCAL Q2H PRN PRN Reason: Nicotine Cravings Last Admin: 01/12/21 03:33 Dose: 4 mg Documented by: Oxcarbazepine (Oxcarbazepine 300 Mg Tablet) 600 mg PO BID [facility] Last Admin: 01/12/21 08:09 Dose: 600 mg Documented by: Oxcarbazepine (Oxcarbazepine 300 Mg Tablet) 300 mg PO DAILY [facility] Last Admin: 01/12/21 08:09 Dose: 300 mg Documented by: Propranolol HCl (Propranolol Hcl 40 Mg Tablet) 40 mg PO TID PRN; Protocol PRN Reason: anxiety, agitation Last Admin: 01/12/21 03:32 Dose: 40 mg Documented by: Vitamin D (Cholecalciferol (Vitamin D3) 10 Mcg Tablet) 10 mcg PO DAILY [facility] Last Admin: 01/12/21 08:09 Dose: 10 mcg Documented by: Allergies Allergies Allergy/AdvReac Type Severity Reaction Status Date / Time mold [MOLD] Allergy Unknown UNKNOWN Verified 12/30/19 16:01 paliperidone [From Invega] Allergy Unknown Verified 12/30/19 16:01 amoxicillin [AMOXICILLIN] AdvReac Severe ANAPHYLAXIS Verified 12/30/19 16:01 azithromycin [AZITHROMYCIN] AdvReac Severe ANAPHYLAXIS Verified 12/30/19 16:01 Assessment & Plan Assessment & Plan (1) Schizoaffective disorder, bipolar type: Status: Acute Code(s): F25.0 - Schizoaffective disorder, bipolar type Assessment and Plan: somewhat sedated but in behavioral control Assessment and Plan: Increase Thorazine to 50 mg a.m. 100 mg h.s I spent minutes with the patient and/or on the patient floor today, greater than?50% of which was spent counseling/coordinating care. Patient educated on: medication risk/benefits Informed Consent: understands Reason for contiued inpatient stay Substantial Risk for: inability to function and rapid decompensation
[2021-01-12] MEDS: Acetaminophen 325 MG TABLET 650 MG PO (11:07)
[2021-01-12 13:42] LABS: Prolactin 17.2 ng/mL (2.0-18.0)
[2021-01-12 15:06] VITALS: BP 146/77; PULSE 71
[2021-01-12] MEDS: chlorproMAZINE HCl 100 MG TABLET PO (21:10)
[2021-01-12 21:11] VITALS: BP 145/72; PULSE 94
--- NOTE | 2021-01-12 23:47 | PC.NURSE ---
Patient had mentioned to clinicians that she felt like putting a towel around her neck. Staff stripped the room of excess sheets on the other bed and all of her clothing and had patient in hospital attire. Dr. Eliseo Amaro notified and patient was put on 5 minute safety checks with a locked bathroom. Patient reassured staff will be monitoring her at 5 minute intervals. She said that she would probably not do anything in the hospital . Patient also knows to tell staff if she is not feeling safe.
[2021-01-13] MEDS: Nicotine Polacrilex 2 MG GUM 4 MG BUCCAL ×5 (00:09→20:16)
[2021-01-13 06:00] VITALS: BP 116/78; PULSE 85; RESP 18; TEMP 35.9; O2SAT 99
[2021-01-13] MEDS: chlorproMAZINE HCl 25 MG TABLET 50 MG PO ×2 (08:44→15:09)
[2021-01-13] MEDS: clonazePAM 1 MG TABLET PO ×3 (08:45→20:12)
[2021-01-13] MEDS: OXcarbazepine 300 MG TABLET PO (08:47)
[2021-01-13] MEDS: OXcarbazepine 300 MG TABLET 600 MG PO (08:47)
[2021-01-13 08:48] VITALS: BP 142/70
[2021-01-13] MEDS: cloNIDine HCL 0.1 MG TABLET PO ×3 (08:48→20:13)
[2021-01-13] MEDS: Gabapentin 300 MG CAPSULE 600 MG PO ×3 (08:49→20:13)
[2021-01-13] MEDS: Cholecalciferol (Vitamin D3) 10 MCG TABLET PO (08:49)
[2021-01-13] MEDS: Multivitamin TABLET 1 TAB PO (08:49)
[2021-01-13] MEDS: Lidocaine 4 % Patch ADH..PATCH 1 PATCH TRANSDERMA (08:50)
[2021-01-13] MEDS: Baclofen 10 MG TABLET PO ×3 (08:50→20:12)
[2021-01-13] MEDS: Fluticasone Propionate 100 MCG BLST.W.DEV 1 PUFF INHALE ×2 (08:51→21:52)
[2021-01-13] MEDS: Mineral Oil/Petrolatum,White 106 GM Tube 1 APPL TOPICAL (08:54)
[2021-01-13] MEDS: Gabapentin 400 MG CAPSULE PO (11:45)
[2021-01-13] MEDS: LORazepam 0.5 MG TABLET PO (11:45)
[2021-01-13] MEDS: hydrOXYzine HCL 50 MG TABLET PO (11:45)
[2021-01-13] MEDS: Acetaminophen 325 MG TABLET 650 MG PO (11:45)
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
[2021-01-13] MEDS: Albuterol Sulfate 90 MCG 8 GM INHALER 2 PUFF INHALE (11:58)
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
[2021-01-13 14:06] VITALS: BP 142/75; PULSE 100
[2021-01-13 15:09] VITALS: BP 152/72; PULSE 90
[2021-01-13] MEDS: Propranolol HCL 40 MG TABLET PO (15:09)
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
[2021-01-13 20:09] VITALS: TEMP 36.7; O2SAT 97
[2021-01-13] MEDS: chlorproMAZINE HCl 100 MG TABLET PO (20:12)
[2021-01-13 20:13] VITALS: BP 129/58; PULSE 72
[2021-01-13] MEDS: OXcarbazepine 300 MG TABLET 900 MG PO (20:13)
[2021-01-14] VITALS (7 sets, daily range): BP systolic 131–141; BP diastolic 60–68; PULSE 54–70; RESP 17–20; TEMP 36.6–36.7; O2SAT 97–99
[2021-01-14] MEDS: Gabapentin 400 MG CAPSULE PO (04:48)
[2021-01-14] MEDS: Propranolol HCL 40 MG TABLET PO ×2 (04:48→20:10)
[2021-01-14] MEDS: Nicotine Polacrilex 2 MG GUM 4 MG BUCCAL ×2 (04:50→18:31)
[2021-01-14] MEDS: chlorproMAZINE HCl 25 MG TABLET 50 MG PO (07:11)
[2021-01-14] MEDS: Fluticasone Propionate 100 MCG BLST.W.DEV 1 PUFF INHALE ×2 (07:54→20:13)
[2021-01-14] MEDS: Lidocaine 4 % Patch ADH..PATCH 1 PATCH TRANSDERMA (07:54)
[2021-01-14] MEDS: Multivitamin TABLET 1 TAB PO (07:54)
[2021-01-14] MEDS: clonazePAM 1 MG TABLET PO ×3 (07:55→20:10)
[2021-01-14] MEDS: cloNIDine HCL 0.1 MG TABLET PO ×2 (07:55→15:17)
[2021-01-14] MEDS: Cholecalciferol (Vitamin D3) 10 MCG TABLET PO (07:55)
[2021-01-14] MEDS: Baclofen 10 MG TABLET PO ×3 (07:55→20:10)
[2021-01-14] MEDS: Gabapentin 300 MG CAPSULE 600 MG PO ×3 (07:55→20:10)
[2021-01-14] MEDS: Acetaminophen 325 MG TABLET 650 MG PO ×2 (07:55→18:29)
[2021-01-14] MEDS: OXcarbazepine 300 MG TABLET 900 MG PO ×2 (07:56→20:10)
[2021-01-14] MEDS: Albuterol Sulfate 90 MCG 8 GM INHALER 2 PUFF INHALE (13:28)
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
[2021-01-14] MEDS: hydrOXYzine HCL 50 MG TABLET PO (20:10)
[2021-01-14] MEDS: chlorproMAZINE HCl 100 MG TABLET PO (20:10)
[2021-01-14] MEDS: Mineral Oil/Petrolatum,White 106 GM Tube 1 APPL TOPICAL (20:13)
[2021-01-15] VITALS (8 sets, daily range): BP systolic 126–174; BP diastolic 60–94; PULSE 66–78; RESP 16; TEMP 36.9; O2SAT 97
[2021-01-15] MEDS: Gabapentin 400 MG CAPSULE PO ×2 (03:57→18:46)
[2021-01-15] MEDS: Propranolol HCL 40 MG TABLET PO ×2 (03:57→18:46)
[2021-01-15] MEDS: Nicotine Polacrilex 2 MG GUM 4 MG BUCCAL ×4 (03:57→18:46)
[2021-01-15] MEDS: Lidocaine 4 % Patch ADH..PATCH 1 PATCH TRANSDERMA (08:00)
[2021-01-15] MEDS: Fluticasone Propionate 100 MCG BLST.W.DEV 1 PUFF INHALE ×2 (08:01→19:59)
[2021-01-15] MEDS: OXcarbazepine 300 MG TABLET 900 MG PO ×2 (08:02→20:00)
[2021-01-15] MEDS: chlorproMAZINE HCl 25 MG TABLET 50 MG PO ×2 (08:03→18:46)
[2021-01-15] MEDS: cloNIDine HCL 0.1 MG TABLET PO ×3 (08:03→20:00)
[2021-01-15] MEDS: Gabapentin 300 MG CAPSULE 600 MG PO ×3 (08:04→20:00)
[2021-01-15] MEDS: Cholecalciferol (Vitamin D3) 10 MCG TABLET PO (08:04)
[2021-01-15] MEDS: clonazePAM 1 MG TABLET PO ×3 (08:04→20:01)
[2021-01-15] MEDS: Baclofen 10 MG TABLET PO ×3 (08:04→20:01)
[2021-01-15] MEDS: Multivitamin TABLET 1 TAB PO (08:04)
[2021-01-15] MEDS: hydrOXYzine HCL 50 MG TABLET PO (09:53)
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
[2021-01-15] MEDS: Acetaminophen 325 MG TABLET 650 MG PO (20:00)
[2021-01-15] MEDS: chlorproMAZINE HCl 100 MG TABLET PO (20:01)
[2021-01-16] VITALS (7 sets, daily range): BP systolic 126–173; BP diastolic 65–91; PULSE 54–98; RESP 15–16; TEMP 36.4–36.8; O2SAT 95–100
[2021-01-16] MEDS: Acetaminophen 325 MG TABLET 650 MG PO ×2 (06:08→16:47)
[2021-01-16] MEDS: Gabapentin 400 MG CAPSULE PO ×2 (06:08→22:38)
[2021-01-16] MEDS: Albuterol Sulfate 90 MCG 8 GM INHALER 2 PUFF INHALE ×4 (06:08→22:47)
[2021-01-16] MEDS: Nicotine Polacrilex 2 MG GUM 4 MG BUCCAL ×5 (06:09→23:24)
[2021-01-16 08:40] LABS: MANUAL DIFF FLAG NO
[2021-01-16 08:47] LABS: Basophils Absolute Auto 0.1 X10*3/uL (0.0-0.2); Basophils Percent Auto 0.7 % (0-2); Eosinophils Absolute Auto 0.4 X10*3/uL (0.0-0.4); Eosinophils Percent Auto 5.9 % (0-4); Hematocrit 44.6 % (42.0-52.0); Hemoglobin 14.3 g/dl (14.0-18.0); Imm Gran Abs Auto 0.03 X10*3/uL (0.00-0.03); Imm Gran Pct Auto 0.4 % (0.0-0.4); Lymphocytes Absolute Auto 1.7 X10*3/uL (1.2-4.9); Lymphocytes Percent Auto 23.6 % (20-40); Mean Corpuscular HGB Conc 32.1 g/dl (31.0-36.0); Mean Corpuscular Hemoglobin 25.9 pg (27.0-33.0); Mean Corpuscular Volume 80.7 fL (80.0-98.0); Mean Platelet Volume 10.7 fL (9.4-12.4); Monocytes Absolute Auto 0.9 X10*3/uL (0.1-1.2); Neutrophils Absolute Auto 4.1 x10*3/uL (2.0-8.3); Neutrophils Percent Auto 57.4 % (45-73); Platelet Count 179 X10*3/uL (160-400); Red Blood Count 5.53 X10*6/uL (4.60-5.80); Red Cell Distribution Width 14.5 % (11.0-16.0); White Blood Count 7.1 X10*3/uL (4.8-10.8)
[2021-01-16] MEDS: Fluticasone Propionate 100 MCG BLST.W.DEV 1 PUFF INHALE ×2 (09:06→20:16)
[2021-01-16 09:14] LABS: Anion Gap 12 (12-20); Blood Urea Nitrogen 21 mg/dL (9-16); Calcium 9.5 mg/dL (8.4-10.2); Carbon Dioxide 27 mmol/L (22-29); Chloride 103 mmol/L (96-108); Creatinine Clr Calc Pharmacy 165.9; Estimated Glomerular Filt Rate > 60; Glucose Random 83 mg/dL (60-115); Potassium 4.2 mmol/L (3.3-5.1); Sodium 138 mmol/L (135-145)
[2021-01-16] MEDS: Lidocaine 4 % Patch ADH..PATCH 1 PATCH TRANSDERMA (10:12)
[2021-01-16] MEDS: OXcarbazepine 300 MG TABLET 900 MG PO (10:13)
[2021-01-16] MEDS: Gabapentin 300 MG CAPSULE 600 MG PO ×3 (10:13→20:15)
[2021-01-16] MEDS: chlorproMAZINE HCl 25 MG TABLET 50 MG PO ×2 (10:14→16:45)
[2021-01-16] MEDS: Multivitamin TABLET 1 TAB PO (10:14)
[2021-01-16] MEDS: clonazePAM 1 MG TABLET PO ×3 (10:14→20:15)
[2021-01-16] MEDS: Baclofen 10 MG TABLET PO ×3 (10:15→20:15)
[2021-01-16] MEDS: cloNIDine HCL 0.1 MG TABLET PO ×3 (10:15→20:13)
[2021-01-16] MEDS: Cholecalciferol (Vitamin D3) 10 MCG TABLET PO (10:15)
--- NOTE | 2021-01-16 10:20 | MHC.CLN ---
NUTRITION SHOWS ON DIET REPORT RECEIVES HOME TUBE FEEDING . REVIEW OF DOCUMENTATION DOES NOT MENTION HOME TUBE FEEDING. PATIENT STATED THAT HE SOMETIMES TAKES ENSURE AT HOME AND HAS NOT HAD FEEDING TUBE. REPORTS GOOD APPETITE AND BMI=36.5. NO ADDITIONAL NUTRITION INTERVENTIONS AT THIS TIME.
[2021-01-16] MEDS: carBAMazepine ER 200 MG TAB.ER.12H PO ×2 (13:14→20:13)
[2021-01-16] MEDS: clonazePAM 0.5 MG TABLET PO (13:14)
--- NOTE | 2021-01-16 13:38 | MHC.CLN ---
NUTRITION PATIENT REQUESTING ENSURE SUPPLEMENT. ADDING ENSURE BID TO PROVIDE 700 KCAL, 26 G PROTEIN.
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
[2021-01-16] MEDS: OXcarbazepine 300 MG TABLET 600 MG PO (20:15)
[2021-01-16] MEDS: chlorproMAZINE HCl 100 MG TABLET PO (20:15)
[2021-01-16] MEDS: Mineral Oil/Petrolatum,White 106 GM Tube 1 APPL TOPICAL (20:16)
[2021-01-16] MEDS: Propranolol HCL 40 MG TABLET PO (22:38)
[2021-01-17 06:00] VITALS: BP 130/67; PULSE 71; RESP 18; TEMP 36.8; O2SAT 99
[2021-01-17] MEDS: Albuterol Sulfate 90 MCG 8 GM INHALER 2 PUFF INHALE ×3 (06:09→20:31)
[2021-01-17] MEDS: Acetaminophen 325 MG TABLET 650 MG PO ×2 (06:09→14:51)
[2021-01-17] MEDS: Nicotine Polacrilex 2 MG GUM 4 MG BUCCAL ×5 (06:09→19:11)
[2021-01-17] MEDS: Gabapentin 300 MG CAPSULE 600 MG PO ×3 (08:10→19:09)
[2021-01-17] MEDS: chlorproMAZINE HCl 25 MG TABLET 50 MG PO ×2 (08:10→17:03)
[2021-01-17] MEDS: clonazePAM 1 MG TABLET PO ×3 (08:11→20:33)
[2021-01-17] MEDS: OXcarbazepine 300 MG TABLET 600 MG PO ×2 (08:11→20:32)
[2021-01-17] MEDS: Cholecalciferol (Vitamin D3) 10 MCG TABLET PO (08:11)
[2021-01-17] MEDS: hydrOXYzine HCL 25 MG TABLET 75 MG PO ×2 (08:11→17:04)
[2021-01-17] MEDS: Multivitamin TABLET 1 TAB PO (08:11)
[2021-01-17] MEDS: Mineral Oil/Petrolatum,White 106 GM Tube 1 APPL TOPICAL (08:12)
[2021-01-17] MEDS: Baclofen 10 MG TABLET PO ×3 (08:12→20:33)
[2021-01-17] MEDS: Fluticasone Propionate 100 MCG BLST.W.DEV 1 PUFF INHALE ×2 (08:12→20:30)
[2021-01-17 08:19] VITALS: BP 130/67; PULSE 71
[2021-01-17] MEDS: Propranolol HCL 40 MG TABLET PO ×2 (08:19→14:52)
[2021-01-17] MEDS: ALPRAZolam 0.5 MG TABLET PO (12:28)
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
[2021-01-17] MEDS: chlorproMAZINE HCl 100 MG TABLET 50 MG PO (14:56)
--- NOTE | 2021-01-17 19:12 | PC.NURSE ---
Dr. Bee authorized early administration of Gabapentin per patient request.
[2021-01-17 20:05] VITALS: BP 122/58; PULSE 73; RESP 14; TEMP 36.7; O2SAT 97
[2021-01-17] MEDS: Lithium Carbonate ER 450 MG TABLET.ER PO (20:32)
[2021-01-17 20:33] VITALS: BP 122/58; PULSE 73
[2021-01-17] MEDS: chlorproMAZINE HCl 100 MG TABLET PO (20:33)
[2021-01-17] MEDS: cloNIDine HCL 0.1 MG TABLET PO (20:33)
--- NOTE | 2021-01-17 23:09 | PC.NURSE ---
submitted 3 day notice
[2021-01-18] MEDS: hydrOXYzine HCL 25 MG TABLET 75 MG PO ×3 (02:55→21:27)
[2021-01-18] MEDS: Albuterol Sulfate 90 MCG 8 GM INHALER 2 PUFF INHALE ×3 (03:04→21:29)
[2021-01-18] MEDS: Gabapentin 400 MG CAPSULE PO ×2 (03:04→21:28)
[2021-01-18 05:13] VITALS: BP 119/57; PULSE 71
[2021-01-18] MEDS: chlorproMAZINE HCl 100 MG TABLET 150 MG PO (05:13)
[2021-01-18] MEDS: Propranolol HCL 40 MG TABLET PO (05:13)
[2021-01-18] MEDS: Nicotine Polacrilex 2 MG GUM 4 MG BUCCAL ×4 (05:14→21:29)
[2021-01-18 06:00] VITALS: BP 133/65; PULSE 61; RESP 16; TEMP 36.2; O2SAT 97
[2021-01-18] MEDS: Multivitamin TABLET 1 TAB PO (08:59)
[2021-01-18] MEDS: Cholecalciferol (Vitamin D3) 10 MCG TABLET PO (08:59)
[2021-01-18] MEDS: Gabapentin 300 MG CAPSULE 600 MG PO (08:59)
[2021-01-18] MEDS: OXcarbazepine 300 MG TABLET 600 MG PO ×2 (08:59→21:27)
[2021-01-18] MEDS: Baclofen 10 MG TABLET PO ×3 (08:59→21:26)
[2021-01-18] MEDS: Fluticasone Propionate 100 MCG BLST.W.DEV 1 PUFF INHALE ×2 (09:57→21:31)
[2021-01-18] MEDS: Mineral Oil/Petrolatum,White 106 GM Tube 1 APPL TOPICAL (10:00)
[2021-01-18] MEDS: Lidocaine 4 % Patch ADH..PATCH 1 PATCH TRANSDERMA (10:02)
[2021-01-18] MEDS: ALPRAZolam 0.5 MG TABLET PO (11:17)
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
[2021-01-18] MEDS: Gabapentin 400 MG CAPSULE 800 MG PO ×2 (14:37→21:29)
[2021-01-18] MEDS: chlorproMAZINE HCl 100 MG TABLET 50 MG PO (14:37)
[2021-01-18 14:38] VITALS: BP 148/67; PULSE 76
[2021-01-18] MEDS: Acetaminophen 325 MG TABLET 650 MG PO (14:38)
[2021-01-18] MEDS: cloNIDine HCL 0.1 MG TABLET PO ×2 (14:38→21:28)
[2021-01-18] MEDS: chlorproMAZINE HCl 25 MG TABLET 50 MG PO (16:46)
--- NOTE | 2021-01-18 16:48 | PC.NURSE ---
Patient increasingly agitated, requested to see most recent 3 day note. Allowed patient to see paperwork, he proceeded to rip up the bottom half stating it is up now and will now be discharged. Requested to see MD and if I don't see him in the next 60 minutes I will call [facility] . MD notified however is not available at this time as he has left for the day. Patient accepted 5pm medication, stated he is upset with the kitchen staff for sending up raw meat and ruining the units meals. Support provided. States he will continue his care with a different provider outside of the hospital. Informed patient Dr. Bearden has left for the day however could speak to him tomorrow. Patient c/o upset stomach.
[2021-01-18] MEDS: clonazePAM 1 MG TABLET PO (17:25)
[2021-01-18 18:00] VITALS: BP 128/60; PULSE 74; RESP 14; TEMP 36.5; O2SAT 99
[2021-01-18] MEDS: chlorproMAZINE HCl 100 MG TABLET 200 MG PO (21:27)
[2021-01-18] MEDS: Lithium Carbonate ER 450 MG TABLET.ER PO (21:27)
[2021-01-18 21:28] VITALS: BP 128/60; PULSE 74
--- NOTE | 2021-01-18 22:27 | PC.NURSE ---
Submitted 3-day notice. Up on 01/23/2021.
--- NOTE | 2021-01-19 07:09 | PC.NURSE ---
Pt reports not likely [place] and how it is making him feel. States that shortly after taking it (at night) he feels happy, however when waking up in the morning he feels down and depressed . He states that he would like to be on a prn of trileptal if he is going to stay on the [place].
[2021-01-19 07:10] LABS: Oxcarbazepine 22.5 mcg/mL (8.0-35.0)
[2021-01-19 07:55] VITALS: BP 142/72; PULSE 70; RESP 16; TEMP 36.7; O2SAT 100
[2021-01-19] MEDS: Gabapentin 400 MG CAPSULE 800 MG PO ×3 (08:10→20:28)
[2021-01-19 08:11] VITALS: BP 142/72; PULSE 70
[2021-01-19] MEDS: Lidocaine 4 % Patch ADH..PATCH 1 PATCH TRANSDERMA (08:11)
[2021-01-19] MEDS: Multivitamin TABLET 1 TAB PO (08:11)
[2021-01-19] MEDS: OXcarbazepine 300 MG TABLET 600 MG PO ×2 (08:11→20:28)
[2021-01-19] MEDS: cloNIDine HCL 0.1 MG TABLET PO ×3 (08:11→20:28)
[2021-01-19] MEDS: Cholecalciferol (Vitamin D3) 10 MCG TABLET PO (08:11)
[2021-01-19] MEDS: Baclofen 10 MG TABLET PO ×3 (08:12→20:28)
[2021-01-19] MEDS: hydrOXYzine HCL 25 MG TABLET 75 MG PO ×2 (08:19→14:49)
[2021-01-19] MEDS: Mineral Oil/Petrolatum,White 106 GM Tube 1 APPL TOPICAL ×2 (08:19→20:33)
[2021-01-19] MEDS: Fluticasone Propionate 100 MCG BLST.W.DEV 1 PUFF INHALE ×2 (08:19→20:27)
[2021-01-19] MEDS: Gabapentin 400 MG CAPSULE PO (11:22)
[2021-01-19] MEDS: Nicotine Polacrilex 2 MG GUM 4 MG BUCCAL ×5 (11:22→23:33)
[2021-01-19 11:39] VITALS: BMI 37.5
[2021-01-19] MEDS: ALPRAZolam 0.5 MG TABLET PO (12:16)
[2021-01-19] MEDS: Albuterol Sulfate 90 MCG 8 GM INHALER 2 PUFF INHALE ×2 (14:40→20:26)
[2021-01-19] MEDS: Acetaminophen 325 MG TABLET 650 MG PO (14:45)
[2021-01-19 14:54] VITALS: BP 144/67; PULSE 88
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
[2021-01-19] MEDS: clonazePAM 1 MG TABLET PO (16:27)
[2021-01-19] MEDS: chlorproMAZINE HCl 25 MG TABLET 50 MG PO (16:27)
[2021-01-19 18:00] VITALS: BP 141/86; PULSE 107; RESP 16; TEMP 37; O2SAT 94
[2021-01-19 20:28] VITALS: BP 141/86; PULSE 107
[2021-01-19] MEDS: chlorproMAZINE HCl 100 MG TABLET 200 MG PO (20:28)
[2021-01-19] MEDS: Lithium Carbonate ER 450 MG TABLET.ER 900 MG PO (20:29)
[2021-01-20] VITALS (7 sets, daily range): BP systolic 128–156; BP diastolic 61–70; PULSE 65–75; RESP 14–18; TEMP 36.7–36.8; O2SAT 95–100
--- NOTE | 2021-01-20 01:54 | PC.NURSE ---
PT INTERACTING AT THE NURSES STATION. HIS EYES ARE GLOSSY AND HALF MAST. HE LOOKS VERY FATIGUED. HE IS FIDGETY AND FREQUENTLY REPOSITIONING HIS BODY. HIS CONVERSATION IS APPROPRIATE AND AFTER A SHORT PERIOD OF TIMERETURNS TO HIS ROOM FOR SLEEP.
[2021-01-20] MEDS: Nicotine Polacrilex 2 MG GUM 4 MG BUCCAL ×7 (03:45→20:33)
[2021-01-20] MEDS: Gabapentin 400 MG CAPSULE PO (03:45)
[2021-01-20] MEDS: OXcarbazepine 300 MG TABLET PO (03:45)
[2021-01-20] MEDS: Albuterol Sulfate 90 MCG 8 GM INHALER 2 PUFF INHALE ×3 (04:00→20:26)
[2021-01-20] MEDS: Propranolol HCL 40 MG TABLET PO ×2 (04:01→20:57)
[2021-01-20] MEDS: clonazePAM 1 MG TABLET PO ×2 (07:31→14:56)
[2021-01-20] MEDS: Lidocaine 4 % Patch ADH..PATCH 1 PATCH TRANSDERMA (08:32)
[2021-01-20] MEDS: Fluticasone Propionate 100 MCG BLST.W.DEV 1 PUFF INHALE ×2 (08:34→20:26)
[2021-01-20] MEDS: cloNIDine HCL 0.1 MG TABLET PO ×3 (08:35→20:26)
[2021-01-20] MEDS: OXcarbazepine 300 MG TABLET 600 MG PO ×2 (08:35→20:25)
[2021-01-20] MEDS: Multivitamin TABLET 1 TAB PO (08:35)
[2021-01-20] MEDS: Baclofen 10 MG TABLET PO ×3 (08:36→20:26)
[2021-01-20] MEDS: Gabapentin 400 MG CAPSULE 800 MG PO ×3 (08:36→20:26)
[2021-01-20] MEDS: Cholecalciferol (Vitamin D3) 10 MCG TABLET PO (08:36)
[2021-01-20] MEDS: ALPRAZolam 0.5 MG TABLET PO (11:21)
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
[2021-01-20] MEDS: hydrOXYzine HCL 25 MG TABLET 75 MG PO (16:52)
[2021-01-20] MEDS: Acetaminophen 325 MG TABLET 650 MG PO (16:52)
[2021-01-20] MEDS: chlorproMAZINE HCl 25 MG TABLET 50 MG PO (16:53)
[2021-01-20] MEDS: Lithium Carbonate ER 450 MG TABLET.ER 900 MG PO (20:25)
[2021-01-20] MEDS: chlorproMAZINE HCl 100 MG TABLET 200 MG PO ×2 (20:26→20:56)
[2021-01-20] MEDS: Mineral Oil/Petrolatum,White 106 GM Tube 1 APPL TOPICAL (20:27)
[2021-01-21 06:00] VITALS: BP 142/64; PULSE 74; RESP 16; TEMP 36.4; O2SAT 99
[2021-01-21] MEDS: Gabapentin 400 MG CAPSULE 800 MG PO ×3 (08:03→20:20)
[2021-01-21] MEDS: Multivitamin TABLET 1 TAB PO (08:03)
[2021-01-21] MEDS: Cholecalciferol (Vitamin D3) 10 MCG TABLET PO (08:03)
[2021-01-21] MEDS: OXcarbazepine 300 MG TABLET 600 MG PO ×2 (08:03→20:19)
[2021-01-21] MEDS: Albuterol Sulfate 90 MCG 8 GM INHALER 2 PUFF INHALE ×3 (08:04→20:18)
[2021-01-21] MEDS: Baclofen 10 MG TABLET PO ×3 (08:04→20:20)
[2021-01-21] MEDS: Lidocaine 4 % Patch ADH..PATCH 1 PATCH TRANSDERMA (08:05)
[2021-01-21] MEDS: Fluticasone Propionate 100 MCG BLST.W.DEV 1 PUFF INHALE ×2 (08:05→20:17)
[2021-01-21] MEDS: Nicotine Polacrilex 2 MG GUM 4 MG BUCCAL ×5 (08:05→20:29)
[2021-01-21] MEDS: clonazePAM 1 MG TABLET PO ×2 (08:07→20:26)
[2021-01-21] MEDS: chlorproMAZINE HCl 100 MG TABLET 200 MG PO ×2 (09:49→20:20)
[2021-01-21] MEDS: OXcarbazepine 300 MG TABLET PO (09:50)
[2021-01-21] MEDS: ALPRAZolam 0.5 MG TABLET PO (11:56)
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
[2021-01-21 16:18] VITALS: BP 153/73; PULSE 97
[2021-01-21] MEDS: cloNIDine HCL 0.1 MG TABLET PO ×2 (16:18→20:18)
[2021-01-21] MEDS: chlorproMAZINE HCl 25 MG TABLET 50 MG PO (16:18)
[2021-01-21 20:00] VITALS: BP 143/65; PULSE 90; RESP 16; TEMP 36.8; O2SAT 99
[2021-01-21 20:18] VITALS: BP 143/65; PULSE 90
[2021-01-21] MEDS: Lithium Carbonate 300 MG TABLET 450 MG PO (20:19)
[2021-01-22] MEDS: Gabapentin 400 MG CAPSULE PO (03:34)
[2021-01-22] MEDS: Albuterol Sulfate 90 MCG 8 GM INHALER 2 PUFF INHALE ×3 (03:34→19:45)
[2021-01-22] MEDS: clonazePAM 1 MG TABLET PO ×3 (03:34→16:05)
[2021-01-22] MEDS: Nicotine Polacrilex 2 MG GUM 4 MG BUCCAL ×6 (03:37→22:11)
[2021-01-22] MEDS: OXcarbazepine 300 MG TABLET PO (03:39)
[2021-01-22] MEDS: Acetaminophen 325 MG TABLET 650 MG PO (03:39)
[2021-01-22] MEDS: OXcarbazepine 300 MG TABLET 600 MG PO ×2 (08:19→20:54)
[2021-01-22] MEDS: Cholecalciferol (Vitamin D3) 10 MCG TABLET PO (08:19)
[2021-01-22] MEDS: Gabapentin 400 MG CAPSULE 800 MG PO ×3 (08:19→20:53)
[2021-01-22 08:20] VITALS: BP 156/81; PULSE 84
[2021-01-22] MEDS: Propranolol HCL 40 MG TABLET PO (08:20)
[2021-01-22] MEDS: Lidocaine 4 % Patch ADH..PATCH 1 PATCH TRANSDERMA (08:20)
[2021-01-22] MEDS: Baclofen 10 MG TABLET PO ×3 (08:20→20:53)
[2021-01-22] MEDS: Fluticasone Propionate Nasal 16 GM SPRAY 1 SPRAY NOSTRIL-B ×2 (08:22→19:44)
[2021-01-22] MEDS: Fluticasone Propionate 100 MCG BLST.W.DEV 1 PUFF INHALE ×2 (08:22→19:45)
[2021-01-22 08:31] VITALS: BP 156/81; PULSE 84; RESP 18; TEMP 36.8; O2SAT 97
[2021-01-22] MEDS: Multivitamin TABLET 1 TAB PO (10:27)
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
[2021-01-22] MEDS: chlorproMAZINE HCl 25 MG TABLET 50 MG PO (16:02)
[2021-01-22] MEDS: Hydrocortisone 1 % Cream 28.35 GM TUBE 1 APPL TOPICAL (16:15)
[2021-01-22 16:16] VITALS: BP 139/66; PULSE 80
[2021-01-22] MEDS: cloNIDine HCL 0.1 MG TABLET PO ×2 (16:16→20:54)
[2021-01-22] MEDS: chlorproMAZINE HCl 100 MG TABLET 200 MG PO (20:53)
[2021-01-22 20:54] VITALS: BP 155/75; PULSE 77
[2021-01-22] MEDS: ALPRAZolam 0.5 MG TABLET PO (20:58)
[2021-01-22 21:00] VITALS: TEMP 36.7; O2SAT 97
[2021-01-23] MEDS: OXcarbazepine 300 MG TABLET PO ×2 (06:56→15:04)
[2021-01-23] MEDS: Nicotine Polacrilex 2 MG GUM 4 MG BUCCAL ×6 (06:56→22:24)
[2021-01-23] MEDS: Lidocaine 4 % Patch ADH..PATCH 1 PATCH TRANSDERMA (09:57)
[2021-01-23] MEDS: OXcarbazepine 300 MG TABLET 600 MG PO (09:57)
[2021-01-23] MEDS: Multivitamin TABLET 1 TAB PO (09:57)
[2021-01-23 09:58] VITALS: BP 148/82; PULSE 80
[2021-01-23] MEDS: Baclofen 10 MG TABLET PO ×3 (09:58→20:05)
[2021-01-23] MEDS: cloNIDine HCL 0.1 MG TABLET PO ×2 (09:58→15:05)
[2021-01-23] MEDS: Cholecalciferol (Vitamin D3) 10 MCG TABLET PO (09:58)
[2021-01-23] MEDS: Hydrocortisone 1 % Cream 28.35 GM TUBE 1 APPL TOPICAL ×2 (09:59→20:34)
[2021-01-23] MEDS: Fluticasone Propionate Nasal 16 GM SPRAY 1 SPRAY NOSTRIL-B ×2 (09:59→20:07)
[2021-01-23] MEDS: Albuterol Sulfate 90 MCG 8 GM INHALER 2 PUFF INHALE ×3 (09:59→20:43)
[2021-01-23] MEDS: Gabapentin 400 MG CAPSULE 800 MG PO ×3 (10:00→20:05)
[2021-01-23] MEDS: Mineral Oil/Petrolatum,White 106 GM Tube 1 APPL TOPICAL ×2 (10:11→20:44)
[2021-01-23] MEDS: Fluticasone Propionate 100 MCG BLST.W.DEV 1 PUFF INHALE ×2 (10:11→20:43)
[2021-01-23] MEDS: ALPRAZolam 0.5 MG TABLET PO (10:41)
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
[2021-01-23 15:05] VITALS: BP 166/77; PULSE 98
[2021-01-23] MEDS: clonazePAM 1 MG TABLET PO ×2 (16:40→22:23)
[2021-01-23] MEDS: chlorproMAZINE HCl 25 MG TABLET 50 MG PO (16:40)
[2021-01-23 20:05] VITALS: BP 160/79; PULSE 90
[2021-01-23] MEDS: chlorproMAZINE HCl 100 MG TABLET 200 MG PO (20:05)
[2021-01-23] MEDS: Propranolol HCL 40 MG TABLET PO (20:05)
[2021-01-23] MEDS: OXcarbazepine 300 MG TABLET 900 MG PO (20:05)
[2021-01-23 20:07] VITALS: TEMP 36.7; O2SAT 98
[2021-01-23] MEDS: hydrOXYzine HCL 25 MG TABLET 75 MG PO (22:23)
[2021-01-24] MEDS: Nicotine Polacrilex 2 MG GUM 4 MG BUCCAL ×7 (00:11→20:11)
[2021-01-24 00:44] LABS: Appearance Urine CLEAR; Color Urine YELLOW; Glucose Urine UA NEG (NEG); Leukocyte Esterase Urine NEG (NEG); Nitrite Urine NEG (NEG); PH 6.5 (5.0-8.0); Specific Gravity - Urine 1.015 (1.005-1.025); Urine Blood NEG (NEG); Urine Ketones NEG (NEG); Urine Protein NEG (NEG-TRACE)
[2021-01-24] MEDS: Gabapentin 400 MG CAPSULE PO (06:39)
[2021-01-24] MEDS: OXcarbazepine 300 MG TABLET PO ×2 (06:39→14:15)
[2021-01-24 08:00] VITALS: BP 143/81; PULSE 76; RESP 18; TEMP 36.7; O2SAT 98
[2021-01-24] MEDS: cloNIDine HCL 0.1 MG TABLET PO ×3 (08:00→20:04)
[2021-01-24] MEDS: Fluticasone Propionate Nasal 16 GM SPRAY 1 SPRAY NOSTRIL-B ×2 (08:05→20:03)
[2021-01-24] MEDS: Fluticasone Propionate 100 MCG BLST.W.DEV 1 PUFF INHALE ×2 (08:05→20:03)
[2021-01-24] MEDS: Albuterol Sulfate 90 MCG 8 GM INHALER 2 PUFF INHALE ×3 (08:06→21:48)
[2021-01-24] MEDS: Multivitamin TABLET 1 TAB PO (08:08)
[2021-01-24] MEDS: clonazePAM 1 MG TABLET PO (08:08)
[2021-01-24] MEDS: Cholecalciferol (Vitamin D3) 10 MCG TABLET PO (08:08)
[2021-01-24] MEDS: Gabapentin 400 MG CAPSULE 800 MG PO ×3 (08:08→20:04)
[2021-01-24] MEDS: Baclofen 10 MG TABLET PO ×3 (08:08→20:04)
[2021-01-24] MEDS: OXcarbazepine 300 MG TABLET 900 MG PO ×2 (08:08→20:03)
[2021-01-24] MEDS: Lidocaine 4 % Patch ADH..PATCH 1 PATCH TRANSDERMA (08:11)
[2021-01-24] MEDS: Hydrocortisone 1 % Cream 28.35 GM TUBE 1 APPL TOPICAL ×2 (08:59→20:03)
[2021-01-24] MEDS: Mineral Oil/Petrolatum,White 106 GM Tube 1 APPL TOPICAL ×2 (11:23→20:03)
[2021-01-24] MEDS: diazePAM 5 MG TABLET PO ×3 (11:23→21:50)
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
[2021-01-24 14:15] VITALS: BP 145/71; PULSE 85
[2021-01-24 17:24] VITALS: BP 140/70; PULSE 85
[2021-01-24] MEDS: Propranolol HCL 40 MG TABLET PO (17:24)
[2021-01-24] MEDS: chlorproMAZINE HCl 100 MG TABLET PO ×2 (17:24→21:50)
[2021-01-24 20:04] VITALS: BP 140/63; PULSE 69
[2021-01-24] MEDS: chlorproMAZINE HCl 100 MG TABLET 200 MG PO (20:04)
[2021-01-24 20:14] VITALS: BP 140/63; PULSE 69; RESP 16; TEMP 36.7; O2SAT 98
[2021-01-24] MEDS: hydrOXYzine HCL 50 MG TABLET PO (21:50)
--- NOTE | 2021-01-24 21:55 | PC.NURSE ---
Patient reported he received a call from his mom. Mom told him his dog . Patient given Diazepam at this time.
[2021-01-25 06:00] VITALS: BP 134/63; PULSE 71; RESP 18; TEMP 36.7; O2SAT 97
[2021-01-25] MEDS: diazePAM 5 MG TABLET PO ×3 (06:46→22:19)
[2021-01-25] MEDS: Nicotine Polacrilex 2 MG GUM 4 MG BUCCAL ×6 (06:47→22:21)
[2021-01-25] MEDS: OXcarbazepine 300 MG TABLET PO (06:47)
[2021-01-25] MEDS: Fluticasone Propionate Nasal 16 GM SPRAY 1 SPRAY NOSTRIL-B ×2 (07:54→20:08)
[2021-01-25] MEDS: Albuterol Sulfate 90 MCG 8 GM INHALER 2 PUFF INHALE ×3 (07:54→19:19)
[2021-01-25] MEDS: Mineral Oil/Petrolatum,White 106 GM Tube 1 APPL TOPICAL ×2 (07:54→20:08)
[2021-01-25] MEDS: Hydrocortisone 1 % Cream 28.35 GM TUBE 1 APPL TOPICAL ×2 (07:55→20:08)
[2021-01-25] MEDS: Fluticasone Propionate 100 MCG BLST.W.DEV 1 PUFF INHALE ×2 (07:56→19:19)
[2021-01-25] MEDS: Lidocaine 4 % Patch ADH..PATCH 1 PATCH TRANSDERMA (07:56)
[2021-01-25] MEDS: OXcarbazepine 300 MG TABLET 900 MG PO (07:57)
[2021-01-25 07:58] VITALS: BP 134/63; PULSE 71
[2021-01-25] MEDS: cloNIDine HCL 0.1 MG TABLET PO ×2 (07:58→14:47)
[2021-01-25] MEDS: Multivitamin TABLET 1 TAB PO (07:58)
[2021-01-25] MEDS: Gabapentin 400 MG CAPSULE 800 MG PO ×3 (07:58→20:05)
[2021-01-25] MEDS: Baclofen 10 MG TABLET PO ×3 (07:58→20:05)
[2021-01-25] MEDS: Cholecalciferol (Vitamin D3) 10 MCG TABLET PO (07:59)
[2021-01-25] MEDS: chlorproMAZINE HCl 100 MG TABLET PO ×3 (10:50→22:59)
[2021-01-25] MEDS: hydrOXYzine HCL 50 MG TABLET PO (13:15)
[2021-01-25 14:41] VITALS: BP 145/67; PULSE 84; RESP 16; TEMP 36.7; O2SAT 97
[2021-01-25 14:47] VITALS: BP 145/67; PULSE 84
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
--- NOTE | 2021-01-25 14:55 | MHC.CLN ---
F/U DIET=REGULAR, GLUTEN FREE, LACTOSE FREE. DISCUSSED NEW DIET RESTRICTIONS WITH PATIENT. PATIENT EXPRESSED CONCERNS WITH BOWEL MOVEMENTS AND THAT IS THE REASON FOR DIET CHANGES. EXPLAINED THAT WITH GLUTEN FREE FOODS, UNABLE TO HAVE ITEMS SUCH BREADED FOODS AND WOULD GET GLUTEN FREE PRODUCTS SUCH BREAD, MUFFINS, COOKIES. PATIENT SEEMED AWARE OF DIET RESTRICTIONS AND WOULD LIKE TO CONTINUE WITH RESTRICTIONS.
[2021-01-25 20:01] VITALS: BP 153/71; PULSE 96; RESP 18; TEMP 36.6; O2SAT 97
[2021-01-25] MEDS: OXcarbazepine 300 MG TABLET 1200 MG PO (20:05)
[2021-01-25] MEDS: chlorproMAZINE HCl 100 MG TABLET 200 MG PO (20:05)
[2021-01-25] MEDS: cloNIDine HCL 0.1 MG TABLET 0.15 MG PO (20:06)
[2021-01-25] MEDS: Gabapentin 400 MG CAPSULE PO (22:59)
[2021-01-26 06:00] VITALS: BP 158/86; PULSE 89; RESP 20; TEMP 36.4; O2SAT 98
[2021-01-26] MEDS: Cholecalciferol (Vitamin D3) 10 MCG TABLET PO (08:06)
[2021-01-26] MEDS: Gabapentin 400 MG CAPSULE 800 MG PO ×3 (08:06→20:21)
[2021-01-26] MEDS: OXcarbazepine 300 MG TABLET 1200 MG PO ×2 (08:06→20:19)
[2021-01-26 08:07] VITALS: BP 158/86; PULSE 89
[2021-01-26] MEDS: cloNIDine HCL 0.1 MG TABLET 0.15 MG PO (08:07)
[2021-01-26] MEDS: Multivitamin TABLET 1 TAB PO (08:08)
[2021-01-26] MEDS: diazePAM 5 MG TABLET PO ×2 (08:08→14:04)
[2021-01-26] MEDS: Baclofen 10 MG TABLET PO ×3 (08:09→20:20)
[2021-01-26] MEDS: Lidocaine 4 % Patch ADH..PATCH 1 PATCH TRANSDERMA (08:09)
[2021-01-26] MEDS: Fluticasone Propionate Nasal 16 GM SPRAY 1 SPRAY NOSTRIL-B ×2 (08:12→20:24)
[2021-01-26] MEDS: Albuterol Sulfate 90 MCG 8 GM INHALER 2 PUFF INHALE ×2 (08:12→12:15)
[2021-01-26] MEDS: Fluticasone Propionate 100 MCG BLST.W.DEV 1 PUFF INHALE ×2 (08:12→20:26)
[2021-01-26] MEDS: Mineral Oil/Petrolatum,White 106 GM Tube 1 APPL TOPICAL ×2 (08:15→20:23)
[2021-01-26] MEDS: Hydrocortisone 1 % Cream 28.35 GM TUBE 1 APPL TOPICAL ×2 (08:15→20:25)
[2021-01-26 08:49] VITALS: BMI 38.5
[2021-01-26] MEDS: chlorproMAZINE HCl 100 MG TABLET PO ×3 (09:37→21:44)
[2021-01-26] MEDS: Gabapentin 400 MG CAPSULE PO ×2 (09:37→16:23)
[2021-01-26] MEDS: OXcarbazepine 300 MG TABLET PO (12:18)
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
[2021-01-26 12:25] VITALS: BP 166/81; PULSE 115
[2021-01-26] MEDS: Propranolol HCL 40 MG TABLET PO (12:25)
[2021-01-26] MEDS: hydrOXYzine HCL 50 MG TABLET PO (12:25)
[2021-01-26] MEDS: Nicotine Polacrilex 2 MG GUM 4 MG BUCCAL ×3 (14:00→21:43)
[2021-01-26 14:04] VITALS: BP 138/70; PULSE 84
[2021-01-26] MEDS: cloNIDine HCL 0.2 MG TABLET PO ×2 (14:04→20:20)
--- NOTE | 2021-01-26 17:24 | PC.NURSE ---
Patient signed 3 day note today.
[2021-01-26 20:20] VITALS: BP 137/65; PULSE 76
[2021-01-26] MEDS: chlorproMAZINE HCl 100 MG TABLET 200 MG PO (20:20)
[2021-01-26 20:27] VITALS: BP 137/65; PULSE 76; TEMP 36.3; O2SAT 96
[2021-01-26] MEDS: Acetaminophen 325 MG TABLET 650 MG PO (21:53)
[2021-01-27] MEDS: Nicotine Polacrilex 2 MG GUM 4 MG BUCCAL ×4 (07:58→22:47)
[2021-01-27] MEDS: Lidocaine 4 % Patch ADH..PATCH 1 PATCH TRANSDERMA (07:59)
[2021-01-27 08:00] VITALS: BP 143/72; PULSE 67
[2021-01-27] MEDS: Fluticasone Propionate Nasal 16 GM SPRAY 1 SPRAY NOSTRIL-B ×2 (08:00→21:27)
[2021-01-27] MEDS: diazePAM 5 MG TABLET PO ×2 (08:00→16:10)
[2021-01-27] MEDS: Cholecalciferol (Vitamin D3) 10 MCG TABLET PO (08:00)
[2021-01-27] MEDS: Gabapentin 400 MG CAPSULE 800 MG PO ×3 (08:00→21:21)
[2021-01-27] MEDS: OXcarbazepine 300 MG TABLET 1200 MG PO ×2 (08:00→21:22)
[2021-01-27] MEDS: Baclofen 10 MG TABLET PO ×3 (08:00→21:21)
[2021-01-27] MEDS: cloNIDine HCL 0.2 MG TABLET PO ×2 (08:00→14:37)
[2021-01-27] MEDS: Multivitamin TABLET 1 TAB PO (08:00)
[2021-01-27] MEDS: Fluticasone Propionate 100 MCG BLST.W.DEV 1 PUFF INHALE ×2 (08:14→21:22)
[2021-01-27 08:18] VITALS: BP 143/72; PULSE 67; TEMP 36.6; O2SAT 98
[2021-01-27] MEDS: hydrOXYzine HCL 50 MG TABLET PO ×2 (08:40→14:37)
[2021-01-27] MEDS: hydroCHLOROthiazide 12.5 MG TABLET PO (11:29)
[2021-01-27] MEDS: Throat Lozenge, Medicated LOZENGE 1 LOZENGE MUCOUS MEM ×6 (11:29→21:22)
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
[2021-01-27 14:37] VITALS: BP 142/65; PULSE 71
[2021-01-27] MEDS: chlorproMAZINE HCl 100 MG TABLET PO ×3 (14:37→22:47)
[2021-01-27] MEDS: Albuterol Sulfate 90 MCG 8 GM INHALER 2 PUFF INHALE ×2 (16:10→21:20)
[2021-01-27] MEDS: OXcarbazepine 300 MG TABLET PO (16:40)
[2021-01-27 21:21] VITALS: BP 140/65; PULSE 69
[2021-01-27] MEDS: Propranolol HCL 40 MG TABLET PO (21:21)
[2021-01-27] MEDS: chlorproMAZINE HCl 100 MG TABLET 200 MG PO (21:21)
[2021-01-27] MEDS: Acetaminophen 325 MG TABLET 650 MG PO (21:22)
[2021-01-27 21:25] VITALS: TEMP 36.7; O2SAT 96
[2021-01-27] MEDS: Mineral Oil/Petrolatum,White 106 GM Tube 1 APPL TOPICAL (21:27)
[2021-01-27] MEDS: Hydrocortisone 1 % Cream 28.35 GM TUBE 1 APPL TOPICAL (21:31)
[2021-01-28] MEDS: OXcarbazepine 300 MG TABLET PO (07:03)
[2021-01-28] MEDS: Nicotine Polacrilex 2 MG GUM 4 MG BUCCAL ×3 (07:03→15:44)
[2021-01-28] MEDS: diazePAM 5 MG TABLET PO ×2 (07:03→22:53)
[2021-01-28 08:00] VITALS: BP 134/78; PULSE 65; RESP 18; TEMP 36.7; O2SAT 100
[2021-01-28] MEDS: Fluticasone Propionate 100 MCG BLST.W.DEV 1 PUFF INHALE ×2 (08:04→22:45)
[2021-01-28] MEDS: Fluticasone Propionate Nasal 16 GM SPRAY 1 SPRAY NOSTRIL-B ×2 (08:06→22:45)
[2021-01-28] MEDS: Hydrocortisone 1 % Cream 28.35 GM TUBE 1 APPL TOPICAL ×2 (08:07→22:54)
[2021-01-28 08:08] VITALS: BP 134/78; PULSE 65
[2021-01-28] MEDS: Multivitamin TABLET 1 TAB PO (08:08)
[2021-01-28] MEDS: Baclofen 10 MG TABLET PO ×3 (08:08→22:53)
[2021-01-28] MEDS: cloNIDine HCL 0.2 MG TABLET PO ×2 (08:08→22:47)
[2021-01-28] MEDS: Cholecalciferol (Vitamin D3) 10 MCG TABLET PO (08:09)
[2021-01-28] MEDS: hydroCHLOROthiazide 12.5 MG TABLET PO (08:09)
[2021-01-28] MEDS: Gabapentin 400 MG CAPSULE 800 MG PO ×3 (08:09→22:46)
[2021-01-28] MEDS: Mineral Oil/Petrolatum,White 106 GM Tube 1 APPL TOPICAL (08:11)
[2021-01-28] MEDS: Lidocaine 4 % Patch ADH..PATCH 1 PATCH TRANSDERMA (08:12)
[2021-01-28] MEDS: OXcarbazepine 300 MG TABLET 1200 MG PO ×2 (10:03→22:46)
[2021-01-28] MEDS: Throat Lozenge, Medicated LOZENGE 1 LOZENGE MUCOUS MEM ×4 (10:07→17:34)
[2021-01-28] MEDS: Albuterol Sulfate 90 MCG 8 GM INHALER 2 PUFF INHALE (10:09)
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
[2021-01-28 15:09] VITALS: BP 134/64; PULSE 68
[2021-01-28] MEDS: Propranolol HCL 40 MG TABLET PO (15:09)
[2021-01-28] MEDS: Acetaminophen 325 MG TABLET 650 MG PO (15:44)
[2021-01-28] MEDS: hydrOXYzine HCL 50 MG TABLET PO (17:33)
[2021-01-28] MEDS: chlorproMAZINE HCl 100 MG TABLET PO (17:34)
[2021-01-28 22:43] VITALS: BP 137/60; PULSE 66; RESP 18; TEMP 36.5; O2SAT 95
[2021-01-28] MEDS: chlorproMAZINE HCl 100 MG TABLET 200 MG PO (22:46)
[2021-01-29] MEDS: diazePAM 5 MG TABLET PO ×3 (08:13→20:42)
[2021-01-29] MEDS: OXcarbazepine 300 MG TABLET 1200 MG PO ×2 (08:13→20:33)
[2021-01-29 08:14] VITALS: BP 136/60; PULSE 65
[2021-01-29] MEDS: Gabapentin 400 MG CAPSULE 800 MG PO ×3 (08:14→20:33)
[2021-01-29] MEDS: cloNIDine HCL 0.2 MG TABLET PO ×3 (08:14→20:33)
[2021-01-29] MEDS: hydroCHLOROthiazide 12.5 MG TABLET PO (08:14)
[2021-01-29] MEDS: Multivitamin TABLET 1 TAB PO (08:14)
[2021-01-29] MEDS: Cholecalciferol (Vitamin D3) 10 MCG TABLET PO (08:14)
[2021-01-29 08:15] VITALS: BP 136/60; PULSE 65; RESP 18; TEMP 36.8; O2SAT 96
[2021-01-29] MEDS: Nicotine Polacrilex 2 MG GUM 4 MG BUCCAL ×2 (08:15→15:27)
[2021-01-29] MEDS: Fluticasone Propionate 100 MCG BLST.W.DEV 1 PUFF INHALE ×2 (08:18→20:34)
[2021-01-29] MEDS: Fluticasone Propionate Nasal 16 GM SPRAY 1 SPRAY NOSTRIL-B ×2 (08:18→20:34)
[2021-01-29] MEDS: Mineral Oil/Petrolatum,White 106 GM Tube 1 APPL TOPICAL ×2 (08:19→20:34)
[2021-01-29] MEDS: Hydrocortisone 1 % Cream 28.35 GM TUBE 1 APPL TOPICAL ×2 (08:19→20:34)
[2021-01-29] MEDS: Lidocaine 4 % Patch ADH..PATCH 1 PATCH TRANSDERMA (08:20)
[2021-01-29] MEDS: Baclofen 10 MG TABLET PO (09:35)
[2021-01-29] MEDS: Throat Lozenge, Medicated LOZENGE 1 LOZENGE MUCOUS MEM ×4 (09:35→21:00)
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
[2021-01-29 15:26] VITALS: BP 148/66; PULSE 85
[2021-01-29] MEDS: chlorproMAZINE HCl 100 MG TABLET PO (17:17)
[2021-01-29 20:33] VITALS: BP 130/60; PULSE 64
[2021-01-29] MEDS: chlorproMAZINE HCl 100 MG TABLET 200 MG PO (20:33)
[2021-01-29 20:50] VITALS: BP 130/60; PULSE 64; RESP 18; TEMP 36.6; O2SAT 98
[2021-01-30] MEDS: Nicotine Polacrilex 2 MG GUM 4 MG BUCCAL ×5 (02:22→12:54)
[2021-01-30] MEDS: OXcarbazepine 300 MG TABLET PO (02:22)
[2021-01-30] MEDS: Throat Lozenge, Medicated LOZENGE 1 LOZENGE MUCOUS MEM (02:58)
[2021-01-30] MEDS: diazePAM 5 MG TABLET PO (06:07)
[2021-01-30] MEDS: Albuterol Sulfate 90 MCG 8 GM INHALER 2 PUFF INHALE ×2 (06:18→10:08)
[2021-01-30] MEDS: OXcarbazepine 300 MG TABLET 1200 MG PO (07:51)
[2021-01-30 07:52] VITALS: BP 147/67; PULSE 73
[2021-01-30] MEDS: Baclofen 10 MG TABLET PO (07:52)
[2021-01-30] MEDS: cloNIDine HCL 0.2 MG TABLET PO (07:52)
[2021-01-30] MEDS: Cholecalciferol (Vitamin D3) 10 MCG TABLET PO (07:52)
[2021-01-30] MEDS: Gabapentin 400 MG CAPSULE 800 MG PO (07:52)
[2021-01-30] MEDS: hydroCHLOROthiazide 12.5 MG TABLET PO (07:53)
[2021-01-30] MEDS: Lidocaine 4 % Patch ADH..PATCH 1 PATCH TRANSDERMA (07:53)
[2021-01-30] MEDS: Multivitamin TABLET 1 TAB PO (07:53)
[2021-01-30] MEDS: Hydrocortisone 1 % Cream 28.35 GM TUBE 1 APPL TOPICAL (07:57)
[2021-01-30] MEDS: Fluticasone Propionate 100 MCG BLST.W.DEV 1 PUFF INHALE (08:01)
[2021-01-30] MEDS: Fluticasone Propionate Nasal 16 GM SPRAY 1 SPRAY NOSTRIL-B (08:02)
[2021-01-30 08:43] LABS: MANUAL DIFF FLAG NO
[2021-01-30 08:47] LABS: Basophils Absolute Auto 0.1 X10*3/uL (0.0-0.2); Basophils Percent Auto 0.7 % (0-2); Eosinophils Absolute Auto 0.4 X10*3/uL (0.0-0.4); Eosinophils Percent Auto 4.8 % (0-4); Hematocrit 45.2 % (42.0-52.0); Hemoglobin 14.7 g/dl (14.0-18.0); Imm Gran Abs Auto 0.04 X10*3/uL (0.00-0.03); Imm Gran Pct Auto 0.5 % (0.0-0.4); Lymphocytes Absolute Auto 1.7 X10*3/uL (1.2-4.9); Lymphocytes Percent Auto 21.1 % (20-40); Mean Corpuscular HGB Conc 32.5 g/dl (31.0-36.0); Mean Corpuscular Hemoglobin 25.9 pg (27.0-33.0); Mean Corpuscular Volume 79.6 fL (80.0-98.0); Monocytes Absolute Auto 0.9 X10*3/uL (0.1-1.2); Monocytes Percent Auto 11.5 % (2-11); Neutrophils Percent Auto 61.4 % (45-73); Platelet Count 184 X10*3/uL (160-400); Red Blood Count 5.68 X10*6/uL (4.60-5.80); Red Cell Distribution Width 13.9 % (11.0-16.0); White Blood Count 8.1 X10*3/uL (4.8-10.8)
[2021-01-30 09:23] LABS: Alanine Aminotransferase 48 U/L (0-40); Albumin Level 4.6 g/dL (3.5-5.0); Alkaline Phosphatase 81 U/L (39-117); Anion Gap 15 (12-20); Aspartate Amino Transferase 27 U/L (5-37); Bilirubin Direct < 0.2 mg/dL (0.0-0.5); Bilirubin Total < 0.2 mg/dL (0.0-1.0); Blood Urea Nitrogen 18 mg/dL (9-16); Carbon Dioxide 25 mmol/L (22-29); Chloride 98 mmol/L (96-108); Creatinine Clr Calc Pharmacy 163.2; Estimated Glomerular Filt Rate > 60; Glucose Random 84 mg/dL (60-115); Potassium 4.5 mmol/L (3.3-5.1); Sodium 133 mmol/L (135-145); Total Protein 7.9 g/dL (6.5-8.0)
[2021-01-30 09:41] VITALS: BP 147/67; PULSE 73; RESP 16; TEMP 36.8
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
[2021-02-04 19:02] LABS: Oxcarbazepine 34.3 mcg/mL (8.0-35.0)
== END 2021-01-30 13:01 | disposition home or self-care (01) | DRG 885 ==
LOC: HO.ED 18:08 → HO.PM5 01-02 16:18 → HO.PADLT16 01-13 11:31
PROVIDERS: Clinical Nurse Specialist Psychiatric/Mental Health, Adult; Physician Assistant; Admitting Provider Psychiatry & Neurology Psychiatry; Emergency Provider Emergency Medicine; PCP Internal Medicine; Visit Provider Psychiatry & Neurology Psychiatry
DX: F25.0 Schizoaffective disorder, bipolar type (principal); F17.210 Nicotine dependence, cigarettes, uncomplicated; Z71.6 Tobacco abuse counseling; Z20.822 Contact with and (suspected) exposure to COVID-19; Z88.0 Allergy status to penicillin; Z79.51 Long term (current) use of inhaled steroids; Z79.899 Other long term (current) drug therapy
CPT/HCPCS: 36415; 70140; 70450; 71045; 72040; 73060; 73090; 74018; 80048; 80053; 80061; 80076; 80307; 80339; 81003; 82077; 82306; 82550; 82607; 82746; 82947; 83036; 84146; 84443; 85025; 87177; 87209; 87635; 93005; 95816; 99284; 99285

== ENCOUNTER 2021-02-09 14:16 | Outpatient (REF) | payer MEDICARE, SELFPAY ==
[2021-02-09 15:08] LABS: Bilirubin Total 0.5 mg/dL (0.0-1.0)
== END 2021-02-09 14:17 | disposition home or self-care (01) ==
LOC: HO.LAB 14:16
PROVIDERS: PCP Internal Medicine; Visit Provider Psychiatry & Neurology Psychiatry
DX: Z79.899 Other long term (current) drug therapy (principal)
CPT/HCPCS: 82247

== ENCOUNTER 2021-02-28 11:14 | Outpatient (REF) | payer MEDICARE, SELFPAY ==
[2021-02-28 12:18] LABS: Anion Gap 12 (12-20); Blood Urea Nitrogen 18 mg/dL (9-16); Calcium 9.7 mg/dL (8.4-10.2); Carbon Dioxide 23 mmol/L (22-29); Chloride 109 mmol/L (96-108); Estimated Glomerular Filt Rate > 60; Glucose Random 87 mg/dL (60-115); Potassium 4.1 mmol/L (3.3-5.1); Sodium 140 mmol/L (135-145)
== END 2021-02-28 11:15 | disposition home or self-care (01) ==
LOC: HO.LAB 11:14
PROVIDERS: PCP Internal Medicine; Visit Provider Psychiatry & Neurology Psychiatry
DX: Z79.899 Other long term (current) drug therapy (principal)
CPT/HCPCS: 36415; 80048

== ENCOUNTER 2021-04-06 09:05 | Outpatient (REF) | payer MEDICARE, SELFPAY ==
[2021-04-06 11:26] LABS: Amphetamine Screen Urine Not Detected (Not Detect); Barbiturates, Urine Not Detected (Not Detect); Benzodiazepines Screen Urine POSITIVE (Not Detect); Cannabinoid Screen Urine Not Detected (Not Detect); Cocaine Screen Urine Not Detected (Not Detect); Fentanyl, urine Not Detected (Not Detect); Opiate Screen Urine Not Detected (Not Detect); Phencyclidine Screen Urine Not Detected (Not Detect)
[2021-04-12 08:20] LABS: Codeine, Ur NEGATIVE; Hydrocodone, Ur NEGATIVE; Hydromorphone, Ur NEGATIVE; Morphine, Ur NEGATIVE; Norhydrocodone, Ur NEGATIVE; Noroxycodone, Ur NEGATIVE; Oxycodone, Ur NEGATIVE; Oxymorphone, Ur NEGATIVE
== END 2021-04-06 09:06 | disposition home or self-care (01) ==
LOC: HO.LAB 09:05
PROVIDERS: Visit Provider Psychiatry & Neurology Psychiatry
DX: F19.10 Other psychoactive substance abuse, uncomplicated (principal); Z79.899 Other long term (current) drug therapy
CPT/HCPCS: 80307; 80364; 80365

== ENCOUNTER 2021-06-10 18:19 | Emergency (ER) | payer OTHER, SELFPAY ==
--- NOTE | ~2021-06-10 | XR_ITS ---
EXAMINATION: XR chest 1V XR KUB CLINICAL INFORMATION: Coughing up sputum. Abdominal pain. COMPARISON: None. TECHNIQUE: PA view of the chest. 2 views of the abdomen. FINDINGS: Normal symmetric lung volumes. No parenchymal consolidation. No pleural effusion. No pneumothorax. Cardiomediastinal silhouette and pulmonary vascularity are within normal limits. Nonobstructive bowel gas pattern. No unusual soft tissue calcifications. No acute osseous abnormalities. XR/XR chest 1V IMPRESSION: Lungs are clear. No evidence of bowel obstruction.
--- NOTE | ~2021-06-10 | XR_ITS ---
EXAMINATION: XR chest 1V XR KUB CLINICAL INFORMATION: Coughing up sputum. Abdominal pain. COMPARISON: None. TECHNIQUE: PA view of the chest. 2 views of the abdomen. FINDINGS: Normal symmetric lung volumes. No parenchymal consolidation. No pleural effusion. No pneumothorax. Cardiomediastinal silhouette and pulmonary vascularity are within normal limits. Nonobstructive bowel gas pattern. No unusual soft tissue calcifications. No acute osseous abnormalities. XR/XR KUB IMPRESSION: Lungs are clear. No evidence of bowel obstruction.
[2021-06-10 18:27] VITALS: BP 149/78; PULSE 94; RESP 18; TEMP 37.1; O2SAT 95; BMI 39.9
[2021-06-10 18:36] VITALS: BP 178/90; PULSE 104; O2SAT 98
[2021-06-10 18:38] VITALS: BP 149/78; PULSE 94; RESP 18; TEMP 37.1; O2SAT 95
[2021-06-10 18:47] LABS: COVID-19 Test Negative (Negative); IDNOW Serial# 16C4AD1C
[2021-06-10 18:48] LABS: Influenza A Negative (Negative); Influenza B2 Negative (Negative)
--- NOTE | 2021-06-10 19:10 | ED_ITS ---
HPI - URI/Sore Throat General Chief Complaint: Upper Respiratory Symptoms Stated Complaint: PRODUCTIVE COUGH W/SPUTUM PER EMS Time Seen by Provider: 06/10/21 19:10 Source: patient Mode of arrival: ambulatory Limitations: no limitations History of Present Illness HPI Narrative: Patient is a 26 year old male presenting to the emergency department today with a cough. Patient states that he had 1 coughing episode and was concerned so he came in to get examined. Patient denies any dizziness, lightheadedness, abdominal pain, nausea, vomiting, fever, chills, blurry vision, double vision, loss of vision, chest pain, difficulty breathing, shortness of breath, back pain, night sweats, pain with urination, increased urinary frequency, increased urinary urgency, blood in his urine or stool, syncope or a near syncopal episode, recent trauma or falls, bowel incontinence, bladder incontinence, bowel retention, bladder retention, or any other complaints at this time. MD elicited complaint: cough Able to tolerate fluids by mouth: Yes Exacerbating factors: nothing Relieving factors: nothing Treatments prior to arrival: none Related Data Home Medications Medication Instructions Recorded Confirmed baclofen 10 mg tablet 10 mg PO TID PRN 01/02/21 01/02/21 Previous Rx's Medication Instructions Recorded B-complex with vitamin C 1 tab PO DAILY #30 tab 07/14/20 acetaminophen 325 mg tablet 650 mg PO Q6H PRN #30 tab 07/14/20 albuterol sulfate 90 mcg/actuation 2 puff INHALATION Q4H PRN #1 g 07/14/20 aerosol inhaler (Ventolin HFA) nicotine (polacrilex) 2 mg gum 4 mg BUCCAL Q2H PRN #30 ea 07/14/20 chlorpromazine 100 mg tablet 100 mg PO DAILY PRN 30 Days #30 tab 01/27/21 chlorpromazine 100 mg tablet 100 mg PO DAILY@1700 30 Days #30 01/27/21 tab chlorpromazine 100 mg tablet 200 mg PO BEDTIME 30 Days #60 tab 01/27/21 cholecalciferol (vitamin D3) 10 10 mcg PO DAILY 30 Days #30 tab 01/27/21 mcg (400 unit) tablet (Vitamin D3) clonidine HCl 0.2 mg tablet 0.2 mg PO TID 30 Days #90 tab 01/27/21 diazepam 5 mg tablet 5 mg PO DAILY PRN 30 Days #30 tab 01/27/21 fluticasone propionate 100 1 inh INHALATION RBID 30 Days #60 01/27/21 mcg/actuation blister powder for ea inhalation (Flovent Diskus) fluticasone propionate 50 1 spray INTRANASAL BID 30 Days #1 g 01/27/21 mcg/actuation nasal spray,suspension gabapentin 400 mg capsule 800 mg PO TID 30 Days #180 cap 01/27/21 hydrochlorothiazide 12.5 mg tablet 12.5 mg PO DAILY 30 Days #30 tab 01/27/21 hydrocortisone 1 % topical cream 1 appl TOPICAL BID 7 Days #5 g 01/27/21 hydroxyzine HCl 50 mg tablet 50 mg PO DAILY PRN 30 Days #30 tab 01/27/21 lidocaine 4 % topical patch 1 patch TRANSDERMAL DAILY 30 Days 01/27/21 (Lidocaine Pain Relief) #30 ea oxcarbazepine 300 mg tablet 1,200 mg PO BID 30 Days #240 tab 01/27/21 nicotine (polacrilex) 4 mg gum 4 mg BUCCAL Q2H 30 Days #110 ea 01/30/21 fluticasone propionate 100 1 inh INHALATION BID 30 Days #60 ea 02/24/21 mcg/actuation blister powder for inhalation (Flovent Diskus) fluticasone propionate 50 1 spray INTRANASAL BID 30 Days #16 02/24/21 mcg/actuation nasal g spray,suspension hydrochlorothiazide 12.5 mg tablet 12.5 mg PO DAILY 60 Days #60 tab 02/24/21 Allergies Allergy/AdvReac Type Severity Reaction Status Date / Time mold [MOLD] Allergy Unknown UNKNOWN Verified 12/30/19 16:01 paliperidone [From Invega] Allergy Unknown Verified 12/30/19 16:01 amoxicillin [AMOXICILLIN] AdvReac Severe ANAPHYLAXIS Verified 12/30/19 16:01 azithromycin [AZITHROMYCIN] AdvReac Severe ANAPHYLAXIS Verified 12/30/19 16:01 Review of Systems Constitutional: Constitutional: Reports no additional constitutional complaints, Denies chills, Denies fever(s) and Denies night sweats Eyes: Eyes: Reports no additional eye complaints, Denies blurry vision, Denies change in vision, Denies diplopia, Denies eye discharge, Denies loss of vision and Denies eye pain ENT: Denies dizziness Cardiovascular: Cardiovascular: Reports no additional cardiovascular complaints, Denies chest pain, Denies lightheadedness, Denies Loss of Consciousness and Denies dyspnea Respiratory: Respiratory: Reports no additional respiratory complaints, Reports cough and Denies dyspnea Gastrointestinal: Gastrointestinal: Reports no additional gastrointestinal complaints, Denies abdominal pain, Denies melena, Denies hematochezia, Denies change in bowel habits and Denies change in stool character Genitourinary: Genitourinary: Reports no additional male genitourinary complaints, Denies hematuria, Denies oliguria, Denies difficulty urinating, Denies dysuria, Denies urinary frequency, Denies urinary hesitancy, Denies urinary incontinence and Denies urinary urgency Musculoskeletal: Musculoskeletal: Reports no additional musculoskeletal complaints, Denies numbness and Denies tingling Neurologic: Denies dizziness, Denies loss of vision, Denies numbness and Denies tingling Psychiatric: Psychiatric: Reports no additional psychiatric complaints Endocrine: Endocrine: Reports no additional endocrine complaints Hematologic/Lymphatic: Hematologic/Lymphatic: Reports no additional hematologic/lymphatic complaints Allergic/Immunologic: Allergic/Immunologic: Reports no additional allergic/immunologic complaints [facility] Past Medical History Attestation statement: The following information was validated with the patient. Source: old records reviewed Medical History Anxiety HTN (hypertension) Schizophrenia Tinnitus Social History Social History Household Members: Other Household Members Other:: prison Housing: Other Housing Other:: prison Do you presently have visiting nurse or other home services: No Alcohol intake: unknown Patient Tobacco Use Status: Current everyday Tobacco user Tobacco use type: Cigarette Cigarette Packs Per Day: 0.5 Cigarettes Per Day: 7.0 Years Smoked: 8 e-Cigarette/Vaping Use: Currently Using Second Hand Smoke Exposure: Yes Substance Use Type: Marijuana Advance Directives: No Advance Directives Information Provided: No service: No Sexual orientation: Straight/Heterosexual Physical Exam Vital Signs: Vital Signs: Last Vital Signs Temp 98.8 F 06/10/21 18:38 Pulse 94 06/10/21 18:38 Resp 18 06/10/21 18:38 BP 149/78 H 06/10/21 18:38 Pulse Ox 95 06/10/21 18:38 BMI result Body Mass Index 39.9 Const: General: cooperative, no acute distress, alert and awake Nutritional Appearance: well nourished Orientation/consciousness: patient oriented x3 Limitations: no limitations HEENT: Head: Yes normal to inspection and Yes atraumatic Ears: hearing grossly normal bilaterally and external ears normal General nose exam: Normal external nose present, no nasal discharge noted and no epistaxis Face and sinus: Yes normal facial exam, No abrasion and No laceration Mouth: Normal oral and palatal mucosa present, no drooling and no muffled voice Eyes: General: appearance normal, both eyes and all related structures Periorbital: periorbital findings normal Eyelids: Yes eyelids normal Conjunctivae: conjunctivae normal Pupils: Equal, round and reactive pupils present EOM: EOMs intact bilaterally Neck: Neck: Yes normal visual inspection, Yes full ROM and Yes no lymphadenopathy Chest: Chest palpation & inspection: normal inspection of the chest Resp: Effort & Inspection: normal respiratory effort and able to speak in complete sentences Auscultation: clear to auscultation bilaterally Cardio: Rate: regular rate Rhythm: regular rhythm GI: Inspection: Yes normal to inspection Neuro: General: patient oriented x3 and moves all extremities Cranial nerves: Yes Equal, round and reactive pupils present Cognition (Neuro): normal cognition Motor exam (neuro): 5/5 motor strength present throughout Sensory Exam: Normal double simultaneous stimulation for sensation Coordination: [id number] test normal Extrem: General: Yes normal to inspection, Yes full ROM and Yes capillary refill normal Psych: Appearance: grossly normal Mental Status: mental status grossly normal Affect: normal affect Attitude: cooperative Thought process: Normal thought process present Thought content: Normal thought content present Insight: Good insight present (Psych) MDM - URI/Sore Throat MDM Narrative Medical decision making narrative: Patient is a 26 year old male presenting to the emergency department today with a cough. Patient's physical exam was unremarkable. Patient's rapid COVID-19 and influenza tests were negative. Patient's chest and abdominal x-ray showed no acute process. I explained my physical exam findings as well as all test results to the patient. I answered all questions asked by the patient. I stressed the importance of the patient taking his medication as prescribed. I stressed the importance of the patient following up with his primary care provider. I stressed the importance of the patient returning to the emergency department immediately if his symptoms were to worsen or if he were to develop any diz ziness, shortness of breath, difficulty breathing, chest pain, blurry vision, loss of vision, nausea, vomiting, abdominal pain, fever, chills, back pain, or any other complaints. Patient verbalized agreement and understanding with this treatment plan and discharge. Differential Diagnosis Differential diagnosis: Likely upper respiratory infection and viral infection Medical Records Attestation: I reviewed the patient's medical records. Lab Data Attestation: I reviewed the patient's lab results. Labs: Lab Results 06/10/21 06/10/21 Range/Units 18:28 18:28 COVID-19 (PATTI) Negative (Negative) COVID-19 Clin Com See Note Influenza Type A (PAWAN) Negative (Negative) Influenza Type B (PAWAN) Negative (Negative) Influenza A & B Note See Note Imaging Data Chest and KUB x-ray: Attestation: I personally reviewed and interpreted this imaging study as follows: My impression: No acute process. Radiologist's impression: EXAMINATION: XR chest 1V XR KUB CLINICAL INFORMATION: Coughing up sputum. Abdominal pain. COMPARISON: None. TECHNIQUE: PA view of the chest. 2 views of the abdomen. FINDINGS: Normal symmetric lung volumes. No parenchymal consolidation. No pleural effusion. No pneumothorax.? Cardiomediastinal silhouette and pulmonary vascularity are within normal limits. Nonobstructive bowel gas pattern. No unusual soft tissue calcifications. No acute osseous abnormalities.? XR/XR chest 1V IMPRESSION: Lungs are clear. No evidence of bowel obstruction.? Dictated By: Raphael Guillaume MD Signed By: Electronically signed by Raphael Guillaume MD 06/10/21 3079 Discharge Plan Discharge Clinical Impression: Cough Patient Disposition: Home, Self-Care Instructions: Acute Cough (ED) Additional Instructions: Follow up with your primary care provider. Return to the emergency department immediately if your symptoms worsen or if you develop any dizziness, shortness of breath, difficulty breathing, chest pain, blurry vision, loss of vision, nausea, vomiting, abdominal pain, fever, chills, back pain, or any other complaints. Prescriptions: No Action nicotine (polacrilex) 2 mg Gum 4 mg buccal Q2H PRN (Reason: Nicotine Cravings) Qty: 30 0RF albuterol sulfate [Ventolin HFA] 90 mcg/actuation Hfa Aerosol Inhaler 2 puff inhalation Q4H PRN (Reason: Wheezing) Qty: 1 0RF acetaminophen 325 mg Tablet 650 mg PO Q6H PRN (Reason: Headache/Pain Mild Scale (1-3)) Qty: 30 0RF B-complex with vitamin C Tablet 1 tab PO DAILY Qty: 30 0RF baclofen 10 mg tablet 10 mg PO TID PRN (Reason: Spasms) 0RF chlorpromazine 100 mg Tablet 200 mg PO BEDTIME 30 Days Qty: 60 0RF chlorpromazine 100 mg Tablet 100 mg PO DAILY PRN (Reason: agitation, paranoia) 30 Days Qty: 30 0RF chlorpromazine 100 mg Tablet 100 mg PO DAILY@1700 30 Days Qty: 30 0RF gabapentin 400 mg Capsule 800 mg PO TID 30 Days Qty: 180 0RF hydroxyzine HCl 50 mg Tablet 50 mg PO DAILY PRN (Reason: Anxiety) 30 Days Qty: 30 0RF oxcarbazepine 300 mg Tablet 1,200 mg PO BID 30 Days Qty: 240 0RF clonidine HCl 0.2 mg Tablet 0.2 mg PO TID 30 Days Qty: 90 0RF Protocol: Hold for SBP< HOLD for SBP < : 90 diazepam 5 mg Tablet 5 mg PO DAILY PRN (Reason: agitation/anxiety) 30 Days Qty: 30 0RF Flovent Diskus 100 mcg/actuation Blister With Device 1 inh inhalation RBID 30 Days Qty: 60 0RF fluticasone propionate 50 mcg/actuation [place],Suspension 1 spray intranasal BID 30 Days Qty: 1 0RF hydrochlorothiazide 12.5 mg Tablet 12.5 mg PO DAILY 30 Days Qty: 30 0RF Protocol: Hold for SBP< HOLD for SBP < : 90 lidocaine [Lidocaine Pain Relief] 4 % Adhesive Patch,Medicated 1 patch transdermal DAILY 30 Days Qty: 30 0RF Protocol: Apply to: Apply to: forearms hydrocortisone 1 % Cream 1 appl topical BID 7 Days Qty: 5 0RF Protocol: Apply to: Apply to: face cholecalciferol (vitamin D3) [Vitamin D3] 10 mcg (400 unit) Tablet 10 mcg PO DAILY 30 Days Qty: 30 0RF nicotine (polacrilex) 4 mg gum 4 mg buccal Q2H 30 Days Qty: 110 0RF hydrochlorothiazide 12.5 mg tablet 12.5 mg PO DAILY 60 Days Qty: 60 0RF fluticasone propionate 50 mcg/actuation spray,suspension 1 spray intranasal BID 30 Days Qty: 16 1RF Rx Instructions: administer into each nostril Flovent Diskus 100 mcg/actuation blister with device 1 inh inhalation BID 30 Days Qty: 60 1RF Referrals: Tong Davison MD [Primary Care Provider] - (Follow up with your PCP. ) Interventions: ED Discharge Assessment Last Done: 06/10/21 19:28 Print Language: Indonesian
== END 2021-06-10 19:30 | disposition home or self-care (01) ==
PROVIDERS: Emergency Provider Emergency Medicine Emergency Medical Services; PCP Internal Medicine
DX: R05.9 Cough, unspecified (principal); R10.9 Unspecified abdominal pain; F17.210 Nicotine dependence, cigarettes, uncomplicated; Z71.6 Tobacco abuse counseling; Z20.822 Contact with and (suspected) exposure to COVID-19
CPT/HCPCS: 71045; 74018; 87502; 87635; 99283; 99284

== ENCOUNTER 2021-11-14 11:47 | Emergency (ER) | payer OTHER, SELFPAY ==
[2021-11-14 12:04] VITALS: BP 153/93; PULSE 68; RESP 18; TEMP 36.9; O2SAT 98; BMI 35.2
== END 2021-11-14 18:33 | disposition left against medical advice (07) ==
LOC: HO.ED 18:27
PROVIDERS: Emergency Provider Emergency Medicine
DX: M54.50 Low back pain, unspecified (principal)
CPT/HCPCS: 99281

== ENCOUNTER 2021-12-05 00:17 | Emergency (ER) | payer OTHER, SELFPAY ==
[2021-12-05 00:24] VITALS: BP 153/92; PULSE 92; RESP 16; TEMP 37.6; O2SAT 96; BMI 31.1
--- NOTE | 2021-12-05 00:37 | ED_ITS ---
HPI - Psych General Chief Complaint: Psychiatric Symptoms Stated Complaint: HEARING VOICES HX SCHIZOPHRENIA Time Seen by Provider: 12/05/21 00:18 Source: patient and EMS Mode of arrival: EMS Limitations: no limitations History of Present Illness HPI Narrative: Patient comes to the emergency room complaining of auditory hallucinations. Patient states that he does not believe that his Thorazine nighttime dose is e nough for him. Patient denies suicidal or homicidal ideation. Related Data Home Medications Medication Instructions Recorded Confirmed baclofen 10 mg tablet 10 mg PO TID PRN Spasms 01/02/21 01/02/21 Previous Rx's Medication Instructions Recorded B-complex with vitamin C 1 tab PO DAILY #30 tabs 07/14/20 acetaminophen 325 mg tablet 650 mg PO Q6H PRN Headache/Pain 07/14/20 Mild Scale (1-3) #30 tabs albuterol sulfate 90 mcg/actuation 2 puff inhalation Q4H PRN Wheezing 07/14/20 aerosol inhaler (Ventolin HFA) #1 g nicotine (polacrilex) 2 mg gum 4 mg buccal Q2H PRN Nicotine 07/14/20 Cravings #30 ea chlorpromazine 100 mg tablet 100 mg PO DAILY PRN agitation, 01/27/21 paranoia 30 days #30 tabs chlorpromazine 100 mg tablet 100 mg PO DAILY@1700 30 days #30 01/27/21 tabs chlorpromazine 100 mg tablet 200 mg PO BEDTIME 30 days #60 tabs 01/27/21 cholecalciferol (vitamin D3) 10 10 mcg PO DAILY 30 days #30 tabs 01/27/21 mcg (400 unit) tablet (Vitamin D3) clonidine HCl 0.2 mg tablet 0.2 mg PO TID 30 days #90 tabs 01/27/21 diazepam 5 mg tablet 5 mg PO DAILY PRN 01/27/21 agitation/anxiety 30 days #30 tabs fluticasone propionate 100 1 inh inhalation RBID 30 days #60 01/27/21 mcg/actuation blister powder for ea inhalation (Flovent Diskus) fluticasone propionate 50 1 spray intranasal BID 30 days #1 g 01/27/21 mcg/actuation nasal spray,suspension gabapentin 400 mg capsule 800 mg PO TID 30 days #180 caps 01/27/21 hydrochlorothiazide 12.5 mg tablet 12.5 mg PO DAILY 30 days #30 tabs 01/27/21 hydrocortisone 1 % topical cream 1 appl topical BID 7 days #5 grams 01/27/21 hydroxyzine HCl 50 mg tablet 50 mg PO DAILY PRN Anxiety 30 days 01/27/21 #30 tabs lidocaine 4 % topical patch 1 patch transdermal DAILY 30 days 01/27/21 (Lidocaine Pain Relief) #30 ea oxcarbazepine 300 mg tablet 1,200 mg PO BID 30 days #240 tabs 01/27/21 nicotine (polacrilex) 4 mg gum 4 mg buccal Q2H 30 days #110 ea 01/30/21 fluticasone propionate 100 1 inh inhalation BID 30 days #60 ea 02/24/21 mcg/actuation blister powder for inhalation (Flovent Diskus) fluticasone propionate 50 1 spray intranasal BID 30 days #16 02/24/21 mcg/actuation nasal grams spray,suspension hydrochlorothiazide 12.5 mg tablet 12.5 mg PO DAILY 60 days #60 tabs 02/24/21 Allergies Allergy/AdvReac Type Severity Reaction Status Date / Time mold [MOLD] Allergy Unknown UNKNOWN Verified 12/30/19 16:01 paliperidone [From Invega] Allergy Unknown Verified 12/30/19 16:01 amoxicillin [AMOXICILLIN] AdvReac Severe ANAPHYLAXIS Verified 12/30/19 16:01 azithromycin [AZITHROMYCIN] AdvReac Severe ANAPHYLAXIS Verified 12/30/19 16:01 Review of Systems Review of Systems: Constitutional : No Weight loss, No Fever, No Chills, No Night Sweats, No Fatigue, No Malaise ENT/Mouth : No Hearing loss, No Ear Pain, No Nasal Congestion, No Sinus Pain, No Hoarseness, No sore throat, No Rhinorrhea, No Swallowing Difficulty Eyes: No Eye Pain, No Swelling, No Redness, No Foreign Body, No Discharge, No Vision Changes Cardiovascular : No Chest Pain, No SOB, No Dyspnea on Exertion, No Orthopnea, No Edema, No Palpitations Respiratory : No Cough, No Sputum, No Wheezing, No Smoke Exposure, No Dyspnea Gastrointestinal : No Nausea, No Vomiting, No Diarrhea, No Constipation, No abdominal Pain, No Hematochezia, No Melena Genitourinary : no irregular bleeding, No Dysuria, No Urinary Frequency, No Hematuria, No Urinary Incontinence, No Urgency, No Flank Pain, No Urinary Flow Changes, No Hesitancy Musculoskeletal : No joint pain, No Myalgias, No Joint Swelling Skin : No Skin Lesions, No rash Neuro : No Weakness, No Numbness, No Paresthesias, No Loss of Consciousness, No Dizziness, No Headache Psych : Complaining of auditory hallucinations, no SI or HI Heme/Lymph: No Bruising, No Bleeding,No Lymphadenopathy Endocrine : No Polyuria, No Polydipsia, No Temperature Intolerance [facility] Past Medical History Medical History (Updated 12/05/21 @ 00:39 by Inge Drew MD) Anxiety Anxiety HTN (hypertension) Schizoaffective disorder, bipolar type Schizophrenia Tinnitus Social History Social History Household Members: Other Household Members Other:: retirement Housing: Other Housing Other:: retirement Do you presently have visiting nurse or other home services: No Alcohol intake: unknown Patient Tobacco Use Status: Current everyday Tobacco user Tobacco use type: Cigarette Cigarette Packs Per Day: 0.5 Cigarettes Per Day: 7.0 Years Smoked: 8 e-Cigarette/Vaping Use: Currently Using Second Hand Smoke Exposure: Yes Substance Use Type: Marijuana service: No Sexual orientation: Straight/Heterosexual Physical Exam Vital Signs: Vital Signs: Last Vital Signs Temp 99.7 F 12/05/21 00:24 Pulse 92 12/05/21 00:24 Resp 16 12/05/21 00:24 BP 153/92 H 12/05/21 00:24 Pulse Ox 96 12/05/21 00:24 O2 Del Method 12/05/21 00:24 BMI result Body Mass Index 31.1 Const: Other: Appearance: Alert. Oriented X3. No acute distress. Eyes: bilateral myadriasis, Pupils equal, round and reactive to light. ENT: Pharynx normal. Neck: Normal inspection. Neck supple. No lymph nodes noted. No crepitus CVS: Normal heart rate and rhythm. Pulses normal. Normal S1 and S2 Respiratory: No respiratory distress. Breath sounds normal. No Wheezing. No rales Abdomen: Soft and nontender. No rigidity. No distention. Skin: Skin warm and dry. Normal skin color. Normal skin turgor. Extremities: No lower extremity edema. No Lacerations. No Rash Neuro: Oriented X 3. No motor deficit. No sensory deficit. Moving all extremities. No slurred speech. CN 2 through 12 grossly intact Psych: calm, cooperative, normal affect, seems coherent Course Course Course Narrative: Patient is to be seen by [facility]. Physician observation started at 00:40 Discharge Plan Discharge Clinical Impression: Schizoaffective disorder, bipolar type, Auditory hallucination Patient Disposition: Still a Patient Prescriptions: No Action nicotine (polacrilex) 2 mg Gum 4 mg buccal Q2H PRN (Reason: Nicotine Cravings) Qty: 30 0RF albuterol sulfate [Ventolin HFA] 90 mcg/actuation Hfa Aerosol Inhaler 2 puff inhalation Q4H PRN (Reason: Wheezing) Qty: 1 0RF acetaminophen 325 mg Tablet 650 mg PO Q6H PRN (Reason: Headache/Pain Mild Scale (1-3)) Qty: 30 0RF B-complex with vitamin C Tablet 1 tab PO DAILY Qty: 30 0RF baclofen 10 mg tablet 10 mg PO TID PRN (Reason: Spasms) chlorpromazine 100 mg Tablet 200 mg PO BEDTIME 30 Days Qty: 60 0RF chlorpromazine 100 mg Tablet 100 mg PO DAILY PRN (Reason: agitation, paranoia) 30 Days Qty: 30 0RF chlorpromazine 100 mg Tablet 100 mg PO DAILY@1700 30 Days Qty: 30 0RF gabapentin 400 mg Capsule 800 mg PO TID 30 Days Qty: 180 0RF hydroxyzine HCl 50 mg Tablet 50 mg PO DAILY PRN (Reason: Anxiety) 30 Days Qty: 30 0RF oxcarbazepine 300 mg Tablet 1,200 mg PO BID 30 Days Qty: 240 0RF clonidine HCl 0.2 mg Tablet 0.2 mg PO TID 30 Days Qty: 90 0RF Protocol: Hold for SBP< HOLD for SBP < : 90 diazepam 5 mg Tablet 5 mg PO DAILY PRN (Reason: agitation/anxiety) 30 Days Qty: 30 0RF Flovent Diskus 100 mcg/actuation Blister With Device 1 inh inhalation RBID 30 Days Qty: 60 0RF fluticasone propionate 50 mcg/actuation [place],Suspension 1 spray intranasal BID 30 Days Qty: 1 0RF hydrochlorothiazide 12.5 mg Tablet 12.5 mg PO DAILY 30 Days Qty: 30 0RF Protocol: Hold for SBP< HOLD for SBP < : 90 lidocaine [Lidocaine Pain Relief] 4 % Adhesive Patch,Medicated 1 patch transdermal DAILY 30 Days Qty: 30 0RF Protocol: Apply to: Apply to: forearms hydrocortisone 1 % Cream 1 appl topical BID 7 Days Qty: 5 0RF Protocol: Apply to: Apply to: face cholecalciferol (vitamin D3) [Vitamin D3] 10 mcg (400 unit) Tablet 10 mcg PO DAILY 30 Days Qty: 30 0RF nicotine (polacrilex) 4 mg gum 4 mg buccal Q2H 30 Days Qty: 110 0RF hydrochlorothiazide 12.5 mg tablet 12.5 mg PO DAILY 60 Days Qty: 60 0RF fluticasone propionate 50 mcg/actuation spray,suspension 1 spray intranasal BID 30 Days Qty: 16 1RF Rx Instructions: administer into each nostril Flovent Diskus 100 mcg/actuation blister with device 1 inh inhalation BID 30 Days Qty: 60 1RF
--- OUTSIDE RECORDS SUMMARY | 2021-12-05 00:41 | XMS_ITS | Continuity of Care Document ---
:1995 Author Organization [facility] Address [address] [place] [address]- Care Team Providers Name Role Phone Chelly Mancera MD Primary Care Physician [id number] Date[facility]s): 10/19/20 - 10/26/20 [facility] [address] [place] [id number] Encounter Diagnosis Rash of genital area (Discharge Diagnosis) - 10/19/20 Attending Physician: Valerio Mac DO Referring Physician: Yue Meadows MD Allergies, Adverse Reactions, Alerts Substance Reaction Severity Status amoxicillin Active azithromycin Active penicillins Active Medications Gaviota See Instructions, By Mouth Daily, 0 Refills, Maintenance, 07/27/13 11:09:35 Start Date: 07/27/13 Status: Orderedbenztropine 0.5 mg oral tablet 1 tablet = 0.5 mg, By Mouth, Daily at bedtime, # 30 tablet, 1 Refills, Maintenance, 08/07/13 10:43:08, 1 tablet By Mouth Daily at bedtime,x30 days Start Date: 08/07/13 Stop Date: 10/06/13 Status: OrderedZyprexa 20 mg oral tablet 1 tablet = 20 mg, By Mouth, Daily at bedtime, # 30 tablet, 1 Refills, Maintenance, 08/07/13 10:43:57, 1 tablet By Mouth Daily at bedtime,x30 days Start Date: 08/07/13 Stop Date: 10/06/13 Status: Ordered Problem List Diagnosis Diagnosis Type Effective Dates Health Status Clinical In formant Service Rash of genital Discharge 10/19/20 area Diagnosis Vital Signs Most recent to oldest [Reference Range]: 1 Height 181.61 cm (10/19/20 10:15 AM) Oxygen Saturation [94-100 %] 98 % (10/19/20 10:15 AM) Pulse Rate [55-90 bpm] 77 bpm (10/19/20 10:15 AM) Blood Pressure [90-138/55-84 mm Hg] 151/90 mm Hg *H* (10/19/20 10:15 AM) Respiratory Rate [16-30 br/min] 18 br/min (10/19/20 10:15 AM) Temperature [96.8-100.4 DegF] 98.2 DegF (10/19/20 10:15 AM) Mode of Delivery (Oxygen) Room air (10/19/20 10:15 AM) Blood pressure sites Arm, right (10/19/20 10:15 AM) Temperature Route Temporal (10/19/20 10:15 AM)
--- OUTSIDE RECORDS SUMMARY | 2021-12-05 00:41 | XMS_ITS | Continuity of Care Document ---
:1995 Author Organization [facility] Address [address] [place] [address]- Care Team Providers Name Role Phone Chelly Mancera MD Primary Care Physician Encounter [facility] [id number] Date(s): 10/19/20 - 11/18/20 [facility] [address] [place], [place] [address] Attending Physician: Viki Omalley Admitting Physician: Admtr, Viki Referring Physician: Admtr, Ar8 Allergies, Adverse Reactions, Alerts Substance Reaction Severity [...]
--- OUTSIDE RECORDS SUMMARY | 2021-12-05 00:41 | XMS_ITS ---
:1995 Author Care Team Providers Name Role Phone KATHY GROSS MD Primary Care Provider [phone] Allergies Code Code System Name Reaction Severity Status Onset 723 RxNorm Amoxicillin ? ? Active ? 64717 RxNorm Azithromycin ? ? Active ? Penicillins ? ? Active ? 878827 RxNorm Zithromax ? ? Active ? Medications Name Status Start Date Stop Date ? ? Allergy Relief (fexofenadine) 180 mg tablet Unknown ? Not available [place] Saline nasal gel Unknown ? Not availab le 1 APPLICATOR BY NASAL ROUTE 4 TIMES DAILY. Banophen 50 mg capsule Active ? Not avail able TAKE ONE CAPSULE BY MOUTH AT BEDTIME NEEDED benztropine Unknown ? Not available benztropine 0.5 mg tablet Unknown ? Not av ailable benztropine 1 mg tablet Active ? Not avai lable TAKE 1 TABLET BY MOUTH EVERY 6 HOURS NEEDED calcium-melatonin 112 mg-3 mg tablet Unknown ? Not available cefprozil 500 mg tablet Unknown ? Not avai lable chlorhexidine gluconate 0.12 % mouthwash Unknown ? Not available clonidine HCl 0.1 mg tablet Unknown ? Not available fluoxetine 20 mg capsule Unknown ? Not carly ilable fluoxetine 20 mg tablet Unknown ? Not avai lable fluticasone propionate 50 mcg/actuation nasal spray,suspension A ctive ? Not available USE 2 SPRAYS IN EACH NOSTRIL DAILY. haloperidol 5 mg tablet Unknown ? Not avai lable hydroxyzine HCl 10 mg tablet Active ? Not available TAKE 1 TABLET BY MOUTH ONCE A DAY NEEDED FOR ANXIETY hydroxyzine pamoate 25 mg capsule Completed ? 10/02/2016 ibuprofen 800 mg tablet Unknown ? Not avai lable Invega Sustenna 156 mg/mL intramuscular syringe Active ? Not available INJECT 1 SYRINGE INTRAMUSCULARLY EVERY FOUR WEEKS EVERY 4 WEEKS, SINCE THE LAST SHOT. levofloxacin 500 mg tablet Unknown ? Not a vailable lidocaine-prilocaine 2.5 %-2.5 % topical cream Unknown ? Not available lisinopril 5 mg tablet Unknown ? Not avail able lorazepam 1 mg tablet Unknown ? Not availa ble melatonin Unknown ? Not available melatonin 3 mg tablet Unknown ? Not availa ble naproxen 375 mg tablet,delayed release Unknown ? Not available olanzapine Unknown ? Not available olanzapine 10 mg tablet Unknown ? Not avai lable olanzapine 15 mg tablet Unknown ? Not avai lable olanzapine 20 mg tablet Unknown ? Not avai lable oxycodone-acetaminophen 5 mg-325 mg tablet Unknown ? Not available propranolol 40 mg tablet Active ? Not carly ilable Take 1 tablet twice a day propranolol 80 mg tablet Active ? Not carly ilable Take 1 tablet twice a day by oral route for 30 days. propranolol 80mg tablets Completed ? 017 TAKE 1 TABLET BY MOUTH TWICE DAILY sertraline 50 mg tablet Unknown ? Not avai lable Problems Name Status Onset Date Source ? Obesity Active ? Encounter Anxiety Disorder Active ? Encounter Systolic Hypertension Active ? Encounter Procedures Date Name Performed by ? 11/23/2013 Ultrasound, Kidney [facility] ter (Ultrasound) [address], [place] [address] (Work [address]) 11/23/2013 Polysomnography Testing [facility] - Imaging [address], [place] [address] (Work Place) 03/09/2016 Electrocardi[address] [facility] - Imaging [address], [place] [address] (Work Place) Results Lab Results None recorded. Past Encounters None recorded. Social History Tobacco Smoking Status Never Smoker Vaccine List None recorded. Plan of Care Reminders Provider Appointments None recorded. ? ? Lab None recorded. ? ? Referral None recorded. ? ? Procedures None recorded. ? ? Surgeries None recorded. ? ? Imaging None recorded. ? ? Vitals 10/02/2016 11:30AM FOLLOW UP (60) Height Weight BMI Blood Pressure 182 cm 131 kg 39.5 kg/m2 (1) 146/84 mm[H g] (2) 130/80 mm[Hg ] 03/27/2016 11:30AM FOLLOW UP (60) Height Weight BMI Blood Pressure 182 cm 131 kg 39.5 kg/m2 139/88 mm[Hg] 08/24/2015 12:30PM FOLLOW UP (60) Height Weight BMI Blood Pressure 182 cm 126.5 kg 38.2 kg/m2 124/82 mm[Hg] 12/21/2014 11:00AM FOLLOW UP (60) Height Weight BMI Blood Pressure 181 cm 113 kg 34.5 kg/m2 122/66 mm[Hg] 02/23/2014 03:00PM FOLLOW UP (60) Height Weight BMI Blood Pressure 185 cm 98.8 kg 28.9 kg/m2 118/62 mm[Hg] 11/23/2013 03:00PM NEW PATIENT Height Weight BMI Blood Pressure 185 cm 88.4 kg 25.8 kg/m2 136/60 mm[Hg]
[2021-12-05 00:52] LABS: COVID-19 Test Positive (Negative)
[2021-12-05 01:15] LABS: Appearance Urine Clear; Color Urine Yellow; Glucose Urine UA Negative (Negative); Leukocyte Esterase Urine Negative (Negative); Nitrite Urine Negative (Negative); PH 5.5 (5.0-9.0); Urine Blood Negative (Negative); Urine Ketones Negative (Negative); Urine Protein Negative (Neg-Trace)
[2021-12-05 01:33] LABS: MANUAL DIFF FLAG NO
[2021-12-05 01:34] LABS: Basophils Percent Auto 0.5 % (0-2); Eosinophils Absolute Auto 0.2 X10*3/uL (0.0-0.4); Eosinophils Percent Auto 1.8 % (0-4); Hemoglobin 14.5 g/dl (14.0-18.0); Imm Gran Abs Auto 0.03 X10*3/uL (0.00-0.03); Imm Gran Pct Auto 0.3 % (0.0-0.4); Lymphocytes Absolute Auto 1.4 X10*3/uL (1.2-4.9); Lymphocytes Percent Auto 16.2 % (20-40); Mean Corpuscular Hemoglobin 26.2 pg (27.0-33.0); Mean Corpuscular Volume 79.6 fL (80.0-98.0); Mean Platelet Volume 9.8 fL (9.4-12.4); Monocytes Percent Auto 11.1 % (2-11); Neutrophils Absolute Auto 6.1 x10*3/uL (2.0-8.3); Neutrophils Percent Auto 70.1 % (45-73); Platelet Count 175 X10*3/uL (160-400); Red Blood Count 5.53 X10*6/uL (4.60-5.80); Red Cell Distribution Width 13.2 % (11.0-16.0); White Blood Count 8.7 X10*3/uL (4.8-10.8)
[2021-12-05 01:40] LABS: Amphetamine Screen Urine Not Detected (Not Detect); Barbiturates, Urine Not Detected (Not Detect); Benzodiazepines Screen Urine Not Detected (Not Detect); Cannabinoid Screen Urine Not Detected (Not Detect); Cocaine Screen Urine POSITIVE (Not Detect); Fentanyl, urine Not Detected (Not Detect); Opiate Screen Urine Not Detected (Not Detect); Phencyclidine Screen Urine Not Detected (Not Detect)
[2021-12-05 01:52] LABS: Alanine Aminotransferase 23 U/L (0-40); Albumin Level 4.2 g/dL (3.5-5.0); Alkaline Phosphatase 72 U/L (39-117); Anion Gap 16 (12-20); Aspartate Amino Transferase 17 U/L (5-37); Bilirubin Total 0.5 mg/dL (0.0-1.0); Blood Urea Nitrogen 10 mg/dL (9-16); Calcium 8.9 mg/dL (8.4-10.2); Carbon Dioxide 27 mmol/L (22-29); Chloride 100 mmol/L (96-108); Estimated Glomerular Filt Rate > 60; Glucose Random 98 mg/dL (60-115); Potassium 3.5 mmol/L (3.3-5.1); Sodium 139 mmol/L (135-145); Total Protein 6.9 g/dL (6.5-8.0)
--- NOTE | 2021-12-05 02:38 | PC.NURSE ---
Patient was moved to room 1 after his positive COVID result, he was made aware, provider notified,will continue to monitor.
[2021-12-05] MEDS: chlorproMAZINE HCl 100 MG TABLET 200 MG PO (04:49)
--- NOTE | 2021-12-05 05:59 | PC.NURSE ---
Patient sleeping comfortable, no distress noted. Will continue to monitor.
[2021-12-05 09:12] VITALS: BP 156/88; PULSE 84; RESP 16; TEMP 36.8; O2SAT 97
[2021-12-05] MEDS: cloNIDine HCL 0.2 MG TABLET PO ×2 (10:02→14:47)
[2021-12-05] MEDS: Multivitamin TABLET 1 TAB PO (10:02)
[2021-12-05] MEDS: OXcarbazepine 300 MG TABLET 900 MG PO (10:02)
[2021-12-05] MEDS: Gabapentin 400 MG CAPSULE 800 MG PO ×2 (10:02→14:47)
[2021-12-05] MEDS: hydroCHLOROthiazide 12.5 MG TABLET PO (10:02)
[2021-12-05 10:05] VITALS: BP 154/86; PULSE 90; RESP 16; O2SAT 97
[2021-12-05] MEDS: Nicotine Polacrilex 2 MG GUM 4 MG BUCCAL (10:12)
[2021-12-05] MEDS: clonazePAM 0.5 MG TABLET PO (12:59)
--- NOTE | 2021-12-05 13:32 | PC.NURSE ---
pt medicated per order
--- NOTE | 2021-12-05 13:57 | PC.NURSE ---
@ 1831 YEN RAVI CALLED FOR AMB TX BACK TO [facility] DUE TO COVID + STATUS CAITLIN ANSWERS, TAKES PT DEMOGRAPHICS THEN GIVES AN ETA OF 1500 FOR THIS PT TRANSPORT
--- NOTE | 2021-12-05 13:59 | PC.NURSE ---
patient is not wanting to discharge, asking to speak with Kaden.
[2021-12-05 14:37] VITALS: RESP 14
--- NOTE | 2021-12-05 14:42 | PC.NURSE ---
pt to discharge via ambulance back to home
--- NOTE | 2021-12-05 15:41 | PC.NURSE ---
assumed care of pt at 1445 - pt to discharge via ambulance back to half-way, pt is COVID +ve
== END 2021-12-05 15:56 | disposition home or self-care (01) ==
PROVIDERS: Emergency Provider Emergency Medicine
DX: F25.0 Schizoaffective disorder, bipolar type (principal); F17.210 Nicotine dependence, cigarettes, uncomplicated; F14.90 Cocaine use, unspecified, uncomplicated; R06.02 Shortness of breath; Z20.822 Contact with and (suspected) exposure to COVID-19; Z71.6 Tobacco abuse counseling; Z79.899 Other long term (current) drug therapy
CPT/HCPCS: 36415; 80053; 80307; 81003; 85025; 87635; 93005; 99284; 99285

== ENCOUNTER 2021-12-09 14:39 | Emergency (ER) | payer OTHER, SELFPAY ==
[2021-12-09 14:54] VITALS: BP 136/88; BP 157/87; PULSE 79; PULSE 82; RESP 16; TEMP 37.3; O2SAT 97; O2SAT 98; BMI 35.2
--- NOTE | 2021-12-09 15:08 | ED.LOWEXIN ---
HPI - Extremity Injury (Lower) General Chief Complaint: Extremity Injury, Lower Stated Complaint: LEG PAIN PER EMS Time Seen by Provider: 12/09/21 14:55 Source: patient Mode of arrival: ambulatory History of Present Illness HPI Narrative: 26-year-old male with a past medical history of anxiety, HTN, schizoaffective, schizophrenia, tinnitus, presenting to the ED complaining of bilateral lower extremity burning/paresthesias since this morning radiating from upper legs posteriorly down extremity. Describes pain as shooting/burning. Admits to similar symptoms in the past however affected his whole body, currently taking gabapentin, states no relief this morning with medication. Denies fever, chills, weakness, neck/back pain, urinary incontinence/retention. COVID-19 positive as of 12/03, denies any symptoms related to COVID-19. No recent tick or insect bites Related Data Home Medications Medication Instructions Recorded Confirmed chlorpromazine 100 mg tablet 1 tab PO BEDTIME 12/05/21 12/05/21 chlorpromazine 200 mg tablet 1 tab PO BEDTIME 12/05/21 12/05/21 clonazepam 0.5 mg tablet 1 tab PO BID PRN Anxiety 12/05/21 12/05/21 clonidine HCl 0.2 mg tablet 1 tab PO TID 12/05/21 12/05/21 fluticasone propionate 100 2 inh inhalation BID 12/05/21 12/05/21 mcg/actuation blister powder for inhalation (Flovent Diskus) fluticasone propionate 50 1 spray intranasal BID 12/05/21 12/05/21 mcg/actuation nasal spray,suspension gabapentin 800 mg tablet 1 tab PO TID 12/05/21 12/05/21 hydrochlorothiazide 12.5 mg capsule 12.5 mg PO DAILY 12/05/21 12/05/21 oxcarbazepine 600 mg tablet 900 mg PO BID 12/05/21 12/05/21 vitamin B complex (Vitamins B 1 tab PO DAILY 12/05/21 12/05/21 Complex tablet) Previous Rx's Medication Instructions Recorded albuterol sulfate 90 mcg/actuation 2 puff inhalation Q4H PRN Wheezing 07/14/20 aerosol inhaler (Ventolin HFA) #1 g nicotine (polacrilex) 2 mg gum 4 mg buccal Q2H PRN Nicotine 05/27/21 Cravings #30 ea chlorpromazine 100 mg tablet 100 mg PO DAILY PRN agitation, 01/27/21 paranoia 30 days #30 tabs acetaminophen 500 mg tablet 500 mg PO Q6H PRN fever or pain 12/09/21 (Tylenol Extra Strength) #14 tabs cyclobenzaprine 5 mg tablet 5 mg PO Q8H PRN pain (scale score 12/09/21 7-10) 5 days #14 tabs lidocaine 5 % topical patch 1 patch topical DAILY PRN pain #30 12/09/21 (Lidoderm) ea naproxen 500 mg tablet 500 mg PO BID PRN pain 10 days #20 12/09/21 tabs Allergies Allergy/AdvReac Type Severity Reaction Status Date / Time mold [MOLD] Allergy Unknown UNKNOWN Verified 12/30/19 16:01 paliperidone [From Invega] Allergy Unknown Verified 12/30/19 16:01 amoxicillin [AMOXICILLIN] AdvReac Severe ANAPHYLAXIS Verified 12/30/19 16:01 azithromycin [AZITHROMYCIN] AdvReac Severe ANAPHYLAXIS Verified 12/30/19 16:01 Review of Systems Review of Systems: Constitutional: No Fever, No Chills ENT/Mouth: No Ear Pain, No Nasal Congestion, No sore throat, No Rhinorrhea, No Swallowing Difficulty Cardiovascular: No Chest Pain, No SOB Respiratory: No Cough, No Sputum, No Wheezing Gastrointestinal: No Nausea, No Vomiting, No Diarrhea, No Constipation, No Abdominal pain Genitourinary: No Dysuria, No Urinary Frequency, No Hematuria, No Urinary Incontinence/retention, No Flank Pain Musculoskeletal: No joint pain, No Myalgias, No Joint Swelling Skin: No Skin Lesions, No rash Neuro: No Weakness, No Numbness, + Paresthesias Yes all other systems are reviewed and are negative Constitutional: Constitutional: Reports as per HPI Neurologic: Denies Sensory deficit (Neuro) [facility] Past Medical History Attestation statement: The following information was validated with the patient. Medical History Anxiety Anxiety HTN (hypertension) Schizoaffective disorder, bipolar type Schizophrenia Tinnitus Social History Social History Household Members: Other Household Members Other:: half-way Housing: Other Housing Other:: half-way Do you presently have visiting nurse or other home services: No Alcohol intake: unknown Patient Tobacco Use Status: Current everyday Tobacco user Tobacco use type: Cigarette Cigarette Packs Per Day: 0.5 Cigarettes Per Day: 7.0 Years Smoked: 8 e-Cigarette/Vaping Use: Currently Using Second Hand Smoke Exposure: Yes Substance Use Type: Marijuana Advance Directives: No Advance Directives Information Provided: No service: No Sexual orientation: Straight/Heterosexual Physical Exam Vital Signs: Vital Signs: Last Vital Signs Temp 99.2 F 12/09/21 14:54 Pulse 79 12/09/21 14:54 Resp 16 12/09/21 14:54 BP 157/87 H 12/09/21 14:54 Pulse Ox 97 12/09/21 14:54 O2 Del Method 12/09/21 14:54 BMI result Body Mass Index 35.2 Const: General: cooperative, healthy appearing and no acute distress Orientation/consciousness: patient oriented x3 Limitations: no limitations HEENT: Head: Yes normal to inspection and Yes atraumatic Ears: hearing grossly normal bilaterally General nose exam: Normal external nose present Face and sinus: Yes normal facial exam Eyes: General: appearance normal, both eyes and all related structures EOM: EOMs intact bilaterally Neck: Other: Midline cervical spinous tenderness Neck: Yes normal visual inspection and Yes no meningeal signs Resp: Effort & Inspection: normal respiratory effort and no respiratory distress Auscultation: clear to auscultation bilaterally Cardio: Rate: regular rate Heart sounds: S1 normal heart sound present and S2 normal heart sound present GI: Inspection: Yes normal to inspection Palpation (GI): Soft to palpation, nontender, no guarding and not rigid : General: Yes no CVA tenderness Back/Spine/Pelvis: Other: No midline thoracic/lumbar spinous tenderness/step-off or deformity Back: no CVA tenderness Skin: Rashes: no rashes Wounds: no wounds Neuro: Other: Strength intact throughout. No saddle anesthesia. Sensation intact to light touch. Neurovascular intact distally General: patient oriented x3, gait normal, tone normal, moves all extremities, no meningeal signs and no focal motor deficits Gait exam (Neuro): Normal gait present Motor exam (neuro): 5/5 motor strength present throughout and no tremor noted Sensory Exam: No Sensory deficit (Neuro) Deep tendon reflexes (DTR's): Right patellar reflex intensity grade: 2+ and Left patellar reflex intensity grade: 2+ Extrem: General: Yes normal to inspection Course Course Course Narrative: -1550--on re-evaluation patient reports symptomatic improvement after p.o. Flexeril and Toradol. Results discussed with patient including worrisome signs and symptoms and strict return precautions, and when to return to the emergency department. They verbalized understanding and feel safe for discharge at this time. MDM - Extremity Injury (Lower) MDM Narrative Medical decision making narrative: 26-year-old male with a past medical history of anxiety, HTN, schizoaffective, schizophrenia, tinnitus, presenting to the ED complaining of bilateral lower extremity burning/paresthesias since this morning radiating from upper legs posteriorly. On exam VSS, NAD, well appearing, no midline spinous tenderness, no red flag symptoms, sensation intact to light touch. Patellar DTRs WNL. Concern for paresthesias vs sciatica vs ?herniated disc. Lower suspicion for demyelinating process or Guillain [place]. Low suspicion for TIA/CVA Plan: PO Flexeril, IM Toradol, re-evaluate Medical Records Attestation: I reviewed the patient's medical records. Lab Data Attestation: I reviewed the patient's lab results. Discharge Plan Discharge Clinical Impression: Leg paresthesia Patient Disposition: Home, Self-Care Instructions: Paresthesia (ED) Additional Instructions: Your pain is likely musculoskeletal Flexeril is a muscle relaxer, take at night as it makes you drowsy, do not drive, drink alcohol, or operate machinery while taking it Naproxen as an anti-inflammatory / pain medication, take with food Lidoderm patches are numbing patches, apply to painful area In addition take Tylenol at home If symptoms persist or worsen, pain becomes unbearable, you developed urinary retention or incontinence, or weakness return to the ED Prescriptions: New acetaminophen [Tylenol Extra Strength] 500 mg tablet 500 mg PO Q6H PRN (Reason: fever or pain) Qty: 14 0RF lidocaine [Lidoderm] 5 % adhesive patch,medicated 1 patch topical DAILY MDD remove after 12 hours PRN (Reason: pain) Qty: 30 0RF Rx Instructions: leave on most painful area for up to 12 hrs naproxen 500 mg tablet 500 mg PO BID PRN (Reason: pain) 10 Days Qty: 20 0RF cyclobenzaprine 5 mg tablet 5 mg PO Q8H PRN (Reason: pain (scale score 7-10)) 5 Days Qty: 14 0RF No Action nicotine (polacrilex) 2 mg Gum 4 mg buccal Q2H PRN (Reason: Nicotine Cravings) Qty: 30 0RF albuterol sulfate [Ventolin HFA] 90 mcg/actuation Hfa Aerosol Inhaler 2 puff inhalation Q4H PRN (Reason: Wheezing) Qty: 1 0RF chlorpromazine 100 mg Tablet 100 mg PO DAILY PRN (Reason: agitation, paranoia) 30 Days Qty: 30 0RF clonazepam 0.5 mg tablet 1 tab PO BID PRN (Reason: Anxiety) clonidine HCl 0.2 mg tablet 1 tab PO TID gabapentin 800 mg tablet 1 tab PO TID hydrochlorothiazide 12.5 mg capsule 12.5 mg PO DAILY oxcarbazepine 600 mg tablet 900 mg PO BID vitamin B complex [Vitamins B Complex] Tablet 1 tab PO DAILY chlorpromazine 200 mg tablet 1 tab PO BEDTIME fluticasone propionate 50 mcg/actuation spray,suspension 1 spray intranasal BID chlorpromazine 100 mg tablet 1 tab PO BEDTIME Flovent Diskus 100 mcg/actuation blister with device 2 inh inhalation BID Referrals: Myla Sullivan DO [Primary Care Provider] - 2 days
[2021-12-09] MEDS: Cyclobenzaprine HCl 10 MG TABLET PO (15:22)
[2021-12-09] MEDS: Ketorolac Tromethamine 30 MG/ML VIAL IM (15:22)
--- NOTE | 2021-12-09 15:38 | PC.NURSE ---
called [facility]ije[facility] RE: pt returning after discharge as he was told by housekeeper and laundry assistant that he could not return to [facility] if he left. Spoke with [facility] staff member Laura, advised pt is being evaluated in department; stated that he will have housekeeper and laundry assistant contact dept- gave t# to main ED
--- NOTE | 2021-12-09 15:47 | PC.NURSE ---
spoke with housemaid Lyndsey . stated that patient was evaluated for pain on Saturday, sts in recent weeks pt has been caught using crack cocaine and is on orientation at the program. sts that pt reached put to her today regarding pain via email and she told the pt that there are PRN meds available to pt at the house. pt then proceeded to call ambulance which [place] [facility] Lyndsey suspects that pt going to ER is his attempt to spend time in the community. When asked if pt could return to the detention once medically cleared, Lyndsey stated once ready for discharge to call and either herself or a staff member will picker the patient. provider aware
== END 2021-12-09 16:03 | disposition home or self-care (01) ==
PROVIDERS: Emergency Provider Emergency Medicine; PCP Family Medicine
DX: R20.2 Paresthesia of skin (principal); M79.605 Pain in left leg; M79.604 Pain in right leg; I10 Essential (primary) hypertension; F25.0 Schizoaffective disorder, bipolar type; F41.9 Anxiety disorder, unspecified; F17.210 Nicotine dependence, cigarettes, uncomplicated; F12.90 Cannabis use, unspecified, uncomplicated; Z79.899 Other long term (current) drug therapy
CPT/HCPCS: 96372; 99283; 99284; J1885

== ENCOUNTER 2021-12-18 23:41 | Emergency (ER) | payer OTHER, SELFPAY ==
[2021-12-19 00:09] VITALS: BP 148/80; BP 190/100; PULSE 75; PULSE 88; RESP 16; TEMP 36.8; O2SAT 97; O2SAT 99; BMI 36.2
--- OUTSIDE RECORDS SUMMARY | 2021-12-19 00:37 | XMS_ITS ---
:1995 Author Care Team Providers Name Role Phone [facility] Referring Provider [phone] Allergies None recorded. Medications Name Status Start Date Stop Date ? ? albuterol sulfate HFA 90 mcg/actuation aerosol inhaler Active ? Not available baclofen 10 mg tablet Active ? Not availa ble TAKE 1 TABLET BY MOUTH DAILY NEEDED FOR OTHER (MUSCLE SPASM) . chlorpromazine 100 mg tablet Active ? Not available chlorpromazine 200 mg tablet Active ? Not available chlorpromazine 25 mg tablet Active ? Not available cholecalciferol (vitamin D3) 25 mcg (1,000 unit) capsule Active ? Not available clonazepam 0.5 mg tablet Active ? Not carly ilable clonidine HCl 0.1 mg tablet Active ? Not available clonidine HCl 0.2 mg tablet Active ? Not available diazepam 5 mg tablet Active ? Not availab le doxycycline monohydrate 100 mg tablet Active ? Not available Flovent Diskus 100 mcg/actuation powder for inhalation Active ? Not available fluticasone propionate 50 mcg/actuation nasal Active ? Not available spray,suspension gabapentin 300 mg capsule Active ? Not av ailable TAKE 1 CAPSULE BY MOUTH THREE TIMES A DAY gabapentin 400 mg capsule Active ? Not av ailable gabapentin 800 mg tablet Active ? Not carly ilable hydrochlorothiazide 12.5 mg capsule Active ? Not available hydrochlorothiazide 12.5 mg tablet Active ? Not available hydrocortisone 1 % topical cream Active ? Not available hydroxyzine HCl 50 mg tablet Active ? Not available hydroxyzine pamoate 50 mg capsule Active ? Not available naloxone 4 mg/actuation nasal spray Active ? Not available nicotine (polacrilex) 4 mg gum Active ? N ot available oxcarbazepine 300 mg tablet Active ? Not available oxcarbazepine 600 mg tablet Active ? Not available silver sulfadiazine 1 % topical cream Active ? Not available triamcinolone acetonide 0.1 % topical cream Active ? Not available vitamin B complex-folic acid 0.4 mg tablet Active ? Not available Vitamin D3 10 mcg (400 unit) tablet Active ? Not available Vitamins B Complex tablet Active ? Not av ailable Problems None recorded. Procedures None recorded. Results Lab Results None recorded. Past Encounters 12/10/2021 Muscle Pain Calvin Castellanos MD: [address] [place] [phone], Ph. Social History None recorded. Vaccine List None recorded. Plan of Care Reminders Provider Appointments None recorded. ? ? Lab None recorded. ? ? Referral None recorded. ? ? Procedures None recorded. ? ? Surgeries None recorded. ? ? Imaging None recorded. ? ? Vitals Height Weight Blood Pressure (1) 6 ft 5 in (1) 260 lbs (1) 146/85 mm[Hg] (2) 6 ft 5 in (2) 260 lbs (2) 146/85 mm[Hg]
--- OUTSIDE RECORDS SUMMARY | 2021-12-19 00:37 | XMS_ITS | Encounter Summary ---
:1995 Author Care Team Providers Name Role Phone [facility] Primary [facility] Referring Provider [phone] Reason for Visit Pain Assessment and Plan Assessment Note History and physical were obtained by swapnil anderson hydrometeorological technician and are as noted above. I provided real-time direction and supervision for this visit and was immediately available for additional assistance. As noted, we were called to see this 26 yoM patient regarding muscle pains, apparently related to COVID. Pt was seen in ED and discharged with Rx for NSAIDs, which he reports are being delivered. Having very bothersome pain and requesting norma atment. Had toradol in ED and this was very helpful. The evaluation revealed mild leg tendern ess, normal vitals aside from moderately elevated BP. Impression: Previously diagnosed muscle/ soft tissue pain apparently related to COVID, for which we are called regarding pain control. Plan: toradol 30 mg now Take PRN analgesics as prescribed by ED when these arrive Given he had workup previously, my bri rn for a serious underlying cause is low, but counseled patient on need to seek care for severe and non-resolving sx. Primary care, please touch base with taye sprague within 3 days. We discussed the diagnostic uncertainty of home visits and the risk associated with this. In this case, the patient and I felt this to be an acceptable and reasonable amount of risk given the benefit of avoiding an ED visit. We discussed the need to seek care urgently/emergently in the setting of any new or worsening serious symptoms, particularly difficulty walking, fever. 1. Muscle pain Discussion Note: None recorded.Patient educational handouts: No information available. Plan of Care Reminders Provider Appointments None recorded. ? ? Lab None recorded. ? ? Referral None recorded. ? ? Procedures None recorded. ? ? Surgeries None recorded. ? ? Imaging None recorded. ? ? Medications Name Start Date ? ? albuterol sulfate HFA 90 mcg/actuation aerosol inhaler ? baclofen 10 mg tablet ? TAKE 1 TABLET BY MOUTH DAILY NEEDED FOR OTHER (MUS SHELIA SPASM). chlorpromazine 100 mg tablet ? TAKE ONE (1) TABLET BY MOUTH AT BEDTIME WITH 200MG TA BLET chlorpromazine 200 mg tablet ? TAKE ONE (1) TABLET BY MOUTH AT BEDTIME chlorpromazine 25 mg tablet ? cholecalciferol (vitamin D3) 25 mcg (1,000 unit) capsu le ? clonazepam 0.5 mg tablet ? TAKE ONE (1) TABLET BY MOUTH TWICE A DAY, NEEDED clonidine HCl 0.1 mg tablet ? TAKE 1 TABLET 3 TIMES A DAY BY ORAL ROUTE. clonidine HCl 0.2 mg tablet ? TAKE ONE (1) TABLET BY MOUTH THREE TIMES A DAY diazepam 5 mg tablet ? doxycycline monohydrate 100 mg tablet ? Flovent Diskus 100 mcg/actuation powder for inhalation ? INHALE 2 PUFF BY MOUTH TWICE DAILY fluticasone propionate 50 mcg/actuation nasal spray,latif spension ? USE 1 SPRAYS BY NASAL ROUTE TWICE DAILY gabapentin 300 mg capsule ? TAKE 1 CAPSULE BY MOUTH THREE TIMES A DAY gabapentin 400 mg capsule ? gabapentin 800 mg tablet ? TAKE 1 TABLET BY MOUTH THREE TIMES DAILY hydrochlorothiazide 12.5 mg capsule ? hydrochlorothiazide 12.5 mg tablet ? TAKE 1 TABLET BY MOUTH DAILY. hydrocortisone 1 % topical cream ? hydroxyzine HCl 50 mg tablet ? TAKE ONE (1) TABLET BY MOUTH TWICE A DAY, NEEDED hydroxyzine pamoate 50 mg capsule ? naloxone 4 mg/actuation nasal spray ? nicotine (polacrilex) 4 mg gum ? oxcarbazepine 300 mg tablet ? oxcarbazepine 600 mg tablet ? TAKE ONE AND ONE HALF (1.5) TABLETS BY MOUTH TWICE A DAY silver sulfadiazine 1 % topical cream ? triamcinolone acetonide 0.1 % topical cream ? vitamin B complex-folic acid 0.4 mg tablet ? Vitamin D3 10 mcg (400 unit) tablet ? Vitamins B Complex tablet ? TAKE 1 TABLET BY MOUTH DAILY. Medications Administered None recorded. Vitals Height Weight Blood Pressure (1) 6 ft 5 in (1) 260 lbs (1) 146/85 mm[Hg] (2) 6 ft 5 in (2) 260 lbs (2) 146/85 mm[Hg] Results Lab Results None recorded. Allergies None recorded. Problems None recorded. Procedures None recorded. Vaccine List None recorded. Social History None recorded. Functional Status Unknown. Past Encounters 12/10/2021 Muscle Pain Calvin Castellanos MD: [address] [place] [phone], Ph. History of Present Illness Note: <p><strong>CRC Nursing Assessment: </strong>

Reason For Request: pain
Chief Complaints: Pain
Allergies: Unknown
Comments: Member was diagnosed with COVID last Saturday. Member denies any current symptoms. Member has c/o lower leg pain . Member went to the ER yesterday and was found to have muscular skeletal pain and was given toradol injection. MEmber is having trouble laying and walking and would like an assessment </p><p>... ................................................................................ ..................... .....................................

<strong>Manager Wellness Note: </strong&gt ;

Sent to a call for a pt complaining of leg pain. SC6 arrives on scene, pt is alert and oriented. Airway is patent. Pt tested positive for Covid last Saturday. Pt complains of bilateral sharp leg pain in posterior legs starting yesterday. Pt was evaluated at [facility] ED yesterday, given Toradol with positive effect. Pt was prescribed Tylenol, Cyclobenzaprine, and Naproxen which is sup posed to be delivered. Pt states he has no pain medication, and requests treatment. Pt states pain worsens while lying down, and improves when standing. Pt denies headache, dizziness, cp, sob, n/v/d, abd pain, fever, or loc. BP:146/85, P:75, RR:18, SpO2:98% RA, T:98.6; Lung sounds: clear bilaterally; A bdomen: soft, non-tender, no distention; Extremities: (+)CMS x 4; no deformities noted; Skin: pink, warm, dry; [facility] [place]. Toradol administered without incident. Red flags discussed. Pthas no further questions.
................................................................. ............................................................................

<strong>Disposition: </strong>

Fulfilled</p> Review of Systems None recorded. Physical Exam None recorded.
--- OUTSIDE RECORDS SUMMARY | 2021-12-19 00:38 | XMS_ITS ---
:1995 Author Care Team Providers Name Role Phone KATHY GROSS MD Primary Care Provider [phone] Allergies Code Code System Name Reaction Severity Status Onset 723 RxNorm Amoxicillin ? ? Active ? 48255 RxNorm Azithromycin ? ? Active ? Penicillins ? ? Active ? 562871 RxNorm Zithromax ? ? Active ? Medications Name Status Start Date Stop Date ? ? Allergy Relief (fexofenadine) 180 mg tablet Unknown ? Not available [place] Saline nasal gel Unknown ? Not availab [...] Name Performed by ? 11/23/2013 Ultrasound, Kidney [facility] (Ultrasound) [address], [place] [address] (Work [address]) 11/23/2013 Polysomnography Testing [facility] - Imaging [address] [place] [address] (Work Place) 03/09/2016 Electrocardiogram [facility] - Imaging [address] [place] [address] (Work Place) Results Lab Results [...]
[2021-12-19 00:54] LABS: Hematocrit 46.3 % (42.0-52.0); Hemoglobin 15.1 g/dl (14.0-18.0); Mean Corpuscular HGB Conc 32.6 g/dl (31.0-36.0); Mean Corpuscular Hemoglobin 26.4 pg (27.0-33.0); Mean Corpuscular Volume 80.8 fL (80.0-98.0); Mean Platelet Volume 10.2 fL (9.4-12.4); Platelet Count 226 X10*3/uL (160-400); Red Blood Count 5.73 X10*6/uL (4.60-5.80); Red Cell Distribution Width 13.2 % (11.0-16.0); White Blood Count 11.5 X10*3/uL (4.8-10.8)
[2021-12-19 01:06] LABS: COVID-19 Test Negative (Negative)
[2021-12-19 01:06] LABS: Ethanol < 10 mg/dL
[2021-12-19 01:09] LABS: Alanine Aminotransferase 30 U/L (0-40); Albumin Level 4.5 g/dL (3.5-5.0); Alkaline Phosphatase 73 U/L (39-117); Anion Gap 16 (12-20); Aspartate Amino Transferase 17 U/L (5-37); Bilirubin Total < 0.2 mg/dL (0.0-1.0); Blood Urea Nitrogen 15 mg/dL (9-16); Calcium 9.6 mg/dL (8.4-10.2); Carbon Dioxide 27 mmol/L (22-29); Chloride 100 mmol/L (96-108); Creatinine Clr Calc Pharmacy 136.5; Estimated Glomerular Filt Rate > 60; Glucose Random 95 mg/dL (60-115); Potassium 4.1 mmol/L (3.3-5.1); Sodium 139 mmol/L (135-145); Total Protein 7.7 g/dL (6.5-8.0)
[2021-12-19 01:20] LABS: Appearance Urine Clear; Color Urine Yellow; Glucose Urine UA Negative (Negative); Leukocyte Esterase Urine Trace (Negative); Nitrite Urine Negative (Negative); UMIC TRIGGER UACC YES; Urine Blood Negative (Negative); Urine Ketones Negative (Negative); Urine Protein Negative (Neg-Trace)
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
[2021-12-19 01:25] LABS: Bacteria Urine None Seen (None Seen); Hyaline Casts Urine 0-2 /LPF (0-2); RBC Urine 0-2 /HPF (0-2); Squamous Epithelial Cell Urine 0-2 /HPF (0-2); WBC Urine 0-5 /HPF (0-5)
[2021-12-19 01:37] LABS: Amphetamine Screen Urine Not Detected (Not Detect); Barbiturates, Urine Not Detected (Not Detect); Benzodiazepines Screen Urine Not Detected (Not Detect); Cannabinoid Screen Urine Not Detected (Not Detect); Cocaine Screen Urine POSITIVE (Not Detect); Fentanyl, urine Not Detected (Not Detect); Opiate Screen Urine Not Detected (Not Detect); Phencyclidine Screen Urine Not Detected (Not Detect)
--- NOTE | 2021-12-19 07:21 | PC.NURSE ---
patient appears to remain asleep at present respirations are even and unlabored patient appears in no distress
--- NOTE | 2021-12-19 10:09 | PHA.MEDREC ---
Pharmacy Consult ? Medication Reconciliation Pharmacy has completed the medication reconciliation. Medication list was confirmed with [facility] that is patient current residence.
[2021-12-19 11:37] VITALS: BP 154/83; PULSE 60; RESP 16; TEMP 36.9; O2SAT 97
[2021-12-19] MEDS: Nicotine Polacrilex 2 MG GUM BUCCAL ×2 (11:43→15:17)
[2021-12-19] MEDS: cloNIDine HCL 0.2 MG TABLET PO ×2 (11:51→15:27)
[2021-12-19] MEDS: OXcarbazepine 300 MG TABLET 900 MG PO (11:52)
[2021-12-19] MEDS: hydroCHLOROthiazide 12.5 MG TABLET PO (11:52)
[2021-12-19] MEDS: Gabapentin 400 MG CAPSULE 800 MG PO ×2 (11:52→15:27)
[2021-12-19] MEDS: Cyclobenzaprine HCl 5 MG TABLET PO (12:03)
--- NOTE | 2021-12-19 13:40 | MHC.RECOVRN ---
This freelance copywriter met w/ pt, pt alert, watching t.v, sitting up in bed, lights low. 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 Pt states has had increased leg pain/spasms past 2 weeks, which contributed to trigger to use YADIEL. Pt states past 2 weeks has used YADIEL a few times, a dub per time. Pt reports received a phone call from an acquaintance whom offered pt free YADIEL, pt states prior to receiving phone call had not been thinking about YADIEL use. Pt reports hx of Cannabis use, 2 blunts daily and CBD products [facility]. [facility], which has a no drug use policy. Pt reports it was difficult to stop Cannabis use, last use one year ago. Pt reports deep regret w/ YADIEL use. Pt stated interest in attending Virtual Recovery Meetings. Kenya Nicholas, [employer], Peer Carbon Setter discussed, resources provided. 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 CM aware.
--- NOTE | 2021-12-19 14:56 | MHC.CARE ---
Patient evaluated by the CARE Team, he does not need an inpatient psychiatric hospitalization at this time. Staff will be here at 4pm to pick him up. See written assessment for details. Provider updated
== END 2021-12-19 16:26 | disposition home or self-care (01) ==
PROVIDERS: Emergency Provider Emergency Medicine
DX: R45.851 Suicidal ideations (principal); F19.10 Other psychoactive substance abuse, uncomplicated; Z20.822 Contact with and (suspected) exposure to COVID-19; F25.0 Schizoaffective disorder, bipolar type; I10 Essential (primary) hypertension; F17.210 Nicotine dependence, cigarettes, uncomplicated; Z79.899 Other long term (current) drug therapy
CPT/HCPCS: 36415; 80053; 80307; 81001; 82077; 85027; 87635; 99284; 99285

== ENCOUNTER 2022-02-13 10:56 | Outpatient (REF) | payer OTHER, SELFPAY ==
[2022-02-13 11:51] LABS: Amphetamine Screen Urine Not Detected (Not Detect); Barbiturates, Urine Not Detected (Not Detect); Benzodiazepines Screen Urine Not Detected (Not Detect); Cannabinoid Screen Urine Not Detected (Not Detect); Cocaine Screen Urine Not Detected (Not Detect); Fentanyl, urine Not Detected (Not Detect); Opiate Screen Urine Not Detected (Not Detect); Phencyclidine Screen Urine Not Detected (Not Detect)
== END 2022-02-13 10:57 | disposition home or self-care (01) ==
LOC: HO.LAB 10:56
PROVIDERS: Psychiatry & Neurology Psychiatry; PCP Internal Medicine; Visit Provider Clinical Nurse Specialist Psychiatric/Mental Health, Adult
DX: F19.11 Other psychoactive substance abuse, in remission (principal); Z79.899 Other long term (current) drug therapy
CPT/HCPCS: 80307

== ENCOUNTER 2022-03-30 08:11 | Outpatient (REF) | payer OTHER, SELFPAY ==
[2022-03-30 09:35] LABS: Amphetamine Screen Urine Not Detected (Not Detect); Barbiturates, Urine Not Detected (Not Detect); Benzodiazepines Screen Urine Not Detected (Not Detect); Cannabinoid Screen Urine POSITIVE (Not Detect); Cocaine Screen Urine Not Detected (Not Detect); Fentanyl, urine Not Detected (Not Detect); Opiate Screen Urine Not Detected (Not Detect); Phencyclidine Screen Urine Not Detected (Not Detect)
== END 2022-03-30 08:12 | disposition home or self-care (01) ==
LOC: HO.LAB 08:11
PROVIDERS: PCP Internal Medicine; Visit Provider Psychiatry & Neurology Psychiatry
DX: Z79.899 Other long term (current) drug therapy (principal)
CPT/HCPCS: 80307

== ENCOUNTER 2022-04-10 10:40 | Outpatient (REF) | payer OTHER, SELFPAY ==
[2022-04-10 12:40] LABS: Amphetamine Screen Urine Not Detected (Not Detect); Barbiturates, Urine Not Detected (Not Detect); Benzodiazepines Screen Urine Not Detected (Not Detect); Cannabinoid Screen Urine POSITIVE (Not Detect); Cocaine Screen Urine Not Detected (Not Detect); Fentanyl, urine Not Detected (Not Detect); Opiate Screen Urine Not Detected (Not Detect); Phencyclidine Screen Urine Not Detected (Not Detect)
== END 2022-04-10 10:41 | disposition home or self-care (01) ==
LOC: HO.LABR 10:40
PROVIDERS: PCP Internal Medicine; Visit Provider Psychiatry & Neurology Psychiatry
DX: Z79.899 Other long term (current) drug therapy (principal)
CPT/HCPCS: 80307

== ENCOUNTER 2022-08-07 15:34 | Emergency (ER) | payer OTHER, SELFPAY ==
[2022-08-07 15:59] VITALS: BP 148/99; BP 154/98; PULSE 140; PULSE 76; PULSE 91; RESP 17; RESP 20; TEMP 36.8; TEMP 36.9; O2SAT 100; O2SAT 96; O2SAT 97; BMI 40.7
--- NOTE | 2022-08-07 16:39 | ED_ITS ---
HPI - General Adult General Chief complaint: Recheck/Abnormal Lab/Rx Stated complaint: HYPERTENTION Time Seen by Provider: 08/07/22 16:07 Source: patient Mode of arrival: EMS Limitations: no limitations History of Present Illness HPI narrative: Patient comes from a senior living complaining of hypertension. Patient states that he called 911 because he was concerned that his blood pressure was high. Just after he hung up with 911, he received a phone call from his pharmacy to let him know that his prescriptions for hypertension were available for apple picker. Patient states that he has no chest pain, no shortness of breath. Patient states that he feels well, denies SI or HI. Patient states that he has mild right arm pain, in the past he used to get gabapentin for it, requesting as prescription for the chronic pain. Denies numbness tingling, no loss of motor function. Related Data Home Medications Medication Instructions Recorded Confirmed chlorpromazine 100 mg tablet 1 tab PO BEDTIME 12/05/21 12/19/21 chlorpromazine 200 mg tablet 1 tab PO BEDTIME 12/05/21 12/19/21 clonidine HCl 0.2 mg tablet 1 tab PO BID 12/05/21 12/19/21 fluticasone propionate 100 1 inh inhalation BID 12/05/21 12/19/21 mcg/actuation blister powder for inhalation (Flovent Diskus) fluticasone propionate 50 1 spray intranasal BID 12/05/21 12/19/21 mcg/actuation nasal spray,suspension gabapentin 800 mg tablet 1 tab PO TID 12/05/21 12/19/21 hydrochlorothiazide 12.5 mg capsule 12.5 mg PO DAILY 12/05/21 12/19/21 oxcarbazepine 600 mg tablet 900 mg PO BID 12/05/21 12/19/21 vitamin B complex (Vitamins B 1 tab PO DAILY 12/05/21 12/19/21 Complex tablet) baclofen 10 mg tablet 10 mg PO TID PRN Muscle Spasm 12/19/21 12/19/21 chlorpromazine 25 mg tablet 25 mg PO DAILY PRN Anxiety 12/19/21 12/19/21 hydroxyzine HCl 50 mg tablet 50 mg PO BID PRN Itching 12/19/21 12/19/21 Previous Rx's Medication Instructions Recorded albuterol sulfate 90 mcg/actuation 2 puff inhalation Q4H PRN Wheezing 07/14/20 aerosol inhaler (Ventolin HFA) #1 g nicotine (polacrilex) 2 mg gum 4 mg buccal Q2H PRN Nicotine 07/14/20 Cravings #30 ea acetaminophen 500 mg tablet 500 mg PO Q6H PRN fever or pain 12/09/21 (Tylenol Extra Strength) #14 tabs gabapentin 100 mg capsule 100 mg PO BID #7 caps 08/07/22 Allergies Allergy/AdvReac Type Severity Reaction Status Date / Time mold [MOLD] Allergy Unknown UNKNOWN Verified 12/30/19 16:01 paliperidone [From Invega] Allergy Unknown Verified 12/30/19 16:01 amoxicillin [AMOXICILLIN] AdvReac Severe ANAPHYLAXIS Verified 12/30/19 16:01 azithromycin [AZITHROMYCIN] AdvReac Severe ANAPHYLAXIS Verified 12/30/19 16:01 Review of Systems Review of Systems: Constitutional : No Weight loss, No Fever, No Chills, No Night Sweats, No Fatigue, No Malaise ENT/Mouth : No Hearing loss, No Ear Pain, No Nasal Congestion, No Sinus Pain, No Hoarseness, No sore throat, No Rhinorrhea, No Swallowing Difficulty Eyes: No Eye Pain, No Swelling, No Redness, No Foreign Body, No Discharge, No Vision Changes Cardiovascular : No Chest Pain, No SOB, No Dyspnea on Exertion, No Orthopnea, No Edema, No Palpitations, complaining high blood pressure Respiratory : No Cough, No Sputum, No Wheezing, No Smoke Exposure, No Dyspnea Gastrointestinal : No Nausea, No Vomiting, No Diarrhea, No Constipation, No abdominal Pain, No Hematochezia, No Melena Genitourinary : no irregular bleeding, No Dysuria, No Urinary Frequency, No Hematuria, No Urinary Incontinence, No Urgency, No Flank Pain, No Urinary Flow Changes, No Hesitancy Musculoskeletal : No joint pain, No Myalgias, No Joint Swelling, complaining of acute on chronic right-sided arm pain/discomfort. Skin : No Skin Lesions, No rash Neuro : No Weakness, No Numbness, No Paresthesias, No Loss of Consciousness, No Dizziness, No Headache Psych : No Anxiety/Panic, No Depression, No SI/HI/AH/VH, No Social Issues, Heme/Lymph: No Bruising, No Bleeding,No Lymphadenopathy Endocrine : No Polyuria, No Polydipsia, No Temperature Intolerance PMFSH Past Medical History Medical History Anxiety Anxiety HTN (hypertension) Schizoaffective disorder, bipolar type Schizophrenia Tinnitus Social History Social History Household Members: Other Household Members Other:: senior living Housing: Other Housing Other:: senior living Do you presently have visiting nurse or other home services: No Alcohol intake: current Patient Tobacco Use Status: Current everyday Tobacco user Tobacco use type: Cigarette Cigarette Packs Per Day: 0.5 Cigarettes Per Day: 7.0 Years Smoked: 8 e-Cigarette/Vaping Use: Currently Using Second Hand Smoke Exposure: Yes Substance Use Type: Crack/Cocaine service: No Sexual orientation: Straight/Heterosexual Physical Exam ED Vital Signs: Vital Signs - 24 hr 08/07/22 15:59 08/07/22 15:59 Temperature 98.5 F 98.3 F Pulse Rate 76 91 Respiratory Rate 20 17 Blood Pressure 154/98 H 154/98 H Pulse Oximetry 100 96 Oxygen Delivery Method Room Air Room Air BMI result Body Mass Index 40.7 Const Other: Appearance: Alert. Oriented X3. No acute distress. Eyes: Pupils equal, round and reactive to light. ENT: Pharynx normal. Neck: Normal inspection. Neck supple. No lymph nodes noted. No crepitus CVS: Normal heart rate and rhythm. Pulses normal. Normal S1 and S2 Respiratory: No respiratory distress. Breath sounds normal. No Wheezing. No rales Abdomen: Soft and nontender. No rigidity. No distention. Skin: Skin warm and dry. Normal skin color. Normal skin turgor. Extremities: No lower extremity edema. No Lacerations. No Rash Neuro: Oriented X 3. No motor deficit. No sensory deficit. Moving all extremities. No slurred speech. CN 2 through 12 grossly intact Psych: calm, cooperative, normal affect Medical Decision Making Medical Decision Making MDM Narrative: Patient's blood pressure 154/98, asymptomatic. Patient missed several doses of clonidine 0.2 mg. Patient did take hydrochlorothiazide this morning. Patient was given clonidine 0.2 mg today. Discharge Plan Discharge Clinical Impression: Hypertension, Arm pain Patient Disposition: Home, Self-Care Instructions: Chronic Hypertension (DC), Arm Pain (ED) Additional Instructions: Please follow-up with your primary care physician tomorrow. If you have any worsening or new symptoms, please return to the emergency room or call 911 Prescriptions: New gabapentin 100 mg capsule 100 mg PO BID Qty: 7 0RF No Action nicotine (polacrilex) 2 mg Gum 4 mg buccal Q2H PRN (Reason: Nicotine Cravings) Qty: 30 0RF albuterol sulfate [Ventolin HFA] 90 mcg/actuation Hfa Aerosol Inhaler 2 puff inhalation Q4H PRN (Reason: Wheezing) Qty: 1 0RF clonidine HCl 0.2 mg tablet 1 tab PO BID gabapentin 800 mg tablet 1 tab PO TID hydrochlorothiazide 12.5 mg capsule 12.5 mg PO DAILY oxcarbazepine 600 mg tablet 900 mg PO BID vitamin B complex [Vitamins B Complex] Tablet 1 tab PO DAILY chlorpromazine 200 mg tablet 1 tab PO BEDTIME fluticasone propionate 50 mcg/actuation spray,suspension 1 spray intranasal BID chlorpromazine 100 mg tablet 1 tab PO BEDTIME Flovent Diskus 100 mcg/actuation blister with device 1 inh inhalation BID acetaminophen [Tylenol Extra Strength] 500 mg tablet 500 mg PO Q6H PRN (Reason: fever or pain) Qty: 14 0RF chlorpromazine 25 mg Tablet 25 mg PO DAILY PRN (Reason: Anxiety) hydroxyzine HCl [Atarax] 50 mg Tablet 50 mg PO BID PRN (Reason: Itching) baclofen 10 mg Tablet 10 mg PO TID PRN (Reason: Muscle Spasm)
[2022-08-07] MEDS: cloNIDine HCL 0.2 MG TABLET PO (16:48)
== END 2022-08-07 16:51 | disposition home or self-care (01) ==
LOC: HO.ED 16:49
PROVIDERS: Emergency Provider Emergency Medicine
DX: M79.602 Pain in left arm (principal); M79.601 Pain in right arm; I10 Essential (primary) hypertension; F17.210 Nicotine dependence, cigarettes, uncomplicated; Z71.6 Tobacco abuse counseling
CPT/HCPCS: 99283; 99284

== ENCOUNTER 2022-10-02 09:18 | Outpatient (REF) | payer OTHER, SELFPAY ==
[2022-10-02 11:20] LABS: Amphetamine Screen Urine Not Detected (Not Detect); Barbiturates, Urine Not Detected (Not Detect); Benzodiazepines Screen Urine Not Detected (Not Detect); Cannabinoid Screen Urine POSITIVE (Not Detect); Cocaine Screen Urine Not Detected (Not Detect); Fentanyl, urine Not Detected (Not Detect); Opiate Screen Urine Not Detected (Not Detect); Phencyclidine Screen Urine Not Detected (Not Detect)
== END 2022-10-02 09:19 | disposition home or self-care (01) ==
LOC: HO.LAB 09:18
PROVIDERS: PCP Internal Medicine; Visit Provider Psychiatry & Neurology Psychiatry
DX: F19.10 Other psychoactive substance abuse, uncomplicated (principal); Z79.899 Other long term (current) drug therapy
CPT/HCPCS: 80307

== ENCOUNTER 2023-07-16 19:30 | Emergency (ER) | payer OTHER, SELFPAY ==
[2023-07-16 19:35] VITALS: BP 190/88; PULSE 110; O2SAT 96
[2023-07-16 19:55] VITALS: BP 173/77; PULSE 105; RESP 16; TEMP 36.9; O2SAT 96
--- NOTE | 2023-07-16 19:57 | ED.GENADULT ---
HPI - General Adult General Chief complaint: Anxiety Stated complaint: off meds, diaphoretic, HTN, Time Seen by Provider: 07/16/23 19:49 History of Present Illness HPI narrative: 28 y/o M patient; PMH schizoaffective disorder, bipolar type 1, HTN, anxiety; presents from home reporting palpitations. He states he has been off of his Clonidine and Zoloft for the last 6 days. He has a new prescription for Zoloft due to be delivered to the patient tomorrow 07/17/2023. However he states his PCP has informed him that he will no longer be prescribing the Clonidine as he would prefer he be on an ACEI for his high blood pressure. The patient is upset by this information. He states he called the insurance company who recommended he call EMS to get a prescription through the emergency department. The patient denies: chest pain, shortness of breath, nausea/vomiting, diarrhea, headache. Related Data Home Medications ?Medication ?Instructions ?Recorded ?Confirmed chlorpromazine 100 mg tablet 1 tab PO BEDTIME 12/05/21 12/19/21 chlorpromazine 200 mg tablet 1 tab PO BEDTIME 12/05/21 12/19/21 clonidine HCl 0.2 mg tablet 1 tab PO BID 12/05/21 12/19/21 fluticasone propionate 100 1 inh inhalation BID 12/05/21 12/19/21 mcg/actuation blister powder for inhalation (Flovent Diskus) fluticasone propionate 50 1 spray intranasal BID 12/05/21 12/19/21 mcg/actuation nasal spray,suspension gabapentin 800 mg tablet 1 tab PO TID 12/05/21 12/19/21 hydrochlorothiazide 12.5 mg capsule 12.5 mg PO DAILY 12/05/21 12/19/21 oxcarbazepine 600 mg tablet 900 mg PO BID 12/05/21 12/19/21 vitamin B complex (Vitamins B 1 tab PO DAILY 12/05/21 12/19/21 Complex tablet) baclofen 10 mg tablet 10 mg PO TID PRN Muscle Spasm 12/19/21 12/19/21 chlorpromazine 25 mg tablet 25 mg PO DAILY PRN Anxiety 12/19/21 12/19/21 hydroxyzine HCl 50 mg tablet 50 mg PO BID PRN Itching 12/19/21 12/19/21 Previous Rx's ?Medication ?Instructions ?Recorded albuterol sulfate 90 mcg/actuation 2 puff inhalation Q4H PRN Wheezing 07/14/20 aerosol inhaler (Ventolin HFA) #1 g nicotine (polacrilex) 2 mg gum 4 mg buccal Q2H PRN Nicotine 07/14/20 Cravings #30 ea acetaminophen 500 mg tablet 500 mg PO Q6H PRN fever or pain 12/09/21 (Tylenol Extra Strength) #14 tabs gabapentin 100 mg capsule 100 mg PO BID #7 caps 08/07/22 Allergies Allergy/AdvReac Type Severity Reaction Status Date / Time mold [MOLD] Allergy Unknown UNKNOWN Verified 07/16/23 20:04 paliperidone [From Invega] Allergy Unknown Verified 07/16/23 20:04 amoxicillin [AMOXICILLIN] AdvReac Severe ANAPHYLAXIS Verified 07/16/23 20:04 azithromycin [AZITHROMYCIN] AdvReac Severe ANAPHYLAXIS Verified 07/16/23 20:04 Review of Systems Review of Systems: Yes all other systems are reviewed and are negative Neurologic: Denies Abnormal speech present and Reports Sensory deficit (Neuro) [facility] Past Medical History Attestation statement: The following information was validated with the patient. Source: old records reviewed Medical History Anxiety Schizoaffective disorder, bipolar type HTN (hypertension) Tinnitus Anxiety Schizophrenia Social History Social History Household Members: Other Household Members Other:: half-way Housing: Other Housing Other:: half-way Do you presently have visiting nurse or other home services: No Alcohol intake: current Comment: asleep Patient Tobacco Use Status: Current everyday Tobacco user Tobacco use type: Cigarette Cigarette Packs Per Day: 0.5 Cigarettes Per Day: 7.0 Years Smoked: 8 e-Cigarette/Vaping Use: Currently Using Second Hand Smoke Exposure: Yes Substance Use Type: Crack/Cocaine Advance Directives: No Advance Directives Information Provided: No service: No Sexual orientation: Straight/Heterosexual Physical Exam ED Vital Signs: Vital Signs - 24 hr 07/16/23 19:55 Temperature 98.5 F Pulse Rate 105 H Respiratory Rate 16 Blood Pressure 173/77 H Pulse Oximetry 96 Oxygen Delivery Method Room Air BMI result Body Mass Index 40.7 Patient is afebrile, mildly tachycardic, mildly hypertensive Const General: cooperative Orientation/consciousness: patient oriented x3 HENMT Head: Yes normal to inspection and Yes atraumatic Eyes General: appearance normal, both eyes and all related structures Pupils: Equal, round and reactive pupils present EOM: EOMs intact bilaterally Neck Neck: Yes normal visual inspection, Yes full ROM, Yes supple and No tender Chest Chest palpation & inspection: normal inspection of the chest and normal palpation of entire chest wall Resp Effort & Inspection: normal respiratory effort, able to speak in complete sentences, no cough and no respiratory distress Auscultation: clear to auscultation bilaterally Cardio Rate: regular rate Rhythm: regular rhythm Peripheral pulses: Peripheral pulses 2+ throughout GI Palpation (GI): Soft to palpation, not firm, nontender, no guarding and not rigid Auscultation: normal bowel sounds Neuro General: patient oriented x3 and gait normal Cranial nerves: Yes Equal, round and reactive pupils present Cognition (Neuro): normal cognition Speech: No Abnormal speech present Motor exam (neuro): 5/5 motor strength present throughout Sensory Exam: Sensory deficit (Neuro) Course Course Course Narrative: Patient is afebrile, mildly tachycardic and mildly hypertensive. EKG ordered. Discussed with patient that if his PCP will not prescribe him Clonidine, the emergency department also cannot prescribe a medication that his PCP is not recommending. Encouraged patient to follow up with his PCP for further discussion of his options. Offered to prescribe one time dose of Clonidine and Zoloft. Patient is agreeable. EKG with ST 106BPM without ischemic changes. Plan: Discharge to home with PCP follow up Return precautions given Discharge Plan Discharge Clinical Impression: Heart palpitations Patient Disposition: Home, Self-Care Instructions: Heart Palpitations (DC) Additional Instructions: As we discussed, you were seen today for a medication refill and for palpitations of your heart. Your EKG was reassuring. You were prescribed a one time dose of your Zoloft and Clonidine, however you need to follow up with your PCP for further re-fills. Return to the emergency department for: Chest pain Difficulty breathing Thoughts of harming yourself or others Prescriptions: No Action nicotine (polacrilex) 2 mg Gum 4 mg buccal Q2H PRN (Reason: Nicotine Cravings) Qty: 30 0RF albuterol sulfate [Ventolin HFA] 90 mcg/actuation Hfa Aerosol Inhaler 2 puff inhalation Q4H PRN (Reason: Wheezing) Qty: 1 0RF clonidine HCl 0.2 mg tablet 1 tab PO BID gabapentin 800 mg tablet 1 tab PO TID hydrochlorothiazide 12.5 mg capsule 12.5 mg PO DAILY oxcarbazepine 600 mg tablet 900 mg PO BID vitamin B complex [Vitamins B Complex] Tablet 1 tab PO DAILY chlorpromazine 200 mg tablet 1 tab PO BEDTIME fluticasone propionate 50 mcg/actuation spray,suspension 1 spray intranasal BID chlorpromazine 100 mg tablet 1 tab PO BEDTIME Flovent Diskus 100 mcg/actuation blister with device 1 inh inhalation BID acetaminophen [Tylenol Extra Strength] 500 mg tablet 500 mg PO Q6H PRN (Reason: fever or pain) Qty: 14 0RF chlorpromazine 25 mg Tablet 25 mg PO DAILY PRN (Reason: Anxiety) hydroxyzine HCl [Atarax] 50 mg Tablet 50 mg PO BID PRN (Reason: Itching) baclofen 10 mg Tablet 10 mg PO TID PRN (Reason: Muscle Spasm) gabapentin 100 mg capsule 100 mg PO BID Qty: 7 0RF Print Language: Setswana
[2023-07-16 20:02] VITALS: BMI 40.7
--- NOTE | 2023-07-16 20:15 | ECG_ITS ---
Test Reason : palpitations Blood Pressure : / mmHG Vent. Rate : 106 BPM Atrial Rate : 106 BPM P-R Int : 150 ms QRS Dur : 086 ms QT Int : 328 ms P-R-T Axes : 053 090 028 degrees QTc Int : 435 ms Sinus tachycardia Rightward axis Borderline ECG When compared with ECG of 02-JAN-2021 09:52, Vent. rate has increased BY 46 BPM Referred By: Janine Guillermo Electronically Signed By:TUYET LOFTON
[2023-07-16] MEDS: cloNIDine HCL 0.2 MG TABLET PO (20:32)
[2023-07-16] MEDS: Sertraline HCL 50 MG TABLET PO (20:33)
[2023-07-16 20:39] VITALS: BP 169/74; PULSE 99; RESP 16; TEMP 36.8; O2SAT 98
== END 2023-07-16 20:39 | disposition home or self-care (01) ==
PROVIDERS: Emergency Provider Emergency Medicine; PCP Internal Medicine
DX: R00.2 Palpitations (principal)
CPT/HCPCS: 93005; 99283; 99284

== ENCOUNTER → 2023-07-16 20:15 | Outpatient (BNV) | payer OTHER, SELFPAY | PROVIDERS: Emergency Provider Emergency Medicine; PCP Internal Medicine; Visit Provider Internal Medicine | DX: R00.2 Palpitations (principal) | CPT/HCPCS: 93010 ==

== ENCOUNTER 2023-10-30 10:21 | Outpatient (REF) | payer OTHER, SELFPAY ==
[2023-10-30 10:52] LABS: MANUAL DIFF FLAG NO
[2023-10-30 11:33] LABS: Basophils Absolute Auto 0.1 X10*3/uL (0.0-0.2); Basophils Percent Auto 0.6 % (0-2); Eosinophils Absolute Auto 0.3 X10*3/uL (0.0-0.4); Eosinophils Percent Auto 3.9 % (0-4); Hematocrit 45.8 % (42.0-52.0); Imm Gran Abs Auto 0.05 X10*3/uL (0.00-0.03); Imm Gran Pct Auto 0.6 % (0.0-0.4); Lymphocytes Absolute Auto 1.7 X10*3/uL (1.2-4.9); Lymphocytes Percent Auto 20.9 % (20-40); Mean Corpuscular HGB Conc 32.8 g/dl (31.0-36.0); Mean Corpuscular Hemoglobin 25.6 pg (27.0-33.0); Mean Corpuscular Volume 78.3 fL (80.0-98.0); Mean Platelet Volume 9.9 fL (9.4-12.4); Monocytes Absolute Auto 0.9 X10*3/uL (0.1-1.2); Monocytes Percent Auto 11.2 % (2-11); Neutrophils Absolute Auto 5.1 x10*3/uL (2.0-8.3); Neutrophils Percent Auto 62.8 % (45-73); Platelet Count 199 X10*3/uL (160-400); Red Blood Count 5.85 X10*6/uL (4.60-5.80); White Blood Count 8.1 X10*3/uL (4.8-10.8)
[2023-10-30 11:39] LABS: Estimated Average Glucose 108 mg/dL; Hemoglobin A1c % 5.4 % (<6.0)
[2023-10-30 12:27] LABS: Alanine Aminotransferase 55 U/L (0-40); Albumin Level 4.1 g/dL (3.5-5.0); Alkaline Phosphatase 85 U/L (39-117); Anion Gap 12 (12-20); Aspartate Amino Transferase 29 U/L (5-37); Bilirubin Total 0.2 mg/dL (0.0-1.0); Blood Urea Nitrogen 12 mg/dL (9-16); Calcium 9.9 mg/dL (8.4-10.2); Carbon Dioxide 26 mmol/L (22-29); Chloride 105 mmol/L (96-108); Cholesterol 177 mg/dL (<200); Estimated Glomerular Filt Rate > 60; Glucose Random 82 mg/dL (60-115); HDL Cholesterol 33 mg/dL (>40); LDL Cholesterol Calculated 117 mg/dL (<100); Potassium 3.7 mmol/L (3.3-5.1); Sodium 139 mmol/L (135-145); Total Protein 7.5 g/dL (6.5-8.0); Triglycerides 135 mg/dL (<150)
[2023-10-30 12:36] LABS: Thyroid Stimulating Hormone 3.82 uIU/mL (0.32-4.0)
== END 2023-10-30 10:22 | disposition home or self-care (01) ==
LOC: HO.LAB 10:21
PROVIDERS: PCP Internal Medicine; Visit Provider Nurse Practitioner Family
DX: F25.0 Schizoaffective disorder, bipolar type (principal); Z13.1 Encounter for screening for diabetes mellitus
CPT/HCPCS: 36415; 80053; 80061; 83036; 84443; 85025